=== PATIENT | male | born 1980 | race American Indian/Alaskan Native ===

== ENCOUNTER 2018-10-18 22:13 | Inpatient (IN) | payer MEDICAID ==
--- NOTE | 2018-10-18 22:23 | EDM.PDOC ---
ED HPI GENERAL MEDICAL PROBLEM - General Chief Complaint: Lower Extremity Injury/Pain Stated Complaint: TOES AMPUTATED, BLEEDING Time Seen by Provider: 10/18/18 22:22 Source of Information: Reports: Patient, RN History Limitations: Reports: No Limitations - History of Present Illness INITIAL COMMENTS - FREE TEXT/NARRATIVE: Toes amputated in GF around 10/13 patient unsure date, discharged yesterday. Increased pain , has been weight bearing trying to get up the stairs to bathroom. Stated "had" one crutch at one time, doesn't have assistive device at present. Was C/O bleeding tonight in foot since walking on it. has not gotten antibiotic since discharge. Discharged with plan for [place]. Noted they called today but phone and when could get back to them office was closed. Only taking ibuprofen for pain and not helping. Right Foot Pain Score (Numeric/FACES): 10 - Related Data Allergies Allergy/AdvReac Type Severity Reaction Status Date / Time No Known Allergies Allergy Verified 10/19/18 00:24 Home Meds: Home Meds levETIRAcetam [Keppra] 500 mg PO BID 08/22/18 [History] Aspirin [Halfprin] 81 mg PO DAILY 08/23/18 [History] Insulin Aspart [NovoLOG] 13 units SQ TIDMEALS 08/23/18 [History] Lisinopril 10 mg PO DAILY 08/23/18 [History] atorvaSTATin Calcium [Atorvastatin Calcium] 20 mg PO DAILY 08/23/18 [History] Acetaminophen 650 mg PO Q6HR PRN 10/19/18 [History] Acetaminophen with Codeine [Tylenol with Codeine #3 Tablet] 1 tab PO Q6H PRN 07/02 [History] Ertapenem [INVanz] 1 gm IV Q24H 10/19/18 [History] Gabapentin [Neurontin] 300 mg PO TID 10/19/18 [History] Ibuprofen 200 mg PO Q6HR PRN 10/19/18 [History] Insulin NPH Hum/Reg Insulin Hm [Humulin 70-30] 10 unit SQ BEDTIME 10/19/18 [ History] Past Medical History - Past Health History Medical/Surgical History: Denies Medical/Surgical History HEENT History: Reports: Impaired Vision, Other (See Below) Other HEENT History: waiting to repair retina Musculoskeletal History: Reports: Amputation Neurological History: Reports: Neuropathy, Diabetic, Seizure Endocrine/Metabolic History: Reports: Diabetes, Type I - Infectious Disease History Infectious Disease History: Reports: Chicken Pox - Past Surgical History Musculoskeletal Surgical History: Reports: Amputation Other Musculoskeletal Surgeries/Procedures:: rt great toe amputation 08-22-18 Social & Family History - Family History Family Medical History: Noncontributory - Caffeine Use Caffeine Use: Reports: Coffee Review of Systems - Review of Systems Review Of Systems: See Below Constitutional: Denies: Fever Eyes: Reports: No Symptoms Ears: Reports: No Symptoms Nose: Reports: No Symptoms Mouth/Throat: Reports: No Symptoms Respiratory: Reports: No Symptoms Cardiovascular: Reports: No Symptoms GI/Abdominal: Reports: No Symptoms. Denies: Decreased Appetite Musculoskeletal: Reports: Foot Pain (right) Skin: Reports: Wound (right foot surgical wound) Neurological: Reports: No Symptoms, Seizure (hx) Psychiatric: Reports: No Symptoms ED EXAM, GENERAL - Physical Exam Exam: See Below Exam Limited By: No Limitations General Appearance: Alert, Moderate Distress Eye Exam: Bilateral Eye: EOMI Ears: Normal External Exam, Hearing Grossly Normal Nose: Normal Inspection Throat/Mouth: Normal Inspection Head: Atraumatic, Normocephalic Neck: Normal Inspection Respiratory/Chest: No Respiratory Distress, Lungs Clear, Normal Breath Sounds Cardiovascular: Regular Rate, Rhythm, Tachycardia GI/Abdominal: Normal Bowel Sounds, Soft Back Exam: Full Range of Motion Extremities: Normal Range of Motion, Pedal Edema (right), Increased Warmth, Redness, Other (recent amputation toes right foot, seperation of wound bed around sutures, weeping, bloody yellow drainage. swelling to mid calf, redness forefoot ) Neurological: Alert, Oriented, Normal Cognition Psychiatric: Anxious Skin Exam: Warm, Erythema, Increased Warmth Course - Vital Signs Last Recorded V/S: Last Vital Signs Temp 98.4 F 10/18/18 23:48 Pulse 87 10/18/18 23:48 Resp 18 10/18/18 23:48 BP 119/72 10/18/18 23:48 Pulse Ox 99 10/18/18 23:48 - Orders/Labs/Meds Orders: Active Orders 24 hr Category Date Time Status CULTURE BLOOD [BC] Stat Lab 10/18/18 22:50 Received CULTURE BLOOD [BC] Stat Lab 10/18/18 23:45 Received Blood Culture x2 Reflex Set [OM.PC] Stat Oth 10/18/18 22:34 Ordered Medication Orders Acetaminophen (Tylenol) 650 mg PO Q4H PRN PRN Reason: Pain (Mild 1-3)/fever Hydrocodone Bitart/Acetaminophen ([place] 325-10 Mg) 1 tab PO Q4H PRN PRN Reason: Pain (moderate 4-6) Aspirin (Halfprin) 81 mg PO DAILY [facility] Atorvastatin Calcium (Lipitor) 20 mg PO DAILY [facility] Gabapentin (Neurontin) 300 mg PO TID [facility] Heparin Sodium (Porcine) (Heparin Sodium) 5,000 units SUBCUT Q8HR [facility] Ertapenem 1 gm/ Sodium (Chloride) 50 mls @ 50 mls/hr IV Q24H [facility] Last Admin: 10/19/18 01:14 Dose: 50 mls/hr Insulin Human Lispro (Humalog) 0 unit SUBCUT ACBED GENE; Protocol Insulin NPH Beef/Pork (Humulin 70-30) 10 unit SQ BEDTIME [facility] Levetiracetam (Keppra) 500 mg PO BID [facility] Lisinopril (Prinivil) 10 mg PO DAILY [facility] Morphine Sulfate (Morphine) 1 mg IVPUSH Q2H PRN PRN Reason: Pain (severe 7-10) Last Admin: 10/19/18 00:49 Dose: 1 mg Ondansetron HCl (Zofran Odt) 4 mg PO Q6H PRN PRN Reason: nausea, able to take PO Sodium Chloride (Saline Flush) 10 ml FLUSH ASDIRECTED [facility] Zolpidem Tartrate (Ambien) 5 mg PO BEDTIME PRN PRN Reason: Sleep Last Admin: 10/19/18 00:51 Dose: 5 mg Labs: Laboratory Tests 10/18/18 10/18/18 10/18/18 Range/Units 22:50 22:50 22:50 WBC Cancelled RBC Cancelled Hgb Cancelled Hct Cancelled MCV Cancelled MCH Cancelled MCHC Cancelled Plt Count Cancelled Neut % (Auto) (42.2-75.2) % Lymph % (Auto) (20.5-50.1) % [place] % (Auto) (2-8) % Eos % (Auto) (1.0-3.0) % Baso % (Auto) (0.0-1.0) % Sodium 137 (135-145) mmol/L Potassium 3.9 (3.6-5.0) mmol/L Chloride 101 (101-111) mmol/L Carbon Dioxide 24.0 (21.0-31.0) mmol/L Anion Gap 15.9 BUN 28 H (7-18) mg/dL Creatinine 0.8 (0.6-1.3) mg/dL Est Cr Clr Drug Dosing 136.07 mL/min Estimated GFR (MDRD) > 60 BUN/Creatinine Ratio 35.00 Glucose 222 H (74-105) mg/dL Lactic Acid 2.4 H (0.5-2.2) mmol/L Calcium 8.9 (8.4-10.2) mg/dl Total Bilirubin 0.5 (0.2-1.0) mg/dL AST 64 H (10-42) IU/L ALT 103 H (10-60) IU/L Alkaline Phosphatase 119 (42-121) IU/L Total Protein 8.2 (6.7-8.2) g/dl Albumin 3.8 (3.2-5.5) g/dl Globulin 4.4 Albumin/Globulin Ratio 0.86 10/18/18 Range/Units 22:50 WBC 12.1 H RBC 4.96 Hgb 13.4 L Hct 40.8 MCV 82.3 MCH 27.0 MCHC 32.8 L Plt Count 276 Neut % (Auto) 61.4 (42.2-75.2) % Lymph % (Auto) 24.0 (20.5-50.1) % [place] % (Auto) 12.1 H (2-8) % Eos % (Auto) 2.3 (1.0-3.0) % Baso % (Auto) 0.2 (0.0-1.0) % Sodium (135-145) mmol/L Potassium (3.6-5.0) mmol/L Chloride (101-111) mmol/L Carbon Dioxide (21.0-31.0) mmol/L Anion Gap BUN (7-18) mg/dL Creatinine (0.6-1.3) mg/dL Est Cr Clr Drug Dosing mL/min Estimated GFR (MDRD) BUN/Creatinine Ratio Glucose (74-105) mg/dL Lactic Acid (0.5-2.2) mmol/L Calcium (8.4-10.2) mg/dl Total Bilirubin (0.2-1.0) mg/dL AST (10-42) IU/L ALT (10-60) IU/L Alkaline Phosphatase (42-121) IU/L Total Protein (6.7-8.2) g/dl Albumin (3.2-5.5) g/dl Globulin Albumin/Globulin Ratio Meds: Medications Generic Name Dose Route Start Last Admin Trade Name Freq PRN Reason Stop Dose Admin Acetaminophen 650 mg 10/19/18 00:22 Tylenol PO Q4H PRN Pain (Mild 1-3)/fever Hydrocodone Bitart/Acetaminophen 1 tab 10/19/18 00:22 [place] 325-10 Mg PO Q4H PRN Pain (moderate 4-6) Aspirin 81 mg 10/19/18 09:00 Halfprin PO DAILY [facility] Atorvastatin Calcium 20 mg 10/19/18 09:00 Lipitor PO DAILY [facility] Gabapentin 300 mg 10/19/18 09:00 Neurontin PO TID [facility] Heparin Sodium (Porcine) 5,000 units 10/19/18 06:00 Heparin Sodium SUBCUT Q8HR [facility] Ertapenem 1 gm/ Sodium 50 mls @ 50 mls/hr 10/19/18 01:00 10/19/18 01:14 Chloride IV 50 mls/hr Q24H [facility] Administration Insulin Human Lispro 0 unit 10/19/18 07:00 Humalog SUBCUT ACBED [facility] Protocol Insulin NPH Beef/Pork 10 unit 10/19/18 21:00 Humulin 70-30 SQ BEDTIME [facility] Levetiracetam 500 mg 10/19/18 09:00 Keppra PO BID [facility] Lisinopril 10 mg 10/19/18 09:00 Prinivil PO DAILY [facility] Morphine Sulfate 1 mg 10/19/18 00:22 10/19/18 00:49 Morphine IVPUSH 1 mg Q2H PRN Administration Pain (severe 7-10) Ondansetron HCl 4 mg 10/19/18 00:22 Zofran Odt PO Q6H PRN nausea, able to take PO Sodium Chloride 10 ml 10/19/18 00:45 Saline Flush FLUSH ASDIRECTED [facility] Zolpidem Tartrate 5 mg 10/19/18 00:22 10/19/18 00:51 Ambien PO 5 mg BEDTIME PRN Administration Sleep Discontinued Medications Generic Name Dose Route Start Last Admin Trade Name Freq PRN Reason Stop Dose Admin Ketorolac Tromethamine 30 mg 10/18/18 22:33 10/18/18 22:48 Toradol IM 10/18/18 22:34 30 mg ONETIME ONE Administration Non-Formulary Medication 1 gm 10/19/18 00:30 10/19/18 01:03 Ertapenem [Invanz] IV Not Given Q24H [facility] Oxycodone/Acetaminophen 1 tab 10/18/18 22:44 10/18/18 22:48 Percocet 325-5 Mg PO 10/18/18 22:45 1 tab ONETIME ONE Administration - Re-Assessments/Exams Free Text/Narrative Re-Assessment/Exam: 10/18/18 23:40 Patient states no plan to go to [facility] , car broke down and no way to get there. Did not pick any medications up at [facility]. Notes told in GF that he did not need to take long acting insulin anymore. Did not pick any medications up on discharge. Stated he tried [facility] today. States unaware that any Rx at [facility]. 10/18/18 23:43 Dr. Pierce accepting patient for admission. Departure - Departure Time of Disposition: 22:55 Disposition: Admitted As Inpatient 65 Condition: Fair Clinical Impression: Hyperglycemia Osteomyelitis Qualifiers: Osteomyelitis type: subacute Osteomyelitis location: foot Laterality: right Qualified Code(s): M86.271 - Subacute osteomyelitis, right ankle and foot - Discharge Information *PRESCRIPTION DRUG MONITORING PROGRAM REVIEWED*: No *COPY OF PRESCRIPTION DRUG MONITORING REPORT IN PATIENT LAURENCE: No - My Orders Last 24 Hours: My Active Orders 10/18/18 22:34 Blood Culture x2 Reflex Set [OM.PC] Stat 10/18/18 22:50 CULTURE BLOOD [BC] Stat 10/18/18 23:45 CULTURE BLOOD [BC] Stat - Assessment/Plan Last 24 Hours: My Active Orders 10/18/18 22:34 Blood Culture x2 Reflex Set [OM.PC] Stat 10/18/18 22:50 CULTURE BLOOD [BC] Stat 10/18/18 23:45 CULTURE BLOOD [BC] Stat
[2018-10-18] MEDS ORDERED: Ketorolac 30 MG/ML SDV IM ONE (22:33)
[2018-10-18] MEDS ORDERED: Acetaminophen/oxyCODONE 325-5 MG Tab PO ONE (22:44)
[2018-10-18 23:17] LABS: ANION GAP 15.9; CHLORIDE,CL 101 mmol/L (101-111); SODIUM,NA 137 mmol/L (135-145)
[2018-10-19] MEDS ORDERED: Morphine 2 MG/ML Syringe IVPUSH PRN (00:22)
[2018-10-19] MEDS ORDERED: Acetaminophen 325 MG Tab PO PRN (00:22)
[2018-10-19] MEDS ORDERED: Ondansetron 4 MG Tab.DIS PO PRN (00:22)
[2018-10-19] MEDS ORDERED: Non-Formulary Medication 1 Each (Ertapenem [Invanz] 1 GM) IV SCH (00:30)
--- NOTE | 2018-10-19 00:32 | PCM.HP ---
H&P History of Present Illness - General Date of Service: 10/19/18 Admit Problem/Dx: Admission Diagnosis/Problem Admission Diagnosis/Problem Osteomyelitis of foot Source of Information: Patient - History of Present Illness Initial Comments - Free Text/Narative: The patient is a 38-year-old gentleman with a history of diabetes. He had right foot osteomyelitis requiring surgery. Subsequently was on IV antibiotic with Zosyn. The patient was readmitted to acute care with cellulitis, osteomyelitis. Underwent amputation by podiatry Was followed by infectious disease specialist and that treatment with IV ertapenem was suggested. This was set up as an outpatient therapy. The patient never got to forego where he was supposed to get the IV therapies He came to the emergency room with complaints of bleeding from the amputation site. He continues to have moderate to severe pain in the area. Worse with walking on it. No fever. Associated mild bleeding from the surgical wound. Right Foot Pain Score (Numeric/FACES): 10 - Related Data Allergies/Adverse Reactions: Allergies Allergy/AdvReac Type Severity Reaction Status Date / Time No Known Allergies Allergy Verified 10/19/18 00:24 Home Medications: Home Meds levETIRAcetam [Keppra] 500 mg PO BID 08/22/18 [History] Aspirin [Halfprin] 81 mg PO DAILY 08/23/18 [History] Insulin Aspart [NovoLOG] 13 units SQ TIDMEALS 08/23/18 [History] Lisinopril 10 mg PO DAILY 08/23/18 [History] atorvaSTATin Calcium [Atorvastatin Calcium] 20 mg PO DAILY 08/23/18 [History] Acetaminophen 650 mg PO Q6HR PRN 10/19/18 [History] Acetaminophen with Codeine [Tylenol with Codeine #3 Tablet] 1 tab PO Q6H PRN 07/02 [History] Ertapenem [INVanz] 1 gm IV Q24H 10/19/18 [History] Gabapentin [Neurontin] 300 mg PO TID 10/19/18 [History] Ibuprofen 200 mg PO Q6HR PRN 10/19/18 [History] Insulin NPH Hum/Reg Insulin Hm [Humulin 70-30] 10 unit SQ BEDTIME 10/19/18 [ History] Past Medical History - Past Health History Medical/Surgical History: Denies Medical/Surgical History HEENT History: Reports: Impaired Vision, Other (See Below) Other HEENT History: waiting to repair retina Musculoskeletal History: Reports: Amputation Neurological History: Reports: Neuropathy, Diabetic, Seizure Endocrine/Metabolic History: Reports: Diabetes, Type I - Infectious Disease History Infectious Disease History: Reports: Chicken Pox - Past Surgical History Musculoskeletal Surgical History: Reports: Amputation Other Musculoskeletal Surgeries/Procedures:: rt great toe amputation 08-22-18 Social & Family History - Family History Family Medical History: Noncontributory - Tobacco Use Smoking Status *Q: Current Some Day Smoker Years of Tobacco use: 10 Packs/Tins Daily: 0.1 Used Tobacco, but Quit: No Second Hand Smoke Exposure: Yes - Caffeine Use Caffeine Use: Reports: Coffee - Recreational Drug Use Recreational Drug Use: No H&P Review of Systems - Review of Systems: Review Of Systems: See Below General: Denies: Fever, Chills Pulmonary: Denies: Shortness of Breath Cardiovascular: Reports: Edema (Mild in the right foot). Denies: Chest Pain Gastrointestinal: Denies: Abdominal Pain Genitourinary: Denies: Dysuria Psychiatric: Denies: Confusion Exam - Exam Exam: See Below - Vital Signs Vital Signs: Last Vital Signs Temp 36.9 C 10/18/18 23:48 Pulse 87 10/18/18 23:48 Resp 18 10/18/18 23:48 BP 119/72 10/18/18 23:48 Pulse Ox 99 10/18/18 23:48 Weight: 88.632 kg - Exam General: Alert, Oriented Neck: Supple Lungs: Clear to Auscultation, Normal Respiratory Effort Cardiovascular: Regular Rate, Regular Rhythm GI/Abdominal Exam: Normal Bowel Sounds, Soft, Non-Tender Extremities: Pedal Edema (Anna right foot edema) Skin: Warm, Other (Right foot with surgical site with small area of wound dehiscence. Small amount of bleeding. There is no significant redness around the wound.) - Patient Data Lab Results Last 24 hrs: Laboratory Results - last 24 hr 10/18/18 10/18/18 10/18/18 Range/Units 22:50 22:50 22:50 WBC Cancelled RBC Cancelled Hgb Cancelled Hct Cancelled MCV Cancelled MCH Cancelled MCHC Cancelled Plt Count Cancelled Neut % (Auto) (42.2-75.2) % Lymph % (Auto) (20.5-50.1) % [place] % (Auto) (2-8) % Eos % (Auto) (1.0-3.0) % Baso % (Auto) (0.0-1.0) % Sodium 137 (135-145) mmol/L Potassium 3.9 (3.6-5.0) mmol/L Chloride 101 (101-111) mmol/L Carbon Dioxide 24.0 (21.0-31.0) mmol/L Anion Gap 15.9 BUN 28 H (7-18) mg/dL Creatinine 0.8 (0.6-1.3) mg/dL Est Cr Clr Drug Dosing 136.07 mL/min Estimated GFR (MDRD) > 60 BUN/Creatinine Ratio 35.00 Glucose 222 H (74-105) mg/dL Lactic Acid 2.4 H (0.5-2.2) mmol/L Calcium 8.9 (8.4-10.2) mg/dl Total Bilirubin 0.5 (0.2-1.0) mg/dL AST 64 H (10-42) IU/L ALT 103 H (10-60) IU/L Alkaline Phosphatase 119 (42-121) IU/L Total Protein 8.2 (6.7-8.2) g/dl Albumin 3.8 (3.2-5.5) g/dl Globulin 4.4 Albumin/Globulin Ratio 0.86 10/18/18 Range/Units 22:50 WBC 12.1 H RBC 4.96 Hgb 13.4 L Hct 40.8 MCV 82.3 MCH 27.0 MCHC 32.8 L Plt Count 276 Neut % (Auto) 61.4 (42.2-75.2) % Lymph % (Auto) 24.0 (20.5-50.1) % [place] % (Auto) 12.1 H (2-8) % Eos % (Auto) 2.3 (1.0-3.0) % Baso % (Auto) 0.2 (0.0-1.0) % Sodium (135-145) mmol/L Potassium (3.6-5.0) mmol/L Chloride (101-111) mmol/L Carbon Dioxide (21.0-31.0) mmol/L Anion Gap BUN (7-18) mg/dL Creatinine (0.6-1.3) mg/dL Est Cr Clr Drug Dosing mL/min Estimated GFR (MDRD) BUN/Creatinine Ratio Glucose (74-105) mg/dL Lactic Acid (0.5-2.2) mmol/L Calcium (8.4-10.2) mg/dl Total Bilirubin (0.2-1.0) mg/dL AST (10-42) IU/L ALT (10-60) IU/L Alkaline Phosphatase (42-121) IU/L Total Protein (6.7-8.2) g/dl Albumin (3.2-5.5) g/dl Globulin Albumin/Globulin Ratio Result Diagrams: 10/18/18 22:50 10/18/18 22:50 - Problem List (1) Osteomyelitis of great toe of right foot SNOMED Code(s): 838510105, 152476270, [id number] ICD Code: M86.9 - OSTEOMYELITIS, UNSPECIFIED Status: Acute Current Visit : No (2) Seizure SNOMED Code(s): 64408430 ICD Code: R56.9 - UNSPECIFIED CONVULSIONS Status: Acute Current Visit: No (3) Uncontrolled type 2 diabetes mellitus SNOMED Code(s): 613982540, 496716653 ICD Code: E11.65 - TYPE 2 DIABETES MELLITUS WITH HYPERGLYCEMIA Status: Acute Current Visit: No Qualifiers: Glycemic state: with hyperglycemia Qualified Code(s): E11.65 - Type 2 diabetes mellitus with hyperglycemia Problem List Initiated/Reviewed/Updated: Yes Orders Last 24hrs: Active Orders 24 hr Category Date Time Status Admission Status [Patient Status] [ADT] Routine ADT 10/18/18 23:42 Active Blood Glucose Check, Bedside [RC] QIDACANDBED Care 10/19/18 00:22 Ordered Glucose [Blood Glucose Check, Bedside] [RC] ONETIME Care 10/18/18 22:59 Active Oxygen Therapy [RC] PRN Care 10/19/18 00:22 Ordered Up With Assistance [RC] ASDIRECTED Care 10/19/18 00:22 Ordered VTE/DVT Education [RC] PER UNIT ROUTINE Care 10/19/18 00:22 Ordered Vital Signs [RC] Q4H Care 10/19/18 00:22 Ordered Consistent Carbohydrate Diet [DIET] Diet 10/19/18 Breakfast Ordered BASIC METABOLIC PANEL,BMP [CHEM] AM Lab 10/19/18 05:11 Ordered CBC W/O DIFF,HEMOGRAM [HEME] AM Lab 10/19/18 05:11 Ordered CULTURE BLOOD [BC] Stat Lab 10/18/18 22:50 Received CULTURE BLOOD [BC] Stat Lab 10/18/18 23:45 Received Acetaminophen [Tylenol] Med 10/19/18 00:22 Ordered 650 mg PO Q4H PRN Acetaminophen/HYDROcodone [[place] 325-10 MG] Med 10/19/18 00:22 Ordered 1 tab PO Q4H PRN Aspirin [Halfprin] Med 10/19/18 09:00 Ordered 81 mg PO DAILY Ertapenem [INVanz] Med 10/19/18 00:30 Ordered 1 gm IV Q24H Gabapentin [Neurontin] Med 10/19/18 09:00 Ordered 300 mg PO TID Heparin Sodium Med 10/19/18 06:00 Ordered 5,000 units SUBCUT Q8HR Insulin Lispro [HumaLOG] Med 10/19/18 07:00 Ordered See Protocol SUBCUT ACBED Insulin NPH Hum/Reg Insulin Hm [Humulin 70-30] Med 10/19/18 21:00 Ordered 10 unit SQ BEDTIME Lisinopril [Prinivil] Med 10/19/18 09:00 Ordered 10 mg PO DAILY Morphine Med 10/19/18 00:22 Ordered 1 mg IVPUSH Q2H PRN Ondansetron [Zofran ODT] Med 10/19/18 00:22 Ordered 4 mg PO Q6H PRN Zolpidem [Ambien] Med 10/19/18 00:22 Ordered 5 mg PO BEDTIME PRN atorvaSTATin [Lipitor] Med 10/19/18 09:00 Ordered 20 mg PO DAILY levETIRAcetam [Keppra] Med 10/19/18 09:00 Ordered 500 mg PO BID Blood Culture x2 Reflex Set [OM.PC] Stat Oth 10/18/18 22:34 Ordered Resuscitation Status Routine Resus Stat 10/19/18 00:22 Ordered Medication Orders Acetaminophen (Tylenol) 650 mg PO Q4H PRN PRN Reason: Pain (Mild 1-3)/fever Hydrocodone Bitart/Acetaminophen ([place] 325-10 Mg) 1 tab PO Q4H PRN PRN Reason: Pain (moderate 4-6) Aspirin (Halfprin) 81 mg PO DAILY [facility] Atorvastatin Calcium (Lipitor) 20 mg PO DAILY [facility] Gabapentin (Neurontin) 300 mg PO TID [facility] Heparin Sodium (Porcine) (Heparin Sodium) 5,000 units SUBCUT Q8HR [facility] Insulin Human Lispro (Humalog) 0 unit SUBCUT ACBED GENE; Protocol Insulin NPH Beef/Pork (Humulin 70-30) 10 unit SQ BEDTIME [facility] Levetiracetam (Keppra) 500 mg PO BID [facility] Lisinopril (Prinivil) 10 mg PO DAILY [facility] Morphine Sulfate (Morphine) 1 mg IVPUSH Q2H PRN PRN Reason: Pain (severe 7-10) Non-Formulary Medication (Ertapenem [Invanz]) 1 gm IV Q24H [facility] Ondansetron HCl (Zofran Odt) 4 mg PO Q6H PRN PRN Reason: nausea, able to take PO Zolpidem Tartrate (Ambien) 5 mg PO BEDTIME PRN PRN Reason: Sleep Assessment/Plan Comment:: Patient presented to the emergency room with complaints of sudden onset of blood and pus draining from the surgical wound. He has been using Zosyn at home for IV antibiotic for the osteomyelitis treatment. Right foot cellulitis, osteomyelitis there was abscess, septic joint based on MRI Blood culture neg Wound culture: multidrug resistant enterococcus Treat with ertapenem F/up with dr Kc Consulted podiatry for an evaluation for surgical intervention. On 10/11 underwent 1. Right foot transmetatarsal amputation 2. Right foot tendoachilles lengthening treat with tylenol, hydrocodone, morphine IV Cont neurontin Plan for f/up with podiatry Diabetes Treat with NPH insulin follow BS Htn Treat with lisinopril History of seizure disorder Continue Keppra
[2018-10-19] MEDS ORDERED: Sodium Chloride 0.9% 10 ML Syringe FLUSH SCH (00:45)
[2018-10-19] MEDS: Zolpidem 5 MG Tab PO PRN ×2 (00:51→21:51)
[2018-10-19] MEDS ORDERED: Ertapenem 1 GM in Sodium Chloride 0.9% 50 ML IV SCH (01:00)
[2018-10-19] MEDS: Heparin Sodium 5,000 Units/ML Vial SUBCUT SCH ×3 (05:30→21:36)
[2018-10-19 07:06] LABS: ANION GAP 11.6; CHLORIDE,CL 104 mmol/L (101-111); SODIUM,NA 138 mmol/L (135-145)
[2018-10-19] MEDS: Aspirin 81 MG Tab.EC PO SCH (08:44)
[2018-10-19] MEDS: levETIRAcetam 500 MG Tab PO SCH ×2 (08:45→21:35)
[2018-10-19] MEDS: atorvaSTATin 20 MG Tab PO SCH (08:45)
[2018-10-19] MEDS: Lisinopril 10 MG Tab PO SCH (08:46)
[2018-10-19] MEDS: Acetaminophen/HYDROcodone 325-10 MG Tab PO PRN ×3 (08:46→21:35)
[2018-10-19] MEDS: Gabapentin 300 MG Cap PO SCH ×3 (08:46→21:35)
[2018-10-19] MEDS: Insulin Lispro 100 Units/ML 3 ML Vial SUBCUT SCH ×5 (09:57→21:32)
--- NOTE | 2018-10-19 11:24 | PCM.PN ---
- General Info Date of Service: 10/19/18 Admission Dx/Problem (Free Text): Admission Diagnosis/Problem Admission Diagnosis/Problem Osteomyelitis of foot Subjective Update: Pain in the amputated right foot area is better. No associated fever. No further bleeding. Has no shortness of breath, no chest pain. Functional Status: Reports: Pain Controlled - Review of Systems General: Denies: Fever Pulmonary: Denies: Shortness of Breath Cardiovascular: Denies: Chest Pain, Edema Genitourinary: Denies: Dysuria - Patient Data Vitals - Most Recent: Last Vital Signs Temp 36.9 C 10/19/18 07:19 Pulse 76 10/19/18 07:19 Resp 18 10/19/18 07:19 BP 99/59 L 10/19/18 08:46 Pulse Ox 94 L 10/19/18 07:19 Weight - Most Recent: 88.632 kg I&O - Last 24 Hours: Intake & Output 10/18/18 10/19/18 10/19/18 22:59 06:59 14:59 Intake Total 53 720 Balance 53 720 Lab Results Last 24 Hours: Laboratory Results - last 24 hr 10/18/18 10/18/18 10/18/18 Range/Units 22:50 22:50 22:50 WBC Cancelled RBC Cancelled Hgb Cancelled Hct Cancelled MCV Cancelled MCH Cancelled MCHC Cancelled Plt Count Cancelled Neut % (Auto) (42.2-75.2) % Lymph % (Auto) (20.5-50.1) % [place] % (Auto) (2-8) % Eos % (Auto) (1.0-3.0) % Baso % (Auto) (0.0-1.0) % Sodium 137 (135-145) mmol/L Potassium 3.9 (3.6-5.0) mmol/L Chloride 101 (101-111) mmol/L Carbon Dioxide 24.0 (21.0-31.0) mmol/L Anion Gap 15.9 BUN 28 H (7-18) mg/dL Creatinine 0.8 (0.6-1.3) mg/dL Est Cr Clr Drug Dosing 136.07 mL/min Estimated GFR (MDRD) > 60 BUN/Creatinine Ratio 35.00 Glucose 222 H (74-105) mg/dL POC Glucose (70-105) mg/dl Lactic Acid 2.4 H (0.5-2.2) mmol/L Calcium 8.9 (8.4-10.2) mg/dl Total Bilirubin 0.5 (0.2-1.0) mg/dL AST 64 H (10-42) IU/L ALT 103 H (10-60) IU/L Alkaline Phosphatase 119 (42-121) IU/L Total Protein 8.2 (6.7-8.2) g/dl Albumin 3.8 (3.2-5.5) g/dl Globulin 4.4 Albumin/Globulin Ratio 0.86 10/18/18 10/18/18 10/19/18 Range/Units 22:50 23:00 06:30 WBC 12.1 H 7.7 RBC 4.96 4.15 L Hgb 13.4 L 11.1 L D Hct 40.8 34.6 L MCV 82.3 83.4 MCH 27.0 26.7 L MCHC 32.8 L 32.1 L Plt Count 276 202 Neut % (Auto) 61.4 (42.2-75.2) % Lymph % (Auto) 24.0 (20.5-50.1) % [place] % (Auto) 12.1 H (2-8) % Eos % (Auto) 2.3 (1.0-3.0) % Baso % (Auto) 0.2 (0.0-1.0) % Sodium (135-145) mmol/L Potassium (3.6-5.0) mmol/L Chloride (101-111) mmol/L Carbon Dioxide (21.0-31.0) mmol/L Anion Gap BUN (7-18) mg/dL Creatinine (0.6-1.3) mg/dL Est Cr Clr Drug Dosing mL/min Estimated GFR (MDRD) BUN/Creatinine Ratio Glucose (74-105) mg/dL POC Glucose 215 H (70-105) mg/dl Lactic Acid (0.5-2.2) mmol/L Calcium (8.4-10.2) mg/dl Total Bilirubin (0.2-1.0) mg/dL AST (10-42) IU/L ALT (10-60) IU/L Alkaline Phosphatase (42-121) IU/L Total Protein (6.7-8.2) g/dl Albumin (3.2-5.5) g/dl Globulin Albumin/Globulin Ratio 10/19/18 10/19/18 Range/Units 06:30 08:08 WBC RBC Hgb Hct MCV MCH MCHC Plt Count Neut % (Auto) (42.2-75.2) % Lymph % (Auto) (20.5-50.1) % [place] % (Auto) (2-8) % Eos % (Auto) (1.0-3.0) % Baso % (Auto) (0.0-1.0) % Sodium 138 (135-145) mmol/L Potassium 3.6 (3.6-5.0) mmol/L Chloride 104 (101-111) mmol/L Carbon Dioxide 26.0 (21.0-31.0) mmol/L Anion Gap 11.6 BUN 29 H (7-18) mg/dL Creatinine 0.7 (0.6-1.3) mg/dL Est Cr Clr Drug Dosing 155.51 mL/min Estimated GFR (MDRD) > 60 BUN/Creatinine Ratio Glucose 144 H (74-105) mg/dL POC Glucose 154 H (70-105) mg/dl Lactic Acid (0.5-2.2) mmol/L Calcium 8.4 (8.4-10.2) mg/dl Total Bilirubin (0.2-1.0) mg/dL AST (10-42) IU/L ALT (10-60) IU/L Alkaline Phosphatase (42-121) IU/L Total Protein (6.7-8.2) g/dl Albumin (3.2-5.5) g/dl Globulin Albumin/Globulin Ratio Med Orders - Current: Current Medications Acetaminophen (Tylenol) 650 mg PO Q4H PRN PRN Reason: Pain (Mild 1-3)/fever Hydrocodone Bitart/Acetaminophen ([place] 325-10 Mg) 1 tab PO Q4H PRN PRN Reason: Pain (moderate 4-6) Last Admin: 10/19/18 08:46 Dose: 1 tab Aspirin (Halfprin) 81 mg PO DAILY [facility] Last Admin: 10/19/18 08:44 Dose: 81 mg Atorvastatin Calcium (Lipitor) 20 mg PO DAILY [facility] Last Admin: 10/19/18 08:45 Dose: 20 mg Gabapentin (Neurontin) 300 mg PO TID [facility] Last Admin: 10/19/18 08:46 Dose: 300 mg Heparin Sodium (Porcine) (Heparin Sodium) 5,000 units SUBCUT Q8HR [facility] Last Admin: 10/19/18 05:30 Dose: Not Given Ertapenem 1 gm/ Sodium (Chloride) 50 mls @ 50 mls/hr IV Q24H [facility] Insulin Human Lispro (Humalog) 0 unit SUBCUT ACBED [facility]; Protocol Last Admin: 10/19/18 09:57 Dose: 1 unit Insulin NPH Beef/Pork (Humulin 70-30) 10 unit SQ BEDTIME [facility] Levetiracetam (Keppra) 500 mg PO BID [facility] Last Admin: 10/19/18 08:45 Dose: 500 mg Lisinopril (Prinivil) 10 mg PO DAILY [facility] Last Admin: 10/19/18 08:46 Dose: Not Given Morphine Sulfate (Morphine) 1 mg IVPUSH Q2H PRN PRN Reason: Pain (severe 7-10) Last Admin: 10/19/18 00:49 Dose: 1 mg Ondansetron HCl (Zofran Odt) 4 mg PO Q6H PRN PRN Reason: nausea, able to take PO Sodium Chloride (Saline Flush) 10 ml FLUSH ASDIRECTED [facility] Zolpidem Tartrate (Ambien) 5 mg PO BEDTIME PRN PRN Reason: Sleep Last Admin: 10/19/18 00:51 Dose: 5 mg Discontinued Medications Ertapenem 1 gm/ Sodium (Chloride) 50 mls @ 50 mls/hr IV Q24H [facility] Last Admin: 10/19/18 01:14 Dose: 50 mls/hr Ketorolac Tromethamine (Toradol) 30 mg IM ONETIME ONE Stop: 10/18/18 22:34 Last Admin: 10/18/18 22:48 Dose: 30 mg Non-Formulary Medication (Ertapenem [Invanz]) 1 gm IV Q24H [facility] Last Admin: 10/19/18 01:03 Dose: Not Given Oxycodone/Acetaminophen (Percocet 325-5 Mg) 1 tab PO ONETIME ONE Stop: 10/18/18 22:45 Last Admin: 10/18/18 22:48 Dose: 1 tab - Exam General: Alert, Oriented Neck: Supple Lungs: Clear to Auscultation, Normal Respiratory Effort Cardiovascular: Regular Rate, Regular Rhythm GI/Abdominal Exam: Normal Bowel Sounds, Soft, Non-Tender Extremities: No Pedal Edema, Other (wound dressing with kasey wrap) - Problem List & Annotations (1) Osteomyelitis of great toe of right foot SNOMED Code(s): 953569324, 386855041, 5002120009989587 Code(s): M86.9 - OSTEOMYELITIS, UNSPECIFIED Status: Acute Current Visit: No (2) Seizure SNOMED Code(s): 07943321 Code(s): R56.9 - UNSPECIFIED CONVULSIONS Status: Acute Current Visit: No (3) Uncontrolled type 2 diabetes mellitus SNOMED Code(s): 395023766, 211261962 Code(s): E11.65 - TYPE 2 DIABETES MELLITUS WITH HYPERGLYCEMIA Status: Acute Current Visit: No Qualifiers: Glycemic state: with hyperglycemia Qualified Code(s): E11.65 - Type 2 diabetes mellitus with hyperglycemia - Problem List Review Problem List Initiated/Reviewed/Updated: Yes - My Orders Last 24 Hours: My Active Orders 10/19/18 00:22 Blood Glucose Check, Bedside [RC] QIDACANDBED Oxygen Therapy [RC] PRN Up With Assistance [RC] ASDIRECTED VTE/DVT Education [RC] PER UNIT ROUTINE Vital Signs [RC] 00,04,08,12,16,20 Acetaminophen [Tylenol] 650 mg PO Q4H PRN Acetaminophen/HYDROcodone [[place] 325-10 MG] 1 tab PO Q4H PRN Morphine 1 mg IVPUSH Q2H PRN Ondansetron [Zofran ODT] 4 mg PO Q6H PRN Zolpidem [Ambien] 5 mg PO BEDTIME PRN Resuscitation Status Routine 10/19/18 00:33 Communication Order [RC] DAILY 10/19/18 00:45 Sodium Chloride 0.9% [Saline Flush] 10 ml FLUSH ASDIRECTED 10/19/18 06:00 Heparin Sodium 5,000 units SUBCUT Q8HR 10/19/18 07:00 Insulin Lispro [HumaLOG] See Protocol SUBCUT ACBED 10/19/18 09:00 Aspirin [Halfprin] 81 mg PO DAILY Gabapentin [Neurontin] 300 mg PO TID Lisinopril [Prinivil] 10 mg PO DAILY atorvaSTATin [Lipitor] 20 mg PO DAILY levETIRAcetam [Keppra] 500 mg PO BID 10/19/18 21:00 Insulin NPH Hum/Reg Insulin Hm [Humulin 70-30] 10 unit SQ BEDTIME 10/19/18 Breakfast Consistent Carbohydrate Diet [DIET] 10/20/18 05:15 BASIC METABOLIC PANEL,BMP [CHEM] AM CBC WITH AUTO DIFF [HEME] AM 10/20/18 06:00 Ertapenem [INVanz] 1 gm Sodium Chloride 0.9% [Normal Saline] 50 ml IV Q24H - Plan Plan:: Patient presented to the emergency room with complaints of sudden onset of blood and pus draining from the surgical wound. He has been using Zosyn at home for IV antibiotic for the osteomyelitis treatment. Right foot cellulitis, osteomyelitis there was abscess, septic joint based on MRI Blood culture neg Wound culture: multidrug resistant enterococcus Treat with ertapenem plan for 4 weeks IV Abx F/up with dr Kc weekly Consulted podiatry for an evaluation for surgical intervention. On 10/11 underwent 1. Right foot transmetatarsal amputation 2. Right foot tendoachilles lengthening treat with tylenol, hydrocodone, morphine IV Cont neurontin Plan for f/up with podiatry will need daily wound dressing use xeroform, kerlix, kasey wrap Diabetes Treat with NPH insulin follow BS Htn Treat with lisinopril History of seizure disorder Continue Kera d/w discharge plans The patient previously has been on outpatient IV antibiotic. He was using Zosyn with home infusion. There was significant problems with adherence to treatment plan. Recently discharged from acute care with plans on outpatient home administered daily antibiotic. The patient was unable to even start that plan. Discussed with social work, he would benefit from swing bed treatment with controlled environment, reliable IV antibiotic and daily dressing changes.
[2018-10-19] MEDS ORDERED: Insulin NPH HUM/REG Insulin HM 100 UNIT/ML 3 ML Vial SQ SCH (21:00)
[2018-10-20] MEDS: Heparin Sodium 5,000 Units/ML Vial SUBCUT SCH (05:54)
[2018-10-20] MEDS ORDERED: Ertapenem 1 GM in Sodium Chloride 0.9% 50 ML IV SCH (06:00)
[2018-10-20 06:55] LABS: ANION GAP 11.9; CHLORIDE,CL 105 mmol/L (101-111); SODIUM,NA 139 mmol/L (135-145)
[2018-10-20] MEDS: Insulin Lispro 100 Units/ML 3 ML Vial SUBCUT SCH ×2 (08:07→12:17)
[2018-10-20] MEDS: Lisinopril 10 MG Tab PO SCH (09:10)
[2018-10-20] MEDS: Gabapentin 300 MG Cap PO SCH (09:11)
[2018-10-20] MEDS: Aspirin 81 MG Tab.EC PO SCH (09:11)
[2018-10-20] MEDS: atorvaSTATin 20 MG Tab PO SCH (09:11)
[2018-10-20] MEDS: levETIRAcetam 500 MG Tab PO SCH (09:11)
[2018-10-20] MEDS: Acetaminophen/HYDROcodone 325-10 MG Tab PO PRN (09:12)
--- NOTE | 2018-10-20 11:11 | PCM.DCSUM1 ---
Discharge Summary - Hospital Course Free Text/Narrative:: Patient presented to the emergency room with complaints of sudden onset of blood and pus draining from the surgical wound. He has been using Zosyn at home for IV antibiotic for the osteomyelitis treatment. Right foot cellulitis, osteomyelitis there was abscess, septic joint based on MRI Blood culture neg Wound culture: multidrug resistant enterococcus Treat with ertapenem plan for 4 weeks IV Abx F/up with dr Kc weekly transfer to [facility] Consulted podiatry for an evaluation for surgical intervention. On 10/11 underwent 1. Right foot transmetatarsal amputation 2. Right foot tendoachilles lengthening treat with tylenol, hydrocodone, morphine IV Cont neurontin Plan for f/up with podiatry on Tuesday will need daily wound dressing use xeroform, kerlix, aksey wrap Diabetes Treat with NPH insulin follow BS Htn Treat with lisinopril History of seizure disorder Continue Keppra Diagnosis: Stroke: No - Discharge Data Discharge Date: 10/20/18 Discharge Disposition: Home, Self-Care 01 Condition: Good - Discharge Diagnosis/Problem(s) (1) Osteomyelitis of great toe of right foot SNOMED Code(s): 205318164, 824239234, [id number] ICD Code: M86.9 - OSTEOMYELITIS, UNSPECIFIED Status: Acute Current Visit : No (2) Seizure SNOMED Code(s): 97179935 ICD Code: R56.9 - UNSPECIFIED CONVULSIONS Status: Acute Current Visit: No (3) Uncontrolled type 2 diabetes mellitus SNOMED Code(s): 277710009, 503599047 ICD Code: E11.65 - TYPE 2 DIABETES MELLITUS WITH HYPERGLYCEMIA Status: Acute Current Visit: No Qualifiers: Glycemic state: with hyperglycemia Qualified Code(s): E11.65 - Type 2 diabetes mellitus with hyperglycemia - Patient Instructions Diet: Diabetic Diet Activity: As Tolerated - Discharge Plan *PRESCRIPTION DRUG MONITORING PROGRAM REVIEWED*: No *COPY OF PRESCRIPTION DRUG MONITORING REPORT IN PATIENT LAURENCE: No Home Medications: Home Meds levETIRAcetam [Keppra] 500 mg PO BID 08/22/18 [History] Aspirin [Halfprin] 81 mg PO DAILY 08/23/18 [History] Insulin Aspart [NovoLOG] 13 units SQ TIDMEALS 08/23/18 [History] Lisinopril 10 mg PO DAILY 08/23/18 [History] atorvaSTATin Calcium [Atorvastatin Calcium] 20 mg PO DAILY 08/23/18 [History] Acetaminophen 650 mg PO Q6HR PRN 10/19/18 [History] Acetaminophen with Codeine [Tylenol with Codeine #3 Tablet] 1 tab PO Q6H PRN 07/02 [History] Ertapenem [INVanz] 1 gm IV Q24H 10/19/18 [History] Gabapentin [Neurontin] 300 mg PO TID 10/19/18 [History] Ibuprofen 200 mg PO Q6HR PRN 10/19/18 [History] Insulin NPH Hum/Reg Insulin Hm [Humulin 70-30] 10 unit SQ BEDTIME 10/19/18 [ History] Oxygen Therapy Mode: Room Air Forms: ED Department Discharge Referrals: PCP,Unobtain [Primary Care Provider] - - Discharge Summary/Plan Comment DC Time >30 min.: No - General Info Date of Service: 10/20/18 - Review of Systems General: Denies: Fever, Weakness Pulmonary: Denies: Shortness of Breath Cardiovascular: Denies: Chest Pain Gastrointestinal: Denies: Abdominal Pain Musculoskeletal: Reports: Leg Pain - Patient Data Vitals - Most Recent: Last Vital Signs Temp 36.7 C 10/20/18 08:00 Pulse 70 10/20/18 08:00 Resp 18 10/20/18 08:00 BP 115/67 10/20/18 09:10 Pulse Ox 97 10/20/18 08:00 Weight - Most Recent: 88.632 kg I&O - Last 24 hours: Intake & Output 10/19/18 10/20/18 10/20/18 22:59 06:59 14:59 Intake Total 125 284 Balance 125 284 Lab Results - Last 24 hrs: Laboratory Results - last 24 hr 10/19/18 10/19/18 10/19/18 Range/Units 11:29 16:41 21:09 WBC (5.0-10.0) 10^3/uL RBC (4.6-6.2) 10^6/uL Hgb (14.0-18.0) g/dL Hct (40.0-54.0) % MCV (80-100) fL MCH (27.0-34.0) pg MCHC (33.0-35.0) g/dL Plt Count (150-450) 10^3/uL Neut % (Auto) (42.2-75.2) % Lymph % (Auto) (20.5-50.1) % [place] % (Auto) (2-8) % Eos % (Auto) (1.0-3.0) % Baso % (Auto) (0.0-1.0) % Sodium (135-145) mmol/L Potassium (3.6-5.0) mmol/L Chloride (101-111) mmol/L Carbon Dioxide (21.0-31.0) mmol/L Anion Gap BUN (7-18) mg/dL Creatinine (0.6-1.3) mg/dL Est Cr Clr Drug Dosing mL/min Estimated GFR (MDRD) Glucose (74-105) mg/dL POC Glucose 197 H 206 H 184 H (70-105) mg/dl Calcium (8.4-10.2) mg/dl 10/20/18 10/20/18 10/20/18 Range/Units 06:20 06:20 07:52 WBC 6.8 (5.0-10.0) 10^3/uL RBC 4.26 L (4.6-6.2) 10^6/uL Hgb 11.5 L (14.0-18.0) g/dL Hct 35.5 L (40.0-54.0) % MCV 83.3 (80-100) fL MCH 27.0 (27.0-34.0) pg MCHC 32.4 L (33.0-35.0) g/dL Plt Count 232 (150-450) 10^3/uL Neut % (Auto) 43.1 (42.2-75.2) % Lymph % (Auto) 39.0 (20.5-50.1) % [place] % (Auto) 10.6 H (2-8) % Eos % (Auto) 6.9 H (1.0-3.0) % Baso % (Auto) 0.4 (0.0-1.0) % Sodium 139 (135-145) mmol/L Potassium 3.9 (3.6-5.0) mmol/L Chloride 105 (101-111) mmol/L Carbon Dioxide 26.0 (21.0-31.0) mmol/L Anion Gap 11.9 BUN 22 H (7-18) mg/dL Creatinine 0.7 (0.6-1.3) mg/dL Est Cr Clr Drug Dosing 155.51 mL/min Estimated GFR (MDRD) > 60 Glucose 117 H (74-105) mg/dL POC Glucose 109 H (70-105) mg/dl Calcium 8.7 (8.4-10.2) mg/dl HERMILO Results - Last 24 hrs: Microbiology 10/18/18 23:45 Aerobic Blood Culture - Preliminary Blood - Venous - Lab Draw NO GROWTH AFTER 1 DAY Anaerobic Blood Culture - Preliminary NO GROWTH AFTER 1 DAY 10/18/18 22:50 Aerobic Blood Culture - Preliminary Blood - Venous NO GROWTH AFTER 1 DAY Anaerobic Blood Culture - Preliminary NO GROWTH AFTER 1 DAY Med Orders - Current: Current Medications Acetaminophen (Tylenol) 650 mg PO Q4H PRN PRN Reason: Pain (Mild 1-3)/fever Hydrocodone Bitart/Acetaminophen ([place] 325-10 Mg) 1 tab PO Q4H PRN PRN Reason: Pain (moderate 4-6) Last Admin: 10/20/18 09:12 Dose: 1 tab Aspirin (Halfprin) 81 mg PO DAILY [facility] Last Admin: 10/20/18 09:11 Dose: 81 mg Atorvastatin Calcium (Lipitor) 20 mg PO DAILY [facility] Last Admin: 10/20/18 09:11 Dose: 20 mg Gabapentin (Neurontin) 300 mg PO TID [facility] Last Admin: 10/20/18 09:11 Dose: 300 mg Heparin Sodium (Porcine) (Heparin Sodium) 5,000 units SUBCUT Q8HR [facility] Last Admin: 10/20/18 05:54 Dose: 5,000 units Ertapenem 1 gm/ Sodium (Chloride) 50 mls @ 50 mls/hr IV Q24H [facility] Last Admin: 10/20/18 05:53 Dose: 50 mls/hr Insulin Human Lispro (Humalog) 0 unit SUBCUT QIDACANDBED [facility]; Protocol Last Admin: 10/20/18 08:07 Dose: Not Given Insulin NPH Beef/Pork (Humulin 70-30) 10 unit SQ BEDTIME [facility] Last Admin: 10/19/18 21:33 Dose: 10 unit Levetiracetam (Keppra) 500 mg PO BID [facility] Last Admin: 10/20/18 09:11 Dose: 500 mg Lisinopril (Prinivil) 10 mg PO DAILY [facility] Last Admin: 10/20/18 09:10 Dose: 10 mg Morphine Sulfate (Morphine) 1 mg IVPUSH Q2H PRN PRN Reason: Pain (severe 7-10) Last Admin: 10/19/18 00:49 Dose: 1 mg Ondansetron HCl (Zofran Odt) 4 mg PO Q6H PRN PRN Reason: nausea, able to take PO Sodium Chloride (Saline Flush) 10 ml FLUSH ASDIRECTED [facility] Zolpidem Tartrate (Ambien) 5 mg PO BEDTIME PRN PRN Reason: Sleep Last Admin: 10/19/18 21:51 Dose: 5 mg Discontinued Medications Ertapenem 1 gm/ Sodium (Chloride) 50 mls @ 50 mls/hr IV Q24H [facility] Last Admin: 10/19/18 01:14 Dose: 50 mls/hr Insulin Human Lispro (Humalog) 0 unit SUBCUT ACBED [facility]; Protocol Last Admin: 10/19/18 16:25 Dose: Not Given Ketorolac Tromethamine (Toradol) 30 mg IM ONETIME ONE Stop: 10/18/18 22:34 Last Admin: 10/18/18 22:48 Dose: 30 mg Non-Formulary Medication (Ertapenem [Invanz]) 1 gm IV Q24H [facility] Last Admin: 10/19/18 01:03 Dose: Not Given Oxycodone/Acetaminophen (Percocet 325-5 Mg) 1 tab PO ONETIME ONE Stop: 10/18/18 22:45 Last Admin: 10/18/18 22:48 Dose: 1 tab - Exam General: Reports: Alert, Oriented Neck: Reports: Supple Lungs: Reports: Clear to Auscultation, Normal Respiratory Effort Cardiovascular: Reports: Regular Rate, Regular Rhythm GI/Abdominal Exam: Normal Bowel Sounds, Soft, Non-Tender Extremities: No Pedal Edema, Other (r. foot bandaged)
== END 2018-10-20 12:19 | disposition home or self-care (01) | DRG 638 ==
LOC: DL.ED 22:13 → DL.MS 23:42
PROVIDERS: ADMIT Internal Medicine; ATTEND Internal Medicine
DX: E10.69 Type 1 diabetes mellitus with other specified complication (principal); M86.271 Subacute osteomyelitis, right ankle and foot; L03.115 Cellulitis of right lower limb; L02.611 Cutaneous abscess of right foot; H54.7 Unspecified visual loss; E10.40 Type 1 diabetes mellitus with diabetic neuropathy, unspecified; E10.65 Type 1 diabetes mellitus with hyperglycemia; F17.210 Nicotine dependence, cigarettes, uncomplicated; G40.909 Epilepsy, unspecified, not intractable, without status epilepticus; I10 Essential (primary) hypertension; Z79.4 Long term (current) use of insulin; Z79.82 Long term (current) use of aspirin; Z79.899 Other long term (current) drug therapy
CPT/HCPCS: 36415; 80048; 80053; 82962; 83605; 85025; 85027; 87040; 96374; 99284-25; A9270-GY; J1335; J1644; J1815; J1815-GY; J1885; J2270; J7050

== ENCOUNTER 2018-10-20 10:53 | Inpatient (IN) | payer MEDICAID ==
[2018-10-20] MEDS ORDERED: Zolpidem 5 MG Tab PO PRN (14:30)
--- NOTE | 2018-10-20 14:35 | PCM.HP ---
H&P History of Present Illness - General Date of Service: 10/20/18 Admit Problem/Dx: Admission Diagnosis/Problem Admission Diagnosis/Problem Osteomyelitis of toe of right foot Source of Information: Patient - History of Present Illness Initial Comments - Free Text/Narative: transfered form Acute care to Swing bed for continued IV abx for Osteo Right Foot Pain Score (Numeric/FACES): 4 - Related Data Allergies/Adverse Reactions: Allergies Allergy/AdvReac Type Severity Reaction Status Date / Time No Known Allergies Allergy Verified 10/19/18 00:24 Home Medications: Home Meds levETIRAcetam [Keppra] 500 mg PO BID 08/22/18 [History] Aspirin [Halfprin] 81 mg PO DAILY 08/23/18 [History] Insulin Aspart [NovoLOG] 13 units SQ TIDMEALS 08/23/18 [History] Lisinopril 10 mg PO DAILY 08/23/18 [History] atorvaSTATin Calcium [Atorvastatin Calcium] 20 mg PO DAILY 08/23/18 [History] Acetaminophen 650 mg PO Q6HR PRN 10/19/18 [History] Acetaminophen with Codeine [Tylenol with Codeine #3 Tablet] 1 tab PO Q6H PRN 07/02 [History] Ertapenem [INVanz] 1 gm IV Q24H 10/19/18 [History] Gabapentin [Neurontin] 300 mg PO TID 10/19/18 [History] Ibuprofen 200 mg PO Q6HR PRN 10/19/18 [History] Insulin NPH Hum/Reg Insulin Hm [Humulin 70-30] 10 unit SQ BEDTIME 10/19/18 [ History] Past Medical History - Past Health History Medical/Surgical History: Denies Medical/Surgical History HEENT History: Reports: Impaired Vision, Other (See Below) Other HEENT History: waiting to repair retina Musculoskeletal History: Reports: Amputation Neurological History: Reports: Neuropathy, Diabetic, Seizure Endocrine/Metabolic History: Reports: Diabetes, Type I - Infectious Disease History Infectious Disease History: Reports: Chicken Pox - Past Surgical History Musculoskeletal Surgical History: Reports: Amputation Other Musculoskeletal Surgeries/Procedures:: rt great toe amputation 08-22-18 Social & Family History - Family History Family Medical History: Noncontributory - Tobacco Use Smoking Status *Q: Current Some Day Smoker Years of Tobacco use: 10 Packs/Tins Daily: 0.1 Second Hand Smoke Exposure: Yes - Caffeine Use Caffeine Use: Reports: Coffee - Recreational Drug Use Recreational Drug Use: No H&P Review of Systems - Review of Systems: Review Of Systems: See Below General: Denies: Fever, Chills Pulmonary: Denies: Shortness of Breath Cardiovascular: Denies: Chest Pain Genitourinary: Denies: Dysuria Neurological: Denies: Confusion Exam - Exam Exam: See Below - Vital Signs Vital Signs: Last Vital Signs Temp 36.4 C 10/20/18 14:30 Pulse 74 10/20/18 14:30 Resp 18 10/20/18 14:30 BP 100/74 10/20/18 14:30 Pulse Ox 92 L 10/20/18 14:30 Weight: 89.086 kg - Exam General: Alert, Oriented Neck: Supple Lungs: Clear to Auscultation, Normal Respiratory Effort Cardiovascular: Regular Rate, Regular Rhythm GI/Abdominal Exam: Normal Bowel Sounds, Soft, Non-Tender Extremities: Other (r. foot partially dehisced wound) - Problem List (1) Diabetic ulcer of right great toe SNOMED Code(s): 66611507, 290029967 ICD Code: E11.621 - TYPE 2 DIABETES MELLITUS WITH FOOT ULCER; L97.519 - NON- PRS CHRONIC ULCER OTH PRT RIGHT FOOT W UNSP SEVERITY Status: Acute Current Visit: No (2) Osteomyelitis of great toe of right foot SNOMED Code(s): 083455913, 671058016, 1723570989507859 ICD Code: M86.9 - OSTEOMYELITIS, UNSPECIFIED Status: Acute Current Visit : No (3) Seizure SNOMED Code(s): 52362526 ICD Code: R56.9 - UNSPECIFIED CONVULSIONS Status: Acute Current Visit: No (4) Uncontrolled type 2 diabetes mellitus SNOMED Code(s): 918569313, 459196528 ICD Code: E11.65 - TYPE 2 DIABETES MELLITUS WITH HYPERGLYCEMIA Status: Acute Current Visit: No Qualifiers: Glycemic state: with hyperglycemia Qualified Code(s): E11.65 - Type 2 diabetes mellitus with hyperglycemia Problem List Initiated/Reviewed/Updated: Yes Orders Last 24hrs: Active Orders 24 hr Category Date Time Status Admission Diagnosis [ADT] Routine ADT 10/20/18 14:23 Ordered Admission Status [Patient Status] [ADT] Routine ADT 10/20/18 14:24 Active Glucose [Blood Glucose Check, Bedside] [RC] QIDACANDBED Care 10/20/18 14:33 Ordered Oxygen Therapy [RC] PRN Care 10/20/18 14:30 Ordered Peripheral IV Care [RC] . DIRECTED Care 10/20/18 14:31 Ordered Up With Assistance [RC] ASDIRECTED Care 10/20/18 14:30 Ordered VTE/DVT Education [RC] PER UNIT ROUTINE Care 10/20/18 14:30 Ordered Vital Signs [RC] Q4H Care 10/20/18 14:30 Ordered Consistent Carbohydrate Diet [DIET] Diet 10/20/18 Dinner Ordered Acetaminophen [Tylenol] Med 10/20/18 14:30 Ordered 650 mg PO Q4H PRN Acetaminophen/HYDROcodone [[place] 325-10 MG] Med 10/20/18 14:30 Ordered 1 tab PO Q4H PRN Aspirin [Halfprin] Med 10/21/18 09:00 Ordered 81 mg PO DAILY Docusate Sodium [Colace] Med 10/20/18 14:30 Ordered 100 mg PO BID PRN Ertapenem [INVanz] Med 10/20/18 14:45 Ordered 1 gm IV Q24H Gabapentin [Neurontin] Med 10/20/18 21:00 Ordered 300 mg PO TID Heparin Sodium Med 10/20/18 22:00 Ordered 5,000 units SUBCUT Q8HR Insulin Lispro [HumaLOG] Med 10/20/18 16:00 Ordered See Protocol SUBCUT ACBED Insulin NPH Hum/Reg Insulin Hm [Humulin 70-30] Med 10/20/18 21:00 Ordered 10 unit SQ BEDTIME Lisinopril [Prinivil] Med 10/21/18 09:00 Ordered 10 mg PO DAILY Morphine Med 10/20/18 14:30 Ordered 2 mg IVPUSH Q2H PRN Ondansetron [Zofran ODT] Med 10/20/18 14:30 Ordered 4 mg PO Q6H PRN Sodium Chloride 0.9% [Saline Flush] Med 10/20/18 14:30 Ordered 10 ml FLUSH ASDIRECTED PRN Zolpidem [Ambien] Med 10/20/18 14:30 Ordered 5 mg PO BEDTIME PRN atorvaSTATin [Lipitor] Med 10/21/18 09:00 Ordered 20 mg PO DAILY levETIRAcetam [Keppra] Med 10/20/18 21:00 Ordered 500 mg PO BID Peripheral IV Insertion Adult [OM.PC] Routine Oth 10/20/18 14:30 Ordered Saline Lock Insert [OM.PC] Routine Oth 10/20/18 14:30 Ordered Resuscitation Status Routine Resus Stat 10/20/18 14:30 Ordered Medication Orders Acetaminophen (Tylenol) 650 mg PO Q4H PRN PRN Reason: Pain (Mild 1-3)/fever Hydrocodone Bitart/Acetaminophen ([place] 325-10 Mg) 1 tab PO Q4H PRN PRN Reason: Pain (moderate 4-6) Aspirin (Halfprin) 81 mg PO DAILY GENE Atorvastatin Calcium (Lipitor) 20 mg PO DAILY GENE Docusate Sodium (Colace) 100 mg PO BID PRN PRN Reason: Constipation Gabapentin (Neurontin) 300 mg PO TID GENE Heparin Sodium (Porcine) (Heparin Sodium) 5,000 units SUBCUT Q8HR GENE Insulin Human Lispro (Humalog) 0 unit SUBCUT ACBED GENE; Protocol Insulin NPH Beef/Pork (Humulin 70-30) 10 unit SQ BEDTIME GENE Levetiracetam (Keppra) 500 mg PO BID GENE Lisinopril (Prinivil) 10 mg PO DAILY GENE Morphine Sulfate (Morphine) 2 mg IVPUSH Q2H PRN PRN Reason: Pain (severe 7-10) Non-Formulary Medication (Ertapenem [Invanz]) 1 gm IV Q24H GENE Ondansetron HCl (Zofran Odt) 4 mg PO Q6H PRN PRN Reason: nausea, able to take PO Sodium Chloride (Saline Flush) 10 ml FLUSH ASDIRECTED PRN PRN Reason: Keep Vein Open Zolpidem Tartrate (Ambien) 5 mg PO BEDTIME PRN PRN Reason: Sleep Assessment/Plan Comment:: Patient presented to the emergency room with complaints of sudden onset of blood and pus draining from the surgical wound. He has been using Zosyn at home for IV antibiotic for the osteomyelitis treatment. Right foot cellulitis, osteomyelitis there was abscess, septic joint based on MRI Blood culture neg Wound culture: multidrug resistant enterococcus Treat with ertapenem plan for 4 weeks IV Abx F/up with dr Kc weekly admit to [facility] Consulted podiatry for an evaluation for surgical intervention. On 10/11 underwent 1. Right foot transmetatarsal amputation 2. Right foot tendoachilles lengthening treat with tylenol, hydrocodone, morphine IV Cont neurontin Plan for f/up with podiatry on Tuesday will need daily wound dressing use xeroform, kerlix, kasey wrap Diabetes Treat with NPH insulin follow BS Htn Treat with lisinopril History of seizure disorder Continue Neeta
[2018-10-20] MEDS ORDERED: Non-Formulary Medication 1 Each (Ertapenem [Invanz] 1 GM) IV SCH (14:45)
[2018-10-20] MEDS: Gabapentin 300 MG Cap PO SCH ×2 (15:01→21:45)
[2018-10-20] MEDS: Acetaminophen/HYDROcodone 325-10 MG Tab PO PRN ×2 (15:02→21:48)
[2018-10-20] MEDS: Ondansetron 4 MG Tab.DIS PO PRN (15:06)
[2018-10-20] MEDS: Morphine 2 MG/ML Syringe IVPUSH PRN ×2 (15:51→19:33)
[2018-10-20] MEDS: Insulin Lispro 100 Units/ML 3 ML Vial SUBCUT SCH ×3 (17:01→20:48)
[2018-10-20] MEDS: Sodium Chloride 0.9% 10 ML Syringe FLUSH PRN (19:33)
[2018-10-20] MEDS: levETIRAcetam 500 MG Tab PO SCH (21:45)
[2018-10-20] MEDS: Insulin NPH HUM/REG Insulin HM 100 UNIT/ML 3 ML Vial SQ SCH (21:46)
[2018-10-20] MEDS: Heparin Sodium 5,000 Units/ML Vial SUBCUT SCH (21:53)
[2018-10-21] MEDS: Sodium Chloride 0.9% 10 ML Syringe FLUSH PRN ×2 (05:59→10:39)
[2018-10-21] MEDS: Heparin Sodium 5,000 Units/ML Vial SUBCUT SCH ×3 (05:59→21:18)
[2018-10-21] MEDS: Ertapenem 1 GM in Sodium Chloride 0.9% 50 ML IV SCH (05:59)
[2018-10-21] MEDS: Acetaminophen/HYDROcodone 325-10 MG Tab PO PRN ×4 (06:05→20:03)
[2018-10-21] MEDS: Insulin Lispro 100 Units/ML 3 ML Vial SUBCUT SCH ×4 (07:56→21:17)
[2018-10-21] MEDS: Lisinopril 10 MG Tab PO SCH (09:01)
[2018-10-21] MEDS: atorvaSTATin 20 MG Tab PO SCH (09:01)
[2018-10-21] MEDS: Aspirin 81 MG Tab.EC PO SCH (09:02)
[2018-10-21] MEDS: Gabapentin 300 MG Cap PO SCH ×3 (09:02→21:18)
[2018-10-21] MEDS: levETIRAcetam 500 MG Tab PO SCH ×2 (09:02→21:18)
[2018-10-21] MEDS: Morphine 2 MG/ML Syringe IVPUSH PRN (10:38)
[2018-10-21] MEDS: Insulin NPH HUM/REG Insulin HM 100 UNIT/ML 3 ML Vial SQ SCH (21:17)
[2018-10-22] MEDS: Morphine 2 MG/ML Syringe IVPUSH PRN ×2 (05:12→14:05)
[2018-10-22] MEDS: Ertapenem 1 GM in Sodium Chloride 0.9% 50 ML IV SCH (06:05)
[2018-10-22] MEDS: Heparin Sodium 5,000 Units/ML Vial SUBCUT SCH ×3 (06:06→22:50)
[2018-10-22] MEDS: Sodium Chloride 0.9% 10 ML Syringe FLUSH PRN ×2 (06:07→14:04)
[2018-10-22 07:03] LABS: ANION GAP 12.5; CHLORIDE,CL 101 mmol/L (101-111); SODIUM,NA 138 mmol/L (135-145)
[2018-10-22] MEDS: Acetaminophen/HYDROcodone 325-10 MG Tab PO PRN ×4 (08:42→22:52)
[2018-10-22] MEDS: Aspirin 81 MG Tab.EC PO SCH (08:43)
[2018-10-22] MEDS: atorvaSTATin 20 MG Tab PO SCH (08:43)
[2018-10-22] MEDS: Lisinopril 10 MG Tab PO SCH (08:43)
[2018-10-22] MEDS: Gabapentin 300 MG Cap PO SCH ×3 (08:44→22:52)
[2018-10-22] MEDS: levETIRAcetam 500 MG Tab PO SCH ×2 (08:44→22:51)
[2018-10-22] MEDS: Insulin Lispro 100 Units/ML 3 ML Vial SUBCUT SCH ×4 (08:44→22:49)
[2018-10-22] MEDS: Docusate Sodium 100 MG Cap PO PRN (08:46)
[2018-10-22] MEDS: Insulin NPH HUM/REG Insulin HM 100 UNIT/ML 3 ML Vial SQ SCH (22:50)
[2018-10-23] MEDS: Heparin Sodium 5,000 Units/ML Vial SUBCUT SCH ×4 (06:06→21:25)
[2018-10-23] MEDS: Ertapenem 1 GM in Sodium Chloride 0.9% 50 ML IV SCH (06:07)
[2018-10-23] MEDS: Acetaminophen/HYDROcodone 325-10 MG Tab PO PRN ×2 (06:52→17:15)
[2018-10-23] MEDS: Insulin Lispro 100 Units/ML 3 ML Vial SUBCUT SCH ×4 (07:10→20:43)
[2018-10-23] MEDS: levETIRAcetam 500 MG Tab PO SCH ×2 (07:10→20:46)
[2018-10-23] MEDS: atorvaSTATin 20 MG Tab PO SCH ×2 (07:11→09:14)
[2018-10-23] MEDS: Gabapentin 300 MG Cap PO SCH ×4 (07:11→20:46)
[2018-10-23] MEDS: Lisinopril 10 MG Tab PO SCH ×2 (07:12→09:14)
[2018-10-23] MEDS: Aspirin 81 MG Tab.EC PO SCH ×2 (07:12→09:14)
[2018-10-23] MEDS: Acetaminophen 325 MG Tab PO SCH (20:45)
[2018-10-24] MEDS: Acetaminophen/HYDROcodone 325-10 MG Tab PO PRN ×5 (03:36→20:53)
[2018-10-24] MEDS: Ertapenem 1 GM in Sodium Chloride 0.9% 50 ML IV SCH (05:35)
[2018-10-24] MEDS: Heparin Sodium 5,000 Units/ML Vial SUBCUT SCH ×3 (05:38→21:59)
[2018-10-24] MEDS: Insulin Lispro 100 Units/ML 3 ML Vial SUBCUT SCH ×4 (07:56→20:51)
[2018-10-24] MEDS: Gabapentin 300 MG Cap PO SCH ×3 (08:33→20:47)
[2018-10-24] MEDS: levETIRAcetam 500 MG Tab PO SCH ×2 (08:33→20:47)
[2018-10-24] MEDS: Aspirin 81 MG Tab.EC PO SCH (08:33)
[2018-10-24] MEDS: atorvaSTATin 20 MG Tab PO SCH (08:33)
[2018-10-24] MEDS: Acetaminophen 325 MG Tab PO SCH ×2 (08:34→20:47)
[2018-10-24] MEDS: Lisinopril 10 MG Tab PO SCH (08:37)
[2018-10-24] MEDS: Insulin Isophane NPH, Human 100 Units/ML 3 ML Vial SQ SCH (09:37)
[2018-10-24] MEDS: Morphine 2 MG/ML Syringe IVPUSH PRN ×2 (09:38→11:34)
--- NOTE | 2018-10-24 11:18 | PCM.PN ---
- General Info Date of Service: 10/24/18 Admission Dx/Problem (Free Text): Admission Diagnosis/Problem Admission Diagnosis/Problem Osteomyelitis of toe of right foot Subjective Update: Feeling okay but still has a moderate pain in the right foot. Worse with dressing changes. Pain is since surgery. Yesterday had appointment with ID, clinical staff educator, podiatry. Functional Status: Reports: Pain Controlled (Except with dressing changes), Tolerating Diet - Review of Systems General: Denies: Fever Pulmonary: Denies: Shortness of Breath Cardiovascular: Denies: Chest Pain Gastrointestinal: Denies: Abdominal Pain - Patient Data Vitals - Most Recent: Last Vital Signs Temp 36.6 C 10/24/18 07:55 Pulse 91 10/24/18 07:55 Resp 20 10/24/18 07:55 BP 109/78 10/24/18 08:37 Pulse Ox 100 10/24/18 07:55 Weight - Most Recent: 89.086 kg I&O - Last 24 Hours: Intake & Output 10/23/18 10/24/18 10/24/18 22:59 06:59 14:59 Intake Total 720 50 Balance 720 50 Lab Results Last 24 Hours: Laboratory Results - last 24 hr 10/23/18 10/23/18 10/24/18 Range/Units 16:53 20:42 07:39 POC Glucose 114 H 175 H 127 H (70-105) mg/dl Med Orders - Current: Current Medications Acetaminophen (Tylenol) 650 mg PO Q4H PRN PRN Reason: Pain (Mild 1-3)/fever Acetaminophen (Tylenol) 650 mg PO BID [facility] Last Admin: 10/24/18 08:34 Dose: 650 mg Hydrocodone Bitart/Acetaminophen ([place] 325-10 Mg) 1 tab PO Q4H PRN PRN Reason: Pain (moderate 4-6) Last Admin: 10/24/18 08:33 Dose: 1 tab Aspirin (Halfprin) 81 mg PO DAILY [facility] Last Admin: 10/24/18 08:33 Dose: 81 mg Atorvastatin Calcium (Lipitor) 20 mg PO DAILY [facility] Last Admin: 10/24/18 08:33 Dose: 20 mg Docusate Sodium (Colace) 100 mg PO BID PRN PRN Reason: Constipation Last Admin: 10/22/18 08:46 Dose: 100 mg Gabapentin (Neurontin) 300 mg PO TID [facility] Last Admin: 10/24/18 08:33 Dose: 300 mg Heparin Sodium (Porcine) (Heparin Sodium) 5,000 units SUBCUT Q8HR [facility] Last Admin: 10/24/18 05:38 Dose: 5,000 units Ertapenem 1 gm/ Sodium (Chloride) 50 mls @ 50 mls/hr IV DAILY@0600 [facility] Last Admin: 10/24/18 05:35 Dose: 50 mls/hr Insulin Human Lispro (Humalog) 0 unit SUBCUT QIDACANDBED [facility]; Protocol Last Admin: 10/24/18 07:56 Dose: Not Given Insulin Human NPH (Humulin N) 10 unit SQ DAILY [facility] Last Admin: 10/24/18 09:37 Dose: 10 unit Levetiracetam (Keppra) 500 mg PO BID [facility] Last Admin: 10/24/18 08:33 Dose: 500 mg Lisinopril (Prinivil) 10 mg PO DAILY [facility] Last Admin: 10/24/18 08:37 Dose: 10 mg Morphine Sulfate (Morphine) 1 mg IVPUSH Q2H PRN PRN Reason: Pain (severe 7-10) Last Admin: 10/24/18 09:38 Dose: 1 mg Ondansetron HCl (Zofran Odt) 4 mg PO Q6H PRN PRN Reason: nausea, able to take PO Last Admin: 10/20/18 15:06 Dose: 4 mg Sodium Chloride (Saline Flush) 10 ml FLUSH ASDIRECTED PRN PRN Reason: Keep Vein Open Last Admin: 10/22/18 14:04 Dose: 10 ml Zolpidem Tartrate (Ambien) 5 mg PO BEDTIME PRN PRN Reason: Sleep Discontinued Medications Insulin NPH Beef/Pork (Humulin 70-30) 10 unit SQ BEDTIME [facility] Last Admin: 10/22/18 22:50 Dose: 10 unit Morphine Sulfate (Morphine) 2 mg IVPUSH Q2H PRN PRN Reason: Pain (severe 7-10) Last Admin: 10/20/18 19:33 Dose: 2 mg - Exam General: Alert, Oriented Neck: Supple Lungs: Clear to Auscultation, Normal Respiratory Effort GI/Abdominal Exam: Normal Bowel Sounds, Soft, Non-Tender Extremities: No Pedal Edema, Other (Right foot with dressing) - Problem List & Annotations (1) Diabetic ulcer of right great toe SNOMED Code(s): 45894327, 753003117 Code(s): E11.621 - TYPE 2 DIABETES MELLITUS WITH FOOT ULCER; L97.519 - NON- PRS CHRONIC ULCER OTH PRT RIGHT FOOT W UNSP SEVERITY Status: Acute Current Visit: No (2) Osteomyelitis of great toe of right foot SNOMED Code(s): 735952736, 699334023, [id number] Code(s): M86.9 - OSTEOMYELITIS, UNSPECIFIED Status: Acute Current Visit: No (3) Seizure SNOMED Code(s): 66722773 Code(s): R56.9 - UNSPECIFIED CONVULSIONS Status: Acute Current Visit: No (4) Uncontrolled type 2 diabetes mellitus SNOMED Code(s): 162654696, 957706355 Code(s): E11.65 - TYPE 2 DIABETES MELLITUS WITH HYPERGLYCEMIA Status: Acute Current Visit: No Qualifiers: Glycemic state: with hyperglycemia Qualified Code(s): E11.65 - Type 2 diabetes mellitus with hyperglycemia - Problem List Review Problem List Initiated/Reviewed/Updated: Yes - My Orders Last 24 Hours: My Active Orders 10/23/18 21:00 Acetaminophen [Tylenol] 650 mg PO BID 10/24/18 09:00 Insulin NPH Human Isophane [HumuLIN N] 10 unit SQ DAILY 10/29/18 05:11 ASPARTATE AMNIOTRANSFERASE,AST [CHEM] AM CRP [C-REACTIVE PROTEIN] [CHEM] AM SEDIMENTATION RATE MANUAL [HEME] AM 10/29/18 05:15 BASIC METABOLIC PANEL,BMP [CHEM] AM CBC WITH AUTO DIFF [HEME] AM - Plan Plan:: Patient presented to the emergency room with complaints of sudden onset of blood and pus draining from the surgical wound. He has been using Zosyn at home for IV antibiotic for the osteomyelitis treatment. Right foot cellulitis, osteomyelitis there was abscess, septic joint based on MRI Blood culture neg Wound culture: multidrug resistant enterococcus Treat with ertapenem plan for 4 weeks IV Abx F/up with dr Kc weekly, next appointment 30 of October Right lower extremity osteomyelitis status post amputation On 10/11 underwent 1. Right foot transmetatarsal amputation 2. Right foot tendoachilles lengthening treat with tylenol, hydrocodone, morphine IV Will add extra morphine dose for dressing changes Cont neurontin Plan for f/up with podiatry on Monday 10/30 Diabetes Treat with NPH insulin follow BS Htn Treat with lisinopril History of seizure disorder Continue Neeta
[2018-10-25] MEDS: Acetaminophen/HYDROcodone 325-10 MG Tab PO PRN ×5 (03:50→20:58)
[2018-10-25] MEDS: Heparin Sodium 5,000 Units/ML Vial SUBCUT SCH ×3 (05:43→21:06)
[2018-10-25] MEDS: Ertapenem 1 GM in Sodium Chloride 0.9% 50 ML IV SCH (05:43)
[2018-10-25] MEDS: Aspirin 81 MG Tab.EC PO SCH ×2 (07:51→09:03)
[2018-10-25] MEDS: Insulin Lispro 100 Units/ML 3 ML Vial SUBCUT SCH ×4 (08:00→21:13)
[2018-10-25] MEDS: Gabapentin 300 MG Cap PO SCH ×3 (08:58→21:00)
[2018-10-25] MEDS: atorvaSTATin 20 MG Tab PO SCH (08:59)
[2018-10-25] MEDS: Lisinopril 10 MG Tab PO SCH (08:59)
[2018-10-25] MEDS: levETIRAcetam 500 MG Tab PO SCH ×2 (08:59→21:00)
[2018-10-25] MEDS: Acetaminophen 325 MG Tab PO SCH ×2 (09:03→21:00)
[2018-10-25] MEDS: Insulin Isophane NPH, Human 100 Units/ML 3 ML Vial SQ SCH (09:04)
[2018-10-25] MEDS ORDERED: diphenhydrAMINE 25 MG Tab PO PRN (11:29)
[2018-10-25] MEDS: Morphine 2 MG/ML Syringe IVPUSH PRN (12:29)
[2018-10-25] MEDS ORDERED: Morphine 2 MG/ML Syringe IVPUSH ONE ×2 (12:51→14:28)
[2018-10-25] MEDS: Sodium Chloride 0.9% 10 ML Syringe FLUSH PRN (20:57)
[2018-10-26] MEDS: Acetaminophen/HYDROcodone 325-10 MG Tab PO PRN ×5 (01:51→21:29)
[2018-10-26] MEDS: Sodium Chloride 0.9% 10 ML Syringe FLUSH PRN ×3 (05:39→21:22)
[2018-10-26] MEDS: Ertapenem 1 GM in Sodium Chloride 0.9% 50 ML IV SCH (05:40)
[2018-10-26] MEDS: Heparin Sodium 5,000 Units/ML Vial SUBCUT SCH ×3 (05:46→21:25)
[2018-10-26] MEDS: Insulin Lispro 100 Units/ML 3 ML Vial SUBCUT SCH ×4 (08:13→21:21)
[2018-10-26] MEDS: levETIRAcetam 500 MG Tab PO SCH ×2 (09:06→20:39)
[2018-10-26] MEDS: Gabapentin 300 MG Cap PO SCH ×3 (09:06→20:39)
[2018-10-26] MEDS: Aspirin 81 MG Tab.EC PO SCH (09:06)
[2018-10-26] MEDS: atorvaSTATin 20 MG Tab PO SCH (09:06)
[2018-10-26] MEDS: Lisinopril 10 MG Tab PO SCH (09:06)
[2018-10-26] MEDS: Acetaminophen 325 MG Tab PO SCH ×2 (09:07→20:39)
[2018-10-26] MEDS: Insulin Isophane NPH, Human 100 Units/ML 3 ML Vial SQ SCH (09:12)
[2018-10-26] MEDS: Morphine 2 MG/ML Syringe IVPUSH PRN ×2 (13:07→15:02)
[2018-10-26] MEDS: Acetaminophen 325 MG Tab PO PRN (15:03)
[2018-10-27] MEDS: Acetaminophen/HYDROcodone 325-10 MG Tab PO PRN ×5 (01:32→23:07)
[2018-10-27] MEDS: Sodium Chloride 0.9% 10 ML Syringe FLUSH PRN ×2 (05:20→06:27)
[2018-10-27] MEDS: Ertapenem 1 GM in Sodium Chloride 0.9% 50 ML IV SCH (05:23)
[2018-10-27] MEDS: Heparin Sodium 5,000 Units/ML Vial SUBCUT SCH ×3 (05:26→23:05)
[2018-10-27] MEDS: Docusate Sodium 100 MG Cap PO PRN ×2 (07:31→23:02)
[2018-10-27] MEDS: Insulin Lispro 100 Units/ML 3 ML Vial SUBCUT SCH ×4 (08:04→23:05)
[2018-10-27] MEDS: Insulin Isophane NPH, Human 100 Units/ML 3 ML Vial SQ SCH (09:40)
[2018-10-27] MEDS: Acetaminophen 325 MG Tab PO SCH ×2 (09:41→23:02)
[2018-10-27] MEDS: Lisinopril 10 MG Tab PO SCH (09:41)
[2018-10-27] MEDS: Gabapentin 300 MG Cap PO SCH ×3 (09:41→23:02)
[2018-10-27] MEDS: levETIRAcetam 500 MG Tab PO SCH ×2 (09:41→23:02)
[2018-10-27] MEDS: atorvaSTATin 20 MG Tab PO SCH (09:41)
[2018-10-27] MEDS: Aspirin 81 MG Tab.EC PO SCH (09:41)
[2018-10-27] MEDS: Morphine 2 MG/ML Syringe IVPUSH PRN (14:39)
[2018-10-28] MEDS: Heparin Sodium 5,000 Units/ML Vial SUBCUT SCH ×3 (06:11→21:37)
[2018-10-28] MEDS: Ertapenem 1 GM in Sodium Chloride 0.9% 50 ML IV SCH (06:11)
[2018-10-28] MEDS: Acetaminophen/HYDROcodone 325-10 MG Tab PO PRN ×4 (07:57→21:55)
[2018-10-28] MEDS: Insulin Lispro 100 Units/ML 3 ML Vial SUBCUT SCH ×4 (08:19→21:36)
[2018-10-28] MEDS: Gabapentin 300 MG Cap PO SCH ×3 (08:40→21:38)
[2018-10-28] MEDS: levETIRAcetam 500 MG Tab PO SCH ×2 (08:40→21:38)
[2018-10-28] MEDS: Acetaminophen 325 MG Tab PO SCH ×2 (08:41→21:38)
[2018-10-28] MEDS: Aspirin 81 MG Tab.EC PO SCH (08:41)
[2018-10-28] MEDS: Lisinopril 10 MG Tab PO SCH (08:42)
[2018-10-28] MEDS: atorvaSTATin 20 MG Tab PO SCH (08:42)
[2018-10-28] MEDS: Insulin Isophane NPH, Human 100 Units/ML 3 ML Vial SQ SCH (09:05)
[2018-10-28] MEDS: Morphine 2 MG/ML Syringe IVPUSH PRN (13:53)
[2018-10-28] MEDS: Docusate Sodium 100 MG Cap PO PRN (21:56)
[2018-10-29] MEDS: Acetaminophen/HYDROcodone 325-10 MG Tab PO PRN ×5 (01:57→23:45)
[2018-10-29] MEDS: Heparin Sodium 5,000 Units/ML Vial SUBCUT SCH ×3 (07:01→21:06)
[2018-10-29] MEDS: Ertapenem 1 GM in Sodium Chloride 0.9% 50 ML IV SCH (07:01)
[2018-10-29 07:13] LABS: ANION GAP 13.3; CHLORIDE,CL 103 mmol/L (101-111); SODIUM,NA 138 mmol/L (135-145)
[2018-10-29] MEDS: Insulin Lispro 100 Units/ML 3 ML Vial SUBCUT SCH ×4 (07:56→21:05)
[2018-10-29] MEDS: Insulin Isophane NPH, Human 100 Units/ML 3 ML Vial SQ SCH (08:42)
[2018-10-29] MEDS: atorvaSTATin 20 MG Tab PO SCH (08:44)
[2018-10-29] MEDS: levETIRAcetam 500 MG Tab PO SCH ×2 (08:44→21:04)
[2018-10-29] MEDS: Docusate Sodium 100 MG Cap PO PRN ×2 (08:44→20:11)
[2018-10-29] MEDS: Acetaminophen 325 MG Tab PO SCH ×2 (08:45→20:11)
[2018-10-29] MEDS: Gabapentin 300 MG Cap PO SCH ×3 (08:45→21:04)
[2018-10-29] MEDS: Lisinopril 10 MG Tab PO SCH (08:45)
[2018-10-29] MEDS: Aspirin 81 MG Tab.EC PO SCH (08:45)
[2018-10-29] MEDS: Sodium Chloride 0.9% 10 ML Syringe FLUSH PRN (15:18)
[2018-10-29] MEDS: Morphine 2 MG/ML Syringe IVPUSH PRN (15:19)
[2018-10-30] MEDS: Acetaminophen/HYDROcodone 325-10 MG Tab PO PRN ×4 (04:06→20:50)
[2018-10-30] MEDS: Ertapenem 1 GM in Sodium Chloride 0.9% 50 ML IV SCH (05:26)
[2018-10-30] MEDS: Heparin Sodium 5,000 Units/ML Vial SUBCUT SCH ×4 (05:27→22:22)
[2018-10-30] MEDS: Insulin Lispro 100 Units/ML 3 ML Vial SUBCUT SCH ×4 (08:32→20:48)
[2018-10-30] MEDS: Lisinopril 10 MG Tab PO SCH (09:04)
[2018-10-30] MEDS: Aspirin 81 MG Tab.EC PO SCH (09:05)
[2018-10-30] MEDS: levETIRAcetam 500 MG Tab PO SCH ×2 (09:05→20:50)
[2018-10-30] MEDS: atorvaSTATin 20 MG Tab PO SCH (09:05)
[2018-10-30] MEDS: Gabapentin 300 MG Cap PO SCH ×3 (09:05→20:50)
[2018-10-30] MEDS: Acetaminophen 325 MG Tab PO SCH ×2 (09:05→20:49)
[2018-10-30] MEDS: Insulin Isophane NPH, Human 100 Units/ML 3 ML Vial SQ SCH (09:06)
[2018-10-30] MEDS ORDERED: Calcium Carbonate 500 MG Tab.Chew PO PRN (10:23)
[2018-10-30] MEDS ORDERED: Simethicone 80 MG Tab.Chew PO PRN (10:24)
[2018-10-30] MEDS ORDERED: oxyCODONE 5 MG Tab PO PRN (10:25)
--- NOTE | 2018-10-30 11:15 | PCM.PN ---
- General Info Date of Service: 10/30/18 Admission Dx/Problem (Free Text): Admission Diagnosis/Problem Admission Diagnosis/Problem Osteomyelitis of toe of right foot Subjective Update: Feeling okay but still has a moderate pain in the right foot. Worse with dressing changes. Appointment with ID today, podiatry on Tuesday. Complains of intermittent heartburn - Review of Systems General: Denies: Fever HEENT: Reports: No Symptoms Pulmonary: Reports: No Symptoms Cardiovascular: Reports: No Symptoms Gastrointestinal: Reports: Other (heartburn) Genitourinary: Reports: No Symptoms Musculoskeletal: Reports: Foot Pain Skin: Reports: No Symptoms Neurological: Reports: No Symptoms - Patient Data Vitals - Most Recent: Last Vital Signs Temp 36.1 C 10/30/18 08:00 Pulse 96 10/30/18 08:00 Resp 20 10/30/18 08:00 BP 100/55 L 10/30/18 09:04 Pulse Ox 99 10/30/18 08:00 Weight - Most Recent: 89.086 kg I&O - Last 24 Hours: Intake & Output 10/29/18 10/30/18 10/30/18 22:59 06:59 14:59 Intake Total 400 550 120 Output Total 8 Balance 400 542 120 Lab Results Last 24 Hours: Laboratory Results - last 24 hr 10/29/18 10/29/18 10/29/18 Range/Units 11:37 16:43 20:54 POC Glucose 120 H 75 100 (70-105) mg/dl 10/30/18 Range/Units 07:55 POC Glucose 88 (70-105) mg/dl Med Orders - Current: Current Medications Acetaminophen (Tylenol) 650 mg PO Q4H PRN PRN Reason: Pain (Mild 1-3)/fever Last Admin: 10/26/18 15:03 Dose: 650 mg Acetaminophen (Tylenol) 650 mg PO BID [facility] Last Admin: 10/30/18 09:05 Dose: 650 mg Hydrocodone Bitart/Acetaminophen ([place] 325-10 Mg) 1 tab PO Q4H PRN PRN Reason: Pain (moderate 4-6) Last Admin: 10/30/18 09:29 Dose: 1 tab Aspirin (Halfprin) 81 mg PO DAILY [facility] Last Admin: 10/30/18 09:05 Dose: 81 mg Atorvastatin Calcium (Lipitor) 20 mg PO DAILY [facility] Last Admin: 10/30/18 09:05 Dose: 20 mg Calcium Carbonate/Glycine (Tums) 500 mg PO Q2H PRN PRN Reason: Heartburn Diphenhydramine HCl (Benadryl) 25 mg PO QID PRN PRN Reason: Other Docusate Sodium (Colace) 100 mg PO BID PRN PRN Reason: Constipation Last Admin: 10/29/18 20:11 Dose: 100 mg Gabapentin (Neurontin) 300 mg PO TID [facility] Last Admin: 10/30/18 09:05 Dose: 300 mg Heparin Sodium (Porcine) (Heparin Sodium) 5,000 units SUBCUT Q8HR [facility] Last Admin: 10/30/18 05:27 Dose: 5,000 units Ertapenem 1 gm/ Sodium (Chloride) 50 mls @ 50 mls/hr IV DAILY@0600 [facility] Last Admin: 10/30/18 05:26 Dose: 50 mls/hr Insulin Human Lispro (Humalog) 0 unit SUBCUT QIDACANDBED [facility]; Protocol Last Admin: 10/30/18 08:32 Dose: Not Given Insulin Human NPH (Humulin N) 10 unit SQ DAILY [facility] Last Admin: 10/30/18 09:06 Dose: 10 unit Levetiracetam (Keppra) 500 mg PO BID [facility] Last Admin: 10/30/18 09:05 Dose: 500 mg Lisinopril (Prinivil) 10 mg PO DAILY [facility] Last Admin: 10/30/18 09:04 Dose: 10 mg Morphine Sulfate (Morphine) 1 mg IVPUSH Q2H PRN PRN Reason: Pain (severe 7-10) Last Admin: 10/28/18 13:53 Dose: 1 mg Morphine Sulfate (Morphine) 2 mg IVPUSH DAILY PRN PRN Reason: wound dressing change Last Admin: 10/29/18 15:19 Dose: 2 mg Ondansetron HCl (Zofran Odt) 4 mg PO Q6H PRN PRN Reason: nausea, able to take PO Last Admin: 10/20/18 15:06 Dose: 4 mg Oxycodone HCl (Oxycodone) 5 mg PO Q4H PRN PRN Reason: Pain (moderate 4-6) Simethicone (Simethicone) 80 mg PO Q4H PRN PRN Reason: Dyspepsia Sodium Chloride (Saline Flush) 10 ml FLUSH ASDIRECTED PRN PRN Reason: Keep Vein Open Last Admin: 10/29/18 15:18 Dose: 10 ml Zolpidem Tartrate (Ambien) 5 mg PO BEDTIME PRN PRN Reason: Sleep Discontinued Medications Insulin NPH Beef/Pork (Humulin 70-30) 10 unit SQ BEDTIME [facility]ENE Last Admin: 10/22/18 22:50 Dose: 10 unit Morphine Sulfate (Morphine) 2 mg IVPUSH Q2H PRN PRN Reason: Pain (severe 7-10) Last Admin: 10/20/18 19:33 Dose: 2 mg Morphine Sulfate (Morphine) 2 mg IVPUSH ONETIME ONE Stop: 10/25/18 12:52 Last Admin: 10/25/18 12:54 Dose: 2 mg Morphine Sulfate (Morphine) 2 mg IVPUSH ONETIME ONE Stop: 10/25/18 14:29 Last Admin: 10/25/18 14:34 Dose: 2 mg - Exam General: Alert, Oriented HEENT: Pupils Equal, Pupils Reactive Neck: Supple Lungs: Clear to Auscultation, Normal Respiratory Effort Cardiovascular: Regular Rate, Regular Rhythm GI/Abdominal Exam: Normal Bowel Sounds, Soft, Non-Tender, No Organomegaly Extremities: Other (dressing c/d/i) - Problem List Review Problem List Initiated/Reviewed/Updated: Yes - My Orders Last 24 Hours: My Active Orders 10/30/18 10:23 Calcium Carbonate [Tums] 500 mg PO Q2H PRN 10/30/18 10:24 Simethicone 80 mg PO Q4H PRN 10/30/18 10:25 oxyCODONE 5 mg PO Q4H PRN - Plan Plan:: Right foot cellulitis, osteomyelitis there was abscess, septic joint based on MRI Blood culture neg Wound culture: multidrug resistant enterococcus Continue ertapenem plan for 4 weeks IV Abx Pain mgt continue gabapentin F/up with dr Kc weekly, next appointment today f/u with podiatry, next appointment Dyspepsia PRN maalox Diabetes continue home insulin regimen Htn continue lisinopril History of seizure disorder Continue Neeta
[2018-10-30] MEDS ORDERED: Polyethylene Glycol 3350 Powder 17 GM Packet PO ONE (12:00)
[2018-10-30] MEDS: Morphine 2 MG/ML Syringe IVPUSH PRN (17:06)
[2018-10-30] MEDS: Sodium Chloride 0.9% 10 ML Syringe FLUSH PRN (17:07)
[2018-10-31] MEDS: Docusate Sodium 100 MG Cap PO PRN (01:03)
[2018-10-31] MEDS: Acetaminophen/HYDROcodone 325-10 MG Tab PO PRN ×4 (01:03→21:34)
[2018-10-31] MEDS: Ertapenem 1 GM in Sodium Chloride 0.9% 50 ML IV SCH (06:06)
[2018-10-31] MEDS: Heparin Sodium 5,000 Units/ML Vial SUBCUT SCH ×3 (06:06→21:28)
[2018-10-31] MEDS: Insulin Lispro 100 Units/ML 3 ML Vial SUBCUT SCH ×4 (08:34→21:23)
[2018-10-31] MEDS: Acetaminophen 325 MG Tab PO SCH ×2 (09:29→21:24)
[2018-10-31] MEDS: atorvaSTATin 20 MG Tab PO SCH (09:29)
[2018-10-31] MEDS: Aspirin 81 MG Tab.EC PO SCH (09:30)
[2018-10-31] MEDS: levETIRAcetam 500 MG Tab PO SCH ×2 (09:30→21:25)
[2018-10-31] MEDS: Gabapentin 300 MG Cap PO SCH ×3 (09:30→21:25)
[2018-10-31] MEDS: Insulin Isophane NPH, Human 100 Units/ML 3 ML Vial SQ SCH (09:47)
[2018-10-31] MEDS: Lisinopril 10 MG Tab PO SCH (09:47)
[2018-10-31] MEDS: Polyethylene Glycol 3350 Powder 17 GM Packet PO SCH (11:37)
[2018-10-31] MEDS: Morphine 2 MG/ML Syringe IVPUSH PRN ×2 (14:28→23:05)
[2018-10-31] MEDS: Sodium Chloride 0.9% 10 ML Syringe FLUSH PRN ×2 (21:26→23:05)
[2018-11-01] MEDS: Acetaminophen/HYDROcodone 325-10 MG Tab PO PRN ×5 (02:11→22:16)
[2018-11-01] MEDS: Heparin Sodium 5,000 Units/ML Vial SUBCUT SCH ×3 (05:06→22:02)
[2018-11-01] MEDS: Insulin Lispro 100 Units/ML 3 ML Vial SUBCUT SCH ×4 (08:29→22:13)
[2018-11-01] MEDS: Acetaminophen 325 MG Tab PO SCH ×2 (08:36→21:59)
[2018-11-01] MEDS: Insulin Isophane NPH, Human 100 Units/ML 3 ML Vial SQ SCH (08:36)
[2018-11-01] MEDS: Aspirin 81 MG Tab.EC PO SCH (08:36)
[2018-11-01] MEDS: Polyethylene Glycol 3350 Powder 17 GM Packet PO SCH (08:36)
[2018-11-01] MEDS: atorvaSTATin 20 MG Tab PO SCH (08:38)
[2018-11-01] MEDS: levETIRAcetam 500 MG Tab PO SCH ×2 (08:38→21:59)
[2018-11-01] MEDS: Gabapentin 300 MG Cap PO SCH ×3 (08:38→21:59)
[2018-11-01] MEDS: Lisinopril 10 MG Tab PO SCH (08:39)
[2018-11-01] MEDS: IN SODIUM CHLORIDE 0.9% SCH ×2 (16:20→22:04)
[2018-11-01] MEDS: Sodium Chloride 0.9% 10 ML Syringe FLUSH PRN (22:04)
[2018-11-02] MEDS: Sodium Chloride 0.9% 10 ML Syringe FLUSH PRN ×4 (05:24→21:36)
[2018-11-02] MEDS: IN SODIUM CHLORIDE 0.9% SCH (05:26)
[2018-11-02] MEDS: Heparin Sodium 5,000 Units/ML Vial SUBCUT SCH ×3 (05:30→21:35)
[2018-11-02] MEDS: Acetaminophen/HYDROcodone 325-10 MG Tab PO PRN ×4 (05:43→20:24)
[2018-11-02] MEDS: Insulin Lispro 100 Units/ML 3 ML Vial SUBCUT SCH ×4 (07:44→21:41)
[2018-11-02] MEDS: Polyethylene Glycol 3350 Powder 17 GM Packet PO SCH (09:13)
[2018-11-02] MEDS: Gabapentin 300 MG Cap PO SCH ×3 (09:13→20:25)
[2018-11-02] MEDS: Aspirin 81 MG Tab.EC PO SCH (09:13)
[2018-11-02] MEDS: levETIRAcetam 500 MG Tab PO SCH ×2 (09:13→20:25)
[2018-11-02] MEDS: atorvaSTATin 20 MG Tab PO SCH (09:13)
[2018-11-02] MEDS: Lisinopril 10 MG Tab PO SCH (09:14)
[2018-11-02] MEDS: Acetaminophen 325 MG Tab PO SCH ×2 (09:15→20:25)
[2018-11-02] MEDS: Insulin Isophane NPH, Human 100 Units/ML 3 ML Vial SQ SCH (09:17)
[2018-11-02] MEDS: Morphine 2 MG/ML Syringe IVPUSH PRN (10:12)
[2018-11-03] MEDS: Sodium Chloride 0.9% 10 ML Syringe FLUSH PRN ×5 (05:39→22:09)
[2018-11-03] MEDS: Heparin Sodium 5,000 Units/ML Vial SUBCUT SCH ×3 (05:44→22:09)
[2018-11-03] MEDS: Acetaminophen/HYDROcodone 325-10 MG Tab PO PRN ×4 (05:45→19:03)
[2018-11-03] MEDS: Insulin Lispro 100 Units/ML 3 ML Vial SUBCUT SCH ×4 (07:58→17:23)
[2018-11-03] MEDS: Polyethylene Glycol 3350 Powder 17 GM Packet PO SCH (09:01)
[2018-11-03] MEDS: Insulin Isophane NPH, Human 100 Units/ML 3 ML Vial SQ SCH (09:02)
[2018-11-03] MEDS: levETIRAcetam 500 MG Tab PO SCH ×2 (09:03→22:09)
[2018-11-03] MEDS: Gabapentin 300 MG Cap PO SCH ×3 (09:03→22:09)
[2018-11-03] MEDS: atorvaSTATin 20 MG Tab PO SCH (09:03)
[2018-11-03] MEDS: Aspirin 81 MG Tab.EC PO SCH (09:03)
[2018-11-03] MEDS: Lisinopril 10 MG Tab PO SCH (09:04)
[2018-11-03] MEDS: Acetaminophen 325 MG Tab PO SCH ×2 (09:04→22:09)
[2018-11-03] MEDS: Morphine 2 MG/ML Syringe IVPUSH PRN (15:08)
[2018-11-04] MEDS: Acetaminophen/HYDROcodone 325-10 MG Tab PO PRN ×5 (00:04→21:46)
[2018-11-04] MEDS: Docusate Sodium 100 MG Cap PO PRN ×2 (05:36→21:46)
[2018-11-04] MEDS: Heparin Sodium 5,000 Units/ML Vial SUBCUT SCH ×3 (05:36→21:46)
[2018-11-04] MEDS: Sodium Chloride 0.9% 10 ML Syringe FLUSH PRN ×4 (05:37→21:45)
[2018-11-04] MEDS: Insulin Lispro 100 Units/ML 3 ML Vial SUBCUT SCH ×2 (08:11→17:02)
[2018-11-04] MEDS: atorvaSTATin 20 MG Tab PO SCH (09:39)
[2018-11-04] MEDS: Lisinopril 10 MG Tab PO SCH (09:39)
[2018-11-04] MEDS: Aspirin 81 MG Tab.EC PO SCH (09:40)
[2018-11-04] MEDS: Acetaminophen 325 MG Tab PO SCH ×2 (09:40→21:46)
[2018-11-04] MEDS: Gabapentin 300 MG Cap PO SCH ×3 (09:40→21:46)
[2018-11-04] MEDS: levETIRAcetam 500 MG Tab PO SCH ×2 (09:40→21:46)
[2018-11-04] MEDS: Polyethylene Glycol 3350 Powder 17 GM Packet PO SCH (09:40)
[2018-11-04] MEDS: Insulin Isophane NPH, Human 100 Units/ML 3 ML Vial SQ SCH (09:42)
[2018-11-04] MEDS: Morphine 2 MG/ML Syringe IVPUSH PRN (12:27)
[2018-11-05] MEDS: Acetaminophen/HYDROcodone 325-10 MG Tab PO PRN ×4 (04:43→18:34)
[2018-11-05] MEDS: Heparin Sodium 5,000 Units/ML Vial SUBCUT SCH ×3 (06:10→21:41)
[2018-11-05] MEDS: Sodium Chloride 0.9% 10 ML Syringe FLUSH PRN (06:11)
[2018-11-05] MEDS: Insulin Lispro 100 Units/ML 3 ML Vial SUBCUT SCH ×2 (08:42→18:21)
[2018-11-05] MEDS: Acetaminophen 325 MG Tab PO SCH ×2 (08:58→21:42)
[2018-11-05] MEDS: Aspirin 81 MG Tab.EC PO SCH (08:59)
[2018-11-05] MEDS: atorvaSTATin 20 MG Tab PO SCH (08:59)
[2018-11-05] MEDS: levETIRAcetam 500 MG Tab PO SCH ×2 (08:59→21:41)
[2018-11-05] MEDS: Gabapentin 300 MG Cap PO SCH ×3 (08:59→21:43)
[2018-11-05] MEDS: Polyethylene Glycol 3350 Powder 17 GM Packet PO SCH (08:59)
[2018-11-05] MEDS: Docusate Sodium 100 MG Cap PO PRN (08:59)
[2018-11-05] MEDS: Insulin Isophane NPH, Human 100 Units/ML 3 ML Vial SQ SCH (09:05)
[2018-11-05] MEDS: Lisinopril 10 MG Tab PO SCH (09:43)
[2018-11-05] MEDS: Morphine 2 MG/ML Syringe IVPUSH PRN (16:08)
[2018-11-06] MEDS: Acetaminophen/HYDROcodone 325-10 MG Tab PO PRN ×3 (03:36→19:42)
[2018-11-06] MEDS: Heparin Sodium 5,000 Units/ML Vial SUBCUT SCH ×3 (05:39→21:11)
[2018-11-06] MEDS: Insulin Lispro 100 Units/ML 3 ML Vial SUBCUT SCH ×2 (08:02→17:19)
[2018-11-06] MEDS: Polyethylene Glycol 3350 Powder 17 GM Packet PO SCH (08:59)
[2018-11-06] MEDS: Aspirin 81 MG Tab.EC PO SCH (08:59)
[2018-11-06] MEDS: Gabapentin 300 MG Cap PO SCH ×3 (08:59→21:03)
[2018-11-06] MEDS: levETIRAcetam 500 MG Tab PO SCH ×2 (09:00→21:03)
[2018-11-06] MEDS: atorvaSTATin 20 MG Tab PO SCH (09:00)
[2018-11-06] MEDS: Acetaminophen 325 MG Tab PO SCH ×2 (09:00→21:02)
[2018-11-06] MEDS: Lisinopril 10 MG Tab PO SCH (09:01)
[2018-11-06] MEDS: Insulin Isophane NPH, Human 100 Units/ML 3 ML Vial SQ SCH (09:03)
[2018-11-06] MEDS: Morphine 2 MG/ML Syringe IVPUSH PRN (11:37)
[2018-11-06] MEDS: Sodium Chloride 0.9% 10 ML Syringe FLUSH PRN ×2 (21:15→23:23)
[2018-11-07] MEDS: Sodium Chloride 0.9% 10 ML Syringe FLUSH PRN ×4 (05:25→22:23)
[2018-11-07] MEDS: Heparin Sodium 5,000 Units/ML Vial SUBCUT SCH ×3 (05:28→21:29)
[2018-11-07] MEDS: Polyethylene Glycol 3350 Powder 17 GM Packet PO SCH (07:59)
[2018-11-07] MEDS: Acetaminophen/HYDROcodone 325-10 MG Tab PO PRN ×3 (07:59→20:43)
[2018-11-07] MEDS: Acetaminophen 325 MG Tab PO SCH ×2 (08:00→20:41)
[2018-11-07] MEDS: levETIRAcetam 500 MG Tab PO SCH ×2 (08:01→20:41)
[2018-11-07] MEDS: atorvaSTATin 20 MG Tab PO SCH (08:01)
[2018-11-07] MEDS: Aspirin 81 MG Tab.EC PO SCH (08:01)
[2018-11-07] MEDS: Gabapentin 300 MG Cap PO SCH ×3 (08:02→20:41)
[2018-11-07] MEDS: Insulin Isophane NPH, Human 100 Units/ML 3 ML Vial SQ SCH (09:05)
[2018-11-07] MEDS: Lisinopril 10 MG Tab PO SCH (09:09)
[2018-11-07] MEDS: Insulin Lispro 100 Units/ML 3 ML Vial SUBCUT SCH ×2 (09:10→17:16)
[2018-11-07] MEDS ORDERED: oxyCODONE 5 MG Tab PO ONE (10:30)
--- NOTE | 2018-11-07 13:13 | PN ---
DATE: 11/07/2018 SUBJECTIVE: The patient is seen today because the patient is complaining of some tingling on the right hand and the patient was noted that the right hand is a little bit cooler as compared to the left hand and pulse is slightly diminished. The patient denies though any pain on the right hand. The right hand, this is where his PICC line is located on his right upper arm. Otherwise no other complaints. No chest pain, shortness of breath, nor any other complaints. OBJECTIVE: Vital Signs: Blood pressure is 97/39, pulse of 57, respirations 20, and temperature of 97.8. Heart: Regular rate and rhythm. Normal S1 and S2. No gallops. No rubs. Lungs: Equal bilaterally. No crackles no wheezing. Extremities: Examination of the right arm is remarkable for the PICC line. Radial pulse is faint and hand is slightly cooler to the left hand and range of motion of the fingers is good. IMPRESSION: (?) Vascular insufficiency. I am going to get a Doppler ultrasound of the right arm to rule out any signs of ischemia. [facility] /[id number] MTDD
[2018-11-07] MEDS: Morphine 2 MG/ML Syringe IVPUSH PRN (16:18)
[2018-11-08] MEDS: Sodium Chloride 0.9% 10 ML Syringe FLUSH PRN ×4 (00:29→09:21)
[2018-11-08] MEDS: Heparin Sodium 5,000 Units/ML Vial SUBCUT SCH ×3 (05:36→22:06)
[2018-11-08] MEDS: Acetaminophen/HYDROcodone 325-10 MG Tab PO PRN ×3 (07:29→18:45)
[2018-11-08] MEDS: Acetaminophen 325 MG Tab PO SCH ×2 (09:15→22:07)
[2018-11-08] MEDS: Lisinopril 10 MG Tab PO SCH (09:15)
[2018-11-08] MEDS: atorvaSTATin 20 MG Tab PO SCH (09:16)
[2018-11-08] MEDS: Gabapentin 300 MG Cap PO SCH ×3 (09:16→22:06)
[2018-11-08] MEDS: Aspirin 81 MG Tab.EC PO SCH (09:16)
[2018-11-08] MEDS: levETIRAcetam 500 MG Tab PO SCH ×2 (09:16→22:06)
[2018-11-08] MEDS: Insulin Isophane NPH, Human 100 Units/ML 3 ML Vial SQ SCH (09:17)
[2018-11-08] MEDS: Morphine 2 MG/ML Syringe IVPUSH PRN ×2 (09:18)
[2018-11-08] MEDS: Insulin Lispro 100 Units/ML 3 ML Vial SUBCUT SCH ×2 (09:18→17:08)
[2018-11-08] MEDS: Polyethylene Glycol 3350 Powder 17 GM Packet PO SCH (09:29)
[2018-11-09] MEDS: Acetaminophen/HYDROcodone 325-10 MG Tab PO PRN ×4 (01:59→21:32)
[2018-11-09] MEDS: Heparin Sodium 5,000 Units/ML Vial SUBCUT SCH ×3 (05:50→21:33)
[2018-11-09] MEDS: Sodium Chloride 0.9% 10 ML Syringe FLUSH PRN ×4 (08:01→21:32)
[2018-11-09] MEDS: Polyethylene Glycol 3350 Powder 17 GM Packet PO SCH (08:17)
[2018-11-09] MEDS: Acetaminophen 325 MG Tab PO SCH (08:18)
[2018-11-09] MEDS: atorvaSTATin 20 MG Tab PO SCH (08:19)
[2018-11-09] MEDS: Gabapentin 300 MG Cap PO SCH ×3 (08:19→21:31)
[2018-11-09] MEDS: levETIRAcetam 500 MG Tab PO SCH ×2 (08:19→21:31)
[2018-11-09] MEDS: Aspirin 81 MG Tab.EC PO SCH (08:20)
[2018-11-09] MEDS: Lisinopril 10 MG Tab PO SCH (08:20)
[2018-11-09] MEDS: Insulin Lispro 100 Units/ML 3 ML Vial SUBCUT SCH ×2 (08:23→17:19)
[2018-11-09] MEDS: Insulin Isophane NPH, Human 100 Units/ML 3 ML Vial SQ SCH (08:24)
[2018-11-09] MEDS: oxyCODONE ER 20 MG TAB.ER PO SCH ×2 (13:50→21:31)
[2018-11-09] MEDS: Docusate Sodium 100 MG Cap PO PRN (21:32)
[2018-11-10] MEDS: Heparin Sodium 5,000 Units/ML Vial SUBCUT SCH ×3 (05:43→21:43)
[2018-11-10] MEDS: Sodium Chloride 0.9% 10 ML Syringe FLUSH PRN ×4 (05:43→21:44)
[2018-11-10] MEDS: Acetaminophen/HYDROcodone 325-10 MG Tab PO PRN ×2 (05:44→18:22)
[2018-11-10] MEDS: Polyethylene Glycol 3350 Powder 17 GM Packet PO SCH (08:13)
[2018-11-10] MEDS: Lisinopril 10 MG Tab PO SCH (08:14)
[2018-11-10] MEDS: atorvaSTATin 20 MG Tab PO SCH (08:14)
[2018-11-10] MEDS: levETIRAcetam 500 MG Tab PO SCH ×2 (08:14→20:43)
[2018-11-10] MEDS: Aspirin 81 MG Tab.EC PO SCH (08:14)
[2018-11-10] MEDS: Gabapentin 300 MG Cap PO SCH ×3 (08:14→20:43)
[2018-11-10] MEDS: oxyCODONE ER 20 MG TAB.ER PO SCH ×2 (08:15→20:43)
[2018-11-10] MEDS: Insulin Isophane NPH, Human 100 Units/ML 3 ML Vial SQ SCH (08:16)
[2018-11-10] MEDS: Insulin Lispro 100 Units/ML 3 ML Vial SUBCUT SCH ×2 (08:17→17:14)
[2018-11-11] MEDS: Acetaminophen/HYDROcodone 325-10 MG Tab PO PRN ×4 (00:53→21:04)
[2018-11-11] MEDS: Heparin Sodium 5,000 Units/ML Vial SUBCUT SCH (05:12)
[2018-11-11] MEDS: Sodium Chloride 0.9% 10 ML Syringe FLUSH PRN ×2 (05:25→21:48)
[2018-11-11] MEDS: Aspirin 81 MG Tab.EC PO SCH (08:26)
[2018-11-11] MEDS: levETIRAcetam 500 MG Tab PO SCH ×2 (08:26→20:53)
[2018-11-11] MEDS: Polyethylene Glycol 3350 Powder 17 GM Packet PO SCH (08:26)
[2018-11-11] MEDS: atorvaSTATin 20 MG Tab PO SCH (08:26)
[2018-11-11] MEDS: oxyCODONE ER 20 MG TAB.ER PO SCH ×2 (08:26→20:53)
[2018-11-11] MEDS: Gabapentin 300 MG Cap PO SCH ×3 (08:26→20:53)
[2018-11-11] MEDS: Lisinopril 10 MG Tab PO SCH (08:27)
[2018-11-11] MEDS: Insulin Lispro 100 Units/ML 3 ML Vial SUBCUT SCH ×2 (08:30→18:43)
[2018-11-11] MEDS: Insulin Isophane NPH, Human 100 Units/ML 3 ML Vial SQ SCH (11:29)
[2018-11-12] MEDS: Acetaminophen/HYDROcodone 325-10 MG Tab PO PRN ×3 (03:01→19:58)
[2018-11-12] MEDS: Sodium Chloride 0.9% 10 ML Syringe FLUSH PRN (05:43)
[2018-11-12] MEDS: Gabapentin 300 MG Cap PO SCH ×3 (08:13→21:39)
[2018-11-12] MEDS: Enoxaparin 40 MG/0.4 ML Syringe SUBCUT SCH (08:13)
[2018-11-12] MEDS: oxyCODONE ER 20 MG TAB.ER PO SCH ×2 (08:13→21:39)
[2018-11-12] MEDS: levETIRAcetam 500 MG Tab PO SCH ×2 (08:13→21:39)
[2018-11-12] MEDS: atorvaSTATin 20 MG Tab PO SCH (08:13)
[2018-11-12] MEDS: Polyethylene Glycol 3350 Powder 17 GM Packet PO SCH (08:14)
[2018-11-12] MEDS: Lisinopril 10 MG Tab PO SCH (08:14)
[2018-11-12] MEDS: Aspirin 81 MG Tab.EC PO SCH (08:14)
[2018-11-12] MEDS: Insulin Lispro 100 Units/ML 3 ML Vial SUBCUT SCH ×2 (08:24→18:48)
[2018-11-12] MEDS ORDERED: Insulin Isophane NPH, Human 100 Units/ML 3 ML Vial SQ SCH (09:00)
[2018-11-13] MEDS: Enoxaparin 40 MG/0.4 ML Syringe SUBCUT SCH (08:07)
[2018-11-13] MEDS: Polyethylene Glycol 3350 Powder 17 GM Packet PO SCH (08:07)
[2018-11-13] MEDS: Gabapentin 300 MG Cap PO SCH ×3 (08:07→22:04)
[2018-11-13] MEDS: oxyCODONE ER 20 MG TAB.ER PO SCH ×2 (08:08→22:05)
[2018-11-13] MEDS: levETIRAcetam 500 MG Tab PO SCH ×2 (08:08→22:04)
[2018-11-13] MEDS: Lisinopril 10 MG Tab PO SCH (08:09)
[2018-11-13] MEDS: Aspirin 81 MG Tab.EC PO SCH (08:09)
[2018-11-13] MEDS: atorvaSTATin 20 MG Tab PO SCH (08:09)
[2018-11-13] MEDS: Insulin Lispro 100 Units/ML 3 ML Vial SUBCUT SCH ×2 (08:10→17:18)
[2018-11-13] MEDS: Sodium Chloride 0.9% 10 ML Syringe FLUSH PRN ×2 (14:10→16:11)
[2018-11-13] MEDS: Acetaminophen 325 MG Tab PO PRN (16:43)
[2018-11-14] MEDS: Polyethylene Glycol 3350 Powder 17 GM Packet PO SCH (08:36)
[2018-11-14] MEDS: Sodium Chloride 0.9% 10 ML Syringe FLUSH PRN ×3 (08:37→17:46)
[2018-11-14] MEDS: Lisinopril 10 MG Tab PO SCH (08:41)
[2018-11-14] MEDS: Aspirin 81 MG Tab.EC PO SCH (08:41)
[2018-11-14] MEDS: levETIRAcetam 500 MG Tab PO SCH ×2 (08:41→22:26)
[2018-11-14] MEDS: Gabapentin 300 MG Cap PO SCH ×3 (08:41→22:26)
[2018-11-14] MEDS: oxyCODONE ER 20 MG TAB.ER PO SCH ×2 (08:41→22:26)
[2018-11-14] MEDS: atorvaSTATin 20 MG Tab PO SCH (08:42)
[2018-11-14] MEDS: Enoxaparin 40 MG/0.4 ML Syringe SUBCUT SCH (08:43)
[2018-11-14] MEDS: Insulin Lispro 100 Units/ML 3 ML Vial SUBCUT SCH ×2 (08:45→17:15)
[2018-11-14] MEDS: Acetaminophen 325 MG Tab PO PRN ×2 (16:18→22:28)
[2018-11-15] MEDS: Sodium Chloride 0.9% 10 ML Syringe FLUSH PRN ×2 (07:40→14:13)
[2018-11-15] MEDS: Insulin Lispro 100 Units/ML 3 ML Vial SUBCUT SCH ×2 (09:01→17:32)
[2018-11-15] MEDS: Enoxaparin 40 MG/0.4 ML Syringe SUBCUT SCH (09:07)
[2018-11-15] MEDS: Lisinopril 5 MG Tab PO SCH (09:08)
[2018-11-15] MEDS: atorvaSTATin 20 MG Tab PO SCH (09:08)
[2018-11-15] MEDS: Gabapentin 300 MG Cap PO SCH ×3 (09:08→21:36)
[2018-11-15] MEDS: levETIRAcetam 500 MG Tab PO SCH ×2 (09:09→21:36)
[2018-11-15] MEDS: oxyCODONE ER 20 MG TAB.ER PO SCH ×2 (09:09→21:36)
[2018-11-15] MEDS: Aspirin 81 MG Tab.EC PO SCH (09:09)
[2018-11-15] MEDS: Polyethylene Glycol 3350 Powder 17 GM Packet PO SCH (09:10)
[2018-11-15] MEDS: Acetaminophen 325 MG Tab PO PRN (14:13)
[2018-11-16] MEDS: Insulin Lispro 100 Units/ML 3 ML Vial SUBCUT SCH ×2 (08:12→17:33)
[2018-11-16] MEDS: Gabapentin 300 MG Cap PO SCH ×3 (08:55→20:41)
[2018-11-16] MEDS: Lisinopril 5 MG Tab PO SCH (08:55)
[2018-11-16] MEDS: levETIRAcetam 500 MG Tab PO SCH ×2 (08:55→20:41)
[2018-11-16] MEDS: Docusate Sodium 100 MG Cap PO PRN (08:55)
[2018-11-16] MEDS: oxyCODONE ER 20 MG TAB.ER PO SCH ×2 (08:56→20:41)
[2018-11-16] MEDS: atorvaSTATin 20 MG Tab PO SCH (08:56)
[2018-11-16] MEDS: Aspirin 81 MG Tab.EC PO SCH (08:56)
[2018-11-16] MEDS: Polyethylene Glycol 3350 Powder 17 GM Packet PO SCH (08:57)
[2018-11-16] MEDS: Enoxaparin 40 MG/0.4 ML Syringe SUBCUT SCH (08:57)
[2018-11-16] MEDS: Ondansetron 4 MG Tab.DIS PO PRN (12:56)
[2018-11-16] MEDS: Sodium Chloride 0.9% 10 ML Syringe FLUSH PRN (14:15)
[2018-11-16] MEDS: Acetaminophen 325 MG Tab PO PRN (19:03)
[2018-11-17] MEDS: Insulin Lispro 100 Units/ML 3 ML Vial SUBCUT SCH ×2 (07:51→18:04)
[2018-11-17] MEDS: oxyCODONE ER 20 MG TAB.ER PO SCH ×2 (07:59→20:54)
[2018-11-17] MEDS: Enoxaparin 40 MG/0.4 ML Syringe SUBCUT SCH (08:00)
[2018-11-17] MEDS: atorvaSTATin 20 MG Tab PO SCH (08:00)
[2018-11-17] MEDS: levETIRAcetam 500 MG Tab PO SCH ×2 (08:00→20:53)
[2018-11-17] MEDS: Lisinopril 5 MG Tab PO SCH (08:00)
[2018-11-17] MEDS: Aspirin 81 MG Tab.EC PO SCH (08:00)
[2018-11-17] MEDS: Gabapentin 300 MG Cap PO SCH ×3 (08:00→20:54)
[2018-11-17] MEDS: Polyethylene Glycol 3350 Powder 17 GM Packet PO SCH (08:01)
--- NOTE | 2018-11-17 13:24 | PN ---
DATE: 11/17/2018 SUBJECTIVE: The patient has been doing fairly well, stable. He denies any ongoing complaints. There are no concerns noted from the nursing staff. OBJECTIVE: Vital Signs: Blood pressure is 113/63, pulse of 80, respiration of 16, temperature of 97.2. Heart: Regular rate and rhythm. No gallops. No rubs. Lungs: Equal bilaterally. No crackles. No wheezing. Abdomen: Soft and nontender. Bowel sounds positive. Extremities: Remarkable for the dressing on the right foot. MEDICATIONS: Reviewed. We will continue with his present management and IV antibiotics. [facility] /[id number]
[2018-11-17] MEDS: Sodium Chloride 0.9% 10 ML Syringe FLUSH PRN (21:30)
[2018-11-18] MEDS: Sodium Chloride 0.9% 10 ML Syringe FLUSH PRN ×3 (05:45→21:54)
[2018-11-18] MEDS: Insulin Lispro 100 Units/ML 3 ML Vial SUBCUT SCH ×2 (08:17→16:59)
[2018-11-18] MEDS: Gabapentin 300 MG Cap PO SCH ×3 (10:08→20:37)
[2018-11-18] MEDS: levETIRAcetam 500 MG Tab PO SCH ×2 (10:08→20:37)
[2018-11-18] MEDS: Aspirin 81 MG Tab.EC PO SCH (10:08)
[2018-11-18] MEDS: Polyethylene Glycol 3350 Powder 17 GM Packet PO SCH (10:08)
[2018-11-18] MEDS: Enoxaparin 40 MG/0.4 ML Syringe SUBCUT SCH (10:09)
[2018-11-18] MEDS: atorvaSTATin 20 MG Tab PO SCH (10:09)
[2018-11-18] MEDS: oxyCODONE ER 20 MG TAB.ER PO SCH ×2 (10:09→20:37)
[2018-11-18] MEDS: Lisinopril 5 MG Tab PO SCH (10:12)
[2018-11-18] MEDS: Ondansetron 4 MG Tab.DIS PO PRN (20:48)
[2018-11-19] MEDS: Sodium Chloride 0.9% 10 ML Syringe FLUSH PRN ×3 (05:38→21:55)
[2018-11-19] MEDS: Insulin Lispro 100 Units/ML 3 ML Vial SUBCUT SCH ×2 (08:36→17:02)
[2018-11-19] MEDS: levETIRAcetam 500 MG Tab PO SCH ×2 (09:13→21:03)
[2018-11-19] MEDS: Polyethylene Glycol 3350 Powder 17 GM Packet PO SCH (09:13)
[2018-11-19] MEDS: Gabapentin 300 MG Cap PO SCH ×3 (09:14→21:03)
[2018-11-19] MEDS: oxyCODONE ER 20 MG TAB.ER PO SCH ×2 (09:14→21:03)
[2018-11-19] MEDS: Aspirin 81 MG Tab.EC PO SCH (09:14)
[2018-11-19] MEDS: Lisinopril 5 MG Tab PO SCH (09:15)
[2018-11-19] MEDS: Enoxaparin 40 MG/0.4 ML Syringe SUBCUT SCH (09:15)
[2018-11-19] MEDS: atorvaSTATin 20 MG Tab PO SCH (09:15)
[2018-11-20] MEDS: Sodium Chloride 0.9% 10 ML Syringe FLUSH PRN ×3 (05:38→22:02)
[2018-11-20] MEDS: Insulin Lispro 100 Units/ML 3 ML Vial SUBCUT SCH ×2 (08:06→17:02)
[2018-11-20] MEDS: Polyethylene Glycol 3350 Powder 17 GM Packet PO SCH (08:07)
[2018-11-20] MEDS: atorvaSTATin 20 MG Tab PO SCH (08:08)
[2018-11-20] MEDS: levETIRAcetam 500 MG Tab PO SCH ×2 (08:08→22:00)
[2018-11-20] MEDS: Aspirin 81 MG Tab.EC PO SCH (08:08)
[2018-11-20] MEDS: Lisinopril 5 MG Tab PO SCH (08:08)
[2018-11-20] MEDS: oxyCODONE ER 20 MG TAB.ER PO SCH ×2 (08:09→22:00)
[2018-11-20] MEDS: Gabapentin 300 MG Cap PO SCH ×3 (08:09→22:00)
[2018-11-20] MEDS: Enoxaparin 40 MG/0.4 ML Syringe SUBCUT SCH (08:10)
[2018-11-21] MEDS: Sodium Chloride 0.9% 10 ML Syringe FLUSH PRN ×3 (05:52→15:42)
[2018-11-21] MEDS: Insulin Lispro 100 Units/ML 3 ML Vial SUBCUT SCH ×2 (08:01→16:59)
[2018-11-21] MEDS: Polyethylene Glycol 3350 Powder 17 GM Packet PO SCH (08:55)
[2018-11-21] MEDS: Aspirin 81 MG Tab.EC PO SCH (08:56)
[2018-11-21] MEDS: oxyCODONE ER 20 MG TAB.ER PO SCH ×2 (08:56→20:44)
[2018-11-21] MEDS: Gabapentin 300 MG Cap PO SCH ×3 (08:56→20:43)
[2018-11-21] MEDS: atorvaSTATin 20 MG Tab PO SCH (08:57)
[2018-11-21] MEDS: levETIRAcetam 500 MG Tab PO SCH ×2 (08:57→20:43)
[2018-11-21] MEDS: Enoxaparin 40 MG/0.4 ML Syringe SUBCUT SCH (08:58)
[2018-11-21] MEDS: Lisinopril 5 MG Tab PO SCH (08:58)
[2018-11-22] MEDS: Polyethylene Glycol 3350 Powder 17 GM Packet PO SCH (08:53)
[2018-11-22] MEDS: Gabapentin 300 MG Cap PO SCH ×3 (08:55→20:40)
[2018-11-22] MEDS: Aspirin 81 MG Tab.EC PO SCH (08:55)
[2018-11-22] MEDS: oxyCODONE ER 20 MG TAB.ER PO SCH ×2 (08:56→20:40)
[2018-11-22] MEDS: levETIRAcetam 500 MG Tab PO SCH ×2 (08:56→20:40)
[2018-11-22] MEDS: atorvaSTATin 20 MG Tab PO SCH (08:56)
[2018-11-22] MEDS: Insulin Lispro 100 Units/ML 3 ML Vial SUBCUT SCH ×2 (08:57→17:21)
[2018-11-22] MEDS: Enoxaparin 40 MG/0.4 ML Syringe SUBCUT SCH (08:57)
[2018-11-22] MEDS: Lisinopril 5 MG Tab PO SCH (08:58)
[2018-11-22] MEDS: Morphine 2 MG/ML Syringe IVPUSH PRN (09:12)
[2018-11-22] MEDS: Sodium Chloride 0.9% 10 ML Syringe FLUSH PRN ×5 (09:14→23:41)
--- NOTE | 2018-11-22 11:15 | PCM.PN ---
- General Info Date of Service: 11/22/18 Admission Dx/Problem (Free Text): Admission Diagnosis/Problem Admission Diagnosis/Problem Osteomyelitis of toe of right foot Subjective Update: Patient doing fairly well. No event overnight. Has podiatry appointment today. Functional Status: Reports: Pain Controlled - Review of Systems General: Reports: No Symptoms HEENT: Reports: No Symptoms Pulmonary: Reports: No Symptoms Cardiovascular: Reports: No Symptoms Gastrointestinal: Reports: No Symptoms Genitourinary: Reports: No Symptoms Musculoskeletal: Reports: No Symptoms Skin: Reports: No Symptoms Neurological: Reports: No Symptoms Psychiatric: Reports: No Symptoms - Patient Data Vitals - Most Recent: Last Vital Signs Temp 97.1 F 11/22/18 07:47 Pulse 87 11/22/18 07:47 Resp 20 11/22/18 07:47 BP 100/61 11/22/18 08:58 Pulse Ox 100 11/22/18 07:47 Weight - Most Recent: 187 lb 4 oz I&O - Last 24 Hours: Intake & Output 11/21/18 11/22/18 11/22/18 22:59 06:59 14:59 Intake Total 92 105 440 Balance 92 105 440 Lab Results Last 24 Hours: Laboratory Results - last 24 hr 11/21/18 11/22/18 Range/Units 16:52 07:47 POC Glucose 121 H 85 (70-105) mg/dl Med Orders - Current: Current Medications Acetaminophen (Tylenol) 650 mg PO Q4H PRN PRN Reason: Pain (Mild 1-3)/fever Last Admin: 11/16/18 19:03 Dose: 650 mg Aspirin (Halfprin) 81 mg PO DAILY [facility] Last Admin: 11/22/18 08:55 Dose: 81 mg Atorvastatin Calcium (Lipitor) 20 mg PO DAILY [facility] Last Admin: 11/22/18 08:56 Dose: 20 mg Calcium Carbonate/Glycine (Tums) 500 mg PO Q2H PRN PRN Reason: Heartburn Diphenhydramine HCl (Benadryl) 25 mg PO QID PRN PRN Reason: Other Docusate Sodium (Colace) 100 mg PO BID PRN PRN Reason: Constipation Last Admin: 11/16/18 08:55 Dose: 100 mg Enoxaparin Sodium (Lovenox) 40 mg SUBCUT DAILY [facility] Last Admin: 11/22/18 08:57 Dose: 40 mg Gabapentin (Neurontin) 600 mg PO TID [facility] Last Admin: 11/22/18 08:55 Dose: 600 mg Ceftazidime/Avibactam 2.5 gm/ (Sodium Chloride) 100 mls @ 50 mls/hr IV Q8HR [facility] Stop: 11/27/18 22:01 Last Infusion: 11/22/18 07:59 Dose: Infused Insulin Human Lispro (Humalog) 0 unit SUBCUT BIDMEALS [facility]; Protocol Last Admin: 11/22/18 08:57 Dose: Not Given Levetiracetam (Keppra) 500 mg PO BID [facility] Last Admin: 11/22/18 08:56 Dose: 500 mg Lisinopril (Prinivil) 5 mg PO DAILY [facility] Last Admin: 11/22/18 08:58 Dose: Not Given Morphine Sulfate (Morphine) 2 mg IVPUSH DAILY PRN PRN Reason: wound dressing change Last Admin: 11/22/18 09:12 Dose: 2 mg Ondansetron HCl (Zofran Odt) 4 mg PO Q6H PRN PRN Reason: nausea, able to take PO Last Admin: 11/18/18 20:48 Dose: 4 mg Oxycodone HCl (Oxycontin) 20 mg PO Q12HR [facility] Last Admin: 11/22/18 08:56 Dose: 20 mg Polyethylene Glycol (Miralax) 17 gm PO DAILY [facility] Last Admin: 11/22/18 08:53 Dose: 17 gm Simethicone (Simethicone) 80 mg PO Q4H PRN PRN Reason: Dyspepsia Sodium Chloride (Saline Flush) 10 ml FLUSH ASDIRECTED PRN PRN Reason: Keep Vein Open Last Admin: 11/22/18 09:14 Dose: 10 ml Zolpidem Tartrate (Ambien) 5 mg PO BEDTIME PRN PRN Reason: Sleep Discontinued Medications Acetaminophen (Tylenol) 650 mg PO BID [facility] Last Admin: 11/09/18 08:18 Dose: 650 mg Hydrocodone Bitart/Acetaminophen ([place] 325-10 Mg) 1 tab PO Q4H PRN PRN Reason: Pain (severe 7-10) Last Admin: 11/12/18 19:58 Dose: 1 tab Gabapentin (Neurontin) 300 mg PO TID [facility] Last Admin: 11/09/18 08:19 Dose: 300 mg Heparin Sodium (Porcine) (Heparin Sodium) 5,000 units SUBCUT Q8HR [facility] Last Admin: 11/11/18 05:12 Dose: 5,000 units Ertapenem 1 gm/ Sodium (Chloride) 50 mls @ 50 mls/hr IV DAILY@0600 [facility] Last Admin: 10/31/18 06:06 Dose: 50 mls/hr Non-Formulary Medication 1 (each/ Sodium Chloride) 100 mls @ 50 mls/hr .XX Q8HR [facility] Last Infusion: 11/02/18 07:30 Dose: Infused Insulin Human Lispro (Humalog) 0 unit SUBCUT QIDACANDBED [facility]; Protocol Last Admin: 11/03/18 12:26 Dose: Not Given Insulin Human NPH (Humulin N) 10 unit SQ DAILY [facility] Last Admin: 11/11/18 11:29 Dose: Not Given Insulin Human NPH (Humulin N) 7 unit SQ DAILY [facility] Last Admin: 11/12/18 08:24 Dose: 7 unit Insulin NPH Beef/Pork (Humulin 70-30) 10 unit SQ BEDTIME [facility] Last Admin: 10/22/18 22:50 Dose: 10 unit Lisinopril (Prinivil) 10 mg PO DAILY [facility] Last Admin: 11/14/18 08:41 Dose: 10 mg Morphine Sulfate (Morphine) 2 mg IVPUSH Q2H PRN PRN Reason: Pain (severe 7-10) Last Admin: 10/20/18 19:33 Dose: 2 mg Morphine Sulfate (Morphine) 1 mg IVPUSH Q2H PRN PRN Reason: Pain (severe 7-10) Last Admin: 11/07/18 16:18 Dose: 1 mg Morphine Sulfate (Morphine) 2 mg IVPUSH ONETIME ONE Stop: 10/25/18 12:52 Last Admin: 10/25/18 12:54 Dose: 2 mg Morphine Sulfate (Morphine) 2 mg IVPUSH ONETIME ONE Stop: 10/25/18 14:29 Last Admin: 10/25/18 14:34 Dose: 2 mg Oxycodone HCl (Oxycodone) 5 mg PO ONETIME ONE Stop: 11/07/18 10:31 Last Admin: 11/07/18 10:41 Dose: 5 mg Polyethylene Glycol (Miralax) 17 gm PO ONETIME ONE Stop: 10/30/18 12:01 Last Admin: 10/30/18 11:54 Dose: 17 gm - Exam Quality Assessment: Supplemental Oxygen General: Alert, Oriented HEENT: Pupils Equal, Pupils Reactive, EOMI, Mucous Membr. Moist/[place] Neck: Supple Lungs: Clear to Auscultation, Normal Respiratory Effort Cardiovascular: Regular Rate, Regular Rhythm GI/Abdominal Exam: Normal Bowel Sounds, Soft, Non-Tender, No Organomegaly, No Distention, No Abnormal Bruit, No Mass, Pelvis Stable (Male) Exam: No Hernia, Normal Inspection, Normal Prostate, Circumcised Back Exam: Normal Inspection, Full Range of Motion Extremities: Normal Inspection, Normal Range of Motion, Non-Tender, No Pedal Edema, Normal Capillary Refill Skin: Warm, Dry, Intact Wound/Incisions: Healing Well Neurological: No New Focal Deficit Psy/Mental Status: Alert, Normal Affect, Normal Mood - Problem List Review Problem List Initiated/Reviewed/Updated: Yes - Plan Plan:: Right foot cellulitis, osteomyelitis there was abscess, septic joint based on MRI Blood culture neg Wound culture: multidrug resistant enterococcus Continue ertapenem plan for 4 weeks IV Abx Pain mgt continue gabapentin F/up with dr Kc weekly, next appointment today f/u with podiatry Dyspepsia PRN maalox Diabetes continue home insulin regimen Htn continue lisinopril History of seizure disorder Continue Neeta
[2018-11-23] MEDS: Sodium Chloride 0.9% 10 ML Syringe FLUSH PRN ×4 (05:32→23:30)
[2018-11-23] MEDS: Insulin Lispro 100 Units/ML 3 ML Vial SUBCUT SCH ×2 (07:59→17:02)
[2018-11-23] MEDS: Polyethylene Glycol 3350 Powder 17 GM Packet PO SCH (08:41)
[2018-11-23] MEDS: Aspirin 81 MG Tab.EC PO SCH (08:41)
[2018-11-23] MEDS: Gabapentin 300 MG Cap PO SCH ×3 (08:41→20:21)
[2018-11-23] MEDS: Lisinopril 5 MG Tab PO SCH (08:42)
[2018-11-23] MEDS: oxyCODONE ER 20 MG TAB.ER PO SCH ×2 (08:43→20:22)
[2018-11-23] MEDS: levETIRAcetam 500 MG Tab PO SCH ×2 (08:43→20:21)
[2018-11-23] MEDS: atorvaSTATin 20 MG Tab PO SCH (08:43)
[2018-11-23] MEDS: Enoxaparin 40 MG/0.4 ML Syringe SUBCUT SCH (08:44)
[2018-11-24] MEDS: Sodium Chloride 0.9% 10 ML Syringe FLUSH PRN ×4 (05:23→21:47)
[2018-11-24] MEDS: Insulin Lispro 100 Units/ML 3 ML Vial SUBCUT SCH ×2 (07:56→17:33)
[2018-11-24] MEDS: Aspirin 81 MG Tab.EC PO SCH (09:07)
[2018-11-24] MEDS: atorvaSTATin 20 MG Tab PO SCH (09:07)
[2018-11-24] MEDS: Lisinopril 5 MG Tab PO SCH (09:07)
[2018-11-24] MEDS: oxyCODONE ER 20 MG TAB.ER PO SCH ×2 (09:08→21:47)
[2018-11-24] MEDS: levETIRAcetam 500 MG Tab PO SCH ×2 (09:08→21:47)
[2018-11-24] MEDS: Gabapentin 300 MG Cap PO SCH ×3 (09:08→21:47)
[2018-11-24] MEDS: Polyethylene Glycol 3350 Powder 17 GM Packet PO SCH (09:08)
[2018-11-24] MEDS: Enoxaparin 40 MG/0.4 ML Syringe SUBCUT SCH (09:09)
[2018-11-25] MEDS: Sodium Chloride 0.9% 10 ML Syringe FLUSH PRN ×4 (06:25→21:52)
[2018-11-25] MEDS: Insulin Lispro 100 Units/ML 3 ML Vial SUBCUT SCH ×2 (08:17→17:24)
[2018-11-25] MEDS: Polyethylene Glycol 3350 Powder 17 GM Packet PO SCH (09:17)
[2018-11-25] MEDS: Gabapentin 300 MG Cap PO SCH ×3 (09:18→21:52)
[2018-11-25] MEDS: Aspirin 81 MG Tab.EC PO SCH (09:18)
[2018-11-25] MEDS: oxyCODONE ER 20 MG TAB.ER PO SCH ×2 (09:18→21:52)
[2018-11-25] MEDS: levETIRAcetam 500 MG Tab PO SCH ×2 (09:19→21:52)
[2018-11-25] MEDS: Lisinopril 5 MG Tab PO SCH (09:19)
[2018-11-25] MEDS: atorvaSTATin 20 MG Tab PO SCH (09:19)
[2018-11-25] MEDS: Enoxaparin 40 MG/0.4 ML Syringe SUBCUT SCH (09:20)
[2018-11-26] MEDS: Sodium Chloride 0.9% 10 ML Syringe FLUSH PRN (06:10)
[2018-11-26] MEDS: oxyCODONE ER 20 MG TAB.ER PO SCH ×2 (09:19→20:44)
[2018-11-26] MEDS: Gabapentin 300 MG Cap PO SCH ×3 (09:20→20:44)
[2018-11-26] MEDS: Lisinopril 5 MG Tab PO SCH (09:21)
[2018-11-26] MEDS: levETIRAcetam 500 MG Tab PO SCH ×2 (09:21→20:44)
[2018-11-26] MEDS: Aspirin 81 MG Tab.EC PO SCH (09:21)
[2018-11-26] MEDS: Polyethylene Glycol 3350 Powder 17 GM Packet PO SCH (09:21)
[2018-11-26] MEDS: atorvaSTATin 20 MG Tab PO SCH (09:21)
[2018-11-26] MEDS: Enoxaparin 40 MG/0.4 ML Syringe SUBCUT SCH (09:23)
[2018-11-26] MEDS: Insulin Lispro 100 Units/ML 3 ML Vial SUBCUT SCH ×2 (09:43→17:20)
--- NOTE | 2018-11-26 12:29 | PCM.PN ---
- General Info Date of Service: 11/26/18 Admission Dx/Problem (Free Text): Admission Diagnosis/Problem Admission Diagnosis/Problem Osteomyelitis of toe of right foot Subjective Update: Patient doing fairly well. No event overnight. No compliant today. No fever or chills. Functional Status: Reports: Pain Controlled - Review of Systems General: Reports: No Symptoms HEENT: Reports: No Symptoms Pulmonary: Reports: No Symptoms Cardiovascular: Reports: No Symptoms Gastrointestinal: Reports: No Symptoms Genitourinary: Reports: No Symptoms Musculoskeletal: Reports: No Symptoms Skin: Reports: No Symptoms Neurological: Reports: No Symptoms Psychiatric: Reports: No Symptoms - Patient Data Vitals - Most Recent: Last Vital Signs Temp 97.8 F 11/26/18 07:52 Pulse 91 11/26/18 07:52 Resp 20 11/26/18 07:52 BP 101/62 11/26/18 09:21 Pulse Ox 96 11/26/18 07:52 Weight - Most Recent: 187 lb 4 oz I&O - Last 24 Hours: Intake & Output 11/25/18 11/26/18 11/26/18 22:59 06:59 14:59 Intake Total 100 Balance 100 Lab Results Last 24 Hours: Laboratory Results - last 24 hr 11/25/18 11/26/18 11/26/18 Range/Units 16:48 06:10 06:10 WBC 5.7 (5.0-10.0) 10^3/uL RBC 4.65 (4.6-6.2) 10^6/uL Hgb 12.5 L (14.0-18.0) g/dL Hct 37.9 L (40.0-54.0) % MCV 81.5 (80-100) fL MCH 26.9 L (27.0-34.0) pg MCHC 33.0 (33.0-35.0) g/dL Plt Count 149 L (150-450) 10^3/uL Neut % (Auto) 49.1 (42.2-75.2) % Lymph % (Auto) 38.0 (20.5-50.1) % [place] % (Auto) 7.9 (2-8) % Eos % (Auto) 4.7 H (1.0-3.0) % Baso % (Auto) 0.3 (0.0-1.0) % ESR 20 H (0-15) mm/hr Creatinine 0.8 (0.6-1.3) mg/dL Est Cr Clr Drug Dosing 136.07 mL/min Estimated GFR (MDRD) > 60 POC Glucose 89 (70-105) mg/dl ALT 60 (10-60) IU/L C-Reactive Protein (0.0-1.3) mg/dL 11/26/18 11/26/18 Range/Units 06:10 07:42 WBC (5.0-10.0) 10^3/uL RBC (4.6-6.2) 10^6/uL Hgb (14.0-18.0) g/dL Hct (40.0-54.0) % MCV (80-100) fL MCH (27.0-34.0) pg MCHC (33.0-35.0) g/dL Plt Count (150-450) 10^3/uL Neut % (Auto) (42.2-75.2) % Lymph % (Auto) (20.5-50.1) % [place] % (Auto) (2-8) % Eos % (Auto) (1.0-3.0) % Baso % (Auto) (0.0-1.0) % ESR (0-15) mm/hr Creatinine (0.6-1.3) mg/dL Est Cr Clr Drug Dosing mL/min Estimated GFR (MDRD) POC Glucose 93 (70-105) mg/dl ALT (10-60) IU/L C-Reactive Protein 0.6 (0.0-1.3) mg/dL Med Orders - Current: Current Medications Acetaminophen (Tylenol) 650 mg PO Q4H PRN PRN Reason: Pain (Mild 1-3)/fever Last Admin: 11/16/18 19:03 Dose: 650 mg Aspirin (Halfprin) 81 mg PO DAILY [facility] Last Admin: 11/26/18 09:21 Dose: 81 mg Atorvastatin Calcium (Lipitor) 20 mg PO DAILY [facility] Last Admin: 11/26/18 09:21 Dose: 20 mg Calcium Carbonate/Glycine (Tums) 500 mg PO Q2H PRN PRN Reason: Heartburn Diphenhydramine HCl (Benadryl) 25 mg PO QID PRN PRN Reason: Other Docusate Sodium (Colace) 100 mg PO BID PRN PRN Reason: Constipation Last Admin: 11/16/18 08:55 Dose: 100 mg Enoxaparin Sodium (Lovenox) 40 mg SUBCUT DAILY [facility] Last Admin: 11/26/18 09:23 Dose: 40 mg Gabapentin (Neurontin) 600 mg PO TID [facility] Last Admin: 11/26/18 09:20 Dose: 600 mg Ceftazidime/Avibactam 2.5 gm/ (Sodium Chloride) 100 mls @ 50 mls/hr IV Q8HR [facility] Stop: 11/27/18 22:01 Last Infusion: 11/26/18 09:44 Dose: Infused Insulin Human Lispro (Humalog) 0 unit SUBCUT BIDMEALS [facility]; Protocol Last Admin: 11/26/18 09:43 Dose: Not Given Levetiracetam (Keppra) 500 mg PO BID [facility] Last Admin: 11/26/18 09:21 Dose: 500 mg Lisinopril (Prinivil) 5 mg PO DAILY [facility] Last Admin: 11/26/18 09:21 Dose: 5 mg Morphine Sulfate (Morphine) 2 mg IVPUSH DAILY PRN PRN Reason: wound dressing change Last Admin: 11/22/18 09:12 Dose: 2 mg Ondansetron HCl (Zofran Odt) 4 mg PO Q6H PRN PRN Reason: nausea, able to take PO Last Admin: 11/18/18 20:48 Dose: 4 mg Oxycodone HCl (Oxycontin) 20 mg PO Q12HR [facility] Last Admin: 11/26/18 09:19 Dose: 20 mg Polyethylene Glycol (Miralax) 17 gm PO DAILY [facility] Last Admin: 11/26/18 09:21 Dose: 17 gm Simethicone (Simethicone) 80 mg PO Q4H PRN PRN Reason: Dyspepsia Sodium Chloride (Saline Flush) 10 ml FLUSH ASDIRECTED PRN PRN Reason: Keep Vein Open Last Admin: 11/26/18 06:10 Dose: 10 ml Zolpidem Tartrate (Ambien) 5 mg PO BEDTIME PRN PRN Reason: Sleep Discontinued Medications Acetaminophen (Tylenol) 650 mg PO BID [facility] Last Admin: 11/09/18 08:18 Dose: 650 mg Hydrocodone Bitart/Acetaminophen ([place] 325-10 Mg) 1 tab PO Q4H PRN PRN Reason: Pain (severe 7-10) Last Admin: 11/12/18 19:58 Dose: 1 tab Gabapentin (Neurontin) 300 mg PO TID [facility] Last Admin: 11/09/18 08:19 Dose: 300 mg Heparin Sodium (Porcine) (Heparin Sodium) 5,000 units SUBCUT Q8HR [facility] Last Admin: 11/11/18 05:12 Dose: 5,000 units Ertapenem 1 gm/ Sodium (Chloride) 50 mls @ 50 mls/hr IV DAILY@0600 [facility] Last Admin: 10/31/18 06:06 Dose: 50 mls/hr Non-Formulary Medication 1 (each/ Sodium Chloride) 100 mls @ 50 mls/hr .XX Q8HR [facility] Last Infusion: 11/02/18 07:30 Dose: Infused Insulin Human Lispro (Humalog) 0 unit SUBCUT QIDACANDBED [facility]; Protocol Last Admin: 11/03/18 12:26 Dose: Not Given Insulin Human NPH (Humulin N) 10 unit SQ DAILY [facility] Last Admin: 11/11/18 11:29 Dose: Not Given Insulin Human NPH (Humulin N) 7 unit SQ DAILY [facility] Last Admin: 11/12/18 08:24 Dose: 7 unit Insulin NPH Beef/Pork (Humulin 70-30) 10 unit SQ BEDTIME [facility] Last Admin: 10/22/18 22:50 Dose: 10 unit Lisinopril (Prinivil) 10 mg PO DAILY [facility] Last Admin: 11/14/18 08:41 Dose: 10 mg Morphine Sulfate (Morphine) 2 mg IVPUSH Q2H PRN PRN Reason: Pain (severe 7-10) Last Admin: 10/20/18 19:33 Dose: 2 mg Morphine Sulfate (Morphine) 1 mg IVPUSH Q2H PRN PRN Reason: Pain (severe 7-10) Last Admin: 11/07/18 16:18 Dose: 1 mg Morphine Sulfate (Morphine) 2 mg IVPUSH ONETIME ONE Stop: 10/25/18 12:52 Last Admin: 10/25/18 12:54 Dose: 2 mg Morphine Sulfate (Morphine) 2 mg IVPUSH ONETIME ONE Stop: 10/25/18 14:29 Last Admin: 10/25/18 14:34 Dose: 2 mg Oxycodone HCl (Oxycodone) 5 mg PO ONETIME ONE Stop: 11/07/18 10:31 Last Admin: 11/07/18 10:41 Dose: 5 mg Polyethylene Glycol (Miralax) 17 gm PO ONETIME ONE Stop: 10/30/18 12:01 Last Admin: 10/30/18 11:54 Dose: 17 gm - Exam Quality Assessment: DVT Prophylaxis General: Alert, Oriented HEENT: Pupils Equal, Pupils Reactive, EOMI, Mucous Membr. Moist/[place] Neck: Supple Lungs: Clear to Auscultation, Normal Respiratory Effort Cardiovascular: Regular Rate, Regular Rhythm GI/Abdominal Exam: Normal Bowel Sounds, Soft, Non-Tender, No Organomegaly, No Distention, No Abnormal Bruit, No Mass, Pelvis Stable (Male) Exam: No Hernia, Normal Inspection, Normal Prostate, Circumcised Back Exam: Normal Inspection, Full Range of Motion Extremities: Normal Inspection, Normal Range of Motion, Non-Tender, No Pedal Edema, Normal Capillary Refill Skin: Warm, Dry, Intact Wound/Incisions: Healing Well Neurological: No New Focal Deficit Psy/Mental Status: Alert, Normal Affect, Normal Mood - Problem List Review Problem List Initiated/Reviewed/Updated: Yes - Plan Plan:: Right foot cellulitis, osteomyelitis there was abscess, septic joint based on MRI Blood culture neg Wound culture: multidrug resistant enterococcus Continue ertapenem plan for 4 weeks IV Abx Pain mgt continue gabapentin F/up with dr Kc weekly f/u with podiatry Dyspepsia PRN maalox Diabetes continue home insulin regimen Htn continue lisinopril History of seizure disorder Continue Neeta
[2018-11-27] MEDS: Insulin Lispro 100 Units/ML 3 ML Vial SUBCUT SCH (07:39)
[2018-11-27] MEDS: Polyethylene Glycol 3350 Powder 17 GM Packet PO SCH (08:44)
[2018-11-27] MEDS: Enoxaparin 40 MG/0.4 ML Syringe SUBCUT SCH (08:45)
[2018-11-27] MEDS: levETIRAcetam 500 MG Tab PO SCH (08:45)
[2018-11-27] MEDS: Aspirin 81 MG Tab.EC PO SCH (08:46)
[2018-11-27] MEDS: atorvaSTATin 20 MG Tab PO SCH (08:46)
[2018-11-27] MEDS: Gabapentin 300 MG Cap PO SCH (08:47)
[2018-11-27] MEDS: Lisinopril 5 MG Tab PO SCH (08:47)
[2018-11-27] MEDS: oxyCODONE ER 20 MG TAB.ER PO SCH (08:48)
--- NOTE | 2018-11-27 12:45 | PCM.DCSUM1 ---
Discharge Summary - Hospital Course Free Text/Narrative:: Patient admitted to swing bed to complete IV abx for Osteomyelitis of toe of right foot. His hospital course was uncomplicated. He saw ID on review today and abx was d/c. patient is being discharged home. He will follow up with ID on 12/18. Diagnosis: Stroke: No - Discharge Data Discharge Date: 11/27/18 Discharge Disposition: Home, Self-Care 01 Condition: Good - Referral to Home Health Primary Care Physician: PCP None - Patient Summary/Data Consults: Consultations 11/07/18 16:32 OT Evaluation and Treatment [CONS] Routine PT Evaluation and Treatment [CONS] Routine 11/14/18 15:40 PT Evaluation and Treatment [CONS] Routine - Patient Instructions Diet: Diabetic Diet Activity: As Tolerated Driving: May Drive Today Showering/Bathing: May Shower Notify Provider of: Fever, Increased Pain, Swelling and Redness, Drainage, Nausea and/or Vomiting - Discharge Plan *PRESCRIPTION DRUG MONITORING PROGRAM REVIEWED*: No *COPY OF PRESCRIPTION DRUG MONITORING REPORT IN PATIENT LAURENCE: No Home Medications: Home Meds levETIRAcetam [Keppra] 500 mg PO BID 08/22/18 [History] Aspirin [Halfprin] 81 mg PO DAILY 08/23/18 [History] Insulin Aspart [NovoLOG] 13 units SQ TIDMEALS 08/23/18 [History] Lisinopril 10 mg PO DAILY 08/23/18 [History] atorvaSTATin Calcium [Atorvastatin Calcium] 20 mg PO DAILY 08/23/18 [History] Acetaminophen 650 mg PO Q6HR PRN 10/19/18 [History] Acetaminophen with Codeine [Tylenol with Codeine #3 Tablet] 1 tab PO Q6H PRN 07/02 [History] Ertapenem [INVanz] 1 gm IV Q24H 10/19/18 [History] Gabapentin [Neurontin] 300 mg PO TID 10/19/18 [History] Ibuprofen 200 mg PO Q6HR PRN 10/19/18 [History] Insulin NPH Hum/Reg Insulin Hm [Humulin 70-30] 10 unit SQ BEDTIME 10/19/18 [ History] Oxygen Therapy Mode: Room Air - Discharge Summary/Plan Comment DC Time >30 min.: Yes - General Info Date of Service: 11/27/18 Subjective Update: Patient doing fairly well. No event overnight. No compliant today. No fever or chills. Functional Status: Reports: Pain Controlled - Review of Systems General: Reports: No Symptoms HEENT: Reports: No Symptoms Pulmonary: Reports: No Symptoms Cardiovascular: Reports: No Symptoms Gastrointestinal: Reports: No Symptoms Genitourinary: Reports: No Symptoms Musculoskeletal: Reports: No Symptoms Skin: Reports: No Symptoms Neurological: Reports: No Symptoms Psychiatric: Reports: No Symptoms - Patient Data Vitals - Most Recent: Last Vital Signs Temp 98.9 F 11/27/18 07:39 Pulse 70 11/27/18 07:39 Resp 18 11/27/18 07:39 BP 122/72 11/27/18 08:47 Pulse Ox 98 11/27/18 07:39 Weight - Most Recent: 187 lb 4 oz I&O - Last 24 hours: Intake & Output 11/26/18 11/27/18 11/27/18 22:59 06:59 14:59 Intake Total 510 310 105 Balance 510 310 105 Lab Results - Last 24 hrs: Laboratory Results - last 24 hr 11/26/18 11/27/18 Range/Units 16:28 07:35 POC Glucose 103 89 (70-105) mg/dl Med Orders - Current: Current Medications Acetaminophen (Tylenol) 650 mg PO Q4H PRN PRN Reason: Pain (Mild 1-3)/fever Last Admin: 11/16/18 19:03 Dose: 650 mg Aspirin (Halfprin) 81 mg PO DAILY [facility] Last Admin: 11/27/18 08:46 Dose: 81 mg Atorvastatin Calcium (Lipitor) 20 mg PO DAILY [facility] Last Admin: 11/27/18 08:46 Dose: 20 mg Calcium Carbonate/Glycine (Tums) 500 mg PO Q2H PRN PRN Reason: Heartburn Diphenhydramine HCl (Benadryl) 25 mg PO QID PRN PRN Reason: Other Docusate Sodium (Colace) 100 mg PO BID PRN PRN Reason: Constipation Last Admin: 11/16/18 08:55 Dose: 100 mg Enoxaparin Sodium (Lovenox) 40 mg SUBCUT DAILY [facility] Last Admin: 11/27/18 08:45 Dose: 40 mg Gabapentin (Neurontin) 600 mg PO TID [facility] Last Admin: 11/27/18 08:47 Dose: 600 mg Ceftazidime/Avibactam 2.5 gm/ (Sodium Chloride) 100 mls @ 50 mls/hr IV Q8HR [facility] Stop: 11/27/18 22:01 Last Infusion: 11/27/18 08:44 Dose: Infused Insulin Human Lispro (Humalog) 0 unit SUBCUT BIDMEALS [facility]; Protocol Last Admin: 11/27/18 07:39 Dose: Not Given Levetiracetam (Keppra) 500 mg PO BID [facility] Last Admin: 11/27/18 08:45 Dose: 500 mg Lisinopril (Prinivil) 5 mg PO DAILY [facility] Last Admin: 11/27/18 08:47 Dose: 5 mg Morphine Sulfate (Morphine) 2 mg IVPUSH DAILY PRN PRN Reason: wound dressing change Last Admin: 11/22/18 09:12 Dose: 2 mg Ondansetron HCl (Zofran Odt) 4 mg PO Q6H PRN PRN Reason: nausea, able to take PO Last Admin: 11/18/18 20:48 Dose: 4 mg Oxycodone HCl (Oxycontin) 20 mg PO Q12HR [facility] Last Admin: 11/27/18 08:48 Dose: 20 mg Polyethylene Glycol (Miralax) 17 gm PO DAILY [facility] Last Admin: 11/27/18 08:44 Dose: 17 gm Simethicone (Simethicone) 80 mg PO Q4H PRN PRN Reason: Dyspepsia Sodium Chloride (Saline Flush) 10 ml FLUSH ASDIRECTED PRN PRN Reason: Keep Vein Open Last Admin: 11/26/18 06:10 Dose: 10 ml Zolpidem Tartrate (Ambien) 5 mg PO BEDTIME PRN PRN Reason: Sleep Discontinued Medications Acetaminophen (Tylenol) 650 mg PO BID [facility] Last Admin: 11/09/18 08:18 Dose: 650 mg Hydrocodone Bitart/Acetaminophen ([place] 325-10 Mg) 1 tab PO Q4H PRN PRN Reason: Pain (severe 7-10) Last Admin: 11/12/18 19:58 Dose: 1 tab Gabapentin (Neurontin) 300 mg PO TID [facility] Last Admin: 11/09/18 08:19 Dose: 300 mg Heparin Sodium (Porcine) (Heparin Sodium) 5,000 units SUBCUT Q8HR [facility] Last Admin: 11/11/18 05:12 Dose: 5,000 units Ertapenem 1 gm/ Sodium (Chloride) 50 mls @ 50 mls/hr IV DAILY@0600 [facility] Last Admin: 10/31/18 06:06 Dose: 50 mls/hr Non-Formulary Medication 1 (each/ Sodium Chloride) 100 mls @ 50 mls/hr .XX Q8HR [facility] Last Infusion: 11/02/18 07:30 Dose: Infused Insulin Human Lispro (Humalog) 0 unit SUBCUT QIDACANDBED [facility]; Protocol Last Admin: 11/03/18 12:26 Dose: Not Given Insulin Human NPH (Humulin N) 10 unit SQ DAILY [facility] Last Admin: 11/11/18 11:29 Dose: Not Given Insulin Human NPH (Humulin N) 7 unit SQ DAILY [facility] Last Admin: 11/12/18 08:24 Dose: 7 unit Insulin NPH Beef/Pork (Humulin 70-30) 10 unit SQ BEDTIME [facility] Last Admin: 10/22/18 22:50 Dose: 10 unit Lisinopril (Prinivil) 10 mg PO DAILY [facility] Last Admin: 11/14/18 08:41 Dose: 10 mg Morphine Sulfate (Morphine) 2 mg IVPUSH Q2H PRN PRN Reason: Pain (severe 7-10) Last Admin: 10/20/18 19:33 Dose: 2 mg Morphine Sulfate (Morphine) 1 mg IVPUSH Q2H PRN PRN Reason: Pain (severe 7-10) Last Admin: 11/07/18 16:18 Dose: 1 mg Morphine Sulfate (Morphine) 2 mg IVPUSH ONETIME ONE Stop: 10/25/18 12:52 Last Admin: 10/25/18 12:54 Dose: 2 mg Morphine Sulfate (Morphine) 2 mg IVPUSH ONETIME ONE Stop: 10/25/18 14:29 Last Admin: 10/25/18 14:34 Dose: 2 mg Oxycodone HCl (Oxycodone) 5 mg PO ONETIME ONE Stop: 11/07/18 10:31 Last Admin: 11/07/18 10:41 Dose: 5 mg Polyethylene Glycol (Miralax) 17 gm PO ONETIME ONE Stop: 10/30/18 12:01 Last Admin: 10/30/18 11:54 Dose: 17 gm - Exam General: Reports: Alert, Oriented HEENT: Reports: Pupils Equal, Pupils Reactive, EOMI, Mucous Membr. Moist/[place] Neck: Reports: Supple Lungs: Reports: Clear to Auscultation, Normal Respiratory Effort Cardiovascular: Reports: Regular Rate, Regular Rhythm GI/Abdominal Exam: Normal Bowel Sounds, Soft, Non-Tender, No Organomegaly, No Distention, No Abnormal Bruit, No Mass, Pelvis Stable (Male) Exam: No Hernia, Normal Inspection, Normal Prostate, Circumcised Rectal (Males) Exam: Normal Exam, Normal Rectal Tone, Prostate Normal Back Exam: Reports: Normal Inspection, Full Range of Motion Extremities: Normal Inspection, Normal Range of Motion, Non-Tender, No Pedal Edema, Normal Capillary Refill Skin: Reports: Warm, Dry, Intact Wound/Incisions: Reports: Healing Well Neurological: Reports: No New Focal Deficit Psy/Mental Status: Reports: Alert, Normal Affect, Normal Mood
== END 2018-11-27 13:36 | disposition home or self-care (01) | DRG 638 ==
LOC: DL.MS 14:24 → UNDOADMIN 14:24
PROVIDERS: ADMIT Internal Medicine; ATTEND Student in an Organized Health Care Education/Training Program
DX: E11.69 Type 2 diabetes mellitus with other specified complication (principal); M86.8X7 Other osteomyelitis, ankle and foot; E11.621 Type 2 diabetes mellitus with foot ulcer; E11.40 Type 2 diabetes mellitus with diabetic neuropathy, unspecified; L97.519 Non-pressure chronic ulcer of other part of right foot with unspecified severity; G40.909 Epilepsy, unspecified, not intractable, without status epilepticus; R10.13 Epigastric pain; Z79.82 Long term (current) use of aspirin; Z79.4 Long term (current) use of insulin; Z79.01 Long term (current) use of anticoagulants; Z79.899 Other long term (current) drug therapy; Z89.421 Acquired absence of other right toe(s)
CPT/HCPCS: 36415; 80048; 82565; 82962; 84450; 84460; 85025; 85651; 86140; 93931; A9270-GY; J0714; J1335; J1644; J1650; J1815; J1815-GY; J2270; J7050

== ENCOUNTER 2019-04-30 14:45 | Emergency (ER) | payer MEDICAID ==
--- NOTE | 2019-04-30 15:55 | EDM.PDOC ---
<Nadia Mcdonough - Last Filed: 04/30/19 17:24> ED HPI GENERAL MEDICAL PROBLEM - General Chief Complaint: Skin Complaint Stated Complaint: SORE ON BIG TOE Time Seen by Provider: 04/30/19 15:49 Source of Information: Reports: Patient History Limitations: Reports: No Limitations - History of Present Illness INITIAL COMMENTS - FREE TEXT/NARRATIVE: Patient presents to the ED by private vehicle with concerns of a wound to his left great toe. The patient states that this wound has been present for the past 1 month. He reports receiving oral antibiotics from [facility] on , 04/26/19 for this issue but he cannot recall the name of the antibiotic. He also reports a fever of 102 occurring last night. 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 The patient currently has no toes to his right foot. He does have all digits to his left foot currently in tact. He admits baseline peripheral neuropathy. The patient reports that his last visit to a scale balancer was over 1 year ago. Onset: Gradual Duration: Getting Worse Location: Reports: Lower Extremity, Left (left medial great toe) Quality: Reports: Sharp Improves with: Reports: None Worsens with: Reports: None Context: Reports: Other (diabetic) Treatments PARTS CATALOGER: Reports: Other (see below) (antibiotic unknown) Left Toe-Hailux Pain Score (Numeric/FACES): 0 - Related Data Allergies Allergy/AdvReac Type Severity Reaction Status Date / Time acetaminophen [From [place]] Allergy Anxiety Verified 05/07/19 11:47 hydrocodone [From [place]] Allergy Anxiety Verified 05/07/19 11:47 Home Meds: Home Meds levETIRAcetam [Keppra] 500 mg PO BID 08/22/18 [History] Aspirin [Halfprin] 81 mg PO DAILY 08/23/18 [History] Insulin Aspart [NovoLOG] 13 units SQ TIDMEALS 08/23/18 [History] atorvaSTATin Calcium [Atorvastatin Calcium] 20 mg PO DAILY 08/23/18 [History] Acetaminophen 650 mg PO Q6HR PRN 10/19/18 [History] Gabapentin [Neurontin] 300 mg PO TID 05/07/19 [History] Insulin Isophane NPH, Human [NovoLIN N] 10 units SUBCUT BEDTIME 05/07/19 [ History] Zolpidem Tartrate [Ambien] 5 mg PO BEDTIME PRN 05/07/19 [History] diphenhydrAMINE [Benadryl] 25 mg PO QID PRN 05/07/19 [History] Past Medical History - Past Health History Medical/Surgical History: Denies Medical/Surgical History HEENT History: Reports: Impaired Vision, Other (See Below) Other HEENT History: waiting to repair retina Cardiovascular History: Reports: None Respiratory History: Reports: None Gastrointestinal History: Reports: None Genitourinary History: Reports: None Musculoskeletal History: Reports: Amputation Neurological History: Reports: Neuropathy, Diabetic, Seizure Psychiatric History: Reports: None Endocrine/Metabolic History: Reports: Diabetes, Type I Hematologic History: Reports: None Immunologic History: Reports: None Oncologic (Cancer) History: Reports: None Dermatologic History: Reports: None - Infectious Disease History Infectious Disease History: Reports: Chicken Pox - Past Surgical History Head Surgeries/Procedures: Reports: None Musculoskeletal Surgical History: Reports: Amputation Other Musculoskeletal Surgeries/Procedures:: rt great toe amputation 08-22-18 Social & Family History - Family History Family Medical History: Noncontributory - Tobacco Use Smoking Status *Q: Current Every Day Smoker Years of Tobacco use: 19 Packs/Tins Daily: 0.5 Second Hand Smoke Exposure: No - Caffeine Use Caffeine Use: Reports: Coffee - Recreational Drug Use Recreational Drug Use: No ED ROS GENERAL - Review of Systems Review Of Systems: See Below (reported 102) Constitutional: Reports: Fever, Chills Respiratory: Denies: Shortness of Breath, Wheezing, Cough Cardiovascular: Denies: Chest Pain GI/Abdominal: Denies: Abdominal Pain, Constipation, Diarrhea, Nausea, Vomiting Musculoskeletal: Reports: Foot Pain (left foot, great toe, base of 1st MTP) Skin: Reports: Erythema (base of left 1st MTP, dorsal surface of base of MTPs across left foot), Lesions (medial surface 1st MTP) Neurological: Reports: Numbness (peripheral neuropathy) ED EXAM, SKIN/RASH Exam: See Below Exam Limited By: No Limitations General Appearance: Alert, No Apparent Distress Head: Atraumatic, Normocephalic Respiratory/Chest: No Respiratory Distress, Lungs Clear, Normal Breath Sounds Cardiovascular: Regular Rate, Rhythm, No Edema, No Murmur Neurological: Alert, Oriented, Sensory/Motor Deficit (sensory deficit to left great toe) Psychiatric: Normal Affect, Normal Mood Skin: Warm, Dry, Erythema Location, Skin: Lower Extremity, Left (ulcerative lesion to medial phalanx of great toe, [id number]) Characteristics: Erythematous (left base of 1st metatarsal, across dorsal surface of metatarsal heads), Necrotic (left medial great toe) Associated features: Tenderness Course - Vital Signs Last Recorded V/S: Last Vital Signs Temp 97.1 F 04/30/19 14:53 Pulse 105 H 04/30/19 14:53 Resp 16 04/30/19 14:53 BP 137/91 H 04/30/19 14:53 Pulse Ox 100 04/30/19 14:53 - Orders/Labs/Meds Labs: Laboratory Tests 04/30/19 04/30/19 04/30/19 Range/Units 16:04 16:04 16:04 WBC 17.5 H (5.0-10.0) 10^3/uL RBC 5.59 (4.6-6.2) 10^6/uL Hgb 14.8 D (14.0-18.0) g/dL Hct 44.0 (40.0-54.0) % MCV 78.7 L (80-100) fL MCH 26.5 L (27.0-34.0) pg MCHC 33.6 (33.0-35.0) g/dL Plt Count 170 (150-450) 10^3/uL Neut % (Auto) 80.7 H (42.2-75.2) % Lymph % (Auto) 11.3 L (20.5-50.1) % [place] % (Auto) 5.9 (2-8) % Eos % (Auto) 1.9 (1.0-3.0) % Baso % (Auto) 0.2 (0.0-1.0) % ESR 17 H (0-15) mm/hr Sodium 136 (136-145) mmol/L Potassium 4.3 (3.5-5.1) mmol/L Chloride 99 (98-107) mmol/L Carbon Dioxide 28 (21-32) mmol/L Anion Gap 13.3 H (7-13) mEq/L BUN 22 H (7-18) mg/dL Creatinine 0.92 (0.70-1.30) mg/dL Est Cr Clr Drug Dosing 118.32 mL/min Estimated GFR (MDRD) > 60 BUN/Creatinine Ratio 23.9 (No establ ref range) Glucose 197 H (74-99) mg/dL Lactic Acid (0.4-2.0) mmol/L Calcium 8.4 L (8.5-10.1) mg/dL Total Bilirubin 2.1 H (0.2-1.0) mg/dL AST 17 (15-37) U/L ALT 29 (16-63) U/L Alkaline Phosphatase 90 (46-116) U/L Total Protein 7.8 (6.4-8.2) g/dL Albumin 3.5 (3.4-5.0) g/dL Globulin 4.3 Albumin/Globulin Ratio 0.8 03/16/20 Range/Units 16:04 WBC (5.0-10.0) 10^3/uL RBC (4.6-6.2) 10^6/uL Hgb (14.0-18.0) g/dL Hct (40.0-54.0) % MCV (80-100) fL MCH (27.0-34.0) pg MCHC (33.0-35.0) g/dL Plt Count (150-450) 10^3/uL Neut % (Auto) (42.2-75.2) % Lymph % (Auto) (20.5-50.1) % [place] % (Auto) (2-8) % Eos % (Auto) (1.0-3.0) % Baso % (Auto) (0.0-1.0) % ESR (0-15) mm/hr Sodium (136-145) mmol/L Potassium (3.5-5.1) mmol/L Chloride (98-107) mmol/L Carbon Dioxide (21-32) mmol/L Anion Gap (7-13) mEq/L BUN (7-18) mg/dL Creatinine (0.70-1.30) mg/dL Est Cr Clr Drug Dosing mL/min Estimated GFR (MDRD) BUN/Creatinine Ratio (No establ ref range) Glucose (74-99) mg/dL Lactic Acid 1.2 (0.4-2.0) mmol/L Calcium (8.5-10.1) mg/dL Total Bilirubin (0.2-1.0) mg/dL AST (15-37) U/L ALT (16-63) U/L Alkaline Phosphatase (46-116) U/L Total Protein (6.4-8.2) g/dL Albumin (3.4-5.0) g/dL Globulin Albumin/Globulin Ratio Meds: Medications Discontinued Medications Generic Name Dose Route Start Last Admin Trade Name Freq PRN Reason Stop Dose Admin Piperacillin Sod/Tazobactam 100 mls @ 200 mls/hr 04/30/19 17:25 04/30/19 17: 45 Sod 3.375 gm/ Sodium Chloride IV 04/30/19 17:54 200 mls/hr ONETIME ONE Administration Departure - Departure Disposition: DC/Tfer to Located Within [facility] 02 Clinical Impression: Uncontrolled type 2 diabetes mellitus, Wound infection, Diabetic ulcer of left great toe - Discharge Information Referrals: PCP,Unknown [Primary Care Provider] - Forms: ED Department Discharge, Interfacility Transfer EMTALA Sepsis Event Note - Evaluation Sepsis Screening Result: Possible Sepsis Risk - Focused Exam Date Exam was Performed: 04/30/19 Time Exam was Performed: 17:24 <Tess Lora - Last Filed: 05/10/19 08:21> Course - Orders/Labs/Meds Meds: Medications Discontinued Medications Generic Name Dose Route Start Last Admin Trade Name Freq PRN Reason Stop Dose Admin Piperacillin Sod/Tazobactam 100 mls @ 200 mls/hr 04/30/19 17:25 04/30/19 17: 45 Sod 3.375 gm/ Sodium Chloride IV 04/30/19 17:54 200 mls/hr ONETIME ONE Administration - Re-Assessments/Exams Free Text/Narrative Re-Assessment/Exam: 04/30/19 16:33 I personally performed or re-performed the physical examination and medical decision making. I have verified all student documentation or findings, including history, physical exam and/or medical decision making. Departure - Departure Time of Disposition: 17:52 Condition: Fair - Discharge Information *PRESCRIPTION DRUG MONITORING PROGRAM REVIEWED*: No *COPY OF PRESCRIPTION DRUG MONITORING REPORT IN PATIENT LAURENCE: No Sepsis Event Note - Focused Exam Date Exam was Performed: 05/10/19 Time Exam was Performed: 08:21
[2019-04-30 16:37] LABS: ANION GAP 13.3 mEq/L (7-13); CHLORIDE,CL 99 mmol/L (98-107); SODIUM,NA 136 mmol/L (136-145)
[2019-04-30] MEDS ORDERED: Piperacillin/Tazobactam 3.375 GM in Sodium Chloride 0.9% 100 ML IV ONE (17:25)
== END 2019-04-30 18:59 ==
LOC: DL.ED 14:45
DX: E10.621 Type 1 diabetes mellitus with foot ulcer (principal); L97.529 Non-pressure chronic ulcer of other part of left foot with unspecified severity; E10.40 Type 1 diabetes mellitus with diabetic neuropathy, unspecified; Z79.899 Other long term (current) drug therapy; Z88.6 Allergy status to analgesic agent
CPT/HCPCS: 36415; 80053; 83605; 85025; 85651; 87040; 96365; 99284; J2543; J7050

== ENCOUNTER 2019-05-07 09:57 | Inpatient (IN) | payer MEDICAID ==
[2019-05-07] MEDS ORDERED: diphenhydrAMINE 25 MG Tab PO PRN (12:38)
[2019-05-07] MEDS ORDERED: Zolpidem 5 MG Tab PO PRN (12:38)
--- NOTE | 2019-05-07 12:46 | PCM.HP ---
H&P History of Present Illness - General Date of Service: 05/07/19 Admit Problem/Dx: left foot great toe osteomyelitis Source of Information: Patient - History of Present Illness Initial Comments - Free Text/Narative: Hubert Del Real38 y.o.malewith a past medical history of diabetes mellitus on insulin, hypertension, diabetic foot ulcer, seizure disorder on antiepileptic, hyperlipidemia who presented with an ulcer on his left great toe. He was managed for diabetic foot ulcer with osteomyelitis. Podiatry was consulted and he had a partial removal of the Left 1st Proximal and Distal phalanges for biopsy.He was started on IV abx. ID consult recommended 4 weeks of Zosyn. transfered to swing bed for IV ABx tx. Left Foot Pain Score (Numeric/FACES): 3 - Related Data Allergies/Adverse Reactions: Allergies Allergy/AdvReac Type Severity Reaction Status Date / Time acetaminophen [From [place]] Allergy Anxiety Verified 05/07/19 11:47 hydrocodone [From [facility]] Allergy Anxiety Verified 05/07/19 11:47 Home Medications: Home Meds levETIRAcetam [Keppra] 500 mg PO BID 08/22/18 [History] Aspirin [Halfprin] 81 mg PO DAILY 08/23/18 [History] Insulin Aspart [NovoLOG] 13 units SQ TIDMEALS 08/23/18 [History] atorvaSTATin Calcium [Atorvastatin Calcium] 20 mg PO DAILY 08/23/18 [History] Acetaminophen 650 mg PO Q6HR PRN 10/19/18 [History] Insulin NPH Hum/Reg Insulin Hm [Humulin 70-30] 10 unit SQ BEDTIME 10/19/18 [ History] Gabapentin [Neurontin] 300 mg PO TID 05/07/19 [History] Zolpidem Tartrate [Ambien] 5 mg PO BEDTIME PRN 05/07/19 [History] diphenhydrAMINE [Benadryl] 25 mg PO QID PRN 05/07/19 [History] Past Medical History - Past Health History Medical/Surgical History: Denies Medical/Surgical History HEENT History: Reports: Impaired Vision, Other (See Below) Other HEENT History: waiting to repair retina Cardiovascular History: Reports: None Respiratory History: Reports: None Gastrointestinal History: Reports: None Genitourinary History: Reports: Acute Renal Failure, Other (See Below) Other Genitourinary History: Watching kidney labs at this time Musculoskeletal History: Reports: Amputation Neurological History: Reports: Neuropathy, Diabetic, Seizure Psychiatric History: Reports: None Endocrine/Metabolic History: Reports: Diabetes, Type I, Other (See Below) Other Endocrine/Metabolic History: Osteomyelitis Hematologic History: Reports: None Immunologic History: Reports: None Oncologic (Cancer) History: Reports: None Dermatologic History: Reports: None - Infectious Disease History Infectious Disease History: Reports: MRSA - Past Surgical History Head Surgeries/Procedures: Reports: None GI Surgical History: Reports: None Musculoskeletal Surgical History: Reports: Amputation Other Musculoskeletal Surgeries/Procedures:: rt great toe amputation 08-22-18 Social & Family History - Family History Family Medical History: Noncontributory - Tobacco Use Smoking Status *Q: Current Some Day Smoker Years of Tobacco use: 10 Packs/Tins Daily: 0.2 - Caffeine Use Caffeine Use: Reports: Coffee - Recreational Drug Use Recreational Drug Use: No H&P Review of Systems - Review of Systems: Review Of Systems: See Below General: Reports: Chills Pulmonary: Denies: Shortness of Breath Cardiovascular: Denies: Chest Pain, Edema Genitourinary: Denies: Dysuria Exam - Exam Exam: See Below - Vital Signs Weight: 218 lb 3.2 oz - Exam General: Alert, Oriented Neck: Supple Lungs: Clear to Auscultation, Normal Respiratory Effort Cardiovascular: Regular Rate, Regular Rhythm GI/Abdominal Exam: Normal Bowel Sounds, Soft, Non-Tender, No Distention Extremities: No Pedal Edema, Other (left 1st toe with bandage, no redness) - Problem List (1) Diabetic ulcer of left great toe SNOMED Code(s): 56091696, 494886285 ICD Code: E11.621 - TYPE 2 DIABETES MELLITUS WITH FOOT ULCER; L97.529 - NON- PRESSURE CHRONIC ULCER OTH PRT LEFT FOOT W UNSP SEVERITY Status: Acute Current Visit: No (2) Seizure SNOMED Code(s): 62866198 ICD Code: R56.9 - UNSPECIFIED CONVULSIONS Status: Acute Current Visit: No (3) Uncontrolled type 2 diabetes mellitus SNOMED Code(s): 328588206, 629548283 ICD Code: E11.65 - TYPE 2 DIABETES MELLITUS WITH HYPERGLYCEMIA Status: Acute Current Visit: No Problem List Initiated/Reviewed/Updated: Yes Orders Last 24hrs: Active Orders 24 hr Category Date Time Status Glucose [Blood Glucose Check, Bedside] [] QIDACANDBED Care 05/07/19 12:38 Ordered Influenza Vaccine Charge [] .DISCHARGE Care 05/07/19 12:09 Active Acetaminophen [Tylenol] Med 05/07/19 12:38 Ordered 650 mg PO Q6HR PRN Aspirin [Halfprin] Med 05/08/19 09:00 Ordered 81 mg PO DAILY Gabapentin [Neurontin] Med 05/07/19 14:00 Ordered 300 mg PO TID Insulin Lispro [HumaLOG] Med 05/07/19 16:00 Ordered See Protocol SUBCUT ACBED Insulin NPH Hum/Reg Insulin Hm [Humulin 70-30] Med 05/07/19 21:00 Ordered 10 unit SQ BEDTIME Pharmacy to Dose - InFluenza V [Pharmacy to Dose - Med 05/07/19 12:09 Pending InFluenza Vaccine] 1 each IM ONETIME ONE Piperacillin/Tazobactam [Zosyn] 3.375 gm Med 05/07/19 12:45 Ordered Sodium Chloride 0.9% [Normal Saline] 100 ml IV Q6H Zolpidem [Ambien] Med 05/07/19 12:38 Ordered 5 mg PO BEDTIME PRN atorvaSTATin [Lipitor] Med 05/08/19 09:00 Ordered 20 mg PO DAILY diphenhydrAMINE [Benadryl] Med 05/07/19 12:38 Ordered 25 mg PO QID PRN levETIRAcetam [Keppra] Med 05/07/19 21:00 Ordered 500 mg PO BID Medication Orders Acetaminophen (Tylenol) 650 mg PO Q6HR PRN PRN Reason: Pain/Fever Aspirin (Halfprin) 81 mg PO DAILY [facility] Atorvastatin Calcium (Lipitor) 20 mg PO DAILY [facility] Piperacillin Sod/Tazobactam (Sod 3.375 gm/ Sodium Chloride) 100 mls @ 200 mls/ hr IV Q6H [facility] Influenza Virus Vaccine (Pharmacy To Dose - Influenza Vaccine) 1 each IM ONETIME ONE Stop: 05/07/19 12:10 Insulin Human Lispro (Humalog) 0 unit SUBCUT ACBED [facility]; Protocol Assessment/Plan Comment:: Hubert Holcomb Gt38 y.o.malewith a past medical history of diabetes mellitus on insulin, hypertension, diabetic foot ulcer, seizure disorder on antiepileptic, hyperlipidemia who presented with an ulcer on his left great toe. 1. diabetic foot ulcer with osteomyelitis due to MSSA Podiatry was consulted and he had a partial removal of the Left 1st Proximal and Distal phalanges for biopsy.He was started on IV abx. ID consult recommended 4 weeks of Zosyn IV ABx tx. 2. Wound care gauze and Mariah bandage plan for podiatry f/up on 05/16/19 3. KANDACE while in acute care due to Acute interstitial nephritis improved GFR on swing bed admission is 30, cr 2.4 follow periodically 4. DM treat with NPH give supplemental insulin as needed 5. dvt prophylaxis with activity, sq lovenox
[2019-05-07] MEDS ORDERED: Ondansetron 4 MG Tab.DIS PO PRN (12:52)
[2019-05-07] MEDS ORDERED: Piperacillin/Tazobactam 3.375 GM in Sodium Chloride 0.9% 100 ML IV SCH (14:00)
[2019-05-07] MEDS: Piperacillin/Tazobactam 4.5 GM in Sodium Chloride 0.9% 100 ML IV SCH ×2 (15:21→22:43)
[2019-05-07] MEDS: Sodium Chloride 0.9% 10 ML Syringe FLUSH PRN (15:21)
[2019-05-07] MEDS: Gabapentin 300 MG Cap PO SCH ×2 (15:29→22:42)
[2019-05-07] MEDS: Insulin Lispro 100 Units/ML 3 ML Vial SUBCUT SCH ×2 (17:47→23:04)
[2019-05-07] MEDS: levETIRAcetam 500 MG Tab PO SCH (22:42)
[2019-05-07] MEDS: Insulin Isophane NPH, Human 100 Units/ML 3 ML Vial SQ SCH (23:04)
[2019-05-08] MEDS: Piperacillin/Tazobactam 4.5 GM in Sodium Chloride 0.9% 100 ML IV SCH ×3 (06:27→22:44)
[2019-05-08] MEDS: Insulin Lispro 100 Units/ML 3 ML Vial SUBCUT SCH ×4 (08:03→22:37)
[2019-05-08] MEDS: Aspirin 81 MG Tab.EC PO SCH (09:05)
[2019-05-08] MEDS: levETIRAcetam 500 MG Tab PO SCH ×2 (09:05→22:36)
[2019-05-08] MEDS: Gabapentin 300 MG Cap PO SCH ×3 (09:05→22:36)
[2019-05-08] MEDS: Enoxaparin 30 MG/0.3 ML Syringe SUBCUT SCH (09:05)
[2019-05-08] MEDS: Acetaminophen 325 MG Tab PO PRN (09:12)
[2019-05-08] MEDS: oxyCODONE 5 MG Tab PO PRN (10:29)
[2019-05-08] MEDS: Insulin Isophane NPH, Human 100 Units/ML 3 ML Vial SQ SCH (22:36)
[2019-05-08] MEDS: atorvaSTATin 20 MG Tab PO SCH (22:36)
[2019-05-09] MEDS: Piperacillin/Tazobactam 4.5 GM in Sodium Chloride 0.9% 100 ML IV SCH ×3 (06:13→22:32)
[2019-05-09] MEDS: Gabapentin 300 MG Cap PO SCH ×3 (08:43→22:19)
[2019-05-09] MEDS: levETIRAcetam 500 MG Tab PO SCH ×2 (08:43→22:19)
[2019-05-09] MEDS: Enoxaparin 30 MG/0.3 ML Syringe SUBCUT SCH (08:43)
[2019-05-09] MEDS: Aspirin 81 MG Tab.EC PO SCH (08:43)
[2019-05-09] MEDS: Insulin Lispro 100 Units/ML 3 ML Vial SUBCUT SCH ×4 (09:08→22:20)
[2019-05-09] MEDS: atorvaSTATin 20 MG Tab PO SCH (22:19)
[2019-05-09] MEDS: Insulin Isophane NPH, Human 100 Units/ML 3 ML Vial SQ SCH (22:19)
[2019-05-09] MEDS: oxyCODONE 5 MG Tab PO PRN (22:29)
[2019-05-10] MEDS: Piperacillin/Tazobactam 4.5 GM in Sodium Chloride 0.9% 100 ML IV SCH ×3 (06:59→22:09)
[2019-05-10] MEDS: Aspirin 81 MG Tab.EC PO SCH (08:38)
[2019-05-10] MEDS: Gabapentin 300 MG Cap PO SCH ×3 (08:38→20:28)
[2019-05-10] MEDS: Insulin Lispro 100 Units/ML 3 ML Vial SUBCUT SCH ×4 (08:38→21:19)
[2019-05-10] MEDS: levETIRAcetam 500 MG Tab PO SCH ×2 (08:38→20:28)
[2019-05-10] MEDS: oxyCODONE 5 MG Tab PO PRN ×3 (08:38→22:17)
[2019-05-10] MEDS: Enoxaparin 30 MG/0.3 ML Syringe SUBCUT SCH (08:38)
[2019-05-10] MEDS: Sodium Chloride 0.9% 10 ML Syringe FLUSH PRN (13:37)
[2019-05-10] MEDS: atorvaSTATin 20 MG Tab PO SCH (20:28)
[2019-05-10] MEDS: Insulin Isophane NPH, Human 100 Units/ML 3 ML Vial SQ SCH (21:19)
[2019-05-11] MEDS: Piperacillin/Tazobactam 4.5 GM in Sodium Chloride 0.9% 100 ML IV SCH ×3 (05:37→22:22)
[2019-05-11] MEDS: Sodium Chloride 0.9% 10 ML Syringe FLUSH PRN ×4 (09:17→23:00)
[2019-05-11] MEDS: Aspirin 81 MG Tab.EC PO SCH (09:18)
[2019-05-11] MEDS: oxyCODONE 5 MG Tab PO PRN ×4 (09:19→23:42)
[2019-05-11] MEDS: levETIRAcetam 500 MG Tab PO SCH ×2 (09:19→20:41)
[2019-05-11] MEDS: Gabapentin 300 MG Cap PO SCH ×3 (09:19→20:42)
[2019-05-11] MEDS: Enoxaparin 30 MG/0.3 ML Syringe SUBCUT SCH (09:20)
[2019-05-11] MEDS ORDERED: Sodium Chloride 0.9% 1,000 ML IV SCH (09:45)
[2019-05-11] MEDS: Insulin Lispro 100 Units/ML 3 ML Vial SUBCUT SCH ×4 (10:04→22:19)
[2019-05-11] MEDS: Midodrine 2.5 MG Tab PO SCH ×2 (14:59→20:43)
[2019-05-11] MEDS: atorvaSTATin 20 MG Tab PO SCH (20:42)
[2019-05-11] MEDS: Insulin Isophane NPH, Human 100 Units/ML 3 ML Vial SQ SCH (22:20)
[2019-05-12] MEDS: Piperacillin/Tazobactam 4.5 GM in Sodium Chloride 0.9% 100 ML IV SCH ×3 (05:51→23:10)
[2019-05-12] MEDS: Sodium Chloride 0.9% 10 ML Syringe FLUSH PRN ×5 (05:51→23:44)
[2019-05-12] MEDS: oxyCODONE 5 MG Tab PO PRN ×4 (06:33→19:40)
[2019-05-12] MEDS: Insulin Lispro 100 Units/ML 3 ML Vial SUBCUT SCH ×4 (08:23→22:47)
[2019-05-12] MEDS: Midodrine 2.5 MG Tab PO SCH ×2 (08:34→17:20)
[2019-05-12] MEDS: levETIRAcetam 500 MG Tab PO SCH ×2 (09:17→22:54)
[2019-05-12] MEDS: Gabapentin 300 MG Cap PO SCH ×3 (09:17→22:54)
[2019-05-12] MEDS: Aspirin 81 MG Tab.EC PO SCH (09:17)
[2019-05-12] MEDS: Enoxaparin 30 MG/0.3 ML Syringe SUBCUT SCH (09:17)
[2019-05-12] MEDS: Insulin Isophane NPH, Human 100 Units/ML 3 ML Vial SQ SCH (22:46)
[2019-05-12] MEDS: atorvaSTATin 20 MG Tab PO SCH (22:54)
[2019-05-13] MEDS: Sodium Chloride 0.9% 10 ML Syringe FLUSH PRN ×5 (05:55→22:32)
[2019-05-13] MEDS: Piperacillin/Tazobactam 4.5 GM in Sodium Chloride 0.9% 100 ML IV SCH ×3 (05:56→21:52)
[2019-05-13] MEDS: oxyCODONE 5 MG Tab PO PRN ×4 (07:44→22:03)
[2019-05-13] MEDS: Midodrine 2.5 MG Tab PO SCH ×2 (07:47→17:15)
[2019-05-13] MEDS: Insulin Lispro 100 Units/ML 3 ML Vial SUBCUT SCH ×4 (08:15→21:11)
[2019-05-13] MEDS: levETIRAcetam 500 MG Tab PO SCH ×2 (08:43→20:53)
[2019-05-13] MEDS: Gabapentin 300 MG Cap PO SCH ×3 (08:43→20:53)
[2019-05-13] MEDS: Aspirin 81 MG Tab.EC PO SCH (08:43)
[2019-05-13] MEDS: Enoxaparin 30 MG/0.3 ML Syringe SUBCUT SCH (08:43)
[2019-05-13] MEDS: atorvaSTATin 20 MG Tab PO SCH (20:53)
[2019-05-13] MEDS: Insulin Isophane NPH, Human 100 Units/ML 3 ML Vial SQ SCH (21:13)
[2019-05-14] MEDS: Sodium Chloride 0.9% 10 ML Syringe FLUSH PRN ×5 (06:03→22:12)
[2019-05-14] MEDS: Piperacillin/Tazobactam 4.5 GM in Sodium Chloride 0.9% 100 ML IV SCH ×3 (06:04→21:38)
[2019-05-14] MEDS: Insulin Lispro 100 Units/ML 3 ML Vial SUBCUT SCH ×4 (08:18→21:32)
[2019-05-14] MEDS: Aspirin 81 MG Tab.EC PO SCH (08:52)
[2019-05-14] MEDS: levETIRAcetam 500 MG Tab PO SCH ×2 (08:52→21:30)
[2019-05-14] MEDS: oxyCODONE 5 MG Tab PO PRN ×4 (08:53→22:19)
[2019-05-14] MEDS: Enoxaparin 30 MG/0.3 ML Syringe SUBCUT SCH (08:53)
[2019-05-14] MEDS: Gabapentin 300 MG Cap PO SCH ×3 (08:53→21:30)
[2019-05-14] MEDS: Midodrine 2.5 MG Tab PO SCH ×2 (08:54→18:04)
[2019-05-14] MEDS: Docusate Sodium 100 MG Cap PO PRN (08:54)
--- NOTE | 2019-05-14 11:56 | PCM.PN ---
- General Info Date of Service: 05/14/19 Admission Dx/Problem (Free Text): left foot great toe osteomyelitis Subjective Update: Hubert Del Real38 y.o.malewith a past medical history of diabetes mellitus on insulin, hypertension, diabetic foot ulcer, seizure disorder on antiepileptic, hyperlipidemia who presented with an ulcer on his left great toe. He was found to have diabetic foot ulcer with osteomyelitis. He is s/p Left 1st Proximal and Distal phalange. He was admitted to our swing bed to complete IV antibiotics. ID recommended 4 weeks of Zosyn IV. Patient was sent today. He is doing okay. He has no new complaints. He has no fever or chills. He is due for follow-up with ID tomorrow 05/15/19. Functional Status: Reports: Pain Controlled - Review of Systems General: Reports: No Symptoms HEENT: Reports: No Symptoms Pulmonary: Reports: No Symptoms Cardiovascular: Reports: No Symptoms Gastrointestinal: Reports: No Symptoms Genitourinary: Reports: No Symptoms Musculoskeletal: Reports: No Symptoms Skin: Reports: No Symptoms Neurological: Reports: No Symptoms Psychiatric: Reports: No Symptoms - Patient Data Vitals - Most Recent: Last Vital Signs Temp 97.3 F 05/14/19 08:17 Pulse 84 05/14/19 08:17 Resp 16 05/14/19 08:17 BP 122/74 05/14/19 08:17 Pulse Ox 97 05/14/19 08:17 Weight - Most Recent: 218 lb 3.2 oz I&O - Last 24 Hours: Intake & Output 05/13/19 05/14/19 05/14/19 22:59 06:59 14:59 Intake Total 1068 1460 Balance 1068 1460 Lab Results Last 24 Hours: Laboratory Results - last 24 hr 05/13/19 05/13/19 05/13/19 Range/Units 11:58 16:44 20:58 POC Glucose 201 H 148 H 163 H (70-105) mg/dl 05/14/19 Range/Units 08:08 POC Glucose 96 (70-105) mg/dl Med Orders - Current: Current Medications Acetaminophen (Tylenol) 650 mg PO Q6HR PRN PRN Reason: Pain/Fever Last Admin: 05/08/19 09:12 Dose: 650 mg Aspirin (Halfprin) 81 mg PO DAILY [facility] Last Admin: 05/14/19 08:52 Dose: 81 mg Atorvastatin Calcium (Lipitor) 20 mg PO BEDTIME [facility] Last Admin: 05/13/19 20:53 Dose: 20 mg Diphenhydramine HCl (Benadryl) 25 mg PO QID PRN PRN Reason: Itching Docusate Sodium (Colace) 100 mg PO BID PRN PRN Reason: Constipation Last Admin: 05/14/19 08:54 Dose: 100 mg Enoxaparin Sodium (Lovenox) 30 mg SUBCUT DAILY [facility] Last Admin: 05/14/19 08:53 Dose: 30 mg Gabapentin (Neurontin) 300 mg PO TID [facility] Last Admin: 05/14/19 08:53 Dose: 300 mg Piperacillin Sod/Tazobactam (Sod 4.5 gm/ Sodium Chloride) 100 mls @ 200 mls/hr IV Q8HR [facility] Last Admin: 05/14/19 06:04 Dose: 200 mls/hr Influenza Virus Vaccine (Pharmacy To Dose - Influenza Vaccine) 1 each IM ONETIME ONE Stop: 05/07/19 12:10 Insulin Human Lispro (Humalog) 0 unit SUBCUT ACBED [facility]; Protocol Last Admin: 05/14/19 08:18 Dose: Not Given Insulin Human NPH (Humulin N) 10 unit SQ BEDTIME [facility] Last Admin: 05/13/19 21:13 Dose: 10 unit Levetiracetam (Keppra) 500 mg PO BID [facility] Last Admin: 05/14/19 08:52 Dose: 500 mg Midodrine (Midodrine) 2.5 mg PO 0800,1800 [facility] Last Admin: 05/14/19 08:54 Dose: Not Given Ondansetron HCl (Zofran Odt) 4 mg PO Q6H PRN PRN Reason: nausea, able to take PO Oxycodone HCl (Oxycodone) 5 mg PO Q4H PRN PRN Reason: Pain (moderate 4-6) Last Admin: 05/14/19 08:53 Dose: 5 mg Sodium Chloride (Saline Flush) 10 ml FLUSH ASDIRECTED PRN PRN Reason: Keep Vein Open Last Admin: 05/14/19 06:40 Dose: 10 ml Zolpidem Tartrate (Ambien) 5 mg PO BEDTIME PRN PRN Reason: Sleep Discontinued Medications Piperacillin Sod/Tazobactam (Sod 3.375 gm/ Sodium Chloride) 100 mls @ 200 mls/ hr IV Q8HR [facility] Last Admin: 05/07/19 14:40 Dose: Not Given Sodium Chloride (Normal Saline) 1,000 mls @ 100 mls/hr IV ASDIRECTED [facility] Stop: 05/11/19 19:44 Last Infusion: 05/11/19 19:54 Dose: Infused Midodrine (Midodrine) 2.5 mg PO BID [facility] Last Admin: 05/11/19 20:43 Dose: Not Given - Exam Quality Assessment: DVT Prophylaxis General: Alert, Oriented HEENT: Pupils Equal, Pupils Reactive, EOMI, Mucous Membr. Moist/[place] Neck: Supple Lungs: Clear to Auscultation, Normal Respiratory Effort Cardiovascular: Regular Rate, Regular Rhythm GI/Abdominal Exam: Normal Bowel Sounds, Soft, Non-Tender, No Organomegaly, No Distention, No Abnormal Bruit, No Mass, Pelvis Stable (Male) Exam: No Hernia, Normal Inspection, Normal Prostate, Circumcised Back Exam: Normal Inspection, Full Range of Motion Extremities: Normal Inspection, Normal Range of Motion, Non-Tender, No Pedal Edema, Normal Capillary Refill Skin: Warm, Dry, Intact Wound/Incisions: Healing Well Neurological: No New Focal Deficit Psy/Mental Status: Alert, Normal Affect, Normal Mood Sepsis Event Note - Evaluation Sepsis Screening Result: No Definite Risk - Focused Exam Vital Signs: Vital Signs Temp Pulse Resp BP Pulse Ox 05/14/19 08:17 97.3 F 84 16 122/74 97 Date Exam was Performed: 05/14/19 Time Exam was Performed: 11:47 - Problem List Review Problem List Initiated/Reviewed/Updated: Yes - My Orders Last 24 Hours: My Active Orders 05/15/19 05:00 ALANINE AMINOTRANSFERASE,ALT [CHEM] Routine BASIC METABOLIC PANEL,BMP [CHEM] Routine CBC WITH AUTO DIFF [HEME] Routine CREATININE W/GFR [CHEM] Routine CRP [C-REACTIVE PROTEIN] [CHEM] Routine ESR [SEDIMENTATION RATE MANUAL] [HEME] Routine - Plan Plan:: Hubert Zhang Del Real38 y.o.malewith a past medical history of diabetes mellitus on insulin, hypertension, diabetic foot ulcer, seizure disorder on antiepileptic, hyperlipidemia who presented with an ulcer on his left great toe. He was found to have diabetic foot ulcer with osteomyelitis due to MSSA. #Diabetic foot ulcer with osteomyelitis due to MSSA -s/p Left 1st Proximal and Distal phalanges for biopsy. -ID consult recommended 4 weeks of IV Zosyn -Due for ID follow up tomorrow -Labs ordered -Continue Wound care -For podiatry f/up on 05/16/19 #KANDACE due to Acute interstitial nephritis -Improved -Continue to monitor renal function #DM -Continue NPH -Supplemental insulin as needed #Dvt prophylaxis -SQ Lovenox
[2019-05-14] MEDS: atorvaSTATin 20 MG Tab PO SCH (21:30)
[2019-05-14] MEDS: Insulin Isophane NPH, Human 100 Units/ML 3 ML Vial SQ SCH (21:31)
[2019-05-15] MEDS: Sodium Chloride 0.9% 10 ML Syringe FLUSH PRN ×3 (05:32→21:30)
[2019-05-15] MEDS: Piperacillin/Tazobactam 4.5 GM in Sodium Chloride 0.9% 100 ML IV SCH ×3 (05:33→15:48)
[2019-05-15 06:55] LABS: ANION GAP 15.3 mEq/L (7-13)
[2019-05-15] MEDS: Insulin Lispro 100 Units/ML 3 ML Vial SUBCUT SCH ×4 (08:17→21:45)
[2019-05-15] MEDS: Midodrine 2.5 MG Tab PO SCH ×2 (08:21→18:32)
[2019-05-15] MEDS: Gabapentin 300 MG Cap PO SCH ×3 (09:41→20:30)
[2019-05-15] MEDS: oxyCODONE 5 MG Tab PO PRN ×3 (09:41→20:42)
[2019-05-15] MEDS: Enoxaparin 30 MG/0.3 ML Syringe SUBCUT SCH (09:42)
[2019-05-15] MEDS: levETIRAcetam 500 MG Tab PO SCH ×2 (09:42→20:30)
[2019-05-15] MEDS: Aspirin 81 MG Tab.EC PO SCH (09:42)
[2019-05-15] MEDS: Acetaminophen 325 MG Tab PO PRN (10:45)
[2019-05-15] MEDS ORDERED: ceFAZolin 2 GM in Premix Bag 1 BAG IV SCH (18:30)
[2019-05-15] MEDS: ceFAZolin 2 GM in Premix Bag 1 BAG IV SCH (20:27)
[2019-05-15] MEDS: atorvaSTATin 20 MG Tab PO SCH (20:30)
[2019-05-15] MEDS: Insulin Isophane NPH, Human 100 Units/ML 3 ML Vial SQ SCH (21:47)
[2019-05-16] MEDS: ceFAZolin 2 GM in Premix Bag 1 BAG IV SCH ×3 (04:08→21:55)
[2019-05-16] MEDS: Sodium Chloride 0.9% 10 ML Syringe FLUSH PRN ×5 (04:08→23:08)
[2019-05-16] MEDS: oxyCODONE 5 MG Tab PO PRN ×3 (07:37→22:03)
[2019-05-16] MEDS: Insulin Lispro 100 Units/ML 3 ML Vial SUBCUT SCH ×4 (08:14→21:36)
[2019-05-16] MEDS: Midodrine 2.5 MG Tab PO SCH ×2 (08:18→17:05)
[2019-05-16] MEDS: Gabapentin 300 MG Cap PO SCH ×3 (08:38→21:52)
[2019-05-16] MEDS: levETIRAcetam 500 MG Tab PO SCH ×2 (08:38→21:52)
[2019-05-16] MEDS: Aspirin 81 MG Tab.EC PO SCH (08:38)
[2019-05-16] MEDS: Enoxaparin 30 MG/0.3 ML Syringe SUBCUT SCH (08:38)
[2019-05-16] MEDS: Insulin Isophane NPH, Human 100 Units/ML 3 ML Vial SQ SCH (21:45)
[2019-05-16] MEDS: atorvaSTATin 20 MG Tab PO SCH (21:52)
[2019-05-17] MEDS: Sodium Chloride 0.9% 10 ML Syringe FLUSH PRN ×3 (05:14→13:45)
[2019-05-17] MEDS: ceFAZolin 2 GM in Premix Bag 1 BAG IV SCH ×3 (05:17→21:30)
[2019-05-17] MEDS: Insulin Lispro 100 Units/ML 3 ML Vial SUBCUT SCH ×4 (08:12→20:59)
[2019-05-17] MEDS: oxyCODONE 5 MG Tab PO PRN ×3 (08:42→22:39)
[2019-05-17] MEDS: Gabapentin 300 MG Cap PO SCH ×3 (08:43→21:31)
[2019-05-17] MEDS: Enoxaparin 30 MG/0.3 ML Syringe SUBCUT SCH (08:44)
[2019-05-17] MEDS: Aspirin 81 MG Tab.EC PO SCH (08:44)
[2019-05-17] MEDS: levETIRAcetam 500 MG Tab PO SCH ×2 (08:44→21:31)
[2019-05-17] MEDS: Midodrine 2.5 MG Tab PO SCH (08:44)
[2019-05-17] MEDS: atorvaSTATin 20 MG Tab PO SCH (21:30)
[2019-05-17] MEDS: Insulin Isophane NPH, Human 100 Units/ML 3 ML Vial SQ SCH (21:34)
[2019-05-18] MEDS: ceFAZolin 2 GM in Premix Bag 1 BAG IV SCH ×3 (06:07→22:20)
[2019-05-18] MEDS: Insulin Lispro 100 Units/ML 3 ML Vial SUBCUT SCH ×4 (08:20→22:53)
[2019-05-18] MEDS: oxyCODONE 5 MG Tab PO PRN ×3 (09:38→22:54)
[2019-05-18] MEDS: levETIRAcetam 500 MG Tab PO SCH ×2 (09:39→22:19)
[2019-05-18] MEDS: Aspirin 81 MG Tab.EC PO SCH (09:39)
[2019-05-18] MEDS: Enoxaparin 30 MG/0.3 ML Syringe SUBCUT SCH (09:39)
[2019-05-18] MEDS: Gabapentin 300 MG Cap PO SCH ×3 (09:39→22:19)
[2019-05-18] MEDS: atorvaSTATin 20 MG Tab PO SCH (22:19)
[2019-05-18] MEDS: Insulin Isophane NPH, Human 100 Units/ML 3 ML Vial SQ SCH (22:52)
[2019-05-19] MEDS: ceFAZolin 2 GM in Premix Bag 1 BAG IV SCH ×3 (06:03→22:24)
[2019-05-19] MEDS: Insulin Lispro 100 Units/ML 3 ML Vial SUBCUT SCH ×4 (08:38→22:42)
[2019-05-19] MEDS: levETIRAcetam 500 MG Tab PO SCH ×2 (08:59→22:23)
[2019-05-19] MEDS: Aspirin 81 MG Tab.EC PO SCH (08:59)
[2019-05-19] MEDS: Gabapentin 300 MG Cap PO SCH ×3 (08:59→22:23)
[2019-05-19] MEDS: Enoxaparin 30 MG/0.3 ML Syringe SUBCUT SCH (09:00)
[2019-05-19] MEDS: oxyCODONE 5 MG Tab PO PRN ×3 (09:04→22:21)
[2019-05-19] MEDS: atorvaSTATin 20 MG Tab PO SCH (22:24)
[2019-05-19] MEDS: Insulin Isophane NPH, Human 100 Units/ML 3 ML Vial SQ SCH (22:43)
[2019-05-20] MEDS: ceFAZolin 2 GM in Premix Bag 1 BAG IV SCH ×3 (06:18→22:07)
[2019-05-20 07:01] LABS: ANION GAP 13.2 mEq/L (7-13)
[2019-05-20] MEDS: Enoxaparin 30 MG/0.3 ML Syringe SUBCUT SCH (08:45)
[2019-05-20] MEDS: levETIRAcetam 500 MG Tab PO SCH ×2 (08:46→20:46)
[2019-05-20] MEDS: Aspirin 81 MG Tab.EC PO SCH (08:46)
[2019-05-20] MEDS: oxyCODONE 5 MG Tab PO PRN ×3 (08:46→20:57)
[2019-05-20] MEDS: Gabapentin 300 MG Cap PO SCH ×3 (08:46→20:47)
[2019-05-20] MEDS: Insulin Lispro 100 Units/ML 3 ML Vial SUBCUT SCH ×4 (09:20→20:55)
--- NOTE | 2019-05-20 09:45 | PCM.PN ---
- General Info Date of Service: 05/20/19 Subjective Update: Patient does complain of pain of the left big toe. However does have some discoloration at the dorsal surface of the right big toe. No discharge noted. Suture line appears within normal limits. - Review of Systems General: Reports: Weakness, Malaise Pulmonary: Reports: No Symptoms Cardiovascular: Reports: No Symptoms Gastrointestinal: Reports: No Symptoms Skin: Reports: Bruising, Other (Discoloration, doesn't surface of left big toe) - Patient Data Vitals - Most Recent: Last Vital Signs Temp 36.9 C 05/20/19 08:00 Pulse 66 05/20/19 08:00 Resp 18 05/20/19 08:00 BP 119/66 05/20/19 08:00 Pulse Ox 98 05/20/19 08:00 Weight - Most Recent: 93.894 kg I&O - Last 24 Hours: Intake & Output 05/19/19 05/20/19 05/20/19 22:59 06:59 14:59 Intake Total 500 402 Balance 500 402 Lab Results Last 24 Hours: Laboratory Results - last 24 hr 05/19/19 05/19/19 05/19/19 Range/Units 11:52 17:00 20:42 WBC (5.0-10.0) 10^3/uL RBC (4.6-6.2) 10^6/uL Hgb (14.0-18.0) g/dL Hct (40.0-54.0) % MCV (80-100) fL MCH (27.0-34.0) pg MCHC (33.0-35.0) g/dL Plt Count (150-450) 10^3/uL Neut % (Auto) (42.2-75.2) % Lymph % (Auto) (20.5-50.1) % Whitley % (Auto) (2-8) % Eos % (Auto) (1.0-3.0) % Baso % (Auto) (0.0-1.0) % ESR (0-15) mm/hr Sodium (136-145) mmol/L Potassium (3.5-5.1) mmol/L Chloride (98-107) mmol/L Carbon Dioxide (21-32) mmol/L Anion Gap (7-13) mEq/L BUN (7-18) mg/dL Creatinine (0.70-1.30) mg/dL Est Cr Clr Drug Dosing mL/min Estimated GFR (MDRD) Glucose (74-99) mg/dL POC Glucose 147 H 147 H 233 H (70-105) mg/dl Calcium (8.5-10.1) mg/dL ALT (16-63) U/L C-Reactive Protein (0.0-0.9) mg/dL 05/20/19 05/20/19 05/20/19 Range/Units 06:25 06:25 08:04 WBC 6.9 (5.0-10.0) 10^3/uL RBC 4.96 (4.6-6.2) 10^6/uL Hgb 13.3 L (14.0-18.0) g/dL Hct 40.1 (40.0-54.0) % MCV 80.8 (80-100) fL MCH 26.8 L (27.0-34.0) pg MCHC 33.2 (33.0-35.0) g/dL Plt Count 238 (150-450) 10^3/uL Neut % (Auto) 54.7 (42.2-75.2) % Lymph % (Auto) 29.5 (20.5-50.1) % Whitley % (Auto) 10.1 H (2-8) % Eos % (Auto) 5.3 H (1.0-3.0) % Baso % (Auto) 0.4 (0.0-1.0) % ESR 30 H (0-15) mm/hr Sodium 141 (136-145) mmol/L Potassium 4.2 (3.5-5.1) mmol/L Chloride 105 (98-107) mmol/L Carbon Dioxide 27 (21-32) mmol/L Anion Gap 13.2 H (7-13) mEq/L BUN 28 H (7-18) mg/dL Creatinine 1.48 H (0.70-1.30) mg/dL Est Cr Clr Drug Dosing 73.55 mL/min Estimated GFR (MDRD) 53 Glucose 96 (74-99) mg/dL POC Glucose 72 (70-105) mg/dl Calcium 8.4 L (8.5-10.1) mg/dL ALT 25 (16-63) U/L C-Reactive Protein 0.6 (0.0-0.9) mg/dL Med Orders - Current: Current Medications Acetaminophen (Tylenol) 650 mg PO Q6HR PRN PRN Reason: Pain/Fever Last Admin: 05/15/19 10:45 Dose: 650 mg Aspirin (Halfprin) 81 mg PO DAILY [facility] Last Admin: 05/20/19 08:46 Dose: 81 mg Atorvastatin Calcium (Lipitor) 20 mg PO BEDTIME [facility] Last Admin: 05/19/19 22:24 Dose: 20 mg Diphenhydramine HCl (Benadryl) 25 mg PO QID PRN PRN Reason: Itching Docusate Sodium (Colace) 100 mg PO BID PRN PRN Reason: Constipation Last Admin: 05/14/19 08:54 Dose: 100 mg Enoxaparin Sodium (Lovenox) 30 mg SUBCUT DAILY [facility] Last Admin: 05/20/19 08:45 Dose: 30 mg Gabapentin (Neurontin) 300 mg PO TID [facility] Last Admin: 05/20/19 08:46 Dose: 300 mg Cefazolin Sodium/Dextrose 2 gm (/ Premix) 50 mls @ 50 mls/hr IV Q8HR [facility] Last Admin: 05/20/19 06:18 Dose: 50 mls/hr Insulin Human Lispro (Humalog) 0 unit SUBCUT ACBED [facility]; Protocol Last Admin: 05/20/19 09:20 Dose: Not Given Insulin Human NPH (Humulin N) 10 unit SQ BEDTIME [facility] Last Admin: 05/19/19 22:43 Dose: 10 unit Levetiracetam (Keppra) 500 mg PO BID [facility] Last Admin: 05/20/19 08:46 Dose: 500 mg Ondansetron HCl (Zofran Odt) 4 mg PO Q6H PRN PRN Reason: nausea, able to take PO Last Admin: 05/14/19 15:59 Dose: 4 mg Oxycodone HCl (Oxycodone) 5 mg PO Q4H PRN PRN Reason: Pain (moderate 4-6) Last Admin: 05/20/19 08:46 Dose: 5 mg Sodium Chloride (Saline Flush) 10 ml FLUSH ASDIRECTED PRN PRN Reason: Keep Vein Open Last Admin: 05/17/19 13:45 Dose: 10 ml Zolpidem Tartrate (Ambien) 5 mg PO BEDTIME PRN PRN Reason: Sleep Discontinued Medications Piperacillin Sod/Tazobactam (Sod 3.375 gm/ Sodium Chloride) 100 mls @ 200 mls/ hr IV Q8HR [facility] Last Admin: 05/07/19 14:40 Dose: Not Given Piperacillin Sod/Tazobactam (Sod 4.5 gm/ Sodium Chloride) 100 mls @ 200 mls/hr IV Q8HR [facility] Last Admin: 05/15/19 15:48 Dose: 200 mls/hr Sodium Chloride (Normal Saline) 1,000 mls @ 100 mls/hr IV ASDIRECTED [facility] Stop: 05/11/19 19:44 Last Infusion: 05/11/19 19:54 Dose: Infused Cefazolin Sodium/Dextrose 2 gm (/ Premix) 50 mls @ 50 mls/hr IV Q8H [facility] Stop: 06/13/19 12:59 Last Infusion: 05/16/19 13:19 Dose: Infused Influenza Virus Vaccine (Pharmacy To Dose - Influenza Vaccine) 1 each IM ONETIME ONE Stop: 05/07/19 12:10 Last Admin: 05/15/19 08:20 Dose: Not Given Influenza Virus Vaccine (Afluria Quad 2018- (3yr Up)) 60 mcg IM .ONCE ONE Stop: 05/14/19 15:16 Last Admin: 05/14/19 15:53 Dose: 60 mcg Midodrine (Midodrine) 2.5 mg PO BID [facility] Last Admin: 05/11/19 20:43 Dose: Not Given Midodrine (Midodrine) 2.5 mg PO 0800,1800 [facility] Last Admin: 05/17/19 08:44 Dose: 2.5 mg - Exam General: Alert, Oriented, Cooperative Neck: Supple Lungs: Clear to Auscultation, Normal Respiratory Effort Cardiovascular: Regular Rate, Regular Rhythm GI/Abdominal Exam: Normal Bowel Sounds, Soft, Non-Tender, No Organomegaly, No Distention, No Abnormal Bruit, No Mass, Pelvis Stable Extremities: Other (Discoloration dorsal surface of left big toe) Sepsis Event Note - Evaluation Sepsis Screening Result: No Definite Risk - Focused Exam Vital Signs: Vital Signs Temp Pulse Resp BP Pulse Ox 05/20/19 08:00 36.9 C 66 18 119/66 98 Date Exam was Performed: 05/20/19 Time Exam was Performed: 09:40 - Problem List Review Problem List Initiated/Reviewed/Updated: Yes - Plan Plan:: Hubert Del Real38 y.o.malewith a past medical history of diabetes mellitus on insulin, hypertension, diabetic foot ulcer, seizure disorder on antiepileptic, hyperlipidemia who presented with an ulcer on his left great toe. He was found to have diabetic foot ulcer with osteomyelitis due to MSSA. #Diabetic foot ulcer with osteomyelitis due to MSSA -s/p Left 1st Proximal and Distal phalanges for biopsy. -ID consult recommended 4 weeks of IV Zosyn Continue antibiotics for now Serial examination of the toe. There is some discoloration on the dorsal surface #KANDACE due to Acute interstitial nephritis -Improved -Continue to monitor renal function Avoid nephrotoxic agent #DM -Continue NPH -Supplemental insulin as needed #Dvt prophylaxis -SQ Lovenox
[2019-05-20] MEDS: atorvaSTATin 20 MG Tab PO SCH (20:46)
[2019-05-20] MEDS: Insulin Isophane NPH, Human 100 Units/ML 3 ML Vial SQ SCH (20:56)
[2019-05-21] MEDS: ceFAZolin 2 GM in Premix Bag 1 BAG IV SCH ×3 (06:02→21:57)
[2019-05-21] MEDS: oxyCODONE 5 MG Tab PO PRN ×4 (06:10→22:04)
[2019-05-21] MEDS: Insulin Lispro 100 Units/ML 3 ML Vial SUBCUT SCH ×4 (08:01→20:37)
[2019-05-21] MEDS: Aspirin 81 MG Tab.EC PO SCH (08:32)
[2019-05-21] MEDS: Gabapentin 300 MG Cap PO SCH ×3 (08:32→20:42)
[2019-05-21] MEDS: Enoxaparin 30 MG/0.3 ML Syringe SUBCUT SCH (08:32)
[2019-05-21] MEDS: levETIRAcetam 500 MG Tab PO SCH ×2 (08:32→20:42)
[2019-05-21] MEDS: Sodium Chloride 0.9% 10 ML Syringe FLUSH PRN (14:20)
[2019-05-21] MEDS: Insulin Isophane NPH, Human 100 Units/ML 3 ML Vial SQ SCH (20:40)
[2019-05-21] MEDS: atorvaSTATin 20 MG Tab PO SCH (20:41)
[2019-05-22] MEDS: ceFAZolin 2 GM in Premix Bag 1 BAG IV SCH ×3 (06:00→21:43)
[2019-05-22] MEDS: oxyCODONE 5 MG Tab PO PRN ×4 (07:05→20:51)
[2019-05-22] MEDS: Aspirin 81 MG Tab.EC PO SCH (10:40)
[2019-05-22] MEDS: levETIRAcetam 500 MG Tab PO SCH ×2 (10:40→20:51)
[2019-05-22] MEDS: Gabapentin 300 MG Cap PO SCH ×3 (10:40→20:51)
[2019-05-22] MEDS: Enoxaparin 30 MG/0.3 ML Syringe SUBCUT SCH (10:40)
[2019-05-22] MEDS: Insulin Lispro 100 Units/ML 3 ML Vial SUBCUT SCH ×4 (10:41→20:46)
[2019-05-22] MEDS: Sodium Chloride 0.9% 10 ML Syringe FLUSH PRN (14:23)
[2019-05-22] MEDS: Insulin Isophane NPH, Human 100 Units/ML 3 ML Vial SQ SCH (20:49)
[2019-05-22] MEDS: atorvaSTATin 20 MG Tab PO SCH (20:51)
[2019-05-23] MEDS: oxyCODONE 5 MG Tab PO PRN ×4 (05:39→21:20)
[2019-05-23] MEDS: ceFAZolin 2 GM in Premix Bag 1 BAG IV SCH ×3 (05:39→21:24)
[2019-05-23] MEDS: Aspirin 81 MG Tab.EC PO SCH (09:49)
[2019-05-23] MEDS: Gabapentin 300 MG Cap PO SCH ×3 (09:49→21:20)
[2019-05-23] MEDS: levETIRAcetam 500 MG Tab PO SCH ×2 (09:49→21:20)
[2019-05-23] MEDS: Enoxaparin 30 MG/0.3 ML Syringe SUBCUT SCH (09:50)
[2019-05-23] MEDS: Insulin Lispro 100 Units/ML 3 ML Vial SUBCUT SCH ×4 (09:51→22:00)
[2019-05-23] MEDS: Insulin Isophane NPH, Human 100 Units/ML 3 ML Vial SQ SCH (21:20)
[2019-05-23] MEDS: atorvaSTATin 20 MG Tab PO SCH (21:20)
[2019-05-23] MEDS: Sodium Chloride 0.9% 10 ML Syringe FLUSH PRN (21:26)
[2019-05-24] MEDS: ceFAZolin 2 GM in Premix Bag 1 BAG IV SCH ×3 (05:54→21:30)
[2019-05-24] MEDS: Sodium Chloride 0.9% 10 ML Syringe FLUSH PRN ×3 (05:54→21:29)
[2019-05-24] MEDS: oxyCODONE 5 MG Tab PO PRN ×3 (07:12→20:00)
[2019-05-24] MEDS: Insulin Lispro 100 Units/ML 3 ML Vial SUBCUT SCH ×4 (08:24→21:24)
[2019-05-24] MEDS: Gabapentin 300 MG Cap PO SCH ×3 (08:43→21:25)
[2019-05-24] MEDS: Enoxaparin 30 MG/0.3 ML Syringe SUBCUT SCH (08:43)
[2019-05-24] MEDS: Aspirin 81 MG Tab.EC PO SCH (08:43)
[2019-05-24] MEDS: levETIRAcetam 500 MG Tab PO SCH ×2 (08:43→21:28)
[2019-05-24] MEDS: Insulin Isophane NPH, Human 100 Units/ML 3 ML Vial SQ SCH (21:22)
[2019-05-24] MEDS: atorvaSTATin 20 MG Tab PO SCH (21:27)
[2019-05-25] MEDS: ceFAZolin 2 GM in Premix Bag 1 BAG IV SCH ×3 (06:02→22:42)
[2019-05-25] MEDS: Sodium Chloride 0.9% 10 ML Syringe FLUSH PRN ×3 (06:03→14:07)
[2019-05-25] MEDS: oxyCODONE 5 MG Tab PO PRN ×3 (06:34→18:42)
[2019-05-25] MEDS: Insulin Lispro 100 Units/ML 3 ML Vial SUBCUT SCH ×4 (08:09→22:53)
[2019-05-25] MEDS: Enoxaparin 30 MG/0.3 ML Syringe SUBCUT SCH (09:14)
[2019-05-25] MEDS: levETIRAcetam 500 MG Tab PO SCH ×2 (09:14→22:41)
[2019-05-25] MEDS: Gabapentin 300 MG Cap PO SCH ×3 (09:14→22:41)
[2019-05-25] MEDS: Aspirin 81 MG Tab.EC PO SCH (09:14)
[2019-05-25] MEDS: atorvaSTATin 20 MG Tab PO SCH (22:41)
[2019-05-25] MEDS: Insulin Isophane NPH, Human 100 Units/ML 3 ML Vial SQ SCH (22:52)
[2019-05-26] MEDS: oxyCODONE 5 MG Tab PO PRN ×4 (00:05→18:17)
[2019-05-26] MEDS: ceFAZolin 2 GM in Premix Bag 1 BAG IV SCH ×3 (06:17→21:26)
[2019-05-26] MEDS: Insulin Lispro 100 Units/ML 3 ML Vial SUBCUT SCH ×4 (08:27→21:03)
[2019-05-26] MEDS: Gabapentin 300 MG Cap PO SCH ×3 (09:39→21:05)
[2019-05-26] MEDS: levETIRAcetam 500 MG Tab PO SCH ×2 (09:39→21:05)
[2019-05-26] MEDS: Enoxaparin 30 MG/0.3 ML Syringe SUBCUT SCH (09:39)
[2019-05-26] MEDS: Aspirin 81 MG Tab.EC PO SCH (09:39)
[2019-05-26] MEDS: Sodium Chloride 0.9% 10 ML Syringe FLUSH PRN (14:21)
[2019-05-26] MEDS: Insulin Isophane NPH, Human 100 Units/ML 3 ML Vial SQ SCH (21:04)
[2019-05-26] MEDS: atorvaSTATin 20 MG Tab PO SCH (21:05)
[2019-05-27] MEDS: ceFAZolin 2 GM in Premix Bag 1 BAG IV SCH ×3 (05:32→21:39)
[2019-05-27] MEDS: oxyCODONE 5 MG Tab PO PRN ×4 (05:33→21:33)
[2019-05-27] MEDS: Docusate Sodium 100 MG Cap PO PRN (05:40)
[2019-05-27] MEDS: Insulin Lispro 100 Units/ML 3 ML Vial SUBCUT SCH ×4 (08:34→21:38)
[2019-05-27] MEDS: Enoxaparin 30 MG/0.3 ML Syringe SUBCUT SCH (09:36)
[2019-05-27] MEDS: Aspirin 81 MG Tab.EC PO SCH (09:36)
[2019-05-27] MEDS: Gabapentin 300 MG Cap PO SCH ×3 (09:36→21:17)
[2019-05-27] MEDS: levETIRAcetam 500 MG Tab PO SCH ×2 (09:36→21:33)
--- NOTE | 2019-05-27 09:36 | PCM.PN ---
- General Info Date of Service: 05/27/19 Admission Dx/Problem (Free Text): left foot great toe osteomyelitis Subjective Update: no complaints today. he said that foot is getting better. has appointment with ID tomorrow and he may potentially get discharged home. - Patient Data Vitals - Most Recent: Last Vital Signs Temp 36.3 C 05/27/19 08:01 Pulse 93 05/27/19 08:01 Resp 20 05/27/19 08:01 BP 134/90 05/27/19 08:01 Pulse Ox 99 05/27/19 08:01 Weight - Most Recent: 93.531 kg I&O - Last 24 Hours: Intake & Output 05/26/19 05/27/19 05/27/19 22:59 06:59 14:59 Intake Total 370 600 Balance 370 600 Lab Results Last 24 Hours: Laboratory Results - last 24 hr 05/26/19 05/26/19 05/26/19 Range/Units 11:43 16:49 20:42 POC Glucose 155 H 100 113 H (70-105) mg/dl 05/27/19 Range/Units 07:49 POC Glucose 95 (70-105) mg/dl Med Orders - Current: Current Medications Acetaminophen (Tylenol) 650 mg PO Q6HR PRN PRN Reason: Pain/Fever Last Admin: 05/15/19 10:45 Dose: 650 mg Aspirin (Halfprin) 81 mg PO DAILY [facility] Last Admin: 05/26/19 09:39 Dose: 81 mg Atorvastatin Calcium (Lipitor) 20 mg PO BEDTIME [facility] Last Admin: 05/26/19 21:05 Dose: 20 mg Diphenhydramine HCl (Benadryl) 25 mg PO QID PRN PRN Reason: Itching Docusate Sodium (Colace) 100 mg PO BID PRN PRN Reason: Constipation Last Admin: 05/27/19 05:40 Dose: 100 mg Enoxaparin Sodium (Lovenox) 30 mg SUBCUT DAILY [facility] Last Admin: 05/26/19 09:39 Dose: 30 mg Gabapentin (Neurontin) 300 mg PO TID [facility] Last Admin: 05/26/19 21:05 Dose: 300 mg Cefazolin Sodium/Dextrose 2 gm (/ Premix) 50 mls @ 50 mls/hr IV Q8HR [facility] Last Admin: 05/27/19 05:32 Dose: 50 mls/hr Insulin Human Lispro (Humalog) 0 unit SUBCUT ACBED [facility]; Protocol Last Admin: 05/27/19 08:34 Dose: Not Given Insulin Human NPH (Humulin N) 10 unit SQ BEDTIME [facility] Last Admin: 05/26/19 21:04 Dose: 10 unit Levetiracetam (Keppra) 500 mg PO BID [facility] Last Admin: 05/26/19 21:05 Dose: 500 mg Ondansetron HCl (Zofran Odt) 4 mg PO Q6H PRN PRN Reason: nausea, able to take PO Last Admin: 05/14/19 15:59 Dose: 4 mg Oxycodone HCl (Oxycodone) 5 mg PO Q4H PRN PRN Reason: Pain (moderate 4-6) Last Admin: 05/27/19 05:33 Dose: 5 mg Sodium Chloride (Saline Flush) 10 ml FLUSH ASDIRECTED PRN PRN Reason: Keep Vein Open Last Admin: 05/26/19 14:21 Dose: 10 ml Zolpidem Tartrate (Ambien) 5 mg PO BEDTIME PRN PRN Reason: Sleep Discontinued Medications Piperacillin Sod/Tazobactam (Sod 3.375 gm/ Sodium Chloride) 100 mls @ 200 mls/ hr IV Q8HR [facility] Last Admin: 05/07/19 14:40 Dose: Not Given Piperacillin Sod/Tazobactam (Sod 4.5 gm/ Sodium Chloride) 100 mls @ 200 mls/hr IV Q8HR [facility] Last Admin: 05/15/19 15:48 Dose: 200 mls/hr Sodium Chloride (Normal Saline) 1,000 mls @ 100 mls/hr IV ASDIRECTED [facility] Stop: 05/11/19 19:44 Last Infusion: 05/11/19 19:54 Dose: Infused Cefazolin Sodium/Dextrose 2 gm (/ Premix) 50 mls @ 50 mls/hr IV Q8H [facility] Stop: 06/13/19 12:59 Last Infusion: 05/16/19 13:19 Dose: Infused Influenza Virus Vaccine (Pharmacy To Dose - Influenza Vaccine) 1 each IM ONETIME ONE Stop: 05/07/19 12:10 Last Admin: 05/15/19 08:20 Dose: Not Given Influenza Virus Vaccine (Afluria Quad 2018- (3yr Up)) 60 mcg IM .ONCE ONE Stop: 05/14/19 15:16 Last Admin: 05/14/19 15:53 Dose: 60 mcg Midodrine (Midodrine) 2.5 mg PO BID [facility] Last Admin: 05/11/19 20:43 Dose: Not Given Midodrine (Midodrine) 2.5 mg PO 0800,1800 [facility] Last Admin: 05/17/19 08:44 Dose: 2.5 mg - Exam General: Alert, Oriented Lungs: Clear to Auscultation, Normal Respiratory Effort Cardiovascular: Regular Rate, Regular Rhythm GI/Abdominal Exam: Normal Bowel Sounds, Soft, Non-Tender, No Distention Extremities: Other (transmetatarsal amputation of R foot, left great toe without discharge from wound, sutures in place) Skin: Warm, Dry, Intact Neurological: No New Focal Deficit Psy/Mental Status: Alert, Normal Affect, Normal Mood Sepsis Event Note - Evaluation Sepsis Screening Result: No Definite Risk - Focused Exam Vital Signs: Vital Signs Temp Pulse Resp BP Pulse Ox 05/27/19 08:01 36.3 C 93 20 134/90 99 Date Exam was Performed: 05/27/19 Time Exam was Performed: 10:16 - Problem List Review Problem List Initiated/Reviewed/Updated: Yes - Plan Plan:: Hubert Del Real38 y.o.malewith a past medical history of diabetes mellitus on insulin, hypertension, diabetic foot ulcer, seizure disorder on antiepileptic, hyperlipidemia who presented with an ulcer on his left great toe. He was found to have diabetic foot ulcer with osteomyelitis due to MSSA. #Diabetic foot ulcer with osteomyelitis due to MSSA -s/p Left 1st Proximal and Distal phalanges for biopsy. -ID consult recommended 4 weeks of IV Zosyn Continue antibiotics for now ID appointment tomorrow #KANDACE due to Acute interstitial nephritis -monitor creatinine per ID #DM -Continue NPH -Supplemental insulin as needed #Dvt prophylaxis -SQ Lovenox
[2019-05-27] MEDS: atorvaSTATin 20 MG Tab PO SCH (21:32)
[2019-05-27] MEDS: Insulin Isophane NPH, Human 100 Units/ML 3 ML Vial SQ SCH (21:37)
[2019-05-28] MEDS: ceFAZolin 2 GM in Premix Bag 1 BAG IV SCH (06:03)
[2019-05-28] MEDS: oxyCODONE 5 MG Tab PO PRN ×2 (06:04→12:07)
[2019-05-28 06:58] LABS: ANION GAP 11.3 mEq/L (7-13)
[2019-05-28] MEDS: Insulin Lispro 100 Units/ML 3 ML Vial SUBCUT SCH ×2 (08:20→12:07)
[2019-05-28] MEDS: Enoxaparin 30 MG/0.3 ML Syringe SUBCUT SCH (08:49)
[2019-05-28] MEDS: Gabapentin 300 MG Cap PO SCH (08:49)
[2019-05-28] MEDS: levETIRAcetam 500 MG Tab PO SCH (08:50)
[2019-05-28] MEDS: Aspirin 81 MG Tab.EC PO SCH (08:50)
--- NOTE | 2019-05-28 13:03 | PCM.DCSUM1 ---
Discharge Summary - Hospital Course Free Text/Narrative:: Hubert Walls a 39 y.o.malewith a past medical history of diabetes mellitus on insulin, hypertension, diabetic foot ulcer, seizure disorder on antiepileptic, hyperlipidemia who presented with an ulcer on his left great toe. He was managed for diabetic foot ulcer with osteomyelitis. Podiatry was consulted and he had a partial removal of the Left 1st Proximal and Distal phalanges for biopsy.He was started on IV abx. ID consult recommended 4 weeks of Zosyn. transfered to swing bed for IV ABx tx. he finished course of IV antibiotics and was cleared for discharge by ID. he was discharged home in stable condition. - Discharge Data Discharge Date: 05/28/19 Discharge Disposition: Home, Self-Care 01 Condition: Good - Referral to Home Health Primary Care Physician: Kiko Mina MD - Patient Summary/Data Consults: Consultations 05/08/19 15:22 PT Evaluation and Treatment [CONS] Routine - Discharge Plan *PRESCRIPTION DRUG MONITORING PROGRAM REVIEWED*: Not Applicable *COPY OF PRESCRIPTION DRUG MONITORING REPORT IN PATIENT LAURENCE: Not Applicable Home Medications: Home Meds levETIRAcetam [Keppra] 500 mg PO BID 08/22/18 [History] Aspirin [Halfprin] 81 mg PO DAILY 08/23/18 [History] Insulin Aspart [NovoLOG] 13 units SQ TIDMEALS 08/23/18 [History] atorvaSTATin Calcium [Atorvastatin Calcium] 20 mg PO DAILY 08/23/18 [History] Acetaminophen 650 mg PO Q6HR PRN 10/19/18 [History] Gabapentin [Neurontin] 300 mg PO TID 05/07/19 [History] Insulin Isophane NPH, Human [NovoLIN N] 10 units SUBCUT BEDTIME 05/07/19 [ History] Zolpidem Tartrate [Ambien] 5 mg PO BEDTIME PRN 05/07/19 [History] diphenhydrAMINE [Benadryl] 25 mg PO QID PRN 05/07/19 [History] Referrals: Kiko Mina MD [Primary Care Provider] - - Discharge Summary/Plan Comment DC Time >30 min.: Yes - Review of Systems General: Reports: No Symptoms - Patient Data Vitals - Most Recent: Last Vital Signs Temp 36.4 C 05/28/19 08:26 Pulse 68 05/28/19 08:26 Resp 20 05/28/19 08:26 BP 124/87 05/28/19 08:26 Pulse Ox 98 05/28/19 08:26 Weight - Most Recent: 93.531 kg I&O - Last 24 hours: Intake & Output 05/27/19 05/28/19 05/28/19 22:59 06:59 14:59 Intake Total 298 600 360 Balance 298 600 360 Lab Results - Last 24 hrs: Laboratory Results - last 24 hr 05/27/19 05/27/19 05/28/19 Range/Units 16:52 21:09 06:10 WBC 6.6 (5.0-10.0) 10^3/uL RBC 5.14 (4.6-6.2) 10^6/uL Hgb 13.8 L (14.0-18.0) g/dL Hct 41.5 (40.0-54.0) % MCV 80.7 (80-100) fL MCH 26.8 L (27.0-34.0) pg MCHC 33.3 (33.0-35.0) g/dL Plt Count 148 L D (150-450) 10^3/uL Neut % (Auto) 49.2 (42.2-75.2) % Lymph % (Auto) 34.1 (20.5-50.1) % [place]urry % (Auto) 9.8 H (2-8) % Eos % (Auto) 6.6 H (1.0-3.0) % Baso % (Auto) 0.3 (0.0-1.0) % ESR 18 H (0-15) mm/hr Sodium (136-145) mmol/L Potassium (3.5-5.1) mmol/L Chloride (98-107) mmol/L Carbon Dioxide (21-32) mmol/L Anion Gap (7-13) mEq/L BUN (7-18) mg/dL Creatinine (0.70-1.30) mg/dL Est Cr Clr Drug Dosing mL/min Estimated GFR (MDRD) Glucose (74-99) mg/dL POC Glucose 97 148 H (70-105) mg/dl Calcium (8.5-10.1) mg/dL ALT (16-63) U/L C-Reactive Protein (0.0-0.9) mg/dL 05/28/19 05/28/19 05/28/19 Range/Units 06:10 07:49 12:00 WBC (5.0-10.0) 10^3/uL RBC (4.6-6.2) 10^6/uL Hgb (14.0-18.0) g/dL Hct (40.0-54.0) % MCV (80-100) fL MCH (27.0-34.0) pg MCHC (33.0-35.0) g/dL Plt Count (150-450) 10^3/uL Neut % (Auto) (42.2-75.2) % Lymph % (Auto) (20.5-50.1) % [place]urry % (Auto) (2-8) % Eos % (Auto) (1.0-3.0) % Baso % (Auto) (0.0-1.0) % ESR (0-15) mm/hr Sodium 141 (136-145) mmol/L Potassium 4.3 (3.5-5.1) mmol/L Chloride 105 (98-107) mmol/L Carbon Dioxide 29 (21-32) mmol/L Anion Gap 11.3 (7-13) mEq/L BUN 31 H (7-18) mg/dL Creatinine 1.40 H (0.70-1.30) mg/dL Est Cr Clr Drug Dosing 76.98 mL/min Estimated GFR (MDRD) 56 Glucose 109 H (74-99) mg/dL POC Glucose 104 107 H (70-105) mg/dl Calcium 9.1 (8.5-10.1) mg/dL ALT 35 (16-63) U/L C-Reactive Protein 0.3 (0.0-0.9) mg/dL Med Orders - Current: Current Medications Acetaminophen (Tylenol) 650 mg PO Q6HR PRN PRN Reason: Pain/Fever Last Admin: 05/15/19 10:45 Dose: 650 mg Aspirin (Halfprin) 81 mg PO DAILY [facility] Last Admin: 05/28/19 08:50 Dose: 81 mg Atorvastatin Calcium (Lipitor) 20 mg PO BEDTIME [facility] Last Admin: 05/27/19 21:32 Dose: 20 mg Diphenhydramine HCl (Benadryl) 25 mg PO QID PRN PRN Reason: Itching Docusate Sodium (Colace) 100 mg PO BID PRN PRN Reason: Constipation Last Admin: 05/27/19 05:40 Dose: 100 mg Enoxaparin Sodium (Lovenox) 30 mg SUBCUT DAILY [facility] Last Admin: 05/28/19 08:49 Dose: 30 mg Gabapentin (Neurontin) 300 mg PO TID [facility] Last Admin: 05/28/19 08:49 Dose: 300 mg Cefazolin Sodium/Dextrose 2 gm (/ Premix) 50 mls @ 50 mls/hr IV Q8HR [facility] Last Admin: 05/28/19 06:03 Dose: 50 mls/hr Insulin Human Lispro (Humalog) 0 unit SUBCUT ACBED [facility]; Protocol Last Admin: 05/28/19 12:07 Dose: Not Given Insulin Human NPH (Humulin N) 10 unit SQ BEDTIME [facility] Last Admin: 05/27/19 21:37 Dose: 10 unit Levetiracetam (Keppra) 500 mg PO BID [facility] Last Admin: 05/28/19 08:50 Dose: 500 mg Ondansetron HCl (Zofran Odt) 4 mg PO Q6H PRN PRN Reason: nausea, able to take PO Last Admin: 05/14/19 15:59 Dose: 4 mg Oxycodone HCl (Oxycodone) 5 mg PO Q4H PRN PRN Reason: Pain (moderate 4-6) Last Admin: 05/28/19 12:07 Dose: 5 mg Sodium Chloride (Saline Flush) 10 ml FLUSH ASDIRECTED PRN PRN Reason: Keep Vein Open Last Admin: 05/26/19 14:21 Dose: 10 ml Zolpidem Tartrate (Ambien) 5 mg PO BEDTIME PRN PRN Reason: Sleep Discontinued Medications Piperacillin Sod/Tazobactam (Sod 3.375 gm/ Sodium Chloride) 100 mls @ 200 mls/ hr IV Q8HR [facility] Last Admin: 05/07/19 14:40 Dose: Not Given Piperacillin Sod/Tazobactam (Sod 4.5 gm/ Sodium Chloride) 100 mls @ 200 mls/hr IV Q8HR [facility] Last Admin: 05/15/19 15:48 Dose: 200 mls/hr Sodium Chloride (Normal Saline) 1,000 mls @ 100 mls/hr IV ASDIRECTED [facility] Stop: 05/11/19 19:44 Last Infusion: 05/11/19 19:54 Dose: Infused Cefazolin Sodium/Dextrose 2 gm (/ Premix) 50 mls @ 50 mls/hr IV Q8H [facility] Stop: 06/13/19 12:59 Last Infusion: 05/16/19 13:19 Dose: Infused Influenza Virus Vaccine (Pharmacy To Dose - Influenza Vaccine) 1 each IM ONETIME ONE Stop: 05/07/19 12:10 Last Admin: 05/15/19 08:20 Dose: Not Given Influenza Virus Vaccine (Afluria Quad 2018- (3yr Up)) 60 mcg IM .ONCE ONE Stop: 05/14/19 15:16 Last Admin: 05/14/19 15:53 Dose: 60 mcg Midodrine (Midodrine) 2.5 mg PO BID [facility] Last Admin: 05/11/19 20:43 Dose: Not Given Midodrine (Midodrine) 2.5 mg PO 0800,1800 [facility] Last Admin: 05/17/19 08:44 Dose: 2.5 mg - Exam General: Reports: Alert, Oriented Lungs: Reports: Clear to Auscultation, Normal Respiratory Effort Cardiovascular: Reports: Regular Rate, Regular Rhythm GI/Abdominal Exam: Normal Bowel Sounds, Soft, Non-Tender, No Distention Extremities: No Pedal Edema, Other (transmetatarsal amputation of Right foot, left toe sutured) Skin: Reports: Warm, Dry, Intact Psy/Mental Status: Reports: Alert, Normal Affect, Normal Mood
== END 2019-05-28 13:35 | disposition home or self-care (01) | DRG 638 ==
LOC: DL.MS 11:57 → UNDOADMIN 11:57 → DL.MS 12:52
PROVIDERS: ADMIT Internal Medicine; ATTEND Internal Medicine
DX: E11.621 Type 2 diabetes mellitus with foot ulcer (principal); M86.9 Osteomyelitis, unspecified; E11.69 Type 2 diabetes mellitus with other specified complication; I10 Essential (primary) hypertension; G40.909 Epilepsy, unspecified, not intractable, without status epilepticus; E78.5 Hyperlipidemia, unspecified; L97.529 Non-pressure chronic ulcer of other part of left foot with unspecified severity; H54.7 Unspecified visual loss; E11.40 Type 2 diabetes mellitus with diabetic neuropathy, unspecified; F17.210 Nicotine dependence, cigarettes, uncomplicated; N17.9 Acute kidney failure, unspecified; B95.61 Methicillin susceptible Staphylococcus aureus infection as the cause of diseases classified elsewhere; Z79.82 Long term (current) use of aspirin; Z79.899 Other long term (current) drug therapy; Z88.5 Allergy status to narcotic agent
CPT/HCPCS: 36415; 80048; 82565; 82962; 84460; 85025; 85651; 86140; 90686; A9270-GY; G0008; J0690; J1650; J1815; J1815-GY; J2543; J7030; J7050

== ENCOUNTER 2019-11-16 09:08 | Emergency (ER) | payer MEDICAID, OTHER ==
--- NOTE | 2019-11-16 09:19 | EDM.PDOC ---
ED HPI GENERAL MEDICAL PROBLEM - General Chief Complaint: Lower Extremity Injury/Pain Stated Complaint: LEFT FOOT PROBLEMS?? Time Seen by Provider: 11/16/19 09:18 Source of Information: Reports: Patient, Old Records, Police, RN, RN Notes Reviewed History Limitations: Reports: No Limitations - History of Present Illness INITIAL COMMENTS - FREE TEXT/NARRATIVE: Pt brought to ER by [place] police from [facility] for evaluation left foot ulcer and for a COVID screening test. Pt states he was arrested this morning but claims he doesn't know why. He recently returned from [place] and isn't sure if he has been exposed to COVID or not, but states he did have a negative COVID test last week. 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 He states that for approx. 6 to 12 months he has had an open ulcer on the bottom of the left foot but did not seek medical attention. He states the left foot "stinks like rot" and sometimes drains pus into his sock. Denies fever. Onset: Gradual, Unknown/Unsure Duration: Constant, Getting Worse Location: Reports: Lower Extremity, Left Quality: Reports: Ache Severity: Moderate Improves with: Reports: None Worsens with: Reports: Other (Wt bearing) Associated Symptoms: Reports: No Other Symptoms - Related Data Allergies Allergy/AdvReac Type Severity Reaction Status Date / Time acetaminophen [From [place]] Allergy Anxiety Verified 05/07/19 11:47 hydrocodone [From [place]] Allergy Anxiety Verified 05/07/19 11:47 Home Meds: Home Meds levETIRAcetam [Keppra] 500 mg PO BID 08/22/18 [History] Aspirin [Halfprin] 81 mg PO DAILY 08/23/18 [History] Insulin Aspart [NovoLOG] 13 units SQ TIDMEALS 08/23/18 [History] atorvaSTATin Calcium [Atorvastatin Calcium] 20 mg PO DAILY 08/23/18 [History] Acetaminophen 650 mg PO Q6HR PRN 10/19/18 [History] Gabapentin [Neurontin] 300 mg PO TID 05/07/19 [History] Insulin Isophane NPH, Human [NovoLIN N] 10 units SUBCUT BEDTIME 05/07/19 [History] Zolpidem Tartrate [Ambien] 5 mg PO BEDTIME PRN 05/07/19 [History] diphenhydrAMINE [Benadryl] 25 mg PO QID PRN 05/07/19 [History] Past Medical History - Past Health History Medical/Surgical History: Denies Medical/Surgical History HEENT History: Reports: Impaired Vision, Other (See Below) Other HEENT History: waiting to repair retina Cardiovascular History: Reports: None Respiratory History: Reports: None Gastrointestinal History: Reports: None Genitourinary History: Reports: Acute Renal Failure, Other (See Below) Other Genitourinary History: Watching kidney labs at this time Musculoskeletal History: Reports: Amputation Neurological History: Reports: Neuropathy, Diabetic, Seizure Psychiatric History: Reports: None Endocrine/Metabolic History: Reports: Diabetes, Type I, Other (See Below) Other Endocrine/Metabolic History: Osteomyelitis Hematologic History: Reports: None Immunologic History: Reports: None Oncologic (Cancer) History: Reports: None Dermatologic History: Reports: None - Infectious Disease History Infectious Disease History: Reports: MRSA - Past Surgical History Head Surgeries/Procedures: Reports: None GI Surgical History: Reports: None Musculoskeletal Surgical History: Reports: Amputation Other Musculoskeletal Surgeries/Procedures:: rt great toe amputation 08-22-18 Social & Family History - Family History Family Medical History: Noncontributory - Caffeine Use Caffeine Use: Reports: Coffee - Living Situation & Occupation Living situation: Reports: Other (In [facility] as of 11/16/19) Review of Systems - Review of Systems Review Of Systems: Comprehensive ROS is negative, except as noted in HPI. ED EXAM, GENERAL - Physical Exam Exam: See Below Exam Limited By: No Limitations General Appearance: Alert, WD/WN, No Apparent Distress Throat/Mouth: Normal Voice, No Airway Compromise Head: Atraumatic, Normocephalic Respiratory/Chest: No Respiratory Distress, Lungs Clear, Normal Breath Sounds, No Accessory Muscle Use, Chest Non-Tender Cardiovascular: Regular Rate, Rhythm Extremities: Slow Capillary Refill (Left toes), Other (Rt forefoot s/p amputation. Left foot with mild to moderate soft tissue swelling, mild erythema, foul odor, and a 4cm diameter unstagable but deep ulcer of the plantar forefoot.) Neurological: Alert, Oriented, No Motor/Sensory Deficits Psychiatric: Normal Mood Skin Exam: Warm, Dry Course - Vital Signs Last Recorded V/S: Last Vital Signs Temp 98.1 F 11/16/19 09:15 Pulse 110 H 11/16/19 09:15 Resp 18 11/16/19 09:15 BP 120/85 11/16/19 09:15 Pulse Ox 99 11/16/19 09:15 - Orders/Labs/Meds Labs: Laboratory Tests 11/16/19 11/16/19 11/16/19 Range/Units 09:20 09:30 09:30 WBC 8.6 (5.0-10.0) 10^3/uL RBC 5.60 (4.6-6.2) 10^6/uL Hgb 15.2 (14.0-18.0) g/dL Hct 44.8 (40.0-54.0) % MCV 80.0 (80-100) fL MCH 27.1 (27.0-34.0) pg MCHC 33.9 (33.0-35.0) g/dL Plt Count 225 D (150-450) 10^3/uL Neut % (Auto) 63.1 (42.2-75.2) % Lymph % (Auto) 29.8 (20.5-50.1) % Cass % (Auto) 5.6 (2-8) % Eos % (Auto) 1.1 (1.0-3.0) % Baso % (Auto) 0.4 (0.0-1.0) % Sodium 134 L (136-145) mmol/L Potassium 4.0 (3.5-5.1) mmol/L Chloride 100 (98-107) mmol/L Carbon Dioxide 23 (21-32) mmol/L Anion Gap 15.0 H (7-13) mEq/L BUN 24 H (7-18) mg/dL Creatinine 1.41 H (0.70-1.30) mg/dL Est Cr Clr Drug Dosing 76.44 mL/min Estimated GFR (MDRD) 56 BUN/Creatinine Ratio 17.0 (No establ ref range) Glucose 511 H* (74-99) mg/dL Calcium 8.5 (8.5-10.1) mg/dL Total Bilirubin 0.5 (0.2-1.0) mg/dL AST 11 L (15-37) U/L ALT 23 (16-63) U/L Alkaline Phosphatase 223 H (46-116) U/L C-Reactive Protein 0.4 (0.0-0.9) mg/dL Total Protein 7.9 (6.4-8.2) g/dL Albumin 3.2 L (3.4-5.0) g/dL Globulin 4.7 Albumin/Globulin Ratio 0.68 Ketones SARS CoV-2 RNA Rapid EKTA Negative (NEGATIVE) 11/16/19 Range/Units 09:30 WBC (5.0-10.0) 10^3/uL RBC (4.6-6.2) 10^6/uL Hgb (14.0-18.0) g/dL Hct (40.0-54.0) % MCV (80-100) fL MCH (27.0-34.0) pg MCHC (33.0-35.0) g/dL Plt Count (150-450) 10^3/uL Neut % (Auto) (42.2-75.2) % Lymph % (Auto) (20.5-50.1) % Cass % (Auto) (2-8) % Eos % (Auto) (1.0-3.0) % Baso % (Auto) (0.0-1.0) % Sodium (136-145) mmol/L Potassium (3.5-5.1) mmol/L Chloride (98-107) mmol/L Carbon Dioxide (21-32) mmol/L Anion Gap (7-13) mEq/L BUN (7-18) mg/dL Creatinine (0.70-1.30) mg/dL Est Cr Clr Drug Dosing mL/min Estimated GFR (MDRD) BUN/Creatinine Ratio (No establ ref range) Glucose (74-99) mg/dL Calcium (8.5-10.1) mg/dL Total Bilirubin (0.2-1.0) mg/dL AST (15-37) U/L ALT (16-63) U/L Alkaline Phosphatase (46-116) U/L C-Reactive Protein (0.0-0.9) mg/dL Total Protein (6.4-8.2) g/dL Albumin (3.4-5.0) g/dL Globulin Albumin/Globulin Ratio Ketones Negative SARS CoV-2 RNA Rapid EKTA (NEGATIVE) Meds: Medications Discontinued Medications Generic Name Dose Route Start Last Admin Trade Name Freq PRN Reason Stop Dose Admin Insulin Human Regular 10 unit 11/16/19 10:24 Humulin R SUBCUT 11/16/19 10:25 ONETIME ONE - Radiology Interpretation Free Text/Narrative:: [facility] [place] [facility] Final Radiology Report Call: [phone] assistance Online chat: [email or web address] Name: ALEJANDRA CRUZ Age: 39Years M Date: 11/16/2019 SSN: -- : [id number] Study: CR FOOT COMP MIN 3V LT Requesting Physician: SHERMAN LOERA Images: 3 Addl Studies: Provided Clinical History: Deep diabetic ulcer left plantar forefoot Contrast: Contrast Medium: Contrast Amount: Contrast Method: Page 1 of 2 PROCEDURE INFORMATION: Exam: XR Left Foot Complete Exam date and time: 11/16/2019 10:00 AM Age: 39 years old Clinical indication: Other: Deep diabetic ulcer left plantar forefoot TECHNIQUE: Imaging protocol: XR Left foot. Views: 3 or more views. COMPARISON: No relevant prior studies available. FINDINGS: Bones/joints: There is a hallux valgus. There is no acute fracture or dislocation. There is no aggressive osseous process. The joint spaces are preserved. There is a small retrocalcaneal enthesophyte. Enthesopathy changes are also seen along mid calcaneal plantar surface. Small chronic ossific densities are seen at the medial malleolus. Soft tissues: Plantar small radiolucency and edema at the forefoot may be compatible with known soft tissue ulceration. IMPRESSION: 1. No acute osseous abnormality. If concern for osteomyelitis consider three- phase bone scan or MRI. 2. Hallux valgus. 3. Small retrocalcaneal and mid plantar surface enthesopathy changes. 4. Soft tissue plantar radiolucency and edema compatible with ulceration. Thank you for allowing us to participate in the care of your patient. ALEJANDRA CRUZ | Final Radiology Report CONFIDENTIALITY STATEMENT This report is intended only for use by the referring physician, and only in accordance with law. If you received this in error, call [phone]. Page 2 of 2 Dictated and Authenticated by: Elza Sanches MD 11/16/2019 10:42 AM Central Time ([place] & [place]) Departure - Departure Time of Disposition: 10:55 Disposition: DC/Tfer to Acute Hospital 02 Condition: Fair Clinical Impression: History of osteomyelitis Hyperglycemia due to type 2 diabetes mellitus Qualifiers: Diabetes mellitus skilled nursing insulin use: with skilled nursing use Qualified Code(s): E11.65 - Type 2 diabetes mellitus with hyperglycemia; Z79.4 - dedicated intermodal truck driver (current) use of insulin Diabetic ulcer of left foot Qualifiers: Diabetic foot ulcer location: midfoot Diabetes mellitus type: type 2 Non- pressure ulcer stage: with fat layer exposed Qualified Code(s): E11.621 - Type 2 diabetes mellitus with foot ulcer; L97.422 - Non-pressure chronic ulcer of left heel and midfoot with fat layer exposed Uncontrolled type 2 diabetes mellitus Qualifiers: Glycemic state: with hyperglycemia Qualified Code(s): E11.65 - Type 2 diabetes mellitus with hyperglycemia - Discharge Information *PRESCRIPTION DRUG MONITORING PROGRAM REVIEWED*: Not Applicable *COPY OF PRESCRIPTION DRUG MONITORING REPORT IN PATIENT LAURENCE: Not Applicable Forms: ED Department Discharge, Interfacility Transfer [facility] Sepsis Event Note (ED) - Focused Exam Vital Signs: Vital Signs Temp Pulse Resp BP Pulse Ox 11/16/19 09:15 98.1 F 110 H 18 120/85 99
[2019-11-16] MEDS ORDERED: Insulin Regular, Human 100 Units/ML 3 ML Vial SUBCUT ONE (10:24)
--- NOTE | 2019-11-16 10:43 | CR ---
PROCEDURE INFORMATION: Exam: XR Left Foot Complete Exam date and time: 11/16/2019 10:00 AM Age: 39 years old Clinical indication: Other: Deep diabetic ulcer left plantar forefoot TECHNIQUE: Imaging protocol: XR Left foot. Views: 3 or more views. COMPARISON: No relevant prior studies available. FINDINGS: Bones/joints: There is a hallux valgus. There is no acute fracture or dislocation. There is no aggressive osseous process. The joint spaces are preserved. There is a small retrocalcaneal enthesophyte. Enthesopathy changes are also seen along mid calcaneal plantar surface. Small chronic ossific densities are seen at the medial malleolus. Soft tissues: Plantar small radiolucency and edema at the forefoot may be compatible with known soft tissue ulceration. IMPRESSION: 1. No acute osseous abnormality. If concern for osteomyelitis consider three-phase bone scan or MRI. 2. Hallux valgus. 3. Small retrocalcaneal and mid plantar surface enthesopathy changes. 4. Soft tissue plantar radiolucency and edema compatible with ulceration.
== END 2019-11-16 11:45 ==
LOC: DL.ED 09:08
DX: E11.65 Type 2 diabetes mellitus with hyperglycemia (principal); E11.621 Type 2 diabetes mellitus with foot ulcer; L97.422 Non-pressure chronic ulcer of left heel and midfoot with fat layer exposed; E11.40 Type 2 diabetes mellitus with diabetic neuropathy, unspecified; E11.69 Type 2 diabetes mellitus with other specified complication; M86.9 Osteomyelitis, unspecified; Z88.6 Allergy status to analgesic agent; Z88.5 Allergy status to narcotic agent; Z79.4 Long term (current) use of insulin; Z79.899 Other long term (current) drug therapy; Z79.82 Long term (current) use of aspirin; Z20.828 Contact with and (suspected) exposure to other viral communicable diseases
CPT/HCPCS: 36415; 73630; 80053; 82009; 85025; 86140; 87635; 99284; J1815; U0002

== ENCOUNTER 2019-12-07 11:44 | Emergency (ER) | payer MEDICAID ==
[2019-12-07] MEDS ORDERED: HYDROmorphone 1 MG/ML Syringe IVPUSH ONE (12:52)
--- NOTE | 2019-12-07 13:01 | EDM.PDOC ---
ED HPI GENERAL MEDICAL PROBLEM - General Chief Complaint: Lower Extremity Injury/Pain Stated Complaint: AMBULANCE Time Seen by Provider: 12/07/19 12:10 Source of Information: Reports: Patient, Provider, RN History Limitations: Reports: Other - History of Present Illness INITIAL COMMENTS - FREE TEXT/NARRATIVE: 39 year old male who presents with EMS for left foot pain. Patient is referred to the ER by PCP for an evaluation for osteomyelitis. Patient had surgery on his left second toe 20 days ago and missed his post op appointment 10 days after. He reports he was walking yesterday and the stitches "came off". He is reporting pain in his left foot of a 11/23. He has a history of diabetes and seizures. He has not been taking his medications since he left the hospital stating he was still having a seizure while taking the Meds. He denies any fever/chills, SOB, CP,palpitations at this time. Denies any known Covid exposure. Left Feet Pain Score (Numeric/FACES): 8 - Related Data Allergies Allergy/AdvReac Type Severity Reaction Status Date / Time acetaminophen [From [place]] Allergy Anxiety Verified 12/07/19 12:00 hydrocodone [From [place]] Allergy Anxiety Verified 12/07/19 12:00 Home Meds: Home Meds levETIRAcetam [Keppra] 500 mg PO BID 08/22/18 [History] Aspirin [Halfprin] 81 mg PO DAILY 08/23/18 [History] Insulin Aspart [NovoLOG] 13 units SQ TIDMEALS 08/23/18 [History] atorvaSTATin Calcium [Atorvastatin Calcium] 20 mg PO DAILY 08/23/18 [History] Acetaminophen 650 mg PO Q6HR PRN 10/19/18 [History] Gabapentin [Neurontin] 300 mg PO TID 05/07/19 [History] Insulin Isophane NPH, Human [NovoLIN N] 10 units SUBCUT BEDTIME 05/07/19 [History] Zolpidem Tartrate [Ambien] 5 mg PO BEDTIME PRN 05/07/19 [History] diphenhydrAMINE [Benadryl] 25 mg PO QID PRN 05/07/19 [History] Past Medical History - Past Health History Medical/Surgical History: Denies Medical/Surgical History HEENT History: Reports: Impaired Vision, Other (See Below) Other HEENT History: waiting to repair retina Cardiovascular History: Reports: None Respiratory History: Reports: None Gastrointestinal History: Reports: None Genitourinary History: Reports: Acute Renal Failure, Other (See Below) Other Genitourinary History: Watching kidney labs at this time Musculoskeletal History: Reports: Amputation Neurological History: Reports: Neuropathy, Diabetic, Seizure Psychiatric History: Reports: None Endocrine/Metabolic History: Reports: Diabetes, Type I, Other (See Below) Other Endocrine/Metabolic History: Osteomyelitis Hematologic History: Reports: None Immunologic History: Reports: None Oncologic (Cancer) History: Reports: None Dermatologic History: Reports: None - Infectious Disease History Infectious Disease History: Reports: Chicken Pox - Past Surgical History Head Surgeries/Procedures: Reports: None GI Surgical History: Reports: None Musculoskeletal Surgical History: Reports: Amputation Other Musculoskeletal Surgeries/Procedures:: rt great toe amputation 08-22-18 Social & Family History - Family History Family Medical History: Noncontributory - Tobacco Use Tobacco Use Status *Q: Current Every Day Tobacco User Years of Tobacco use: 10 Packs/Tins Daily: 0.5 Second Hand Smoke Exposure: No - Caffeine Use Caffeine Use: Reports: Coffee, Soda - Recreational Drug Use Recreational Drug Use: No - Living Situation & Occupation Living situation: Reports: Other (In [place] [facility] as of 11/16/19) Review of Systems - Review of Systems Review Of Systems: Comprehensive ROS is negative, except as noted in HPI. ED EXAM, GENERAL - Physical Exam Exam: See Below Exam Limited By: No Limitations General Appearance: Alert, Moderate Distress Respiratory/Chest: No Respiratory Distress, Lungs Clear, Normal Breath Sounds, No Accessory Muscle Use, Chest Non-Tender Cardiovascular: Tachycardia, Other (Peripheral pulses dopplered) GI/Abdominal: Normal Bowel Sounds, Soft, Non-Tender, No Organomegaly, No Distention, No Abnormal Bruit, No Mass Extremities: Limited Range of Motion (due to pain of left foot), Increased Warmth, Redness, Other (Right toes amputated (healed). Left second toe amputated with eschar tissue noted. 2+ pitting edema noted on left foot. Wound on second toe draining and painful to touch. ) Neurological: Alert, Oriented Psychiatric: Anxious Skin Exam: Wound/Incision Course - Vital Signs Last Recorded V/S: Last Vital Signs Temp 98 F 12/07/19 11:50 Pulse 108 H 12/07/19 11:50 Resp 16 10/23/20 11:50 BP 142/91 H 12/07/19 11:50 Pulse Ox 100 12/07/19 11:50 - Orders/Labs/Meds Orders: Active Orders 24 hr Category Date Time Status CORONAVIRUS COVID-19 PCR PHL Stat Lab 12/07/19 12:51 Ordered Vancomycin 1 gm Med 12/07/19 12:50 Ordered Dextrose 5% in Water 250 ml IV ONETIME Medication Orders Vancomycin HCl 1 gm/ Dextrose/ (Water) 250 mls @ 167 mls/hr IV ONETIME ONE Stop: 12/07/19 14:19 Meds: Medications Generic Name Dose Route Start Last Admin Trade Name Freq PRN Reason Stop Dose Admin Vancomycin HCl 1 gm/ Dextrose/ 250 mls @ 167 mls/hr 12/07/19 12:50 Water IV 12/07/19 14:19 ONETIME ONE Discontinued Medications Generic Name Dose Route Start Last Admin Trade Name Freq PRN Reason Stop Dose Admin Hydromorphone HCl 1 mg 12/07/19 12:52 Dilaudid IVPUSH 12/07/19 12:53 ONETIME ONE - Re-Assessments/Exams Free Text/Narrative Re-Assessment/Exam: Reviewed notes and labs done at [facility]. COVID negative in the ER. Reviewed case with at [facility] who accepted patient for transfer. Dilaudid 1 mg and Vancomycin administered. Patient in agreement to treatment plan. 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 Qualified Code(s): E11.65 - Type 2 diabetes mellitus with hyperglycemia - Discharge Information Forms: ED Department Discharge, Interfacility Transfer [facility] Sepsis Event Note (ED) - Evaluation Sepsis Screening Result: No Definite Risk - Focused Exam Vital Signs: Vital Signs Temp Pulse Resp BP Pulse Ox 12/07/19 11:50 98 F 108 H 16 142/91 H 100 - My Orders Last 24 Hours: My Active Orders 12/07/19 12:50 Vancomycin 1 gm Dextrose 5% in Water 250 ml IV ONETIME 12/07/19 12:51 CORONAVIRUS COVID-19 PCR PHL Stat - Assessment/Plan Last 24 Hours: My Active Orders 12/07/19 12:50 Vancomycin 1 gm Dextrose 5% in Water 250 ml IV ONETIME 12/07/19 12:51 CORONAVIRUS COVID-19 PCR PHL Stat
== END 2019-12-07 15:47 ==
LOC: DL.ED 11:44
DX: T81.49XA Infection following a procedure, other surgical site, initial encounter (principal); L03.116 Cellulitis of left lower limb; M86.271 Subacute osteomyelitis, right ankle and foot; E11.65 Type 2 diabetes mellitus with hyperglycemia; F17.210 Nicotine dependence, cigarettes, uncomplicated; Z88.6 Allergy status to analgesic agent; Z88.5 Allergy status to narcotic agent; Z79.82 Long term (current) use of aspirin; Z79.899 Other long term (current) drug therapy; Z20.828 Contact with and (suspected) exposure to other viral communicable diseases
CPT/HCPCS: 87635; 96365; 96375; 99284; J1170; J3370; J7050; U0002

== ENCOUNTER 2019-12-12 09:59 | Inpatient (IN) | payer MEDICAID ==
[2019-12-12] MEDS ORDERED: Docusate Sodium 100 MG Cap PO PRN (12:52)
[2019-12-12] MEDS ORDERED: Zolpidem 5 MG Tab PO PRN (12:52)
[2019-12-12] MEDS ORDERED: Ondansetron 4 MG/2 ML SDV IVPUSH PRN (12:52)
[2019-12-12] MEDS ORDERED: 50% Dextrose in Water 50 ML Syringe IV PRN (12:56)
[2019-12-12] MEDS ORDERED: Glucagon,Human Recombinant 1 MG Vial IM PRN (12:56)
[2019-12-12 14:11] LABS: ANION GAP 9.8 mEq/L (7-13); CHLORIDE,CL 100 mmol/L (98-107); SODIUM,NA 136 mmol/L (136-145)
--- NOTE | 2019-12-12 14:26 | PCM.HP ---
H&P History of Present Illness - General Date of Service: 12/12/19 Admit Problem/Dx: Admission Diagnosis/Problem Admission Diagnosis/Problem Osteomyelitis Source of Information: Patient History Limitations: Reports: No Limitations - History of Present Illness Initial Comments - Free Text/Narative: Patient is a 39 year-old male with a medical history of type 2 diabetes, hype rtension, seizure disorder, alcohol abuse, right great toe amputation, recent left foot cellulitis with suspected osteomyelitis s/p left 2nd ray amputation who was seen for worsening pain, swelling and redness due to osteomyelitis after not following up with podiatry clinic visit post discharge. He was restarted on Zosyn IV and is here to complete 6 weeks of antibiotics. He currently complains of pain in the left foot. He denies fever. Left Foot Pain Score (Numeric/FACES): 7 - Related Data Allergies/Adverse Reactions: Allergies Allergy/AdvReac Type Severity Reaction Status Date / Time acetaminophen [From [place]] Allergy Anxiety Verified 12/12/19 11:37 hydrocodone [From [place]] Allergy Anxiety Verified 12/12/19 11:37 Home Medications: Home Meds levETIRAcetam [Keppra] 500 mg PO BID 08/22/18 [History] Aspirin [Halfprin] 81 mg PO DAILY 08/23/18 [History] Acetaminophen 650 mg PO Q4HR PRN 10/19/18 [History] Gabapentin [Neurontin] 600 mg PO BID 05/07/19 [History] Insulin Isophane NPH, Human [NovoLIN N] 10 units SUBCUT BEDTIME 05/07/19 [History] lisinopriL [Lisinopril] 5 mg PO DAILY 12/12/19 [History] oxyCODONE 5 mg PO Q8HR PRN 12/12/19 [History] Past Medical History - Past Health History Medical/Surgical History: Denies Medical/Surgical History HEENT History: Reports: Impaired Vision, Other (See Below) Other HEENT History: waiting to repair retina Cardiovascular History: Reports: None Respiratory History: Reports: None Gastrointestinal History: Reports: None Genitourinary History: Reports: Acute Renal Failure, Other (See Below) Other Genitourinary History: Watching kidney labs at this time Musculoskeletal History: Reports: Amputation Neurological History: Reports: Neuropathy, Diabetic, Seizure Psychiatric History: Reports: None Endocrine/Metabolic History: Reports: Diabetes, Type I, Other (See Below) Other Endocrine/Metabolic History: Osteomyelitis Hematologic History: Reports: None Immunologic History: Reports: None Oncologic (Cancer) History: Reports: None Dermatologic History: Reports: Cellulitis - Infectious Disease History Infectious Disease History: Reports: MRSA - Past Surgical History Head Surgeries/Procedures: Reports: None GI Surgical History: Reports: None Musculoskeletal Surgical History: Reports: Amputation Other Musculoskeletal Surgeries/Procedures:: rt great toe amputation 08-22-18, 2nd toe on left foot amputation Social & Family History - Family History Family Medical History: Noncontributory - Caffeine Use Caffeine Use: Reports: Coffee, Soda - Living Situation & Occupation Living situation: Reports: Other (In alf as of 11/16/19) H&P Review of Systems - Review of Systems: Review Of Systems: See Below HEENT: Reports: No Symptoms Pulmonary: Reports: No Symptoms Cardiovascular: Reports: Edema Gastrointestinal: Reports: No Symptoms Musculoskeletal: Reports: Foot Pain Skin: Reports: No Symptoms Psychiatric: Reports: No Symptoms Neurological: Reports: No Symptoms Hematologic/Lymphatic: Reports: No Symptoms Immunologic: Reports: No Symptoms Exam - Exam Exam: See Below - Vital Signs Vital Signs: Last Vital Signs Temp 96.6 F L 12/12/19 12:52 Pulse 94 12/12/19 12:52 Resp 18 12/12/19 12:52 BP 128/87 12/12/19 12:52 Pulse Ox 100 12/12/19 12:52 Weight: 215 lb - Exam General: Alert, Oriented, 4 HEENT: PERRLA, Hearing Intact, Mucosa Moist & [place], Nares Patent, Normal Nasal Septum, Posterior Pharynx Clear, Conjunctiva Clear, EOMI, EACs Clear, TMs Clear Neck: Supple, Trachea Midline, 2 Lungs: Clear to Auscultation, Normal Respiratory Effort Cardiovascular: Regular Rate, Regular Rhythm GI/Abdominal Exam: Normal Bowel Sounds, Soft, Non-Tender, No Organomegaly, No Distention, No Abnormal Bruit, No Mass, Pelvis Stable Extremities: Pedal Edema, Leg Pain Skin: Wound Neurological: Cranial Nerves Intact, Reflexes Equal Bilateral Neuro Extensive - Mental Status: Alert, Oriented x3, Normal Mood/Affect, Normal Cognition Neuro Extensive - Motor, Sensory, Reflexes: CN II-XII Intact, Normal Gait, Normal Reflexes Psychiatric: Alert, Normal Affect, Normal Mood - Patient Data Lab Results Last 24 hrs: Laboratory Results - last 24 hr 12/12/19 Range/Units 13:48 Sodium 136 (136-145) mmol/L Potassium 3.8 (3.5-5.1) mmol/L Chloride 100 (98-107) mmol/L Carbon Dioxide 30 (21-32) mmol/L Anion Gap 9.8 (7-13) mEq/L BUN 10 (7-18) mg/dL Creatinine 1.03 (0.70-1.30) mg/dL Est Cr Clr Drug Dosing 104.64 mL/min Estimated GFR (MDRD) > 60 BUN/Creatinine Ratio 9.7 (No establ ref range) Glucose 152 H (74-99) mg/dL Calcium 8.8 (8.5-10.1) mg/dL Total Bilirubin 0.4 (0.2-1.0) mg/dL AST 17 (15-37) U/L ALT 28 (16-63) U/L Alkaline Phosphatase 143 H (46-116) U/L Total Protein 7.3 (6.4-8.2) g/dL Albumin 2.2 L (3.4-5.0) g/dL Globulin 5.1 Albumin/Globulin Ratio 0.43 Result Diagrams: 12/12/19 13:48 Problem List Initiated/Reviewed/Updated: Yes Orders Last 24hrs: Active Orders 24 hr Category Date Time Status Patient Status [ADT] Routine ADT 12/12/19 12:52 Active Antiembolic Devices [RC] PER UNIT ROUTINE Care 12/12/19 12:55 Active Blood Glucose Check, Bedside [RC] QIDACANDBED Care 12/12/19 12:52 Active Oxygen Therapy [RC] PRN Care 12/12/19 12:52 Active Up ad [place] [RC] ASDIRECTED Care 12/12/19 12:52 Active Vital Signs [RC] PER UNIT ROUTINE Care 12/12/19 12:52 Active Consistent Carbohydrate Diet [DIET] Diet 12/12/19 Lunch Active CBC WITH AUTO DIFF [HEME] Routine Lab 12/12/19 13:48 Received Acetaminophen [TylenoL] Med 12/12/19 12:52 Active 650 mg PO Q4H PRN Aspirin [Halfprin] Med 12/13/19 09:00 Active 81 mg PO DAILY Dextrose 50% in Water Med 12/12/19 12:56 Active 50 ml IV ASDIRECTED PRN Docusate Sodium [Colace] Med 12/12/19 12:52 Active 100 mg PO BID PRN Enoxaparin [Lovenox] Med 12/12/19 21:00 Pending 40 mg SUBCUT Q12HR Gabapentin [Neurontin] Med 12/12/19 21:00 Active 600 mg PO BID Glucagon,Human Recombinant [GlucaGen] Med 12/12/19 12:56 Active 1 mg IM ASDIRECTED PRN Insulin NPH Human Isophane [HumuLIN N] Med 12/12/19 21:00 Active 10 unit SUBCUT BEDTIME Ondansetron [Zofran] Med 12/12/19 12:52 Active 4 mg IVPUSH Q4H PRN Piperacillin/Tazobactam [Zosyn] 3.375 gm Med 12/12/19 14:00 Active Sodium Chloride 0.9% [Normal Saline] 100 ml IV Q6H Zolpidem [Ambien] Med 12/12/19 12:52 Active 5 mg PO BEDTIME PRN levETIRAcetam [Keppra] Med 12/12/19 21:00 Active 500 mg PO BID lisinopriL [Prinivil] Med 12/13/19 09:00 Active 5 mg PO DAILY oxyCODONE Med 12/12/19 12:56 Active 5 mg PO Q8HR PRN Antiembolic Hose [OM.PC] Routine Oth 12/12/19 12:52 Ordered Resuscitation Status Routine Resus Stat 12/12/19 12:52 Ordered Medication Orders Acetaminophen (Tylenol) 650 mg PO Q4H PRN PRN Reason: Pain (Mild 1-3)/fever Aspirin (Halfprin) 81 mg PO DAILY [facility] Dextrose/Water (Dextrose 50% In Water) 50 ml IV ASDIRECTED PRN PRN Reason: Hypoglycemia Docusate Sodium (Colace) 100 mg PO BID PRN PRN Reason: Constipation Enoxaparin Sodium (Lovenox) 40 mg SUBCUT Q12HR [facility] Gabapentin (Neurontin) 600 mg PO BID [facility] Glucagon (Glucagen) 1 mg IM ASDIRECTED PRN PRN Reason: Hypoglycemia Piperacillin Sod/Tazobactam (Sod 3.375 gm/ Sodium Chloride) 100 mls @ 200 mls/hr IV Q6H [facility] Insulin Human NPH (Humulin N) 10 unit SUBCUT BEDTIME [facility] Levetiracetam (Keppra) 500 mg PO BID [facility] Lisinopril (Prinivil) 5 mg PO DAILY [facility] Ondansetron HCl (Zofran) 4 mg IVPUSH Q4H PRN PRN Reason: Nausea/Vomiting Oxycodone HCl (Oxycodone) 5 mg PO Q8HR PRN PRN Reason: Pain Zolpidem Tartrate (Ambien) 5 mg PO BEDTIME PRN PRN Reason: Sleep Assessment/Plan Comment:: Left foot cellulitis and osteomyelitis s/p 2nd ray amputation - Start zosyn, will need 6 weeks of antibiotics Type 2 DM - Resume home insulin regimen History of seizure disorder - Resume Keppra
[2019-12-12] MEDS: Piperacillin/Tazobactam 3.375 GM in Sodium Chloride 0.9% 100 ML IV SCH ×2 (15:42→20:27)
[2019-12-12] MEDS: oxyCODONE 5 MG Tab PO PRN ×2 (15:49→23:41)
[2019-12-12] MEDS: Enoxaparin 40 MG/0.4 ML Syringe SUBCUT SCH (20:26)
[2019-12-12] MEDS: levETIRAcetam 500 MG Tab PO SCH (20:27)
[2019-12-12] MEDS: Gabapentin 300 MG Cap PO SCH (20:27)
[2019-12-12] MEDS: Acetaminophen 325 MG Tab PO PRN (20:27)
[2019-12-12] MEDS: Insulin Isophane NPH, Human 100 Units/ML 3 ML Vial SUBCUT SCH (21:55)
[2019-12-13] MEDS: Piperacillin/Tazobactam 3.375 GM in Sodium Chloride 0.9% 100 ML IV SCH ×4 (02:03→22:04)
[2019-12-13] MEDS: oxyCODONE 5 MG Tab PO PRN ×3 (07:32→23:21)
[2019-12-13] MEDS: Aspirin 81 MG Tab.EC PO SCH (09:44)
[2019-12-13] MEDS: levETIRAcetam 500 MG Tab PO SCH ×2 (09:44→21:12)
[2019-12-13] MEDS: Gabapentin 300 MG Cap PO SCH ×2 (09:45→21:12)
[2019-12-13] MEDS: Lisinopril 5 MG Tab PO SCH (09:45)
[2019-12-13] MEDS: Enoxaparin 40 MG/0.4 ML Syringe SUBCUT SCH ×2 (09:50→21:15)
[2019-12-13] MEDS: Morphine 2 MG/ML SYRINGE IVPUSH PRN (10:46)
[2019-12-13] MEDS: Insulin Isophane NPH, Human 100 Units/ML 3 ML Vial SUBCUT SCH (21:13)
[2019-12-14] MEDS: Sodium Chloride 0.9% 10 ML Syringe FLUSH PRN ×2 (05:37→14:28)
[2019-12-14] MEDS: Piperacillin/Tazobactam 3.375 GM in Sodium Chloride 0.9% 100 ML IV SCH ×3 (05:37→22:10)
[2019-12-14] MEDS: oxyCODONE 5 MG Tab PO PRN ×4 (07:34→23:39)
[2019-12-14] MEDS: Gabapentin 300 MG Cap PO SCH ×2 (08:52→21:28)
[2019-12-14] MEDS: Lisinopril 5 MG Tab PO SCH (08:52)
[2019-12-14] MEDS: levETIRAcetam 500 MG Tab PO SCH ×2 (08:52→21:28)
[2019-12-14] MEDS: Aspirin 81 MG Tab.EC PO SCH (08:52)
[2019-12-14] MEDS: Enoxaparin 40 MG/0.4 ML Syringe SUBCUT SCH ×2 (08:53→21:29)
[2019-12-14] MEDS: Insulin Isophane NPH, Human 100 Units/ML 3 ML Vial SUBCUT SCH (21:30)
[2019-12-15] MEDS: Sodium Chloride 0.9% 10 ML Syringe FLUSH PRN ×2 (05:34→21:07)
[2019-12-15] MEDS: Piperacillin/Tazobactam 3.375 GM in Sodium Chloride 0.9% 100 ML IV SCH ×3 (05:35→21:07)
[2019-12-15] MEDS: Lisinopril 5 MG Tab PO SCH (08:28)
[2019-12-15] MEDS: Aspirin 81 MG Tab.EC PO SCH (08:28)
[2019-12-15] MEDS: levETIRAcetam 500 MG Tab PO SCH ×2 (08:29→21:05)
[2019-12-15] MEDS: Enoxaparin 40 MG/0.4 ML Syringe SUBCUT SCH ×2 (08:29→21:06)
[2019-12-15] MEDS: oxyCODONE 5 MG Tab PO PRN ×3 (08:29→19:17)
[2019-12-15] MEDS: Gabapentin 300 MG Cap PO SCH ×2 (08:29→21:05)
[2019-12-15] MEDS: Morphine 2 MG/ML SYRINGE IVPUSH PRN (18:28)
[2019-12-15] MEDS: Insulin Isophane NPH, Human 100 Units/ML 3 ML Vial SUBCUT SCH (21:06)
[2019-12-16] MEDS: oxyCODONE 5 MG Tab PO PRN ×4 (00:19→20:38)
[2019-12-16] MEDS: Sodium Chloride 0.9% 10 ML Syringe FLUSH PRN ×3 (05:53→22:37)
[2019-12-16] MEDS: Piperacillin/Tazobactam 3.375 GM in Sodium Chloride 0.9% 100 ML IV SCH ×3 (05:53→22:38)
[2019-12-16] MEDS: Gabapentin 300 MG Cap PO SCH ×2 (08:02→20:39)
[2019-12-16] MEDS: levETIRAcetam 500 MG Tab PO SCH ×2 (08:02→20:39)
[2019-12-16] MEDS: Aspirin 81 MG Tab.EC PO SCH (08:02)
[2019-12-16] MEDS: Enoxaparin 40 MG/0.4 ML Syringe SUBCUT SCH ×2 (08:02→20:42)
[2019-12-16] MEDS: Lisinopril 5 MG Tab PO SCH (08:02)
[2019-12-16] MEDS: Insulin Isophane NPH, Human 100 Units/ML 3 ML Vial SUBCUT SCH (20:54)
[2019-12-17] MEDS: oxyCODONE 5 MG Tab PO PRN ×5 (01:57→22:46)
[2019-12-17] MEDS: Sodium Chloride 0.9% 10 ML Syringe FLUSH PRN ×4 (06:04→22:42)
[2019-12-17] MEDS: Piperacillin/Tazobactam 3.375 GM in Sodium Chloride 0.9% 100 ML IV SCH ×3 (06:08→22:43)
[2019-12-17 07:04] LABS: ANION GAP 11.7 mEq/L (7-13); CHLORIDE,CL 104 mmol/L (98-107); SODIUM,NA 139 mmol/L (136-145)
[2019-12-17] MEDS: Aspirin 81 MG Tab.EC PO SCH (10:11)
[2019-12-17] MEDS: Lisinopril 5 MG Tab PO SCH (10:11)
[2019-12-17] MEDS: levETIRAcetam 500 MG Tab PO SCH ×2 (10:11→20:26)
[2019-12-17] MEDS: Gabapentin 300 MG Cap PO SCH ×2 (10:12→20:26)
[2019-12-17] MEDS: Enoxaparin 40 MG/0.4 ML Syringe SUBCUT SCH ×2 (10:12→20:27)
--- NOTE | 2019-12-17 11:15 | PCM.PN ---
- General Info Date of Service: 12/17/19 Admission Dx/Problem (Free Text): Admission Diagnosis/Problem Admission Diagnosis/Problem Osteomyelitis Subjective Update: Patient seen and examined today. He has no complains. Afebrile overnight. Functional Status: Reports: Pain Controlled - Review of Systems General: Reports: No Symptoms HEENT: Reports: No Symptoms Pulmonary: Reports: No Symptoms Cardiovascular: Reports: No Symptoms Gastrointestinal: Reports: No Symptoms Genitourinary: Reports: No Symptoms Musculoskeletal: Reports: No Symptoms Skin: Reports: No Symptoms Neurological: Reports: No Symptoms Psychiatric: Reports: No Symptoms - Patient Data Vitals - Most Recent: Last Vital Signs Temp 97.7 F 12/17/19 07:57 Pulse 83 12/17/19 07:57 Resp 18 12/17/19 07:57 BP 109/73 12/17/19 10:11 Pulse Ox 98 12/17/19 07:57 Weight - Most Recent: 215 lb I&O - Last 24 Hours: Intake & Output 12/16/19 12/17/19 12/17/19 22:59 06:59 14:59 Intake Total 590 195 Balance 590 195 Lab Results Last 24 Hours: Laboratory Results - last 24 hr 12/16/19 12/16/19 12/16/19 Range/Units 11:31 17:11 20:46 WBC (5.0-10.0) 10^3/uL RBC (4.6-6.2) 10^6/uL Hgb (14.0-18.0) g/dL Hct (40.0-54.0) % MCV (80-100) fL MCH (27.0-34.0) pg MCHC (33.0-35.0) g/dL Plt Count (150-450) 10^3/uL Sodium (136-145) mmol/L Potassium (3.5-5.1) mmol/L Chloride (98-107) mmol/L Carbon Dioxide (21-32) mmol/L Anion Gap (7-13) mEq/L BUN (7-18) mg/dL Creatinine (0.70-1.30) mg/dL Est Cr Clr Drug Dosing mL/min Estimated GFR (MDRD) Glucose (74-99) mg/dL POC Glucose 141 H 175 H 162 H (70-105) mg/dl Calcium (8.5-10.1) mg/dL 12/17/19 12/17/19 12/17/19 Range/Units 06:25 06:25 07:43 WBC 8.4 (5.0-10.0) 10^3/uL RBC 4.59 L (4.6-6.2) 10^6/uL Hgb 12.0 L (14.0-18.0) g/dL Hct 37.6 L (40.0-54.0) % MCV 81.9 (80-100) fL MCH 26.1 L (27.0-34.0) pg MCHC 31.9 L (33.0-35.0) g/dL Plt Count 312 (150-450) 10^3/uL Sodium 139 (136-145) mmol/L Potassium 3.7 (3.5-5.1) mmol/L Chloride 104 (98-107) mmol/L Carbon Dioxide 27 (21-32) mmol/L Anion Gap 11.7 (7-13) mEq/L BUN 21 H (7-18) mg/dL Creatinine 1.23 (0.70-1.30) mg/dL Est Cr Clr Drug Dosing 87.62 mL/min Estimated GFR (MDRD) > 60 Glucose 77 (74-99) mg/dL POC Glucose 83 (70-105) mg/dl Calcium 8.8 (8.5-10.1) mg/dL Med Orders - Current: Current Medications Acetaminophen (Tylenol) 650 mg PO Q4H PRN PRN Reason: Pain (Mild 1-3)/fever Last Admin: 12/12/19 20:27 Dose: 650 mg Documented by: Aspirin (Halfprin) 81 mg PO DAILY [facility] Last Admin: 12/17/19 10:11 Dose: 81 mg Documented by: Dextrose/Water (Dextrose 50% In Water) 50 ml IV ASDIRECTED PRN PRN Reason: Hypoglycemia Docusate Sodium (Colace) 100 mg PO BID PRN PRN Reason: Constipation Last Admin: 12/15/19 21:06 Dose: 100 mg Documented by: Enoxaparin Sodium (Lovenox) 40 mg SUBCUT Q12HR [facility] Last Admin: 12/17/19 10:12 Dose: 40 mg Documented by: Gabapentin (Neurontin) 600 mg PO BID [facility] Last Admin: 12/17/19 10:12 Dose: 600 mg Documented by: Glucagon (Glucagen) 1 mg IM ASDIRECTED PRN PRN Reason: Hypoglycemia Piperacillin Sod/Tazobactam (Sod 3.375 gm/ Sodium Chloride) 100 mls @ 200 mls/hr IV Q8HR [facility] Last Infusion: 12/17/19 06:50 Dose: Infused Documented by: Insulin Human NPH (Humulin N) 10 unit SUBCUT BEDTIME [facility] Last Admin: 12/16/19 20:54 Dose: 10 unit Documented by: Levetiracetam (Keppra) 500 mg PO BID [facility] Last Admin: 12/17/19 10:11 Dose: 500 mg Documented by: Lisinopril (Prinivil) 5 mg PO DAILY [facility] Last Admin: 12/17/19 10:11 Dose: 5 mg Documented by: Morphine Sulfate (Morphine) 2 mg IVPUSH ASDIRECTED PRN PRN Reason: Wound vac dressing change Last Admin: 12/15/19 18:28 Dose: 2 mg Documented by: Ondansetron HCl (Zofran) 4 mg IVPUSH Q4H PRN PRN Reason: Nausea/Vomiting Oxycodone HCl (Oxycodone) 5 mg PO Q4H PRN PRN Reason: Pain (severe 7-10) Last Admin: 12/17/19 07:57 Dose: 5 mg Documented by: Sodium Chloride (Saline Flush) 10 ml FLUSH ASDIRECTED PRN PRN Reason: IV Use Last Admin: 12/17/19 06:52 Dose: 10 ml Documented by: Zolpidem Tartrate (Ambien) 5 mg PO BEDTIME PRN PRN Reason: Sleep Discontinued Medications Piperacillin Sod/Tazobactam (Sod 3.375 gm/ Sodium Chloride) 100 mls @ 200 mls/hr IV Q6H [facility] Last Admin: 12/13/19 07:34 Dose: 200 mls/hr Documented by: Oxycodone HCl (Oxycodone) 5 mg PO Q8HR PRN PRN Reason: Pain Last Admin: 12/14/19 07:34 Dose: 5 mg Documented by: - Exam General: Alert, Oriented HEENT: Pupils Equal, Pupils Reactive, EOMI, Mucous Membr. Moist/[place] Neck: Supple Lungs: Clear to Auscultation, Normal Respiratory Effort Cardiovascular: Regular Rate, Regular Rhythm GI/Abdominal Exam: Normal Bowel Sounds, Soft, Non-Tender, No Organomegaly, No Distention, No Abnormal Bruit, No Mass, Pelvis Stable Back Exam: Normal Inspection, Full Range of Motion Extremities: Other (Left 2nd toe amputation. Wound vac in place. Dressing clean and dry.) Skin: Warm, Dry Wound/Incisions: Healing Well, Dressing Dry and Intact Neurological: No New Focal Deficit Psy/Mental Status: Alert, Normal Affect, Normal Mood Sepsis Event Note - Evaluation Sepsis Screening Result: No Definite Risk - Focused Exam Vital Signs: Vital Signs Temp Pulse Resp BP BP Pulse Ox 12/17/19 10:11 109/73 12/17/19 07:57 97.7 F 83 18 109/73 98 12/17/19 05:10 97.7 F 81 18 128/48 L 98 - Problem List Review Problem List Initiated/Reviewed/Updated: Yes - My Orders Last 24 Hours: My Active Orders 12/18/19 08:00 Communication Order [RC] - Plan Plan:: Patient is a 39 year-old male with a medical history of type 2 diabetes, hypertension, seizure disorder, alcohol abuse, right great toe amputation, recent left foot cellulitis with suspected osteomyelitis s/p left 2nd ray amputation who was seen for worsening pain, swelling and redness due to osteomyelitis after not following up with podiatry clinic visit post discharge. He was restarted on Zosyn IV and is here to complete 6 weeks of antibiotics. Left foot cellulitis and osteomyelitis s/p 2nd ray amputation - Continue zosyn, will need 6 weeks of antibiotics Type 2 DM - Resume home insulin regimen History of seizure disorder - Resume [place]
[2019-12-17] MEDS: Insulin Isophane NPH, Human 100 Units/ML 3 ML Vial SUBCUT SCH (21:45)
[2019-12-18] MEDS: Piperacillin/Tazobactam 3.375 GM in Sodium Chloride 0.9% 100 ML IV SCH ×3 (05:52→22:56)
[2019-12-18] MEDS: oxyCODONE 5 MG Tab PO PRN ×5 (06:02→23:27)
[2019-12-18 07:05] LABS: ANION GAP 9.3 mEq/L (7-13); CHLORIDE,CL 103 mmol/L (98-107); SODIUM,NA 140 mmol/L (136-145)
[2019-12-18] MEDS: Gabapentin 300 MG Cap PO SCH ×2 (09:38→23:18)
[2019-12-18] MEDS: Lisinopril 5 MG Tab PO SCH (09:38)
[2019-12-18] MEDS: Enoxaparin 40 MG/0.4 ML Syringe SUBCUT SCH ×2 (09:38→23:22)
[2019-12-18] MEDS: levETIRAcetam 500 MG Tab PO SCH ×2 (09:38→23:18)
[2019-12-18] MEDS: Aspirin 81 MG Tab.EC PO SCH (09:38)
[2019-12-18] MEDS: Sodium Chloride 0.9% 10 ML Syringe FLUSH PRN ×4 (13:40→23:26)
[2019-12-18] MEDS: Morphine 2 MG/ML SYRINGE IVPUSH PRN (17:39)
[2019-12-18] MEDS: Insulin Isophane NPH, Human 100 Units/ML 3 ML Vial SUBCUT SCH (23:21)
[2019-12-19] MEDS: oxyCODONE 5 MG Tab PO PRN ×4 (04:43→21:23)
[2019-12-19] MEDS: Sodium Chloride 0.9% 10 ML Syringe FLUSH PRN ×2 (05:53→06:49)
[2019-12-19] MEDS: Piperacillin/Tazobactam 3.375 GM in Sodium Chloride 0.9% 100 ML IV SCH ×3 (05:53→22:17)
[2019-12-19] MEDS: Enoxaparin 40 MG/0.4 ML Syringe SUBCUT SCH ×2 (08:41→21:22)
[2019-12-19] MEDS: Aspirin 81 MG Tab.EC PO SCH (08:42)
[2019-12-19] MEDS: Lisinopril 5 MG Tab PO SCH (08:42)
[2019-12-19] MEDS: Gabapentin 300 MG Cap PO SCH ×2 (08:42→21:22)
[2019-12-19] MEDS: levETIRAcetam 500 MG Tab PO SCH ×2 (08:42→21:23)
[2019-12-19] MEDS: Insulin Isophane NPH, Human 100 Units/ML 3 ML Vial SUBCUT SCH (21:25)
[2019-12-20] MEDS: oxyCODONE 5 MG Tab PO PRN ×5 (01:26→22:13)
[2019-12-20] MEDS: Piperacillin/Tazobactam 3.375 GM in Sodium Chloride 0.9% 100 ML IV SCH ×3 (05:52→22:18)
[2019-12-20] MEDS: levETIRAcetam 500 MG Tab PO SCH ×2 (09:12→22:12)
[2019-12-20] MEDS: Aspirin 81 MG Tab.EC PO SCH (09:12)
[2019-12-20] MEDS: Lisinopril 5 MG Tab PO SCH (09:12)
[2019-12-20] MEDS: Gabapentin 300 MG Cap PO SCH ×2 (09:12→22:12)
[2019-12-20] MEDS: Enoxaparin 40 MG/0.4 ML Syringe SUBCUT SCH ×2 (09:13→22:12)
[2019-12-20] MEDS: Morphine 2 MG/ML SYRINGE IVPUSH PRN (10:08)
[2019-12-20] MEDS: Sodium Chloride 0.9% 10 ML Syringe FLUSH PRN ×2 (10:08→14:02)
[2019-12-20] MEDS: Insulin Isophane NPH, Human 100 Units/ML 3 ML Vial SUBCUT SCH (22:23)
[2019-12-21] MEDS: Sodium Chloride 0.9% 10 ML Syringe FLUSH PRN ×2 (06:04→21:33)
[2019-12-21] MEDS: Piperacillin/Tazobactam 3.375 GM in Sodium Chloride 0.9% 100 ML IV SCH ×3 (06:05→21:33)
[2019-12-21] MEDS: oxyCODONE 5 MG Tab PO PRN ×5 (06:14→23:56)
[2019-12-21] MEDS: Lisinopril 5 MG Tab PO SCH (08:41)
[2019-12-21] MEDS: Gabapentin 300 MG Cap PO SCH ×2 (08:42→21:29)
[2019-12-21] MEDS: levETIRAcetam 500 MG Tab PO SCH ×2 (08:42→21:29)
[2019-12-21] MEDS: Enoxaparin 40 MG/0.4 ML Syringe SUBCUT SCH ×2 (08:42→21:30)
[2019-12-21] MEDS ORDERED: Morphine 2 MG/ML SYRINGE IVPUSH PRN (09:45)
[2019-12-21] MEDS: Aspirin 81 MG Tab.EC PO SCH (10:19)
[2019-12-21] MEDS: Insulin Isophane NPH, Human 100 Units/ML 3 ML Vial SUBCUT SCH (21:32)
[2019-12-22] MEDS ORDERED: Sodium Chloride 0.9% 300 ML ONE (04:19)
[2019-12-22] MEDS: Sodium Chloride 0.9% 10 ML Syringe FLUSH PRN ×2 (05:35→22:04)
[2019-12-22] MEDS: Piperacillin/Tazobactam 3.375 GM in Sodium Chloride 0.9% 100 ML IV SCH ×3 (05:36→22:05)
[2019-12-22] MEDS: oxyCODONE 5 MG Tab PO PRN ×5 (05:42→22:01)
[2019-12-22] MEDS: levETIRAcetam 500 MG Tab PO SCH ×2 (09:56→22:02)
[2019-12-22] MEDS: Aspirin 81 MG Tab.EC PO SCH (09:56)
[2019-12-22] MEDS: Gabapentin 300 MG Cap PO SCH ×2 (09:56→22:02)
[2019-12-22] MEDS: Morphine 2 MG/ML SYRINGE IVPUSH PRN (09:57)
[2019-12-22] MEDS: Lisinopril 5 MG Tab PO SCH (09:57)
[2019-12-22] MEDS: Enoxaparin 40 MG/0.4 ML Syringe SUBCUT SCH ×2 (09:57→22:04)
[2019-12-22] MEDS: Insulin Isophane NPH, Human 100 Units/ML 3 ML Vial SUBCUT SCH (22:00)
[2019-12-23] MEDS: oxyCODONE 5 MG Tab PO PRN ×5 (05:00→23:29)
[2019-12-23] MEDS: Piperacillin/Tazobactam 3.375 GM in Sodium Chloride 0.9% 100 ML IV SCH ×3 (05:28→23:14)
[2019-12-23] MEDS: Sodium Chloride 0.9% 10 ML Syringe FLUSH PRN ×3 (05:28→23:46)
[2019-12-23] MEDS: Gabapentin 300 MG Cap PO SCH ×2 (09:01→23:29)
[2019-12-23] MEDS: Lisinopril 5 MG Tab PO SCH (09:01)
[2019-12-23] MEDS: levETIRAcetam 500 MG Tab PO SCH ×2 (09:01→23:16)
[2019-12-23] MEDS: Enoxaparin 40 MG/0.4 ML Syringe SUBCUT SCH ×2 (09:01→23:31)
[2019-12-23] MEDS: Aspirin 81 MG Tab.EC PO SCH (09:01)
[2019-12-23] MEDS: Insulin Isophane NPH, Human 100 Units/ML 3 ML Vial SUBCUT SCH (23:43)
[2019-12-24] MEDS: oxyCODONE 5 MG Tab PO PRN ×5 (05:27→21:51)
[2019-12-24] MEDS: Sodium Chloride 0.9% 10 ML Syringe FLUSH PRN ×2 (05:36→06:15)
[2019-12-24] MEDS: Piperacillin/Tazobactam 3.375 GM in Sodium Chloride 0.9% 100 ML IV SCH ×3 (05:36→21:52)
[2019-12-24 07:24] LABS: ANION GAP 10.3 mEq/L (7-13); CHLORIDE,CL 101 mmol/L (98-107); SODIUM,NA 137 mmol/L (136-145)
[2019-12-24] MEDS: Lisinopril 5 MG Tab PO SCH (09:29)
[2019-12-24] MEDS: levETIRAcetam 500 MG Tab PO SCH ×2 (09:29→20:48)
[2019-12-24] MEDS: Aspirin 81 MG Tab.EC PO SCH (09:29)
[2019-12-24] MEDS: Gabapentin 300 MG Cap PO SCH ×2 (09:30→20:48)
[2019-12-24] MEDS: Enoxaparin 40 MG/0.4 ML Syringe SUBCUT SCH ×2 (12:46→20:47)
--- NOTE | 2019-12-24 17:41 | PCM.PN ---
- General Info Date of Service: 12/24/19 Admission Dx/Problem (Free Text): Admission Diagnosis/Problem Admission Diagnosis/Problem Osteomyelitis Subjective Update: continues to have pain with dressing changes. The pain is improved since using higher dose of pain medications. No associated fever or chills. No diarrhea Functional Status: Reports: Tolerating Diet - Review of Systems General: Denies: Fever Pulmonary: Denies: Shortness of Breath Cardiovascular: Denies: Chest Pain - Patient Data Vitals - Most Recent: Last Vital Signs Temp 96.8 F L 12/24/19 08:36 Pulse 54 L 12/24/19 08:36 Resp 20 12/24/19 08:36 BP 100/64 12/24/19 09:29 Pulse Ox 98 12/24/19 08:36 Weight - Most Recent: 208 lb 3.2 oz I&O - Last 24 Hours: Intake & Output 12/24/19 12/24/19 12/24/19 06:59 14:59 22:59 Intake Total 193 480 Balance 193 480 Lab Results Last 24 Hours: Laboratory Results - last 24 hr 12/23/19 12/24/19 12/24/19 Range/Units 21:20 06:13 06:13 WBC 6.2 (5.0-10.0) 10^3/uL RBC 4.82 (4.6-6.2) 10^6/uL Hgb 12.9 L (14.0-18.0) g/dL Hct 39.8 L (40.0-54.0) % MCV 82.6 (80-100) fL MCH 26.8 L (27.0-34.0) pg MCHC 32.4 L (33.0-35.0) g/dL Plt Count 259 (150-450) 10^3/uL Neut % (Auto) 52.2 (42.2-75.2) % Lymph % (Auto) 30.8 (20.5-50.1) % [place] % (Auto) 11.8 H (2-8) % Eos % (Auto) 5.0 H (1.0-3.0) % Baso % (Auto) 0.2 (0.0-1.0) % ESR 66 H (0-15) mm/hr Sodium 137 (136-145) mmol/L Potassium 4.3 (3.5-5.1) mmol/L Chloride 101 (98-107) mmol/L Carbon Dioxide 30 (21-32) mmol/L Anion Gap 10.3 (7-13) mEq/L BUN 23 H (7-18) mg/dL Creatinine 1.29 (0.70-1.30) mg/dL Est Cr Clr Drug Dosing 83.55 mL/min Estimated GFR (MDRD) > 60 BUN/Creatinine Ratio 17.8 (No establ ref range) Glucose 101 H (74-99) mg/dL POC Glucose 179 H (70-105) mg/dl Calcium 9.4 (8.5-10.1) mg/dL Total Bilirubin 0.5 (0.2-1.0) mg/dL AST 14 L (15-37) U/L ALT 23 (16-63) U/L Alkaline Phosphatase 79 (46-116) U/L C-Reactive Protein 2.8 H (0.0-0.9) mg/dL Total Protein 8.0 (6.4-8.2) g/dL Albumin 2.7 L (3.4-5.0) g/dL Globulin 5.3 Albumin/Globulin Ratio 0.51 12/24/19 12/24/19 12/24/19 Range/Units 08:00 11:20 17:08 WBC (5.0-10.0) 10^3/uL RBC (4.6-6.2) 10^6/uL Hgb (14.0-18.0) g/dL Hct (40.0-54.0) % MCV (80-100) fL MCH (27.0-34.0) pg MCHC (33.0-35.0) g/dL Plt Count (150-450) 10^3/uL Neut % (Auto) (42.2-75.2) % Lymph % (Auto) (20.5-50.1) % [place] % (Auto) (2-8) % Eos % (Auto) (1.0-3.0) % Baso % (Auto) (0.0-1.0) % ESR (0-15) mm/hr Sodium (136-145) mmol/L Potassium (3.5-5.1) mmol/L Chloride (98-107) mmol/L Carbon Dioxide (21-32) mmol/L Anion Gap (7-13) mEq/L BUN (7-18) mg/dL Creatinine (0.70-1.30) mg/dL Est Cr Clr Drug Dosing mL/min Estimated GFR (MDRD) BUN/Creatinine Ratio (No establ ref range) Glucose (74-99) mg/dL POC Glucose 93 150 H 206 H (70-105) mg/dl Calcium (8.5-10.1) mg/dL Total Bilirubin (0.2-1.0) mg/dL AST (15-37) U/L ALT (16-63) U/L Alkaline Phosphatase (46-116) U/L C-Reactive Protein (0.0-0.9) mg/dL Total Protein (6.4-8.2) g/dL Albumin (3.4-5.0) g/dL Globulin Albumin/Globulin Ratio Med Orders - Current: Current Medications Acetaminophen (Tylenol) 650 mg PO Q4H PRN PRN Reason: Pain (Mild 1-3)/fever Last Admin: 12/12/19 20:27 Dose: 650 mg Documented by: Aspirin (Halfprin) 81 mg PO DAILY [facility] Last Admin: 12/24/19 09:29 Dose: 81 mg Documented by: Dextrose/Water (Dextrose 50% In Water) 50 ml IV ASDIRECTED PRN PRN Reason: Hypoglycemia Docusate Sodium (Colace) 100 mg PO BID PRN PRN Reason: Constipation Last Admin: 12/15/19 21:06 Dose: 100 mg Documented by: Enoxaparin Sodium (Lovenox) 40 mg SUBCUT Q12HR [facility] Last Admin: 12/24/19 12:46 Dose: Not Given Documented by: Gabapentin (Neurontin) 600 mg PO BID [facility] Last Admin: 12/24/19 09:30 Dose: 600 mg Documented by: Glucagon (Glucagen) 1 mg IM ASDIRECTED PRN PRN Reason: Hypoglycemia Piperacillin Sod/Tazobactam (Sod 3.375 gm/ Sodium Chloride) 100 mls @ 200 mls/hr IV Q8HR [facility] Last Admin: 12/24/19 13:59 Dose: 200 mls/hr Documented by: Insulin Human NPH (Humulin N) 10 unit SUBCUT BEDTIME [facility] Last Admin: 12/23/19 23:43 Dose: 10 unit Documented by: Levetiracetam (Keppra) 500 mg PO BID [facility] Last Admin: 12/24/19 09:29 Dose: 500 mg Documented by: Lisinopril (Prinivil) 5 mg PO DAILY [facility] Last Admin: 12/24/19 09:29 Dose: 5 mg Documented by: Morphine Sulfate (Morphine) 3 mg IVPUSH ASDIRECTED PRN PRN Reason: Wound vac dressing change Last Admin: 12/22/19 09:57 Dose: 3 mg Documented by: Ondansetron HCl (Zofran) 4 mg IVPUSH Q4H PRN PRN Reason: Nausea/Vomiting Oxycodone HCl (Oxycodone) 10 mg PO Q4H PRN PRN Reason: Pain (severe 7-10) Last Admin: 12/24/19 14:07 Dose: 10 mg Documented by: Sodium Chloride (Saline Flush) 10 ml FLUSH ASDIRECTED PRN PRN Reason: IV Use Last Admin: 12/24/19 06:15 Dose: 10 ml Documented by: Zolpidem Tartrate (Ambien) 5 mg PO BEDTIME PRN PRN Reason: Sleep Discontinued Medications Piperacillin Sod/Tazobactam (Sod 3.375 gm/ Sodium Chloride) 100 mls @ 200 mls/hr IV Q6H [facility] Last Admin: 12/13/19 07:34 Dose: 200 mls/hr Documented by: Sodium Chloride (Normal Saline) Confirm Administered Dose 300 mls @ as directed .ROUTE .STK-MED ONE Stop: 12/22/19 04:20 Last Admin: 12/22/19 05:35 Dose: Not Given Documented by: Morphine Sulfate (Morphine) 2 mg IVPUSH ASDIRECTED PRN PRN Reason: Wound vac dressing change Last Admin: 12/20/19 10:08 Dose: 2 mg Documented by: Morphine Sulfate (Morphine) 4 mg IVPUSH ASDIRECTED PRN PRN Reason: Wound vac dressing change Oxycodone HCl (Oxycodone) 5 mg PO Q8HR PRN PRN Reason: Pain Last Admin: 12/14/19 07:34 Dose: 5 mg Documented by: Oxycodone HCl (Oxycodone) 5 mg PO Q4H PRN PRN Reason: Pain (severe 7-10) Last Admin: 12/19/19 08:40 Dose: 5 mg Documented by: - Exam General: Alert, Oriented Neck: Supple Lungs: Clear to Auscultation, Normal Respiratory Effort Cardiovascular: Regular Rate, Regular Rhythm GI/Abdominal Exam: Normal Bowel Sounds, Soft, Non-Tender Sepsis Event Note - Evaluation Sepsis Screening Result: No Definite Risk - Focused Exam Vital Signs: Vital Signs Temp Pulse Resp BP BP Pulse Ox 12/24/19 09:29 100/64 12/24/19 08:36 96.8 F L 54 L 20 100/64 98 - Problem List & Annotations (1) Cellulitis of left foot SNOMED Code(s): 513121769 Code(s): L03.116 - CELLULITIS OF LEFT LOWER LIMB Status: Acute Current Visit: No (2) Diabetic ulcer of left foot SNOMED Code(s): 881037594 Code(s): E11.621 - TYPE 2 DIABETES MELLITUS WITH FOOT ULCER; L97.529 - NON- PRESSURE CHRONIC ULCER OTH PRT LEFT FOOT W UNSP SEVERITY Status: Acute Current Visit: No Qualifiers: Diabetic foot ulcer location: midfoot Diabetes mellitus type: type 2 Non- pressure ulcer stage: with fat layer exposed Qualified Code(s): E11.621 - Type 2 diabetes mellitus with foot ulcer; L97.422 - Non-pressure chronic ulcer of left heel and midfoot with fat layer exposed (3) Hyperglycemia due to type 2 diabetes mellitus SNOMED Code(s): 769422008183281, 525958403520387 Code(s): E11.65 - TYPE 2 DIABETES MELLITUS WITH HYPERGLYCEMIA Status: Acute Current Visit: No Qualifiers: Diabetes mellitus fpc insulin use: with rat exterminator use Qualified Code(s): E11.65 - Type 2 diabetes mellitus with hyperglycemia; Z79.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 He was restarted on Zosyn IV and is here to complete 6 weeks of antibiotics. Left foot cellulitis and osteomyelitis s/p 2nd ray amputation - Continue zosyn, will need 6 weeks of antibiotics adjusted pain medication for dressing changes Type 2 DM - continue insulin Use supplemental insulin and hypoglycemia treatment as needed History of seizure disorder - continue Neeta
[2019-12-24] MEDS: Insulin Isophane NPH, Human 100 Units/ML 3 ML Vial SUBCUT SCH (20:47)
[2019-12-25] MEDS: Piperacillin/Tazobactam 3.375 GM in Sodium Chloride 0.9% 100 ML IV SCH ×3 (05:48→21:52)
[2019-12-25] MEDS: oxyCODONE 5 MG Tab PO PRN ×4 (05:59→21:49)
[2019-12-25] MEDS: levETIRAcetam 500 MG Tab PO SCH ×2 (08:58→21:41)
[2019-12-25] MEDS: Lisinopril 5 MG Tab PO SCH (08:59)
[2019-12-25] MEDS: Aspirin 81 MG Tab.EC PO SCH (08:59)
[2019-12-25] MEDS: Enoxaparin 40 MG/0.4 ML Syringe SUBCUT SCH ×2 (09:00→21:42)
[2019-12-25] MEDS: Gabapentin 300 MG Cap PO SCH ×2 (09:00→21:41)
[2019-12-25] MEDS: Morphine 2 MG/ML SYRINGE IVPUSH PRN (11:45)
[2019-12-25] MEDS: Insulin Isophane NPH, Human 100 Units/ML 3 ML Vial SUBCUT SCH (21:41)
[2019-12-26] MEDS: Piperacillin/Tazobactam 3.375 GM in Sodium Chloride 0.9% 100 ML IV SCH ×3 (05:54→21:16)
[2019-12-26] MEDS: oxyCODONE 5 MG Tab PO PRN ×4 (06:01→21:07)
[2019-12-26] MEDS: Aspirin 81 MG Tab.EC PO SCH (08:29)
[2019-12-26] MEDS: levETIRAcetam 500 MG Tab PO SCH ×2 (08:29→21:07)
[2019-12-26] MEDS: Enoxaparin 40 MG/0.4 ML Syringe SUBCUT SCH ×2 (08:29→21:08)
[2019-12-26] MEDS: Gabapentin 300 MG Cap PO SCH ×2 (08:30→21:07)
[2019-12-26] MEDS: Lisinopril 5 MG Tab PO SCH (08:31)
[2019-12-26] MEDS: Acetaminophen 325 MG Tab PO PRN (12:46)
[2019-12-26] MEDS: Morphine 2 MG/ML SYRINGE IVPUSH PRN (13:43)
[2019-12-26] MEDS: Sodium Chloride 0.9% 10 ML Syringe FLUSH PRN ×2 (13:48→21:17)
[2019-12-26] MEDS: Insulin Isophane NPH, Human 100 Units/ML 3 ML Vial SUBCUT SCH (21:08)
[2019-12-27] MEDS: oxyCODONE 5 MG Tab PO PRN ×4 (05:25→19:18)
[2019-12-27] MEDS: Piperacillin/Tazobactam 3.375 GM in Sodium Chloride 0.9% 100 ML IV SCH ×3 (05:26→22:52)
[2019-12-27] MEDS: Sodium Chloride 0.9% 10 ML Syringe FLUSH PRN (05:26)
[2019-12-27] MEDS: Gabapentin 300 MG Cap PO SCH ×2 (09:41→20:59)
[2019-12-27] MEDS: Lisinopril 5 MG Tab PO SCH (09:41)
[2019-12-27] MEDS: Enoxaparin 40 MG/0.4 ML Syringe SUBCUT SCH ×2 (09:41→21:00)
[2019-12-27] MEDS: Aspirin 81 MG Tab.EC PO SCH (09:41)
[2019-12-27] MEDS: levETIRAcetam 500 MG Tab PO SCH ×2 (09:42→21:00)
[2019-12-27] MEDS: Insulin Isophane NPH, Human 100 Units/ML 3 ML Vial SUBCUT SCH (21:05)
[2019-12-28] MEDS: oxyCODONE 5 MG Tab PO PRN ×5 (00:45→21:17)
[2019-12-28] MEDS: Piperacillin/Tazobactam 3.375 GM in Sodium Chloride 0.9% 100 ML IV SCH ×3 (06:29→21:17)
[2019-12-28] MEDS: Aspirin 81 MG Tab.EC PO SCH (08:48)
[2019-12-28] MEDS: levETIRAcetam 500 MG Tab PO SCH ×2 (08:48→21:17)
[2019-12-28] MEDS: Lisinopril 5 MG Tab PO SCH (08:48)
[2019-12-28] MEDS: Gabapentin 300 MG Cap PO SCH ×2 (08:48→21:17)
[2019-12-28] MEDS: Enoxaparin 40 MG/0.4 ML Syringe SUBCUT SCH ×2 (08:50→21:17)
[2019-12-28] MEDS: Acetaminophen 325 MG Tab PO PRN (17:31)
[2019-12-28] MEDS: Insulin Isophane NPH, Human 100 Units/ML 3 ML Vial SUBCUT SCH (21:17)
[2019-12-29] MEDS: oxyCODONE 5 MG Tab PO PRN ×4 (05:40→21:31)
[2019-12-29] MEDS: Piperacillin/Tazobactam 3.375 GM in Sodium Chloride 0.9% 100 ML IV SCH ×3 (05:40→21:28)
[2019-12-29] MEDS: levETIRAcetam 500 MG Tab PO SCH ×2 (09:09→21:31)
[2019-12-29] MEDS: Aspirin 81 MG Tab.EC PO SCH (09:09)
[2019-12-29] MEDS: Lisinopril 5 MG Tab PO SCH (09:09)
[2019-12-29] MEDS: Gabapentin 300 MG Cap PO SCH ×2 (09:10→21:31)
[2019-12-29] MEDS: Enoxaparin 40 MG/0.4 ML Syringe SUBCUT SCH ×2 (09:10→21:28)
[2019-12-29] MEDS: Morphine 2 MG/ML SYRINGE IVPUSH PRN (14:45)
[2019-12-29] MEDS: Sodium Chloride 0.9% 10 ML Syringe FLUSH PRN (16:02)
[2019-12-29] MEDS: Insulin Isophane NPH, Human 100 Units/ML 3 ML Vial SUBCUT SCH (21:28)
[2019-12-30] MEDS: oxyCODONE 5 MG Tab PO PRN ×4 (05:42→19:20)
[2019-12-30] MEDS: Piperacillin/Tazobactam 3.375 GM in Sodium Chloride 0.9% 100 ML IV SCH ×3 (05:42→21:15)
[2019-12-30] MEDS: Aspirin 81 MG Tab.EC PO SCH (08:51)
[2019-12-30] MEDS: Lisinopril 5 MG Tab PO SCH (08:51)
[2019-12-30] MEDS: Gabapentin 300 MG Cap PO SCH ×2 (08:52→21:14)
[2019-12-30] MEDS: levETIRAcetam 500 MG Tab PO SCH ×2 (08:52→21:14)
[2019-12-30] MEDS: Enoxaparin 40 MG/0.4 ML Syringe SUBCUT SCH ×2 (08:52→21:14)
[2019-12-30] MEDS: Insulin Isophane NPH, Human 100 Units/ML 3 ML Vial SUBCUT SCH (21:14)
[2019-12-31] MEDS: oxyCODONE 5 MG Tab PO PRN ×5 (01:12→22:10)
[2019-12-31] MEDS: Piperacillin/Tazobactam 3.375 GM in Sodium Chloride 0.9% 100 ML IV SCH ×3 (05:43→22:02)
[2019-12-31] MEDS: levETIRAcetam 500 MG Tab PO SCH ×2 (08:57→22:01)
[2019-12-31] MEDS: Lisinopril 5 MG Tab PO SCH (08:57)
[2019-12-31] MEDS: Gabapentin 300 MG Cap PO SCH ×2 (08:57→22:01)
[2019-12-31] MEDS: Enoxaparin 40 MG/0.4 ML Syringe SUBCUT SCH ×2 (08:57→22:02)
[2019-12-31] MEDS: Aspirin 81 MG Tab.EC PO SCH (08:57)
--- NOTE | 2019-12-31 10:37 | PCM.PN ---
- General Info Date of Service: 12/31/19 Admission Dx/Problem (Free Text): Admission Diagnosis/Problem Admission Diagnosis/Problem Osteomyelitis Subjective Update: Patient seen and examined today. Has no current complaints. Functional Status: Reports: Pain Controlled - Review of Systems General: Reports: No Symptoms HEENT: Reports: No Symptoms Pulmonary: Reports: No Symptoms Cardiovascular: Reports: No Symptoms Gastrointestinal: Reports: No Symptoms Genitourinary: Reports: No Symptoms Musculoskeletal: Reports: No Symptoms Skin: Reports: No Symptoms Neurological: Reports: No Symptoms Psychiatric: Reports: No Symptoms - Patient Data Vitals - Most Recent: Last Vital Signs Temp 98.1 F 12/30/19 19:38 Pulse 83 12/30/19 19:38 Resp 18 12/30/19 19:38 BP 108/72 12/31/19 08:57 Pulse Ox 98 12/30/19 19:38 Weight - Most Recent: 208 lb 3.2 oz I&O - Last 24 Hours: Intake & Output 12/30/19 12/31/19 12/31/19 22:59 06:59 14:59 Intake Total 98 Balance 98 Lab Results Last 24 Hours: Laboratory Results - last 24 hr 12/30/19 12/30/19 12/30/19 Range/Units 11:44 16:49 21:05 POC Glucose 135 H 159 H 145 H (70-105) mg/dl 12/31/19 Range/Units 07:54 POC Glucose 89 (70-105) mg/dl Med Orders - Current: Current Medications Acetaminophen (Tylenol) 650 mg PO Q4H PRN PRN Reason: Pain (Mild 1-3)/fever Last Admin: 12/28/19 17:31 Dose: 650 mg Documented by: Aspirin (Halfprin) 81 mg PO DAILY [facility] Last Admin: 12/31/19 08:57 Dose: 81 mg Documented by: Dextrose/Water (Dextrose 50% In Water) 50 ml IV ASDIRECTED PRN PRN Reason: Hypoglycemia Docusate Sodium (Colace) 100 mg PO BID PRN PRN Reason: Constipation Last Admin: 12/15/19 21:06 Dose: 100 mg Documented by: Enoxaparin Sodium (Lovenox) 40 mg SUBCUT Q12HR [facility] Last Admin: 12/31/19 08:57 Dose: 40 mg Documented by: Gabapentin (Neurontin) 600 mg PO BID [facility] Last Admin: 12/31/19 08:57 Dose: 600 mg Documented by: Glucagon (Glucagen) 1 mg IM ASDIRECTED PRN PRN Reason: Hypoglycemia Piperacillin Sod/Tazobactam (Sod 3.375 gm/ Sodium Chloride) 100 mls @ 200 mls/hr IV Q8HR [facility] Last Admin: 12/31/19 05:43 Dose: 200 mls/hr Documented by: Insulin Human NPH (Humulin N) 10 unit SUBCUT BEDTIME [facility] Last Admin: 12/30/19 21:14 Dose: 10 unit Documented by: Levetiracetam (Keppra) 500 mg PO BID [facility] Last Admin: 12/31/19 08:57 Dose: 500 mg Documented by: Lisinopril (Prinivil) 5 mg PO DAILY [facility] Last Admin: 12/31/19 08:57 Dose: 5 mg Documented by: Morphine Sulfate (Morphine) 3 mg IVPUSH ASDIRECTED PRN PRN Reason: Wound vac dressing change Last Admin: 12/29/19 14:45 Dose: 3 mg Documented by: Ondansetron HCl (Zofran) 4 mg IVPUSH Q4H PRN PRN Reason: Nausea/Vomiting Oxycodone HCl (Oxycodone) 10 mg PO Q4H PRN PRN Reason: Pain (severe 7-10) Last Admin: 12/31/19 05:44 Dose: 10 mg Documented by: Sodium Chloride (Saline Flush) 10 ml FLUSH ASDIRECTED PRN PRN Reason: IV Use Last Admin: 12/29/19 16:02 Dose: 10 ml Documented by: Zolpidem Tartrate (Ambien) 5 mg PO BEDTIME PRN PRN Reason: Sleep Discontinued Medications Piperacillin Sod/Tazobactam (Sod 3.375 gm/ Sodium Chloride) 100 mls @ 200 mls/hr IV Q6H [facility] Last Admin: 12/13/19 07:34 Dose: 200 mls/hr Documented by: Sodium Chloride (Normal Saline) Confirm Administered Dose 300 mls @ as directed .ROUTE .STK-MED ONE Stop: 12/22/19 04:20 Last Admin: 12/22/19 05:35 Dose: Not Given Documented by: Morphine Sulfate (Morphine) 2 mg IVPUSH ASDIRECTED PRN PRN Reason: Wound vac dressing change Last Admin: 12/20/19 10:08 Dose: 2 mg Documented by: Morphine Sulfate (Morphine) 4 mg IVPUSH ASDIRECTED PRN PRN Reason: Wound vac dressing change Oxycodone HCl (Oxycodone) 5 mg PO Q8HR PRN PRN Reason: Pain Last Admin: 12/14/19 07:34 Dose: 5 mg Documented by: Oxycodone HCl (Oxycodone) 5 mg PO Q4H PRN PRN Reason: Pain (severe 7-10) Last Admin: 12/19/19 08:40 Dose: 5 mg Documented by: - Exam General: Alert, Oriented HEENT: Pupils Equal, Pupils Reactive, EOMI, Mucous Membr. Moist/[place] Neck: Supple Lungs: Clear to Auscultation, Normal Respiratory Effort Cardiovascular: Regular Rate, Regular Rhythm GI/Abdominal Exam: Normal Bowel Sounds, Soft, Non-Tender, No Organomegaly, No Distention, No Abnormal Bruit, No Mass, Pelvis Stable Back Exam: Normal Inspection, Full Range of Motion Extremities: Other (Left foot with wound drain) Skin: Warm, Dry, Intact Neurological: No New Focal Deficit Psy/Mental Status: Alert, Normal Affect, Normal Mood Sepsis Event Note - Evaluation Sepsis Screening Result: No Definite Risk - Focused Exam Vital Signs: Vital Signs BP 12/31/19 08:57 108/72 - Problem List Review Problem List Initiated/Reviewed/Updated: Yes - Plan Plan:: Patient is a 39 year-old male with a medical history of type 2 diabetes, hypertension, seizure disorder, alcohol abuse, right great toe amputation, recent left foot cellulitis with suspected osteomyelitis s/p left 2nd ray amputation who was seen for worsening pain, swelling and redness due to osteomyelitis after not following up with podiatry clinic visit post discharge. He was restarted on Zosyn IV and is here to complete 6 weeks of antibiotics. Left foot cellulitis and osteomyelitis s/p 2nd ray amputation - Continue zosyn for total of 6 weeks of antibiotics -Continue pain medication as needed for dressing changes Type 2 DM - continue insulin Use supplemental insulin and hypoglycemia treatment as needed History of seizure disorder - continue Keppra
[2019-12-31] MEDS: Acetaminophen 325 MG Tab PO PRN (14:29)
[2019-12-31] MEDS: Insulin Isophane NPH, Human 100 Units/ML 3 ML Vial SUBCUT SCH (22:02)
[2020-01-01] MEDS: Sodium Chloride 0.9% 10 ML Syringe FLUSH PRN ×2 (05:56→21:49)
[2020-01-01] MEDS: Piperacillin/Tazobactam 3.375 GM in Sodium Chloride 0.9% 100 ML IV SCH ×3 (05:56→21:49)
[2020-01-01] MEDS: oxyCODONE 5 MG Tab PO PRN ×4 (06:02→21:45)
[2020-01-01 07:07] LABS: ANION GAP 12.2 mEq/L (7-13); CHLORIDE,CL 105 mmol/L (98-107); SODIUM,NA 141 mmol/L (136-145)
[2020-01-01] MEDS: Lisinopril 5 MG Tab PO SCH (09:02)
[2020-01-01] MEDS: levETIRAcetam 500 MG Tab PO SCH ×2 (09:02→21:44)
[2020-01-01] MEDS: Aspirin 81 MG Tab.EC PO SCH (09:02)
[2020-01-01] MEDS: Enoxaparin 40 MG/0.4 ML Syringe SUBCUT SCH ×2 (09:03→21:46)
[2020-01-01] MEDS: Gabapentin 300 MG Cap PO SCH ×2 (09:03→21:44)
[2020-01-01] MEDS: Morphine 2 MG/ML SYRINGE IVPUSH PRN (12:15)
[2020-01-01] MEDS: Acetaminophen 325 MG Tab PO PRN ×2 (15:50→21:45)
[2020-01-01] MEDS: Insulin Isophane NPH, Human 100 Units/ML 3 ML Vial SUBCUT SCH (21:57)
[2020-01-02] MEDS: oxyCODONE 5 MG Tab PO PRN ×5 (04:29→21:50)
[2020-01-02] MEDS: Acetaminophen 325 MG Tab PO PRN (04:29)
[2020-01-02] MEDS: Sodium Chloride 0.9% 10 ML Syringe FLUSH PRN (06:05)
[2020-01-02] MEDS: Piperacillin/Tazobactam 3.375 GM in Sodium Chloride 0.9% 100 ML IV SCH ×3 (06:08→21:46)
[2020-01-02] MEDS: Gabapentin 300 MG Cap PO SCH ×2 (08:58→20:27)
[2020-01-02] MEDS: Enoxaparin 40 MG/0.4 ML Syringe SUBCUT SCH ×2 (08:58→20:28)
[2020-01-02] MEDS: levETIRAcetam 500 MG Tab PO SCH ×2 (08:59→20:27)
[2020-01-02] MEDS: Aspirin 81 MG Tab.EC PO SCH (08:59)
[2020-01-02] MEDS: Lisinopril 5 MG Tab PO SCH (08:59)
[2020-01-02] MEDS: Insulin Isophane NPH, Human 100 Units/ML 3 ML Vial SUBCUT SCH (20:29)
[2020-01-03] MEDS: oxyCODONE 5 MG Tab PO PRN ×5 (03:13→19:30)
[2020-01-03] MEDS: Piperacillin/Tazobactam 3.375 GM in Sodium Chloride 0.9% 100 ML IV SCH ×3 (05:05→21:34)
[2020-01-03] MEDS: Lisinopril 5 MG Tab PO SCH (09:15)
[2020-01-03] MEDS: Aspirin 81 MG Tab.EC PO SCH (09:15)
[2020-01-03] MEDS: Gabapentin 300 MG Cap PO SCH ×2 (09:15→21:35)
[2020-01-03] MEDS: levETIRAcetam 500 MG Tab PO SCH ×2 (09:15→21:35)
[2020-01-03] MEDS: Enoxaparin 40 MG/0.4 ML Syringe SUBCUT SCH ×2 (09:16→21:35)
[2020-01-03] MEDS: Bacitracin/Neomycin/Polymyxin B Oint 28.4 GM Tube TOP SCH (16:03)
[2020-01-03] MEDS: Morphine 2 MG/ML SYRINGE IVPUSH PRN (16:15)
[2020-01-03] MEDS: Insulin Isophane NPH, Human 100 Units/ML 3 ML Vial SUBCUT SCH (21:34)
[2020-01-04] MEDS: oxyCODONE 5 MG Tab PO PRN ×4 (01:48→20:33)
[2020-01-04] MEDS: Piperacillin/Tazobactam 3.375 GM in Sodium Chloride 0.9% 100 ML IV SCH ×3 (06:11→21:59)
[2020-01-04] MEDS: Lisinopril 5 MG Tab PO SCH (08:03)
[2020-01-04] MEDS: Aspirin 81 MG Tab.EC PO SCH (08:03)
[2020-01-04] MEDS: Gabapentin 300 MG Cap PO SCH ×2 (08:04→20:33)
[2020-01-04] MEDS: levETIRAcetam 500 MG Tab PO SCH ×2 (08:04→20:33)
[2020-01-04] MEDS: Enoxaparin 40 MG/0.4 ML Syringe SUBCUT SCH ×2 (08:06→20:34)
[2020-01-04] MEDS: Bacitracin/Neomycin/Polymyxin B Oint 28.4 GM Tube TOP SCH (08:11)
[2020-01-04] MEDS: Insulin Isophane NPH, Human 100 Units/ML 3 ML Vial SUBCUT SCH (20:38)
[2020-01-05] MEDS: Piperacillin/Tazobactam 3.375 GM in Sodium Chloride 0.9% 100 ML IV SCH ×3 (06:01→21:23)
[2020-01-05] MEDS: oxyCODONE 5 MG Tab PO PRN ×4 (06:03→19:22)
[2020-01-05] MEDS: Aspirin 81 MG Tab.EC PO SCH (08:11)
[2020-01-05] MEDS: Gabapentin 300 MG Cap PO SCH ×2 (08:12→21:18)
[2020-01-05] MEDS: levETIRAcetam 500 MG Tab PO SCH ×2 (08:12→21:18)
[2020-01-05] MEDS: Enoxaparin 40 MG/0.4 ML Syringe SUBCUT SCH ×2 (08:12→21:18)
[2020-01-05] MEDS: Bacitracin/Neomycin/Polymyxin B Oint 28.4 GM Tube TOP SCH (08:15)
[2020-01-05] MEDS: Lisinopril 5 MG Tab PO SCH (08:15)
[2020-01-05] MEDS: Insulin Isophane NPH, Human 100 Units/ML 3 ML Vial SUBCUT SCH (21:18)
[2020-01-06] MEDS: oxyCODONE 5 MG Tab PO PRN ×5 (05:17→22:08)
[2020-01-06] MEDS: Piperacillin/Tazobactam 3.375 GM in Sodium Chloride 0.9% 100 ML IV SCH ×3 (05:17→22:09)
[2020-01-06] MEDS: Aspirin 81 MG Tab.EC PO SCH (08:27)
[2020-01-06] MEDS: levETIRAcetam 500 MG Tab PO SCH ×2 (08:28→21:32)
[2020-01-06] MEDS: Bacitracin/Neomycin/Polymyxin B Oint 28.4 GM Tube TOP SCH (08:28)
[2020-01-06] MEDS: Enoxaparin 40 MG/0.4 ML Syringe SUBCUT SCH ×2 (08:28→21:32)
[2020-01-06] MEDS: Lisinopril 5 MG Tab PO SCH (08:28)
[2020-01-06] MEDS: Gabapentin 300 MG Cap PO SCH ×2 (08:28→21:32)
[2020-01-06] MEDS: Acetaminophen 325 MG Tab PO PRN (13:39)
[2020-01-06] MEDS: Sodium Chloride 0.9% 10 ML Syringe FLUSH PRN (13:40)
[2020-01-06] MEDS: Insulin Isophane NPH, Human 100 Units/ML 3 ML Vial SUBCUT SCH (21:31)
[2020-01-07] MEDS: oxyCODONE 5 MG Tab PO PRN ×5 (02:25→23:50)
[2020-01-07] MEDS: Piperacillin/Tazobactam 3.375 GM in Sodium Chloride 0.9% 100 ML IV SCH ×3 (06:08→22:20)
[2020-01-07] MEDS: Gabapentin 300 MG Cap PO SCH ×2 (10:02→22:15)
[2020-01-07] MEDS: Lisinopril 5 MG Tab PO SCH (10:02)
[2020-01-07] MEDS: Aspirin 81 MG Tab.EC PO SCH (10:03)
[2020-01-07] MEDS: levETIRAcetam 500 MG Tab PO SCH ×2 (10:04→22:16)
[2020-01-07] MEDS: Enoxaparin 40 MG/0.4 ML Syringe SUBCUT SCH ×2 (10:04→22:16)
--- NOTE | 2020-01-07 11:13 | PCM.PN ---
- General Info Date of Service: 01/07/20 Admission Dx/Problem (Free Text): Admission Diagnosis/Problem Admission Diagnosis/Problem Osteomyelitis Subjective Update: Patient seen and examined today. Has no current complaints. He is doing okay. Functional Status: Reports: Pain Controlled - Review of Systems General: Reports: No Symptoms HEENT: Reports: No Symptoms Pulmonary: Reports: No Symptoms Cardiovascular: Reports: No Symptoms Gastrointestinal: Reports: No Symptoms Genitourinary: Reports: No Symptoms Musculoskeletal: Reports: No Symptoms Skin: Reports: No Symptoms Neurological: Reports: No Symptoms Psychiatric: Reports: No Symptoms - Patient Data Vitals - Most Recent: Last Vital Signs Temp 96.3 F L 01/07/20 08:00 Pulse 81 01/07/20 08:00 Resp 18 01/07/20 08:00 BP 118/73 01/07/20 10:02 Pulse Ox 100 01/07/20 08:00 Weight - Most Recent: 208 lb 3.2 oz I&O - Last 24 Hours: Intake & Output 01/06/20 01/07/20 01/07/20 22:59 06:59 14:59 Intake Total 190 360 Balance 190 360 Lab Results Last 24 Hours: Laboratory Results - last 24 hr 01/05/20 01/06/20 01/06/20 Range/Units 20:31 07:53 21:17 POC Glucose 127 H 87 100 (70-105) mg/dl 01/07/20 Range/Units 08:02 POC Glucose 92 (70-105) mg/dl Med Orders - Current: Current Medications Acetaminophen (Tylenol) 650 mg PO Q4H PRN PRN Reason: Pain (Mild 1-3)/fever Last Admin: 01/06/20 13:39 Dose: 650 mg Documented by: Aspirin (Halfprin) 81 mg PO DAILY [facility] Last Admin: 01/07/20 10:03 Dose: 81 mg Documented by: Dextrose/Water (Dextrose 50% In Water) 50 ml IV ASDIRECTED PRN PRN Reason: Hypoglycemia Docusate Sodium (Colace) 100 mg PO BID PRN PRN Reason: Constipation Last Admin: 12/15/19 21:06 Dose: 100 mg Documented by: Enoxaparin Sodium (Lovenox) 40 mg SUBCUT Q12HR [facility] Last Admin: 01/07/20 10:04 Dose: 40 mg Documented by: Gabapentin (Neurontin) 600 mg PO BID [facility] Last Admin: 01/07/20 10:02 Dose: 600 mg Documented by: Glucagon (Glucagen) 1 mg IM ASDIRECTED PRN PRN Reason: Hypoglycemia Piperacillin Sod/Tazobactam (Sod 3.375 gm/ Sodium Chloride) 100 mls @ 200 mls/hr IV Q8HR [facility] Last Admin: 01/07/20 06:08 Dose: 200 mls/hr Documented by: Insulin Human NPH (Humulin N) 10 unit SUBCUT BEDTIME [facility] Last Admin: 01/06/20 21:31 Dose: 10 unit Documented by: Levetiracetam (Keppra) 500 mg PO BID [facility] Last Admin: 01/07/20 10:04 Dose: 500 mg Documented by: Lisinopril (Prinivil) 5 mg PO DAILY [facility] Last Admin: 01/07/20 10:02 Dose: 5 mg Documented by: Morphine Sulfate (Morphine) 3 mg IVPUSH ASDIRECTED PRN PRN Reason: Wound vac dressing change Last Admin: 01/03/20 16:15 Dose: 3 mg Documented by: Neomycin/Polymyxin/Bacitracin (Triple Antibiotic Oint) 0 gm TOP DAILY [facility] Last Admin: 01/06/20 08:28 Dose: 1 applic Documented by: Ondansetron HCl (Zofran) 4 mg IVPUSH Q4H PRN PRN Reason: Nausea/Vomiting Oxycodone HCl (Oxycodone) 10 mg PO Q4H PRN PRN Reason: Pain (severe 7-10) Last Admin: 01/07/20 06:42 Dose: 10 mg Documented by: Sodium Chloride (Saline Flush) 10 ml FLUSH ASDIRECTED PRN PRN Reason: IV Use Last Admin: 01/06/20 13:40 Dose: 10 ml Documented by: Zolpidem Tartrate (Ambien) 5 mg PO BEDTIME PRN PRN Reason: Sleep Discontinued Medications Piperacillin Sod/Tazobactam (Sod 3.375 gm/ Sodium Chloride) 100 mls @ 200 mls/hr IV Q6H [facility] Last Admin: 12/13/19 07:34 Dose: 200 mls/hr Documented by: Sodium Chloride (Normal Saline) Confirm Administered Dose 300 mls @ as directed .ROUTE .STK-MED ONE Stop: 12/22/19 04:20 Last Admin: 12/22/19 05:35 Dose: Not Given Documented by: Morphine Sulfate (Morphine) 2 mg IVPUSH ASDIRECTED PRN PRN Reason: Wound vac dressing change Last Admin: 12/20/19 10:08 Dose: 2 mg Documented by: Morphine Sulfate (Morphine) 4 mg IVPUSH ASDIRECTED PRN PRN Reason: Wound vac dressing change Oxycodone HCl (Oxycodone) 5 mg PO Q8HR PRN PRN Reason: Pain Last Admin: 12/14/19 07:34 Dose: 5 mg Documented by: Oxycodone HCl (Oxycodone) 5 mg PO Q4H PRN PRN Reason: Pain (severe 7-10) Last Admin: 12/19/19 08:40 Dose: 5 mg Documented by: - Exam Quality Assessment: DVT Prophylaxis General: Alert, Oriented HEENT: Pupils Equal, Pupils Reactive, EOMI, Mucous Membr. Moist/[place] Neck: Supple Lungs: Clear to Auscultation, Normal Respiratory Effort Cardiovascular: Regular Rate, Regular Rhythm GI/Abdominal Exam: Normal Bowel Sounds, Soft, Non-Tender, No Organomegaly, No Distention, No Abnormal Bruit, No Mass, Pelvis Stable (Male) Exam: No Hernia, Normal Inspection, Normal Prostate, Circumcised Back Exam: Normal Inspection, Full Range of Motion Extremities: Normal Inspection, Normal Range of Motion, Non-Tender, No Pedal Edema, Normal Capillary Refill Skin: Warm, Dry, Intact Wound/Incisions: Healing Well Neurological: No New Focal Deficit Psy/Mental Status: Alert, Normal Affect, Normal Mood Sepsis Event Note - Evaluation Sepsis Screening Result: No Definite Risk - Focused Exam Vital Signs: Vital Signs Temp Pulse Resp BP BP Pulse Ox 01/07/20 10:02 118/73 01/07/20 08:00 96.3 F L 81 18 118/73 100 - Problem List Review Problem List Initiated/Reviewed/Updated: Yes - Plan Plan:: Patient is a 39 year-old male with a medical history of type 2 diabetes, hypertension, seizure disorder, alcohol abuse, right great toe amputation, recent left foot cellulitis with suspected osteomyelitis s/p left 2nd ray amputation who was seen for worsening pain, swelling and redness due to osteom yelitis after not following up with podiatry clinic visit post discharge. He was restarted on Zosyn IV and is here to complete 6 weeks of antibiotics. Left foot cellulitis and osteomyelitis s/p 2nd ray amputation - Continue zosyn for total of 6 weeks of antibiotics -Continue pain medication as needed for dressing changes Type 2 DM - continue insulin Use supplemental insulin and hypoglycemia treatment as needed History of seizure disorder - continue [place]eta
[2020-01-07] MEDS: Bacitracin/Neomycin/Polymyxin B Oint 28.4 GM Tube TOP SCH (15:44)
[2020-01-07] MEDS: Insulin Isophane NPH, Human 100 Units/ML 3 ML Vial SUBCUT SCH (22:17)
[2020-01-08] MEDS: oxyCODONE 5 MG Tab PO PRN ×4 (04:14→20:53)
[2020-01-08] MEDS: Piperacillin/Tazobactam 3.375 GM in Sodium Chloride 0.9% 100 ML IV SCH ×3 (06:28→22:18)
[2020-01-08 06:58] LABS: ANION GAP 12.4 mEq/L (7-13); CHLORIDE,CL 103 mmol/L (98-107); SODIUM,NA 139 mmol/L (136-145)
[2020-01-08] MEDS: Lisinopril 5 MG Tab PO SCH (08:31)
[2020-01-08] MEDS: Aspirin 81 MG Tab.EC PO SCH (08:44)
[2020-01-08] MEDS: levETIRAcetam 500 MG Tab PO SCH ×2 (08:44→20:52)
[2020-01-08] MEDS: Gabapentin 300 MG Cap PO SCH ×2 (08:44→20:52)
[2020-01-08] MEDS: Enoxaparin 40 MG/0.4 ML Syringe SUBCUT SCH ×2 (08:44→20:52)
[2020-01-08] MEDS: Sodium Chloride 0.9% 10 ML Syringe FLUSH PRN ×2 (08:45→14:40)
[2020-01-08] MEDS: Bacitracin/Neomycin/Polymyxin B Oint 28.4 GM Tube TOP SCH (08:45)
[2020-01-08] MEDS: Insulin Isophane NPH, Human 100 Units/ML 3 ML Vial SUBCUT SCH (20:49)
[2020-01-09] MEDS: oxyCODONE 5 MG Tab PO PRN ×4 (03:45→19:26)
[2020-01-09] MEDS: Piperacillin/Tazobactam 3.375 GM in Sodium Chloride 0.9% 100 ML IV SCH ×3 (06:06→21:00)
[2020-01-09] MEDS: Sodium Chloride 0.9% 10 ML Syringe FLUSH PRN (06:06)
[2020-01-09] MEDS: Lisinopril 5 MG Tab PO SCH (09:19)
[2020-01-09] MEDS: Aspirin 81 MG Tab.EC PO SCH (09:20)
[2020-01-09] MEDS: levETIRAcetam 500 MG Tab PO SCH ×2 (09:20→20:57)
[2020-01-09] MEDS: Gabapentin 300 MG Cap PO SCH ×2 (09:21→20:57)
[2020-01-09] MEDS: Enoxaparin 40 MG/0.4 ML Syringe SUBCUT SCH ×2 (09:24→20:58)
[2020-01-09] MEDS: Bacitracin/Neomycin/Polymyxin B Oint 28.4 GM Tube TOP SCH (19:36)
[2020-01-09] MEDS: Insulin Isophane NPH, Human 100 Units/ML 3 ML Vial SUBCUT SCH (20:58)
[2020-01-10] MEDS: Piperacillin/Tazobactam 3.375 GM in Sodium Chloride 0.9% 100 ML IV SCH ×3 (05:14→21:02)
[2020-01-10] MEDS: oxyCODONE 5 MG Tab PO PRN ×4 (05:18→21:07)
[2020-01-10] MEDS: Gabapentin 300 MG Cap PO SCH ×2 (09:14→21:07)
[2020-01-10] MEDS: Lisinopril 5 MG Tab PO SCH (09:14)
[2020-01-10] MEDS: levETIRAcetam 500 MG Tab PO SCH ×2 (09:15→21:07)
[2020-01-10] MEDS: Aspirin 81 MG Tab.EC PO SCH (09:15)
[2020-01-10] MEDS: Enoxaparin 40 MG/0.4 ML Syringe SUBCUT SCH ×2 (09:15→21:06)
[2020-01-10] MEDS: Acetaminophen 325 MG Tab PO PRN (09:19)
[2020-01-10] MEDS: Bacitracin/Neomycin/Polymyxin B Oint 28.4 GM Tube TOP SCH (09:21)
[2020-01-10] MEDS: Sodium Chloride 0.9% 10 ML Syringe FLUSH PRN (13:59)
[2020-01-10] MEDS: Insulin Isophane NPH, Human 100 Units/ML 3 ML Vial SUBCUT SCH (21:10)
[2020-01-11] MEDS: oxyCODONE 5 MG Tab PO PRN ×5 (02:36→22:31)
[2020-01-11] MEDS: Piperacillin/Tazobactam 3.375 GM in Sodium Chloride 0.9% 100 ML IV SCH ×3 (06:47→22:19)
[2020-01-11] MEDS: Gabapentin 300 MG Cap PO SCH ×2 (08:28→20:40)
[2020-01-11] MEDS: Lisinopril 5 MG Tab PO SCH (08:29)
[2020-01-11] MEDS: levETIRAcetam 500 MG Tab PO SCH ×2 (08:29→20:40)
[2020-01-11] MEDS: Aspirin 81 MG Tab.EC PO SCH (08:29)
[2020-01-11] MEDS: Enoxaparin 40 MG/0.4 ML Syringe SUBCUT SCH ×2 (08:30→20:41)
[2020-01-11] MEDS: Bacitracin/Neomycin/Polymyxin B Oint 28.4 GM Tube TOP SCH (08:32)
[2020-01-11] MEDS: Sodium Chloride 0.9% 10 ML Syringe FLUSH PRN ×2 (22:16→23:02)
[2020-01-11] MEDS: Insulin Isophane NPH, Human 100 Units/ML 3 ML Vial SUBCUT SCH (22:26)
[2020-01-12] MEDS: oxyCODONE 5 MG Tab PO PRN ×5 (04:15→22:21)
[2020-01-12] MEDS: Sodium Chloride 0.9% 10 ML Syringe FLUSH PRN ×3 (05:31→21:56)
[2020-01-12] MEDS: Piperacillin/Tazobactam 3.375 GM in Sodium Chloride 0.9% 100 ML IV SCH ×3 (05:33→21:59)
[2020-01-12] MEDS: levETIRAcetam 500 MG Tab PO SCH ×2 (09:08→22:01)
[2020-01-12] MEDS: Aspirin 81 MG Tab.EC PO SCH (09:08)
[2020-01-12] MEDS: Lisinopril 5 MG Tab PO SCH (09:08)
[2020-01-12] MEDS: Gabapentin 300 MG Cap PO SCH ×2 (09:08→22:01)
[2020-01-12] MEDS: Enoxaparin 40 MG/0.4 ML Syringe SUBCUT SCH ×2 (09:09→22:01)
[2020-01-12] MEDS: Bacitracin/Neomycin/Polymyxin B Oint 28.4 GM Tube TOP SCH (09:10)
[2020-01-12] MEDS: Insulin Isophane NPH, Human 100 Units/ML 3 ML Vial SUBCUT SCH (22:10)
[2020-01-13] MEDS: Sodium Chloride 0.9% 10 ML Syringe FLUSH PRN (05:10)
[2020-01-13] MEDS: Piperacillin/Tazobactam 3.375 GM in Sodium Chloride 0.9% 100 ML IV SCH ×3 (05:11→22:21)
[2020-01-13] MEDS: oxyCODONE 5 MG Tab PO PRN ×3 (05:56→20:02)
[2020-01-13] MEDS: Gabapentin 300 MG Cap PO SCH ×2 (09:23→20:03)
[2020-01-13] MEDS: Aspirin 81 MG Tab.EC PO SCH (09:23)
[2020-01-13] MEDS: levETIRAcetam 500 MG Tab PO SCH ×2 (09:23→20:03)
[2020-01-13] MEDS: Lisinopril 5 MG Tab PO SCH (09:24)
[2020-01-13] MEDS: Bacitracin/Neomycin/Polymyxin B Oint 28.4 GM Tube TOP SCH (09:24)
[2020-01-13] MEDS: Enoxaparin 40 MG/0.4 ML Syringe SUBCUT SCH ×2 (09:24→20:05)
[2020-01-13] MEDS: Insulin Isophane NPH, Human 100 Units/ML 3 ML Vial SUBCUT SCH (22:14)
[2020-01-14] MEDS: oxyCODONE 5 MG Tab PO PRN ×4 (04:38→21:04)
[2020-01-14] MEDS: Sodium Chloride 0.9% 10 ML Syringe FLUSH PRN ×3 (05:26→23:16)
[2020-01-14] MEDS: Piperacillin/Tazobactam 3.375 GM in Sodium Chloride 0.9% 100 ML IV SCH ×3 (05:28→22:22)
[2020-01-14] MEDS: levETIRAcetam 500 MG Tab PO SCH ×2 (08:57→21:03)
[2020-01-14] MEDS: Aspirin 81 MG Tab.EC PO SCH (08:57)
[2020-01-14] MEDS: Enoxaparin 40 MG/0.4 ML Syringe SUBCUT SCH ×2 (08:58→21:08)
[2020-01-14] MEDS: Lisinopril 5 MG Tab PO SCH (08:58)
[2020-01-14] MEDS: Gabapentin 300 MG Cap PO SCH ×2 (08:58→21:03)
[2020-01-14] MEDS: Bacitracin/Neomycin/Polymyxin B Oint 28.4 GM Tube TOP SCH (08:59)
[2020-01-14 10:34] LABS: CHLORIDE,CL 104 mmol/L (98-107); SODIUM,NA 138 mmol/L (136-145)
--- NOTE | 2020-01-14 10:41 | PN ---
DATE: 01/14/2020 The patient is a 39-year-old male with past medical history of type 2 diabetes mellitus, hypertension, seizure disorder, alcohol abuse, who was admitted to swing bed for continued IV antibiotics because of the cellulitis with osteomyelitis of the left foot. SUBJECTIVE: The patient is doing fairly well. He still complains of some pain on the left foot, but he denies any chest pain, shortness of breath, abdominal pain, or any other complaints. OBJECTIVE: Vital Signs: Blood pressure is 110/74, pulse of 62, respirations 16, temperature of 97.8, and saturation is 99% on room air. Heart: Regular rate and rhythm. Normal S1 and S2. No gallops. No rubs. Lungs: Equal bilaterally. No crackles. No wheezing. Abdomen: Soft, nontender. Bowel sounds positive. Extremities: Remarkable for the amputated second toe on the left foot. There is no significant erythema noted. MEDICATIONS: Reviewed. PLAN: We will continue with his present management and continue with his insulin and continue with IV Zosyn. He is also being followed by Infectious Disease. [facility] /[id number]
[2020-01-14] MEDS: Insulin Isophane NPH, Human 100 Units/ML 3 ML Vial SUBCUT SCH (21:06)
[2020-01-15] MEDS: oxyCODONE 5 MG Tab PO PRN ×4 (04:15→23:05)
[2020-01-15] MEDS: Sodium Chloride 0.9% 10 ML Syringe FLUSH PRN ×2 (05:58→21:21)
[2020-01-15] MEDS: Piperacillin/Tazobactam 3.375 GM in Sodium Chloride 0.9% 100 ML IV SCH ×3 (05:59→21:22)
[2020-01-15 06:38] LABS: ANION GAP 13.1 mEq/L (7-13); CHLORIDE,CL 103 mmol/L (98-107); SODIUM,NA 139 mmol/L (136-145)
[2020-01-15] MEDS: Aspirin 81 MG Tab.EC PO SCH (09:18)
[2020-01-15] MEDS: Lisinopril 5 MG Tab PO SCH (09:18)
[2020-01-15] MEDS: Gabapentin 300 MG Cap PO SCH ×2 (09:18→21:14)
[2020-01-15] MEDS: levETIRAcetam 500 MG Tab PO SCH ×2 (09:18→21:14)
[2020-01-15] MEDS: Enoxaparin 40 MG/0.4 ML Syringe SUBCUT SCH ×2 (09:20→21:14)
[2020-01-15] MEDS: Acetaminophen 325 MG Tab PO PRN (13:50)
[2020-01-15] MEDS: Insulin Isophane NPH, Human 100 Units/ML 3 ML Vial SUBCUT SCH (21:16)
[2020-01-16] MEDS: oxyCODONE 5 MG Tab PO PRN ×2 (05:34→13:18)
[2020-01-16] MEDS: Sodium Chloride 0.9% 10 ML Syringe FLUSH PRN (05:36)
[2020-01-16] MEDS: Piperacillin/Tazobactam 3.375 GM in Sodium Chloride 0.9% 100 ML IV SCH ×2 (05:37→13:20)
[2020-01-16] MEDS: Lisinopril 5 MG Tab PO SCH (09:48)
[2020-01-16] MEDS: Aspirin 81 MG Tab.EC PO SCH (09:48)
[2020-01-16] MEDS: levETIRAcetam 500 MG Tab PO SCH (09:48)
[2020-01-16] MEDS: Gabapentin 300 MG Cap PO SCH (09:48)
[2020-01-16] MEDS: Enoxaparin 40 MG/0.4 ML Syringe SUBCUT SCH (09:49)
--- NOTE | 2020-01-16 13:59 | PCM.DCSUM1 ---
Discharge Summary - Hospital Course Free Text/Narrative:: Patient is a 39 year-old male with a medical history of type 2 diabetes, hypertension, seizure disorder, alcohol abuse, right great toe amputation, recent left foot cellulitis with suspected osteomyelitis s/p left 2nd ray amputation who was seen for worsening pain, swelling and redness due to osteomyelitis after not following up with podiatry clinic visit post discharge. He was restarted on Zosyn IV and was admitted to swing bed to complete 6 weeks of antibiotics. Patient had a telemed appointment with ID today and they recommended that patient can be discharged home today. He is being discharged to follow up with PCP and ID. HPI Initial Comments: Patient is a 39 year-old male with a medical history of type 2 diabetes, hypertension, seizure disorder, alcohol abuse, right great toe amputation, recent left foot cellulitis with suspected osteomyelitis s/p left 2nd ray amputation who was seen for worsening pain, swelling and redness due to osteomyelitis after not following up with podiatry clinic visit post discharge. He was restarted on Zosyn IV and is here to complete 6 weeks of antibiotics. He currently complains of pain in the left foot. He denies fever. Diagnosis: Stroke: No - Discharge Data Discharge Date: 01/16/20 Discharge Disposition: Home, Self-Care 01 Condition: Good - Referral to Home Health Primary Care Physician: PCP None - Discharge Plan *PRESCRIPTION DRUG MONITORING PROGRAM REVIEWED*: No *COPY OF PRESCRIPTION DRUG MONITORING REPORT IN PATIENT LAURENCE: No Prescriptions/Med Rec: Acetaminophen 650 mg PO Q4HR PRN #60 PRN Reason: Pain/Fever Gabapentin [Neurontin] 600 mg PO BID #20 cap oxyCODONE 5 mg PO Q8HR PRN #10 PRN Reason: Pain Home Medications: Home Meds levETIRAcetam [Keppra] 500 mg PO BID 08/22/18 [History] Aspirin [Halfprin] 81 mg PO DAILY 08/23/18 [History] Insulin Isophane NPH, Human [NovoLIN N] 10 units SUBCUT BEDTIME 05/07/19 [History] lisinopriL [Lisinopril] 5 mg PO DAILY 12/12/19 [History] Acetaminophen 650 mg PO Q4HR PRN #60 01/16/20 [Rx] Gabapentin [Neurontin] 600 mg PO BID #20 cap 01/16/20 [Rx] oxyCODONE 5 mg PO Q8HR PRN #10 01/16/20 [Rx] Patient Handouts: Diabetes Mellitus and Foot Care, Osteomyelitis, Adult Referrals: Antonieta Carlton, [employer] [Ordering Only Provider] - - Discharge Summary/Plan Comment DC Time >30 min.: Yes - General Info Date of Service: 01/16/20 Admission Dx/Problem (Free Text: Admission Diagnosis/Problem Admission Diagnosis/Problem Osteomyelitis Subjective Update: No acute events overnight. Reports he is doing okay. Denies f/c, chest pain, shortness of breath, n/v/d/c, or any new symptoms. Continues to have pain in his foot. - Patient Data Vitals - Most Recent: Last Vital Signs Temp 98.0 F 01/16/20 08:00 Pulse 78 01/16/20 08:00 Resp 18 01/16/20 08:00 BP 119/80 01/16/20 09:48 Pulse Ox 99 01/16/20 08:00 Weight - Most Recent: 208 lb 9.6 oz I&O - Last 24 hours: Intake & Output 01/15/20 01/16/20 01/16/20 22:59 06:59 14:59 Intake Total 320 900 Balance 320 900 Lab Results - Last 24 hrs: Laboratory Results - last 24 hr 01/15/20 01/16/20 Range/Units 20:48 07:55 POC Glucose 134 H 79 (70-105) mg/dl Med Orders - Current: Current Medications Acetaminophen (Tylenol) 650 mg PO Q4H PRN PRN Reason: Pain (Mild 1-3)/fever Last Admin: 01/15/20 13:50 Dose: 650 mg Documented by: Aspirin (Halfprin) 81 mg PO DAILY [facility] Last Admin: 01/16/20 09:48 Dose: 81 mg Documented by: Dextrose/Water (Dextrose 50% In Water) 50 ml IV ASDIRECTED PRN PRN Reason: Hypoglycemia Docusate Sodium (Colace) 100 mg PO BID PRN PRN Reason: Constipation Last Admin: 12/15/19 21:06 Dose: 100 mg Documented by: Enoxaparin Sodium (Lovenox) 40 mg SUBCUT Q12HR [facility] Last Admin: 01/16/20 09:49 Dose: 40 mg Documented by: Gabapentin (Neurontin) 600 mg PO BID [facility] Last Admin: 01/16/20 09:48 Dose: 600 mg Documented by: Glucagon (Glucagen) 1 mg IM ASDIRECTED PRN PRN Reason: Hypoglycemia Insulin Human NPH (Humulin N) 10 unit SUBCUT BEDTIME [facility] Last Admin: 01/15/20 21:16 Dose: 10 unit Documented by: Levetiracetam (Keppra) 500 mg PO BID [facility] Last Admin: 01/16/20 09:48 Dose: 500 mg Documented by: Lisinopril (Prinivil) 5 mg PO DAILY [facility] Last Admin: 01/16/20 09:48 Dose: 5 mg Documented by: Morphine Sulfate (Morphine) 3 mg IVPUSH ASDIRECTED PRN PRN Reason: Wound vac dressing change Last Admin: 01/03/20 16:15 Dose: 3 mg Documented by: Ondansetron HCl (Zofran) 4 mg IVPUSH Q4H PRN PRN Reason: Nausea/Vomiting Oxycodone HCl (Oxycodone) 10 mg PO Q6H PRN PRN Reason: Pain Last Admin: 01/16/20 13:18 Dose: 10 mg Documented by: Zolpidem Tartrate (Ambien) 5 mg PO BEDTIME PRN PRN Reason: Sleep Discontinued Medications Piperacillin Sod/Tazobactam (Sod 3.375 gm/ Sodium Chloride) 100 mls @ 200 mls/hr IV Q6H [facility] Last Admin: 12/13/19 07:34 Dose: 200 mls/hr Documented by: Piperacillin Sod/Tazobactam (Sod 3.375 gm/ Sodium Chloride) 100 mls @ 200 mls/hr IV Q8HR [facility] Last Admin: 01/16/20 13:20 Dose: 200 mls/hr Documented by: Sodium Chloride (Normal Saline) Confirm Administered Dose 300 mls @ as directed .ROUTE .STK-MED ONE Stop: 12/22/19 04:20 Last Admin: 12/22/19 05:35 Dose: Not Given Documented by: Morphine Sulfate (Morphine) 2 mg IVPUSH ASDIRECTED PRN PRN Reason: Wound vac dressing change Last Admin: 12/20/19 10:08 Dose: 2 mg Documented by: Morphine Sulfate (Morphine) 4 mg IVPUSH ASDIRECTED PRN PRN Reason: Wound vac dressing change Neomycin/Polymyxin/Bacitracin (Triple Antibiotic Oint) 0 gm TOP DAILY [facility] Last Admin: 01/14/20 08:59 Dose: Not Given Documented by: Oxycodone HCl (Oxycodone) 5 mg PO Q8HR PRN PRN Reason: Pain Last Admin: 12/14/19 07:34 Dose: 5 mg Documented by: Oxycodone HCl (Oxycodone) 5 mg PO Q4H PRN PRN Reason: Pain (severe 7-10) Last Admin: 12/19/19 08:40 Dose: 5 mg Documented by: Oxycodone HCl (Oxycodone) 10 mg PO Q4H PRN PRN Reason: Pain (severe 7-10) Last Admin: 01/14/20 14:27 Dose: 10 mg Documented by: Sodium Chloride (Saline Flush) 10 ml FLUSH ASDIRECTED PRN PRN Reason: IV Use Last Admin: 01/16/20 05:36 Dose: 10 ml Documented by: - Exam General: Reports: Alert, Oriented, Cooperative, No Acute Distress HEENT: Reports: Mucous Membr. Moist/[place] Neck: Reports: Supple Lungs: Reports: Clear to Auscultation, Normal Respiratory Effort Cardiovascular: Reports: Regular Rate, Regular Rhythm GI/Abdominal Exam: Normal Bowel Sounds, Soft, No Distention Extremities: Other (Left 2 ray amputation, healing well. ) Skin: Reports: Warm, Dry, Intact Wound/Incisions: Reports: Healing Well
== END 2020-01-16 16:22 | disposition home or self-care (01) | DRG 638 ==
LOC: DL.MS 12:22 → UNDOADMIN 12:22 → DL.MS 12:52
PROVIDERS: ADMIT Internal Medicine; ATTEND Internal Medicine
DX: E11.69 Type 2 diabetes mellitus with other specified complication (principal); M86.9 Osteomyelitis, unspecified; L03.116 Cellulitis of left lower limb; L97.422 Non-pressure chronic ulcer of left heel and midfoot with fat layer exposed; G40.909 Epilepsy, unspecified, not intractable, without status epilepticus; E11.65 Type 2 diabetes mellitus with hyperglycemia; E11.621 Type 2 diabetes mellitus with foot ulcer; I10 Essential (primary) hypertension; H54.7 Unspecified visual loss; E11.42 Type 2 diabetes mellitus with diabetic polyneuropathy; Z79.4 Long term (current) use of insulin; Z28.82 Immunization not carried out because of caregiver refusal; Z88.5 Allergy status to narcotic agent; Z79.82 Long term (current) use of aspirin; Z79.899 Other long term (current) drug therapy; Z89.432 Acquired absence of left foot; Z89.422 Acquired absence of other left toe(s)
CPT/HCPCS: 36415; 80048; 80053; 82962; 85025; 85027; 85651; 86140; A9270-GY; J1650; J1815; J2270; J2543; J7050

== ENCOUNTER 2020-04-05 20:44 | Emergency (ER) | payer MEDICAID ==
[2020-04-05] MEDS ORDERED: oxyCODONE 5 MG Tab PO ONE (21:12)
[2020-04-05 21:42] LABS: ANION GAP 16.1 mEq/L (7-13); CHLORIDE,CL 101 mmol/L (98-107); SODIUM,NA 137 mmol/L (136-145)
--- NOTE | 2020-04-05 21:44 | EDM.PDOC ---
ED HPI GENERAL MEDICAL PROBLEM - General Chief Complaint: Back Pain or Injury Stated Complaint: PT FELL AND HURT RIBS Time Seen by Provider: 04/05/20 21:00 Source of Information: Reports: Patient, Family, RN, RN Notes Reviewed History Limitations: Reports: No Limitations - History of Present Illness INITIAL COMMENTS - FREE TEXT/NARRATIVE: Patient is a 39-year-old male who presents to ER with complaint of left arm, left shoulder, left rib, left scapular pain after a fall last evening. Patient states he had a seizure last evening and fell and injured himself. He states he has not had a seizure in approximately 1 year, states he does currently take his Keppra. Patient also complains of left great toe pain. Second toe has been amputated and he states he has been to the clinic about the left great toe which has a severe lateral angulation to it, obviously dislocated. Patient states the toe has been dislocated for 4 to 6 weeks, and he states he was not called back by the clinic for a referral to Ortho. All 5 toes on the right foot have been amputated. Patient denies fever or chills, nausea, vomiting, diarrhea, chest pains, shortness of breath. Onset: Sudden Left Pain Score (Numeric/FACES): 8 - Related Data Allergies Allergy/AdvReac Type Severity Reaction Status Date / Time acetaminophen [From [place]] Allergy Anxiety Verified 04/05/20 20:52 hydrocodone [From [place]] Allergy Anxiety Verified 04/05/20 20:52 Home Meds: Home Meds levETIRAcetam [Keppra] 500 mg PO BID 08/22/18 [History] Aspirin [Halfprin] 81 mg PO DAILY 08/23/18 [History] Insulin Isophane NPH, Human [NovoLIN N] 10 units SUBCUT BEDTIME 05/07/19 [History] lisinopriL [Lisinopril] 5 mg PO DAILY 12/12/19 [History] Acetaminophen 650 mg PO Q4HR PRN #60 01/16/20 [Rx] Gabapentin [Neurontin] 600 mg PO BID #20 cap 01/16/20 [Rx] oxyCODONE 5 mg PO Q8HR PRN #10 01/16/20 [Rx] Past Medical History - Past Health History Medical/Surgical History: Denies Medical/Surgical History HEENT History: Reports: Impaired Vision, Other (See Below) Other HEENT History: waiting to repair retina Cardiovascular History: Reports: None Respiratory History: Reports: None Gastrointestinal History: Reports: None Genitourinary History: Reports: Acute Renal Failure, Other (See Below) Other Genitourinary History: Watching kidney labs at this time Musculoskeletal History: Reports: Amputation Neurological History: Reports: Neuropathy, Diabetic, Seizure Psychiatric History: Reports: None Endocrine/Metabolic History: Reports: Diabetes, Type I, Other (See Below) Other Endocrine/Metabolic History: Osteomyelitis Hematologic History: Reports: None Immunologic History: Reports: None Oncologic (Cancer) History: Reports: None Dermatologic History: Reports: Cellulitis - Infectious Disease History Infectious Disease History: Reports: MRSA - Past Surgical History Head Surgeries/Procedures: Reports: None GI Surgical History: Reports: None Musculoskeletal Surgical History: Reports: Amputation Other Musculoskeletal Surgeries/Procedures:: rt great toe amputation 08-22-18, 2nd toe on left foot amputation Social & Family History - Family History Family Medical History: No Pertinent Family History - Tobacco Use Tobacco Use Status *Q: Current Every Day Tobacco User Years of Tobacco use: 20 Packs/Tins Daily: 0.2 - Caffeine Use Caffeine Use: Reports: None - Recreational Drug Use Recreational Drug Use: No - Living Situation & Occupation Living situation: Reports: Other (In custodial as of 11/16/19) ED ROS GENERAL - Review of Systems Review Of Systems: Comprehensive ROS is negative, except as noted in HPI. ED EXAM, GENERAL - Physical Exam Exam: See Below Exam Limited By: No Limitations General Appearance: Alert, WD/WN, Moderate Distress Eye Exam: Bilateral Eye: EOMI, Normal Inspection Ears: Normal External Exam, Hearing Grossly Normal Nose: Normal Inspection Throat/Mouth: Normal Inspection, Normal Voice, No Airway Compromise Head: Atraumatic, Normocephalic Neck: Normal Inspection, Supple, Non-Tender, Full Range of Motion Respiratory/Chest: No Respiratory Distress, Lungs Clear, Normal Breath Sounds, No Accessory Muscle Use, Splinting, Other (pain to left ribs, ) Cardiovascular: Normal Peripheral Pulses, Regular Rate, Rhythm, No Edema, No Gallop, No JVD, No Murmur, No Rub Peripheral Pulses: 2+: Radial (L), Radial (R), Dorsalis Pedis (L), Dorsalis Pedis (R) GI/Abdominal: Normal Bowel Sounds, Soft, Non-Tender (Male) Exam: Deferred Rectal (Males) Exam: Deferred Back Exam: Normal Inspection, CVA Tenderness (L), Decreased Range of Motion, Other (left scapular pain) Extremities: No Pedal Edema, Normal Capillary Refill, Arm Pain (left arm), Limited Range of Motion (left arm), Other (Left great toe has severe lateral angulation, second toe amputation. Right foot all toes amputated.) Neurological: Alert Psychiatric: Normal Affect, Normal Mood Skin Exam: Warm, Dry, Intact, Normal Color, No Rash Lymphatic: No Adenopathy Course - Vital Signs Last Recorded V/S: Last Vital Signs Temp 98.5 F 04/05/20 20:48 Pulse 106 H 04/05/20 20:48 Resp BP 150/108 H 04/05/20 20:48 Pulse Ox 98 04/05/20 20:48 - Orders/Labs/Meds Orders: Active Orders 24 hr Category Date Time Status CORONAVIRUS COVID-19 EKTA [MOLEC] Stat Lab 04/05/20 22:52 Ordered CULTURE BLOOD [BC] Stat Lab 04/05/20 22:40 Ordered CULTURE BLOOD [BC] Stat Lab 04/05/20 22:40 Ordered LACTIC ACID [CHEM] Stat Lab 04/05/20 22:40 Ordered Blood Culture x2 Reflex Set [OM.PC] Stat Oth 04/05/20 22:40 Ordered Labs: Laboratory Tests 04/05/20 04/05/20 Range/Units 21:15 21:15 WBC 12.0 H (5.0-10.0) 10^3/uL RBC 5.20 (4.6-6.2) 10^6/uL Hgb 13.9 L (14.0-18.0) g/dL Hct 41.6 (40.0-54.0) % MCV 80.0 (80-100) fL MCH 26.7 L (27.0-34.0) pg MCHC 33.4 (33.0-35.0) g/dL Plt Count 239 (150-450) 10^3/uL Neut % (Auto) 74.5 (42.2-75.2) % Lymph % (Auto) 16.5 L (20.5-50.1) % [place] % (Auto) 7.4 (2-8) % Eos % (Auto) 1.3 (1.0-3.0) % Baso % (Auto) 0.3 (0.0-1.0) % Sodium 137 (136-145) mmol/L Potassium 4.1 (3.5-5.1) mmol/L Chloride 101 (98-107) mmol/L Carbon Dioxide 24 (21-32) mmol/L Anion Gap 16.1 H (7-13) mEq/L BUN 22 H (7-18) mg/dL Creatinine 1.13 (0.70-1.30) mg/dL Est Cr Clr Drug Dosing 95.38 mL/min Estimated GFR (MDRD) > 60 BUN/Creatinine Ratio 19.5 (No establ ref range) Glucose 218 H (74-99) mg/dL Calcium 8.5 (8.5-10.1) mg/dL Total Bilirubin 0.5 (0.2-1.0) mg/dL AST 17 (15-37) U/L ALT 30 (16-63) U/L Alkaline Phosphatase 142 H (46-116) U/L Total Protein 7.7 (6.4-8.2) g/dL Albumin 3.4 (3.4-5.0) g/dL Globulin 4.3 Albumin/Globulin Ratio 0.8 Meds: Medications Discontinued Medications Generic Name Dose Route Start Last Admin Trade Name Freq PRN Reason Stop Dose Admin Oxycodone HCl 10 mg 04/05/20 21:12 04/05/20 21:54 Oxycodone PO 04/05/20 21:13 10 mg ONETIME ONE Administration - Radiology Interpretation Free Text/Narrative:: Xray left foot: PROCEDURE INFORMATION: Exam: XR Left Foot Exam date and time: 04/05/2020 9:25 PM Age: 39 years old Clinical indication: Other: Big toe; Additional info: Fall with seizure TECHNIQUE: Imaging protocol: XR Left foot. Views: 1 or 2 views. COMPARISON: CR Foot Comp Min 3V Lt 11/16/2019 10:00 AM FINDINGS: Bones/joints: There is amputation of the left 2nd toe across the distal metatarsal. There is varus angulation of the distal phalanx of the great toe. There is fairly extensive erosion/resorption of the bones at the 3rd metatarsophalangeal joint with bony bridging between the metatarsal and proximal phalanx. This is new since the prior study. There appears to be a callus surrounds the distal end of the 4th metatarsal suggesting an old healed fracture. Soft tissues: There is moderate soft tissue swelling. IMPRESSION: 1. Marked lateral angulation of the distal phalanx on the proximal phalanx of the great toe. This may represent an acute dislocation. 2. Erosion and bridging of the 3rd metatarsophalangeal joint the appearance suggests osteomyelitis. Thank you for allowing us to participate in the care of your patient. Dictated and Authenticated by: Eusebio Martinez MD 04/05/2020 10:08 PM Central Time ([place] & [place]) xray left shoulder: PROCEDURE INFORMATION: Exam: XR Left Shoulder Exam date and time: 04/05/2020 9:30 PM Age: 39 years old Clinical indication: Other: Fall/pain; Additional info: Fall with seizure TECHNIQUE: Imaging protocol: XR Left shoulder. Views: 2 or more views. COMPARISON: No relevant prior studies available. FINDINGS: Bones/joints: There is mild downward displacement of the acromion with respect to the distal clavicle. The glenohumeral joint is normal. There is no evidence of acute fracture. Soft tissues: Normal. IMPRESSION: Mild acromioclavicular strain. Thank you for allowing us to participate in the care of your patient. Dictated and Authenticated by: Eusebio Martinez MD 04/05/2020 10:04 PM Central Time ([place] & [place]) Xray Ribs left with chest: PROCEDURE INFORMATION: Exam: XR Left Ribs with PA Chest, 3 Views Exam date and time: 04/05/2020 9:36 PM Age: 39 years old Clinical indication: Other: Fall/pain; Additional info: Fall with seizure TECHNIQUE: Imaging protocol: XR Left ribs 3 views with PA chest. COMPARISON: No relevant prior studies available. FINDINGS: Lungs: Unremarkable. No consolidation. Pleural spaces: Unremarkable. No pleural effusion. No pneumothorax. Heart/Mediastinum: Unremarkable. No cardiomegaly. Bones/joints: The ribs are normal. IMPRESSION: No acute findings. Thank you for allowing us to participate in the care of your patient. Dictated and Authenticated by: Eusebio Martinez MD 04/05/2020 10:05 PM Central Time ([place] & [place]) Left scapula xray: PROCEDURE INFORMATION: Exam: XR Left Scapula Exam date and time: 04/05/2020 9:39 PM Age: 39 years old Clinical indication: Other: Fall/pain; Additional info: Fall with seizure TECHNIQUE: Imaging protocol: XR Left scapula, complete. COMPARISON: CR Ribs 2V w Chest Lt 04/05/2020 9:36 PM FINDINGS: Bones/joints: There is moderate downward displacement of the acromion and the coracoid with respect to the clavicle. This is a grade 3 acromioclavicular injury. The glenohumeral joint is normal. There is no evidence of acute fracture. Soft tissues: Normal. IMPRESSION: Grade 3 acromioclavicular injury. Thank you for allowing us to participate in the care of your patient. Dictated and Authenticated by: Eusebio Martinez MD 04/05/2020 10:06 PM Central Time ([place] & [place]) See rad report Departure - Departure Time of Disposition: 23:04 Disposition: Home, Self-Care 01 Condition: Fair Clinical Impression: Left shoulder strain Qualifiers: Encounter type: initial encounter Qualified Code(s): S46.912A - Strain of unspecified muscle, fascia and tendon at shoulder and upper arm level, left arm, initial encounter Acromioclavicular joint injury Qualifiers: Encounter type: initial encounter Laterality: left Qualified Code(s): S49.92XA - Unspecified injury of left shoulder and upper arm, initial encounter Osteomyelitis Qualifiers: Osteomyelitis type: subacute Osteomyelitis location: foot Laterality: right Qualified Code(s): M86.271 - Subacute osteomyelitis, right ankle and foot Traumatic dislocation of left great toe Qualifiers: Encounter type: initial encounter Qualified Code(s): S93.105A - Unspecified dislocation of left toe(s), initial encounter - Discharge Information *PRESCRIPTION DRUG MONITORING PROGRAM REVIEWED*: No *COPY OF PRESCRIPTION DRUG MONITORING REPORT IN PATIENT LAURENCE: No Forms: ED Department Discharge, Interfacility Transfer EMTALA Sepsis Event Note (ED) - Evaluation Sepsis Screening Result: No Definite Risk - Focused Exam Vital Signs: Vital Signs Temp Pulse BP Pulse Ox 04/05/20 20:48 98.5 F 106 H 150/108 H 98 - My Orders Last 24 Hours: My Active Orders 04/05/20 22:40 CULTURE BLOOD [BC] Stat CULTURE BLOOD [BC] Stat LACTIC ACID [CHEM] Stat Blood Culture x2 Reflex Set [OM.PC] Stat 04/05/20 22:52 CORONAVIRUS COVID-19 EKTA [MOLEC] Stat - Assessment/Plan Last 24 Hours: My Active Orders 04/05/20 22:40 CULTURE BLOOD [BC] Stat CULTURE BLOOD [BC] Stat LACTIC ACID [CHEM] Stat Blood Culture x2 Reflex Set [OM.PC] Stat 04/05/20 22:52 CORONAVIRUS COVID-19 EKTA [MOLEC] Stat
--- NOTE | 2020-04-05 22:04 | CR ---
PROCEDURE INFORMATION: Exam: XR Left Shoulder Exam date and time: 04/05/2020 9:30 PM Age: 39 years old Clinical indication: Other: Fall/pain; Additional info: Fall with seizure TECHNIQUE: Imaging protocol: XR Left shoulder. Views: 2 or more views. COMPARISON: No relevant prior studies available. FINDINGS: Bones/joints: There is mild downward displacement of the acromion with respect to the distal clavicle. The glenohumeral joint is normal. There is no evidence of acute fracture. Soft tissues: Normal. IMPRESSION: Mild acromioclavicular strain.
--- NOTE | 2020-04-05 22:05 | CR ---
PROCEDURE INFORMATION: Exam: XR Left Ribs with PA Chest, 3 Views Exam date and time: 04/05/2020 9:36 PM Age: 39 years old Clinical indication: Other: Fall/pain; Additional info: Fall with seizure TECHNIQUE: Imaging protocol: XR Left ribs 3 views with PA chest. COMPARISON: No relevant prior studies available. FINDINGS: Lungs: Unremarkable. No consolidation. Pleural spaces: Unremarkable. No pleural effusion. No pneumothorax. Heart/Mediastinum: Unremarkable. No cardiomegaly. Bones/joints: The ribs are normal. IMPRESSION: No acute findings.
--- NOTE | 2020-04-05 22:06 | CR ---
PROCEDURE INFORMATION: Exam: XR Left Scapula Exam date and time: 04/05/2020 9:39 PM Age: 39 years old Clinical indication: Other: Fall/pain; Additional info: Fall with seizure TECHNIQUE: Imaging protocol: XR Left scapula, complete. COMPARISON: CR Ribs 2V w Chest Lt 04/05/2020 9:36 PM FINDINGS: Bones/joints: There is moderate downward displacement of the acromion and the coracoid with respect to the clavicle. This is a grade 3 acromioclavicular injury. The glenohumeral joint is normal. There is no evidence of acute fracture. Soft tissues: Normal. IMPRESSION: Grade 3 acromioclavicular injury.
--- NOTE | 2020-04-05 22:08 | CR ---
PROCEDURE INFORMATION: Exam: XR Left Foot Exam date and time: 04/05/2020 9:25 PM Age: 39 years old Clinical indication: Other: Big toe; Additional info: Fall with seizure TECHNIQUE: Imaging protocol: XR Left foot. Views: 1 or 2 views. COMPARISON: CR Foot Comp Min 3V Lt 11/16/2019 10:00 AM FINDINGS: Bones/joints: There is amputation of the left 2nd toe across the distal metatarsal. There is varus angulation of the distal phalanx of the great toe. There is fairly extensive erosion/resorption of the bones at the 3rd metatarsophalangeal joint with bony bridging between the metatarsal and proximal phalanx. This is new since the prior study. There appears to be a callus surrounds the distal end of the 4th metatarsal suggesting an old healed fracture. Soft tissues: There is moderate soft tissue swelling. IMPRESSION: 1. Marked lateral angulation of the distal phalanx on the proximal phalanx of the great toe. This may represent an acute dislocation. 2. Erosion and bridging of the 3rd metatarsophalangeal joint the appearance suggests osteomyelitis.
== END 2020-04-05 23:45 ==
LOC: DL.ED 20:44
DX: S93.105A Unspecified dislocation of left toe(s), initial encounter (principal); S46.912A Strain of unspecified muscle, fascia and tendon at shoulder and upper arm level, left arm, initial encounter; M86.271 Subacute osteomyelitis, right ankle and foot; R07.81 Pleurodynia; E10.40 Type 1 diabetes mellitus with diabetic neuropathy, unspecified; Z72.0 Tobacco use; Z88.6 Allergy status to analgesic agent; Z88.5 Allergy status to narcotic agent; Z79.82 Long term (current) use of aspirin; Z79.899 Other long term (current) drug therapy; Z20.822 Contact with and (suspected) exposure to COVID-19; W00.0XXA Fall on same level due to ice and snow, initial encounter
CPT/HCPCS: 36415; 71101; 73010; 73030; 73620; 80053; 83605; 85025; 87040; 87635; 99284; A9270; 99283; U0002

== ENCOUNTER 2020-04-28 21:16 | Emergency (ER) | payer MEDICAID ==
[2020-04-28] MEDS ORDERED: levETIRAcetam 500 MG Tab PO ONE (21:17)
[2020-04-28] MEDS ORDERED: LORazepam 2 MG/ML SDV IVPUSH PRN (21:24)
[2020-04-28] MEDS ORDERED: levETIRAcetam in NaCl (iso-os) 1,000 MG in Premix Bag 1 BAG IV ONE ×2 (21:28)
--- NOTE | 2020-04-28 21:45 | EDM.PDOC ---
ED HPI GENERAL MEDICAL PROBLEM - General Chief Complaint: Neuro Symptoms/Deficits Time Seen by Provider: 04/28/20 22:05 Source of Information: Reports: Patient, Family History Limitations: Reports: Altered Mental Status - History of Present Illness INITIAL COMMENTS - FREE TEXT/NARRATIVE: ED per w/c reports feeling shaky. Admissions desk report patient walked in from parking lot. Patient appears confused, able to answer only simple questions. Dad reports patient did not come home last night. Unsure if been taking medications, Notes he was supposed to get something this weekend but clinc closed so couldn't get his medications but couldn't say what they were. Patient hx seizure disorder, unable to relay if on meds - Related Data Allergies Allergy/AdvReac Type Severity Reaction Status Date / Time acetaminophen [From [place]] Allergy Anxiety Verified 04/05/20 20:52 hydrocodone [From [place]] Allergy Anxiety Verified 04/05/20 20:52 Home Meds: Home Meds levETIRAcetam [Keppra] 500 mg PO BID 08/22/18 [History] Aspirin [Halfprin] 81 mg PO DAILY 08/23/18 [History] Insulin Isophane NPH, Human [NovoLIN N] 10 units SUBCUT BEDTIME 05/07/19 [History] lisinopriL [Lisinopril] 5 mg PO DAILY 12/12/19 [History] Acetaminophen 650 mg PO Q4HR PRN #60 01/16/20 [Rx] Gabapentin [Neurontin] 600 mg PO BID #20 cap 01/16/20 [Rx] oxyCODONE 5 mg PO Q8HR PRN #10 01/16/20 [Rx] Past Medical History - Past Health History Medical/Surgical History: Denies Medical/Surgical History HEENT History: Reports: Impaired Vision, Other (See Below) Other HEENT History: waiting to repair retina Cardiovascular History: Reports: None Respiratory History: Reports: None Gastrointestinal History: Reports: None Genitourinary History: Reports: Acute Renal Failure, Other (See Below) Other Genitourinary History: Watching kidney labs at this time Musculoskeletal History: Reports: Amputation Neurological History: Reports: Neuropathy, Diabetic, Seizure Psychiatric History: Reports: None Endocrine/Metabolic History: Reports: Diabetes, Type I, Other (See Below) Other Endocrine/Metabolic History: Osteomyelitis Hematologic History: Reports: None Immunologic History: Reports: None Oncologic (Cancer) History: Reports: None Dermatologic History: Reports: Cellulitis - Infectious Disease History Infectious Disease History: Reports: MRSA - Past Surgical History Head Surgeries/Procedures: Reports: None GI Surgical History: Reports: None Musculoskeletal Surgical History: Reports: Amputation Other Musculoskeletal Surgeries/Procedures:: rt great toe amputation 08-22-18, 2nd toe on left foot amputation Social & Family History - Family History Family Medical History: No Pertinent Family History - Caffeine Use Caffeine Use: Reports: None - Living Situation & Occupation Living situation: Reports: Other (In correction as of 11/16/19) ED ROS GENERAL - Review of Systems Review Of Systems: See Below Constitutional: Reports: Chills HEENT: Reports: No Symptoms Respiratory: Reports: No Symptoms Cardiovascular: Reports: No Symptoms Endocrine: Reports: No Symptoms Musculoskeletal: Reports: Shoulder Pain (left), Muscle Pain (general) Neurological: Reports: Confusion, Headache ED EXAM, NEURO - Physical Exam Exam: See Below Exam Limited By: No Limitations General Appearance: Alert, Mild Distress Eye Exam: Bilateral Eye: EOMI Ears: Normal External Exam Nose: Normal Inspection Throat/Mouth: Normal Inspection Head Exam: Atraumatic, Normocephalic Neck: Normal Inspection, Full Range of Motion Respiratory/Chest: No Respiratory Distress, Lungs Clear, Normal Breath Sounds Cardiovascular: Regular Rate, Rhythm Neurological: Alert, Other (unsteady gait with transfer, no weakness. responses slow initially improving during encounter, states unsure how he got here, states with family yesterday and last night.). No: Normal Gait Back Exam: Normal Inspection Extremities: Limited Range of Motion (left shoulder, increased pain with movment) Skin Exam: Warm, Dry, Intact #1 Interpretation EKG Date: 04/28/20 Time: 21:57 Rhythm: Other (Sinus tach) Rate (Beats/Min): 106 [place]: RAD-Right [place] Deviation P-Wave: Present QRS: Normal ST-T: Normal QT: Normal Comparison: NA - No Prior EKG Course - Vital Signs Last Recorded V/S: Last Vital Signs Temp 98.5 F 04/28/20 22:04 Pulse 110 H 04/28/20 22:04 Resp 16 04/28/20 22:04 BP 155/112 H 04/28/20 22:04 Pulse Ox 99 04/28/20 22:04 - Orders/Labs/Meds Orders: Active Orders 24 hr Category Date Time Status EKG 12 Lead [EKG Documentation Completion] [RC] URGENT Care 04/28/20 21:21 Active LORazepam [Ativan] Med 04/28/20 21:24 Active 2 mg IVPUSH ONETIME PRN Medication Orders Lorazepam (Lorazepam 2 Mg/Ml Sdv) 2 mg IVPUSH ONETIME PRN PRN Reason: Seizures Labs: Laboratory Tests 04/28/20 04/28/20 04/28/20 Range/Units 21:25 21:25 21:25 WBC 11.5 H (5.0-10.0) 10^3/uL RBC 5.35 (4.6-6.2) 10^6/uL Hgb 14.3 (14.0-18.0) g/dL Hct 42.4 (40.0-54.0) % MCV 79.3 L (80-100) fL MCH 26.7 L (27.0-34.0) pg MCHC 33.7 (33.0-35.0) g/dL Plt Count 208 (150-450) 10^3/uL Neut % (Auto) 68.9 (42.2-75.2) % Lymph % (Auto) 20.4 L (20.5-50.1) % [place] % (Auto) 8.7 H (2-8) % Eos % (Auto) 1.3 (1.0-3.0) % Baso % (Auto) 0.7 (0.0-1.0) % Sodium 138 (136-145) mmol/L Potassium 4.0 (3.5-5.1) mmol/L Chloride 102 (98-107) mmol/L Carbon Dioxide 25 (21-32) mmol/L Anion Gap 15.0 H (7-13) mEq/L BUN 24 H (7-18) mg/dL Creatinine 1.23 (0.70-1.30) mg/dL Est Cr Clr Drug Dosing TNP Estimated GFR (MDRD) > 60 BUN/Creatinine Ratio 19.5 (No establ ref range) Glucose 221 H (74-99) mg/dL Lactic Acid (0.4-2.0) mmol/L Calcium 8.7 (8.5-10.1) mg/dL Total Bilirubin 0.6 (0.2-1.0) mg/dL AST 14 L (15-37) U/L ALT 29 (16-63) U/L Alkaline Phosphatase 182 H (46-116) U/L Ammonia < 10 L (11-32) umol/L Total Protein 7.8 (6.4-8.2) g/dL Albumin 3.4 (3.4-5.0) g/dL Globulin 4.4 Albumin/Globulin Ratio 0.8 Urine Color (YELLOW) Urine Appearance (CLEAR) Urine pH (5.0-9.0) Ur Specific [place] (1.005-1.030) Urine Protein (NEGATIVE) Urine Glucose (UA) (NEGATIVE) Urine Ketones (NEGATIVE) Urine Occult Blood (NEGATIVE) Urine Nitrite (NEGATIVE) Urine Bilirubin (NEGATIVE) Urine Urobilinogen (0.2-1.0) mg/dL Ur Leukocyte Esterase (NEGATIVE) Urine RBC /HPF Urine WBC (0-5/HPF) /HPF Ur Epithelial Cells (NOT SEEN) /HPF Amorphous Sediment (NOT SEEN) /HPF Urine Bacteria (0-FEW/HPF) /HPF Granular Casts (Auto) Fine Granular Casts (NOT SEEN) /LPF Urine Mucus (NOT SEEN) /LPF Urine Opiates Screen (NEGATIVE) Ur Oxycodone Screen (NEGATIVE) Urine Methadone Screen (NEGATIVE) Ur Barbiturates Screen (NEGATIVE) U Tricyclic Antidepress (NEGATIVE) Ur Phencyclidine Scrn (NEGATIVE) Ur Amphetamine Screen (NEGATIVE) U Methamphetamines Scrn (NEGATIVE) Urine MDMA Screen (NEGATIVE) U Benzodiazepines Scrn (NEGATIVE) Urine Cocaine Screen (NEGATIVE) U Marijuana (THC) Screen (NEGATIVE) Ethyl Alcohol < 3 (0) mg/dL Ketones 04/28/20 04/28/20 04/28/20 Range/Units 21:25 21:25 22:07 WBC (5.0-10.0) 10^3/uL RBC (4.6-6.2) 10^6/uL Hgb (14.0-18.0) g/dL Hct (40.0-54.0) % MCV (80-100) fL MCH (27.0-34.0) pg MCHC (33.0-35.0) g/dL Plt Count (150-450) 10^3/uL Neut % (Auto) (42.2-75.2) % Lymph % (Auto) (20.5-50.1) % [place] % (Auto) (2-8) % Eos % (Auto) (1.0-3.0) % Baso % (Auto) (0.0-1.0) % Sodium (136-145) mmol/L Potassium (3.5-5.1) mmol/L Chloride (98-107) mmol/L Carbon Dioxide (21-32) mmol/L Anion Gap (7-13) mEq/L BUN (7-18) mg/dL Creatinine (0.70-1.30) mg/dL Est Cr Clr Drug Dosing Estimated GFR (MDRD) BUN/Creatinine Ratio (No establ ref range) Glucose (74-99) mg/dL Lactic Acid 1.4 (0.4-2.0) mmol/L Calcium (8.5-10.1) mg/dL Total Bilirubin (0.2-1.0) mg/dL AST (15-37) U/L ALT (16-63) U/L Alkaline Phosphatase (46-116) U/L Ammonia (11-32) umol/L Total Protein (6.4-8.2) g/dL Albumin (3.4-5.0) g/dL Globulin Albumin/Globulin Ratio Urine Color Yellow (YELLOW) Urine Appearance Clear (CLEAR) Urine pH 5.5 (5.0-9.0) Ur Specific [place] >= 1.030 (1.005-1.030) Urine Protein >=300 H (NEGATIVE) Urine Glucose (UA) 250 H (NEGATIVE) Urine Ketones Negative (NEGATIVE) Urine Occult Blood Small H (NEGATIVE) Urine Nitrite Negative (NEGATIVE) Urine Bilirubin Negative (NEGATIVE) Urine Urobilinogen 0.2 (0.2-1.0) mg/dL Ur Leukocyte Esterase Negative (NEGATIVE) Urine RBC 5-10 H /HPF Urine WBC 0-5 (0-5/HPF) /HPF Ur Epithelial Cells Few (NOT SEEN) /HPF Amorphous Sediment Few (NOT SEEN) /HPF Urine Bacteria Rare (0-FEW/HPF) /HPF Granular Casts (Auto) Rare Fine Granular Casts Occasional H (NOT SEEN) /LPF Urine Mucus Rare (NOT SEEN) /LPF Urine Opiates Screen (NEGATIVE) Ur Oxycodone Screen (NEGATIVE) Urine Methadone Screen (NEGATIVE) Ur Barbiturates Screen (NEGATIVE) U Tricyclic Antidepress (NEGATIVE) Ur Phencyclidine Scrn (NEGATIVE) Ur Amphetamine Screen (NEGATIVE) U Methamphetamines Scrn (NEGATIVE) Urine MDMA Screen (NEGATIVE) U Benzodiazepines Scrn (NEGATIVE) Urine Cocaine Screen (NEGATIVE) U Marijuana (THC) Screen (NEGATIVE) Ethyl Alcohol (0) mg/dL Ketones Negative 04/28/20 Range/Units 22:07 WBC (5.0-10.0) 10^3/uL RBC (4.6-6.2) 10^6/uL Hgb (14.0-18.0) g/dL Hct (40.0-54.0) % MCV (80-100) fL MCH (27.0-34.0) pg MCHC (33.0-35.0) g/dL Plt Count (150-450) 10^3/uL Neut % (Auto) (42.2-75.2) % Lymph % (Auto) (20.5-50.1) % [place] % (Auto) (2-8) % Eos % (Auto) (1.0-3.0) % Baso % (Auto) (0.0-1.0) % Sodium (136-145) mmol/L Potassium (3.5-5.1) mmol/L Chloride (98-107) mmol/L Carbon Dioxide (21-32) mmol/L Anion Gap (7-13) mEq/L BUN (7-18) mg/dL Creatinine (0.70-1.30) mg/dL Est Cr Clr Drug Dosing Estimated GFR (MDRD) BUN/Creatinine Ratio (No establ ref range) Glucose (74-99) mg/dL Lactic Acid (0.4-2.0) mmol/L Calcium (8.5-10.1) mg/dL Total Bilirubin (0.2-1.0) mg/dL AST (15-37) U/L ALT (16-63) U/L Alkaline Phosphatase (46-116) U/L Ammonia (11-32) umol/L Total Protein (6.4-8.2) g/dL Albumin (3.4-5.0) g/dL Globulin Albumin/Globulin Ratio Urine Color (YELLOW) Urine Appearance (CLEAR) Urine pH (5.0-9.0) Ur Specific [place] (1.005-1.030) Urine Protein (NEGATIVE) Urine Glucose (UA) (NEGATIVE) Urine Ketones (NEGATIVE) Urine Occult Blood (NEGATIVE) Urine Nitrite (NEGATIVE) Urine Bilirubin (NEGATIVE) Urine Urobilinogen (0.2-1.0) mg/dL Ur Leukocyte Esterase (NEGATIVE) Urine RBC /HPF Urine WBC (0-5/HPF) /HPF Ur Epithelial Cells (NOT SEEN) /HPF Amorphous Sediment (NOT SEEN) /HPF Urine Bacteria (0-FEW/HPF) /HPF Granular Casts (Auto) Fine Granular Casts (NOT SEEN) /LPF Urine Mucus (NOT SEEN) /LPF Urine Opiates Screen Negative (NEGATIVE) Ur Oxycodone Screen Negative (NEGATIVE) Urine Methadone Screen Negative (NEGATIVE) Ur Barbiturates Screen Negative (NEGATIVE) U Tricyclic Antidepress Negative (NEGATIVE) Ur Phencyclidine Scrn Negative (NEGATIVE) Ur Amphetamine Screen Negative (NEGATIVE) U Methamphetamines Scrn Negative (NEGATIVE) Urine MDMA Screen Negative (NEGATIVE) U Benzodiazepines Scrn Negative (NEGATIVE) Urine Cocaine Screen Negative (NEGATIVE) U Marijuana (THC) Screen Negative (NEGATIVE) Ethyl Alcohol (0) mg/dL Ketones Meds: Medications Generic Name Dose Route Start Last Admin Trade Name Freq PRN Reason Stop Dose Admin Lorazepam 2 mg 04/28/20 21:24 Lorazepam 2 Mg/Ml Sdv IVPUSH ONETIME PRN Seizures Discontinued Medications Generic Name Dose Route Start Last Admin Trade Name Freq PRN Reason Stop Dose Admin Levetiracetam 1,000 mg/ Premix 200 mls @ 800 mls/hr 04/28/20 21:28 04/28/20 21:33 IV 04/28/20 21:29 800 mls/hr ONETIME ONE Administration Ibuprofen 400 mg 04/28/20 22:55 04/28/20 23:03 Ibuprofen 400 Mg Tab PO 04/28/20 22:56 400 mg ONETIME ONE Administration Levetiracetam Confirm 04/28/20 22:59 Levetiracetam 500 Mg Tab Administered 04/28/20 23:00 Dose 500 mg .ROUTE .STK-MED ONE - Re-Assessments/Exams Free Text/Narrative Re-Assessment/Exam: 04/28/20 23:51 Mentation improved, mild frontal headache usual with seizure. Patient reports no medication for past 4 days. [facility] told him to stop keppra and that he should go smoke pot instead. Departure - Departure Time of Disposition: 23:13 Disposition: Home, Self-Care 01 Condition: Good Clinical Impression: Seizure disorder, Hyperglycemia - Discharge Information *PRESCRIPTION DRUG MONITORING PROGRAM REVIEWED*: No *COPY OF PRESCRIPTION DRUG MONITORING REPORT IN PATIENT LAURENCE: No Instructions: Seizure, Adult, [id number] Forms: ED Department Discharge Additional Instructions: Clinic follow up this week, and resume keppra take medication as prescribed keppra 500mg twice daily res t24 hours, light activity- no driving until follow up with neurologist Sepsis Event Note (ED) - Focused Exam Vital Signs: Vital Signs Temp Pulse Resp BP Pulse Ox 04/28/20 22:04 98.5 F 110 H 16 155/112 H 99 - My Orders Last 24 Hours: My Active Orders 04/28/20 21:21 EKG 12 Lead [EKG Documentation Completion] [RC] URGENT 04/28/20 21:24 LORazepam [Ativan] 2 mg IVPUSH ONETIME PRN - Assessment/Plan Last 24 Hours: My Active Orders 04/28/20 21:21 EKG 12 Lead [EKG Documentation Completion] [RC] URGENT 04/28/20 21:24 LORazepam [Ativan] 2 mg IVPUSH ONETIME PRN
[2020-04-28 21:51] LABS: CHLORIDE,CL 102 mmol/L (98-107); SODIUM,NA 138 mmol/L (136-145)
--- NOTE | 2020-04-28 22:00 | CR ---
PROCEDURE INFORMATION: Exam: XR Left Shoulder Exam date and time: 04/28/2020 9:49 PM Age: 39 years old Clinical indication: Pain TECHNIQUE: Imaging protocol: XR Left shoulder. Views: 2 or more views. COMPARISON: CR Shoulder Comp Lt 04/05/2020 9:30 PM FINDINGS: Bones/joints: Normal. Soft tissues: Normal. IMPRESSION: No acute findings.
--- NOTE | 2020-04-28 22:02 | CT ---
PROCEDURE INFORMATION: Exam: CT Head Without Contrast Exam date and time: 04/28/2020 9:42 PM Age: 39 years old Clinical indication: Altered mental status/memory loss; Additional info: Altered mentation TECHNIQUE: Imaging protocol: Computed tomography of the head without contrast. Radiation optimization: All CT scans at this facility use at least one of these dose optimization techniques: automated exposure control; mA and/or kV adjustment per patient size (includes targeted exams where dose is matched to clinical indication); or iterative reconstruction. COMPARISON: No relevant prior studies available. FINDINGS: Brain: No evidence for acute transcortical infarct. No mass effect or midline shift. No extra-axial collection. No acute intracranial hemorrhage. Basal cisterns are patent. Cerebral ventricles: No ventriculomegaly. Bones/joints: Unremarkable. No acute fracture. Paranasal sinuses: Visualized sinuses are unremarkable. No fluid levels. Mastoid air cells: Visualized mastoid air cells are well aerated. Soft tissues: Unremarkable. IMPRESSION: No evidence for acute transcortical infarct, acute intracranial hemorrhage, or mass effect.
[2020-04-28] MEDS ORDERED: Ibuprofen 400 MG Tab PO ONE (22:55)
[2020-04-28] MEDS ORDERED: levETIRAcetam 500 MG Tab ONE (22:59)
== END 2020-04-28 23:57 | disposition home or self-care (01) ==
LOC: DL.ED 21:16
DX: G40.909 Epilepsy, unspecified, not intractable, without status epilepticus (principal); E10.65 Type 1 diabetes mellitus with hyperglycemia; E10.40 Type 1 diabetes mellitus with diabetic neuropathy, unspecified; R00.0 Tachycardia, unspecified; Z88.6 Allergy status to analgesic agent; Z88.5 Allergy status to narcotic agent; Z79.82 Long term (current) use of aspirin; Z79.899 Other long term (current) drug therapy
CPT/HCPCS: 36415; 70450; 73030; 80053; 80305; 80307; 81001; 82009; 82140; 82962; 83605; 85025; 93005; 93010; 96365; 99284; 99285; A9270; J1953

== ENCOUNTER 2020-07-16 02:06 | Inpatient (IN) | payer MEDICAID ==
[2020-07-16] MEDS ORDERED: LORazepam 2 MG/ML SDV IVPUSH PRN ×2 (02:17→02:34)
[2020-07-16] MEDS ORDERED: levETIRAcetam in NaCl (iso-os) 500 MG in Premix Bag 1 BAG IV ONE ×2 (02:18)
--- NOTE | 2020-07-16 02:34 | EDM.PDOC ---
ED HPI GENERAL MEDICAL PROBLEM - General Stated Complaint: SEIZURES Time Seen by Provider: 07/16/20 02:10 Source of Information: Reports: Family, RN History Limitations: Reports: Altered Mental Status - History of Present Illness INITIAL COMMENTS - FREE TEXT/NARRATIVE: ED via POV. Dad reporting 2 seizures , first around 10pm and 2nd prior to arrival. Dad lowered to ground with initial seizure, did not hit head. On keppra but doubts he has taken his medication recently, thinks he is out of medications. Dad states has seizure one time per month at least and usually from not getting medications filled in timely manner. - Related Data Allergies Allergy/AdvReac Type Severity Reaction Status Date / Time acetaminophen [From [place]] Allergy Anxiety Verified 07/16/20 02:42 hydrocodone [From [place]] Allergy Anxiety Verified 07/16/20 02:42 Home Meds: Home Meds levETIRAcetam [Keppra] 500 mg PO BID 08/22/18 [History] Acetaminophen [Tylenol] 650 mg PO Q6H PRN 07/16/20 [History] Insulin Aspart [Insulin Aspart Flexpen] 10 units SUBCUT TIDMEALS 07/16/20 [History] Insulin Detemir [Levemir Flextouch] 40 units SUBCUT BEDTIME 07/16/20 [History] atorvaSTATin Calcium [Atorvastatin Calcium] 20 mg PO BEDTIME 07/16/20 [History] lisinopriL [Lisinopril] 20 mg PO DAILY 07/16/20 [History] Past Medical History - Past Health History Medical/Surgical History: Denies Medical/Surgical History HEENT History: Reports: Impaired Vision, Other (See Below) Other HEENT History: waiting to repair retina Cardiovascular History: Reports: None Respiratory History: Reports: None Gastrointestinal History: Reports: None Genitourinary History: Reports: Acute Renal Failure, Other (See Below) Other Genitourinary History: Watching kidney labs at this time Musculoskeletal History: Reports: Amputation Neurological History: Reports: Neuropathy, Diabetic, Seizure Psychiatric History: Reports: None Endocrine/Metabolic History: Reports: Diabetes, Type I, Other (See Below) Other Endocrine/Metabolic History: Osteomyelitis Hematologic History: Reports: None Immunologic History: Reports: None Oncologic (Cancer) History: Reports: None Dermatologic History: Reports: Cellulitis - Infectious Disease History Infectious Disease History: Reports: MRSA - Past Surgical History Head Surgeries/Procedures: Reports: None GI Surgical History: Reports: None Musculoskeletal Surgical History: Reports: Amputation Other Musculoskeletal Surgeries/Procedures:: rt great toe amputation 08-22-18, 2nd toe on left foot amputation Social & Family History - Family History Family Medical History: No Pertinent Family History - Caffeine Use Caffeine Use: Reports: Coffee - Living Situation & Occupation Living situation: Reports: Other (In fdc as of 11/16/19) ED ROS GENERAL - Review of Systems Review Of Systems: Comprehensive ROS is negative, except as noted in HPI. - Physical Exam Exam: See Below Exam Limited By: No Limitations General Appearance: Lethargic Eye Exam: Bilateral Eye: EOMI Ears: Normal External Exam, Hearing Grossly Normal Nose: Normal Inspection Throat/Mouth: Evidence of Tongue Biting Head Exam: Atraumatic, Normocephalic Respiratory/Chest: No Respiratory Distress, Lungs Clear, Normal Breath Sounds Cardiovascular: Normal Peripheral Pulses, Regular Rate, Rhythm, Tachycardia GI/Abdominal: Normal Bowel Sounds, Soft Neuro Exam (Abbreviated): Slow to Respond Extremities: Normal Inspection Skin Exam: Warm, Dry, Intact, Normal Color #1 Interpretation EKG Date: 07/16/20 Time: 05:31 Rhythm: Other (sinus tach) Rate (Beats/Min): 104 [place]: Normal Comparison: NA - No Prior EKG Course - Vital Signs Last Recorded V/S: Last Vital Signs Temp 97.8 F 07/16/20 23:38 Pulse 85 07/16/20 23:38 Resp 20 07/16/20 23:38 BP 116/66 07/16/20 23:38 Pulse Ox 97 07/16/20 23:38 - Orders/Labs/Meds Orders: Active Orders 24 hr Category Date Time Status LEVETIRACETAM, S [REF] Stat Lab 07/16/20 02:20 Received Medication Orders Acetaminophen (Acetaminophen 325 Mg Tab) 650 mg PO Q6H PRN PRN Reason: Pain (moderate 4-6) Last Admin: 07/17/20 00:11 Dose: 650 mg Documented by: ANNIE Albuterol (Albuterol 6.7 Gm Inhaler) 0 gm INH Q4HWA GENE Last Admin: 07/16/20 18:26 Dose: Not Given Documented by: Admin: 07/16/20 17:28 Dose: 2 puff Documented by: Admin: 07/16/20 14:54 Dose: Not Given Documented by: Admin: 07/16/20 10:41 Dose: 2 puff Documented by: JESSE Ascorbic Acid (Ascorbic Acid 500 Mg Tab) 500 mg PO DAILY [facility] Dexamethasone (Dexamethasone 6 Mg Tablet) 6 mg PO DAILY@0800 [facility] Dextrose/Water (50% Dextrose In Water 50 Ml Syringe) 50 ml IV Q15M PRN PRN Reason: Hypoglycemia Ferrous Sulfate (Ferrous Sulfate 325 Mg Tab) 325 mg PO BIDMEALS [facility] Last Admin: 07/16/20 17:35 Dose: 325 mg Documented by: JESSE Gabapentin (Gabapentin 300 Mg Cap) 600 mg PO BID [facility] Last Admin: 07/16/20 22:20 Dose: 600 mg Documented by: ANNIE Glucagon (Glucagon,Human Recombinant 1 Mg Vial) 1 mg IM Q15M PRN PRN Reason: Hypoglycemia Heparin Sodium (Porcine) (Heparin Sodium 5,000 Units/Ml Vial) 5,000 units SUBCUT Q12HR [facility] Last Admin: 07/16/20 22:22 Dose: 5,000 units Documented by: Admin: 07/16/20 10:46 Dose: 5,000 units Documented by: JESSE Sodium Chloride (Normal Saline) 1,000 mls @ 75 mls/hr IV ASDIRECTED [facility] Last Admin: 07/16/20 23:45 Dose: 75 mls/hr Documented by: Infusion: 07/16/20 23:45 Dose: 75 mls/hr Documented by: Admin: 07/16/20 12:14 Dose: 75 mls/hr Documented by: JESSE Remdesivir 100 mg/ Sodium (Chloride) 100 mls @ 100 mls/hr IV Q24H [facility] Stop: 07/20/20 11:59 Insulin Human Lispro (Insulin Lispro 100 Units/Ml 3 Ml Vial) 0 unit SUBCUT WITHMEALSANDBED [facility]; Protocol Last Admin: 07/16/20 22:37 Dose: 2 units Documented by: Admin: 07/16/20 17:25 Dose: 2 units Documented by: Admin: 07/16/20 12:11 Dose: 2 units Documented by: JESSE Insulin Human NPH (Insulin Isophane Nph, Human 100 Units/Ml 3 Ml Vial) 10 unit SUBCUT BEDTIME [facility] Levetiracetam (Levetiracetam 500 Mg Tab) 500 mg PO BID [facility] Last Admin: 07/16/20 22:20 Dose: 500 mg Documented by: Admin: 07/16/20 12:09 Dose: 500 mg Documented by: JESSE Ondansetron HCl (Ondansetron 4 Mg/2 Ml Sdv) 4 mg IVPUSH Q4H PRN PRN Reason: Nausea/Vomiting Pantoprazole Sodium (Pantoprazole 40 Mg Tab.Cr) 40 mg PO ACBREAKFAST [facility]ENE Sodium Chloride (Sodium Chloride 0.9% 10 Ml Syringe) 10 ml FLUSH ASDIRECTED PRN PRN Reason: Keep Vein Open Labs: Laboratory Tests 07/16/20 07/16/20 07/16/20 Range/Units 02:20 02:20 02:20 WBC 15.5 H (5.0-10.0) 10^3/uL RBC 5.57 (4.6-6.2) 10^6/uL Hgb 14.6 (14.0-18.0) g/dL Hct 44.1 (40.0-54.0) % MCV 79.2 L (80-100) fL MCH 26.2 L (27.0-34.0) pg MCHC 33.1 (33.0-35.0) g/dL Plt Count 237 (150-450) 10^3/uL Neut % (Auto) 70.7 (42.2-75.2) % Lymph % (Auto) 21.1 (20.5-50.1) % Angelina % (Auto) 6.1 (2-8) % Eos % (Auto) 1.8 (1.0-3.0) % Baso % (Auto) 0.3 (0.0-1.0) % D-Dimer, Quantitative 657 H (0-400) ng/mL Sodium 136 (136-145) mmol/L Potassium 3.6 (3.5-5.1) mmol/L Chloride 101 (98-107) mmol/L Carbon Dioxide 18 L (21-32) mmol/L Anion Gap 20.6 H (7-13) mEq/L BUN 14 (7-18) mg/dL Creatinine 1.42 H (0.70-1.30) mg/dL Est Cr Clr Drug Dosing TNP Estimated GFR (MDRD) 55 BUN/Creatinine Ratio 9.9 (No establ ref range) Glucose 235 H (70-99) mg/dL POC Glucose (70-99) mg/dL Calcium 8.4 L (8.5-10.1) mg/dL Iron (65-175) ug/dL TIBC (250-450) ug/dL % Saturation (20.0-50.0) % Ferritin (26-388) mg/mL Total Bilirubin 0.6 (0.2-1.0) mg/dL AST 19 (15-37) U/L ALT 26 (16-63) U/L Alkaline Phosphatase 148 H (46-116) U/L C-Reactive Protein < 0.2 (0.0-0.9) mg/dL Total Protein 7.4 (6.4-8.2) g/dL Albumin 3.0 L (3.4-5.0) g/dL Globulin 4.4 Albumin/Globulin Ratio 0.68 SARS-CoV-2 RNA (EKTA) (NEGATIVE) 07/16/20 07/16/20 07/16/20 Range/Units 02:20 03:42 04:31 WBC (5.0-10.0) 10^3/uL RBC (4.6-6.2) 10^6/uL Hgb (14.0-18.0) g/dL Hct (40.0-54.0) % MCV (80-100) fL MCH (27.0-34.0) pg MCHC (33.0-35.0) g/dL Plt Count (150-450) 10^3/uL Neut % (Auto) (42.2-75.2) % Lymph % (Auto) (20.5-50.1) % Angelina % (Auto) (2-8) % Eos % (Auto) (1.0-3.0) % Baso % (Auto) (0.0-1.0) % D-Dimer, Quantitative (0-400) ng/mL Sodium (136-145) mmol/L Potassium (3.5-5.1) mmol/L Chloride (98-107) mmol/L Carbon Dioxide (21-32) mmol/L Anion Gap (7-13) mEq/L BUN (7-18) mg/dL Creatinine (0.70-1.30) mg/dL Est Cr Clr Drug Dosing Estimated GFR (MDRD) BUN/Creatinine Ratio (No establ ref range) Glucose (70-99) mg/dL POC Glucose 255 H (70-99) mg/dL Calcium (8.5-10.1) mg/dL Iron 37 L (65-175) ug/dL TIBC 330 (250-450) ug/dL % Saturation 11.2 L (20.0-50.0) % Ferritin 31 (26-388) mg/mL Total Bilirubin (0.2-1.0) mg/dL AST (15-37) U/L ALT (16-63) U/L Alkaline Phosphatase (46-116) U/L C-Reactive Protein (0.0-0.9) mg/dL Total Protein (6.4-8.2) g/dL Albumin (3.4-5.0) g/dL Globulin Albumin/Globulin Ratio SARS-CoV-2 RNA (EKTA) Positive H (NEGATIVE) Meds: Medications Generic Name Dose Route Start Last Admin Trade Name Freq PRN Reason Stop Dose Admin Acetaminophen 650 mg 07/16/20 23:54 07/17/20 00:11 Acetaminophen 325 Mg Tab PO 650 mg Q6H PRN Administration Pain (moderate 4-6) Albuterol 0 gm 07/16/20 11:00 07/16/20 18:26 Albuterol 6.7 Gm Inhaler INH Not Given Q4HWA [facility] Ascorbic Acid 500 mg 07/17/20 09:00 Ascorbic Acid 500 Mg Tab PO DAILY [facility] Dexamethasone 6 mg 07/17/20 08:00 Dexamethasone 6 Mg Tablet PO DAILY@0800 [facility] Dextrose/Water 50 ml 07/16/20 09:45 50% Dextrose In Water 50 Ml Syringe IV Q15M PRN Hypoglycemia Ferrous Sulfate 325 mg 07/16/20 18:00 07/16/20 17:35 Ferrous Sulfate 325 Mg Tab PO 325 mg BIDMEALS GENE Administration Gabapentin 600 mg 07/16/20 21:00 07/16/20 22:20 Gabapentin 300 Mg Cap PO 600 mg BID GENE Administration Glucagon 1 mg 07/16/20 09:45 Glucagon,Human Recombinant 1 Mg Vial IM Q15M PRN Hypoglycemia Heparin Sodium (Porcine) 5,000 units 07/16/20 10:00 07/16/20 22:22 Heparin Sodium 5,000 Units/Ml Vial SUBCUT 5,000 units Q12HR GENE Administration Sodium Chloride 1,000 mls @ 75 mls/hr 07/16/20 10:00 07/16/20 23:45 Normal Saline IV 75 mls/hr ASDIRECTED GENE Administration Remdesivir 100 mg/ Sodium 100 mls @ 100 mls/hr 07/17/20 11:00 Chloride IV 07/20/20 11:59 Q24H [facility]ENE Insulin Human Lispro 0 unit 07/16/20 12:00 07/16/20 22:37 Insulin Lispro 100 Units/Ml 3 Ml Vial SUBCUT 2 units WITHMEALSANDBED GENE Administration Protocol Insulin Human NPH 10 unit 07/16/20 21:00 Insulin Isophane Nph, Human 100 Units/Ml 3 Ml Vial SUBCUT BEDTIME [facility] Levetiracetam 500 mg 07/16/20 10:00 07/16/20 22:20 Levetiracetam 500 Mg Tab PO 500 mg BID GENE Administration Ondansetron HCl 4 mg 07/16/20 09:53 Ondansetron 4 Mg/2 Ml Sdv IVPUSH Q4H PRN Nausea/Vomiting Pantoprazole Sodium 40 mg 07/17/20 06:00 Pantoprazole 40 Mg Tab.Cr PO ACBREAKFAST [facility]ENE Sodium Chloride 10 ml 07/16/20 09:53 Sodium Chloride 0.9% 10 Ml Syringe FLUSH ASDIRECTED PRN Keep Vein Open Discontinued Medications Generic Name Dose Route Start Last Admin Trade Name Freq PRN Reason Stop Dose Admin Dexamethasone 6 mg 07/16/20 04:55 07/16/20 05:27 Dexamethasone 4 Mg/Ml Sdv IVPUSH 07/16/20 04:56 6 mg ONETIME ONE Administration Dexamethasone 6 mg 07/16/20 10:00 07/16/20 12:33 Dexamethasone 6 Mg Tablet PO Not Given DAILY@0800 [facility] Levetiracetam 500 mg/ Premix 100 mls @ 400 mls/hr 07/16/20 02:18 07/16/20 02:23 IV 07/16/20 02:19 400 mls/hr ONETIME ONE Administration Remdesivir 200 mg/ Sodium 250 mls @ 250 mls/hr 07/16/20 11:00 07/16/20 12:31 Chloride IV 07/16/20 11:59 Infused ONETIME ONE Infusion Lorazepam 2 mg 07/16/20 02:17 07/16/20 02:34 Lorazepam 2 Mg/Ml Sdv IVPUSH 2 mg ONETIME PRN Administration Seizures Lorazepam 2 mg 07/16/20 02:34 Lorazepam 2 Mg/Ml Sdv IVPUSH ONETIME PRN Seizures - Re-Assessments/Exams Free Text/Narrative Re-Assessment/Exam: Generalized seizure in ED , ceased with ativan. no incontinence with seizure activity. Covid testing positive. Mild hypoxia post ictal period. O2 Placed. Saturation improved with positioning. Dr Elena accepting for admission. Departure - Departure Time of Disposition: 06:30 Disposition: Admitted As Inpatient 65 Condition: Good Clinical Impression: Seizure disorder, COVID-19, Non compliance with medical treatment Hyperglycemia due to type 2 diabetes mellitus Qualifiers: Diabetes mellitus [facility] insulin use: with [facility] use Qualified Code(s): E11.65 - Type 2 diabetes mellitus with hyperglycemia - Discharge Information - My Orders Last 24 Hours: My Active Orders 07/16/20 02:20 LEVETIRACETAM, S [REF] Stat - Assessment/Plan Last 24 Hours: My Active Orders 07/16/20 02:20 LEVETIRACETAM, S [REF] Stat
[2020-07-16] MEDS ORDERED: Dexamethasone 4 MG/ML SDV IVPUSH ONE (04:55)
[2020-07-16 05:20] LABS: ANION GAP 20.6 mEq/L (7-13); CHLORIDE,CL 101 mmol/L (98-107); SODIUM,NA 136 mmol/L (136-145)
--- NOTE | 2020-07-16 05:23 | CR ---
PROCEDURE INFORMATION: Exam: XR Chest Exam date and time: 07/16/2020 3:34 AM Age: 40 years old Clinical indication: Other: Seizure, , R/O aspiration, desaturation; Patient HX: History of seizure TECHNIQUE: Imaging protocol: XR of the chest. Views: 1 view. COMPARISON: CR Ribs 2V w Chest Lt 04/05/2020 9:36 PM FINDINGS: Lungs: There is hazy opacity in the right lung which could be secondary to atelectasis or pneumonia. Pleural spaces: Unremarkable. No pleural effusion. No pneumothorax. Heart/Mediastinum: Unremarkable. No cardiomegaly. Bones/joints: Unremarkable. IMPRESSION: There is hazy opacity in the right lung which could be secondary to atelectasis or pneumonia.
[2020-07-16] MEDS ORDERED: Glucagon,Human Recombinant 1 MG Vial IM PRN ×2 (09:45→09:59)
[2020-07-16] MEDS ORDERED: 50% Dextrose in Water 50 ML Syringe IV PRN ×2 (09:45→09:59)
[2020-07-16] MEDS ORDERED: Ondansetron 4 MG/2 ML SDV IVPUSH PRN (09:53)
[2020-07-16] MEDS ORDERED: Sodium Chloride 0.9% 10 ML Syringe FLUSH PRN (09:53)
[2020-07-16] MEDS ORDERED: Dexamethasone 6 MG TABLET PO SCH (10:00)
--- NOTE | 2020-07-16 10:04 | PCM.SN.2 ---
- Free Text/Narrative Note: START OF DOCTOR [facility] HISTORY AND PHYSICAL / CONSULTATION NOTE Chief Complaint: Seizures History of Present Illness: The patient is a 40-year-old male who was transferred to the emergency department because of seizures. Patient has known history of noncompliance and as per emergency department staff documentation the patient appears to not be compliant with his antiseizure medication. Unfortunately during my encounter with the patient he has not cooperative with the interview and I am unable to obtain further history of present illness. He presents for further evaluation Surgical History: Per medical records: Left second ray amputation, right foot transmetatarsal amputation Family History: Diabetes, hypertension, hyperlipidemia Social History: Tobacco: Active smoker Alcohol: Currently denies. Patient has documented history of alcohol abuse Caffeine: Coffee Drugs: Claims to have never used drugs Allergies: Tylenol, hydrocodone Code Status: By default, full Pertinent Laboratory Results / Pertinent Radiology Results / Pertinent Diagnostic Results / Pertinent Vital Signs: Blood pressure 136/92, pulse 85, respirate 18, temperature 98.7 degrees, 9 9% 4 L, creatinine 1.42, white blood cell count 15.5, MCV 79.2 Physical Examination: General: -Somnolent but arousable -No acute distress -No dyspnea -No tachypnea -Obese Head: -Atraumatic -Normocephalic Eyes: -Pupils equally round and reactive to light and accommodation -Extraocular muscles intact Neurological: -Cranial nerves II-XII intact Neck: -No jugular venous distention -No thyromegaly -No cervical lymphadenopathy Heart: -Regular rate -Regular rhythm -No murmurs -No gallops -No rubs Lungs: -No wheeze -No rhonchi -No rales Abdomen: -Normal bowel sounds in all four quadrants -No rebound -No guarding -No tenderness Extremities: -2/4 pulse in all four extremities -No clubbing -No cyanosis -No edema -No calf tenderness present bilaterally -Negative Homans sign bilaterally Musculoskeletal: -5/5 bilateral upper extremity strength -5/5 bilateral lower extremity strength -Sensorium of bilateral upper extremities are equal and intact -Sensorium of bilateral lower extremities are equal and intact Additional Details / Additional Findings / Exceptions / Miscellaneous: Assessment / Plan: COVID-19 pneumonia. Remdesivir 200 mg IV x1 then 100 mg IV daily thereafter plus dexamethasone 6 mg p.o. daily plus Proventil HFA: 90 mg/spray: 2 puffs every 4 hours while awake plus incentive spirometer to be used 10 times hourly while awake Medical noncompliance. Patient be counseled regarding medical compliance Acute renal insufficiency. Will monitor creatinine level intermittently. IV normal saline 75 mils per hour Microcytosis. Check serum ferritin, iron panel, fecal occult blood Seizure. Seizure precautions. Keppra 500 mg p.o. twice daily Neuropathy. Gabapentin 600 mg p.o. twice daily Chronic pain Diabetes. Will check fingerstick glucose before every meal and at bedtime and provide sulci scale plus insulin NPH 10 units subcutaneously nightly Hyperlipidemia Hypertension Obesity. Patient counseled regarding lifestyle modification Smoker. Patient be counseled regarding smoking cessation History of alcohol use which the patient claims is remote. Seizure precautions GI prophylaxis. Protonix 40 mg p.o. daily DVT prophylaxis. Heparin 5000 units subcutaneously every 12 hours Disposition: END OF DOCTOR [facility] HISTORY AND PHYSICAL / CONSULTATION NOTE
[2020-07-16] MEDS: Albuterol 6.7 GM Inhaler INH SCH ×4 (10:41→18:26)
[2020-07-16] MEDS: Heparin Sodium 5,000 Units/ML Vial SUBCUT SCH ×2 (10:46→22:22)
[2020-07-16] MEDS ORDERED: REMDESIVIR 200 MG in Sodium Chloride 0.9% 250 ML IV ONE (11:00)
[2020-07-16] MEDS: levETIRAcetam 500 MG Tab PO SCH ×2 (12:09→22:20)
[2020-07-16] MEDS: Insulin Lispro 100 Units/ML 3 ML Vial SUBCUT SCH ×3 (12:11→22:37)
[2020-07-16] MEDS: Sodium Chloride 0.9% 1,000 ML IV SCH ×2 (12:14→23:45)
[2020-07-16] MEDS: Ferrous Sulfate 325 MG Tab PO SCH (17:35)
[2020-07-16] MEDS ORDERED: Insulin Isophane NPH, Human 100 Units/ML 3 ML Vial SUBCUT SCH (21:00)
[2020-07-16] MEDS: Gabapentin 300 MG Cap PO SCH (22:20)
[2020-07-16] MEDS ORDERED: Acetaminophen 325 MG Tab PO PRN (23:54)
[2020-07-17] MEDS: Albuterol 6.7 GM Inhaler INH SCH ×3 (05:44→10:19)
[2020-07-17] MEDS ORDERED: Pantoprazole 40 MG Tab.CR PO SCH (06:00)
[2020-07-17 07:28] LABS: ANION GAP 12.9 mEq/L (7-13); CHLORIDE,CL 107 mmol/L (98-107); SODIUM,NA 140 mmol/L (136-145)
[2020-07-17] MEDS ORDERED: Dexamethasone 6 MG TABLET PO SCH (08:00)
[2020-07-17] MEDS: Insulin Lispro 100 Units/ML 3 ML Vial SUBCUT SCH ×2 (08:21→12:18)
[2020-07-17] MEDS: Ferrous Sulfate 325 MG Tab PO SCH (08:23)
[2020-07-17] MEDS ORDERED: Ascorbic Acid 500 MG Tab PO SCH (09:00)
--- NOTE | 2020-07-17 09:08 | PCM.SN.2 ---
- Free Text/Narrative Note: START OF DOCTOR [facility] DISCHARGE SUMMARY Date of Admission: July 16, 2020 Date of Discharge: 9:06 AM on July 17, 2020 Primary Diagnosis: COVID-19 pneumonia Secondary Diagnosis: Medical noncompliance Acute renal insufficiency Microcytic anemia/iron deficiency anemia Seizure Neuropathy Chronic pain Diabetes Hyperlipidemia Hypertension Obesity Smoker History of alcohol abuse which the patient claims is remote Marijuana abuse Consultations: None Condition on Discharge: Stable Disposition: The patient will be advised follow-up with his primary care physician or provider 5 to 7 days post discharge for posthospitalization evaluation The patient is advised to follow-up with podiatry within 10 days of discharge for foot deformity The patient has been counseled to isolate himself from other friends of family members so as to prevent/decrease the likelihood of spreading COVID-19 Discharge Medications: Insulin detemir 40 units subcutaneously nightly Insulin aspartate 10 units subcutaneously 3 times daily with meals Lipitor 20 mg p.o. nightly Protonix 40 mg p.o. daily. Quantity 8. 0 refills. This is being prescribed for GI prophylaxis while the patient is receiving dexamethasone and it is not for dyspepsia/GERD Dexamethasone 6 mg p.o. daily. Quantity sufficient for 8 days. 0 refills Keppra 500 mg p.o. twice daily Ferrous sulfate 3 and 25 mg p.o. twice daily Vitamin C 500 mg p.o. daily END OF DOCTOR EMAM[facility] DISCHARGE SUMMARY
[2020-07-17] MEDS: Gabapentin 300 MG Cap PO SCH (10:16)
[2020-07-17] MEDS: Heparin Sodium 5,000 Units/ML Vial SUBCUT SCH (10:17)
[2020-07-17] MEDS: levETIRAcetam 500 MG Tab PO SCH (10:17)
[2020-07-17 10:52] LABS: ANION GAP 12.5 mEq/L (7-13); CHLORIDE,CL 105 mmol/L (98-107); SODIUM,NA 140 mmol/L (136-145)
[2020-07-17] MEDS ORDERED: REMDESIVIR 100 MG in Sodium Chloride 0.9% 100 ML IV SCH (11:00)
== END 2020-07-17 14:10 | disposition home or self-care (01) | DRG 177 ==
LOC: DL.ED 02:06 → DL.MS 06:15 → EEVIPCON 06:15
PROVIDERS: ADMIT Internal Medicine; ATTEND Internal Medicine
PROC: XW033E5 Introduction of Remdesivir Anti-infective into Peripheral Vein, Percutaneous Approach, New Technology Group 5 (ICD-10-PCS; principal; 2020-07-16)
DX: U07.1 COVID-19 (principal); J12.82 Pneumonia due to coronavirus disease 2019; G40.909 Epilepsy, unspecified, not intractable, without status epilepticus; D50.9 Iron deficiency anemia, unspecified; G89.29 Other chronic pain; E11.42 Type 2 diabetes mellitus with diabetic polyneuropathy; E78.5 Hyperlipidemia, unspecified; I10 Essential (primary) hypertension; E66.9 Obesity, unspecified; F17.200 Nicotine dependence, unspecified, uncomplicated; F12.10 Cannabis abuse, uncomplicated; H54.7 Unspecified visual loss; E11.65 Type 2 diabetes mellitus with hyperglycemia; N28.9 Disorder of kidney and ureter, unspecified; Z88.5 Allergy status to narcotic agent; Z79.4 Long term (current) use of insulin; Z91.19 Patient's noncompliance with other medical treatment and regimen; Z79.899 Other long term (current) drug therapy; Z28.82 Immunization not carried out because of caregiver refusal
CPT/HCPCS: 36415; 71045; 80048; 80053; 80177; 80305-QW; 81001; 82248; 82728; 82947; 83540; 83550; 85025; 85379; 86140; 93005; 93010; 96365; 96375; 99284; 99285-25; A9270-GY; J1100; J1644; J1815-GY; J1953; J2060; J7030; J7050; J8540; U0002

== ENCOUNTER 2020-07-20 20:19 | Emergency (ER) | payer MEDICAID ==
[2020-07-20] MEDS ORDERED: Sodium Chloride 0.9% 1,000 ML IV ONE (20:44)
--- NOTE | 2020-07-20 20:45 | EDM.PDOC ---
<Joseline Han - Last Filed: 07/20/20 22:39> ED HPI GENERAL MEDICAL PROBLEM - General Chief Complaint: General Stated Complaint: FEELING OF HAVING A SEIZURE, HEART PAIN Time Seen by Provider: 07/20/20 20:45 Source of Information: Reports: Patient, RN, RN Notes Reviewed History Limitations: Reports: No Limitations - History of Present Illness INITIAL COMMENTS - FREE TEXT/NARRATIVE: Hubert is a 40 y/o male with a history of seizure and DM II who presents to the ED via personal vehicle due to loss of remote events; he notes his cousin found him laying on the ground. Upon arrival to this ED the patient is alert and oriented to all spheres with a GCS of 15. He is concerned he had a seizure as he does not remember his recent hospitalization at this facility on 07/16/20, but is able to recall today's events. He notes he has taken his previously prescribed Keppra 500mg, but has been taking it 4x/day. He denies fever, abdominal pain, vomiting, diarrhea, dysuria, or hematuria. He does attest to muscle aches, shaking chills, blurry vision, cough, sore throat, chest pain, shortness of breath, and nausea. He also notes pain in his right great toe. The patient reports he has not taken his prescribed dexamethasone or Protonix which was prescribed at discharge on 07/17/20 for COVID pneumonia. - Related Data Allergies Allergy/AdvReac Type Severity Reaction Status Date / Time acetaminophen [From [place]] Allergy Anxiety Verified 07/20/20 22:51 hydrocodone [From [place]] Allergy Anxiety Verified 07/20/20 22:51 Home Meds: Home Meds levETIRAcetam [Keppra] 500 mg PO BID 08/22/18 [History] Insulin Aspart [Insulin Aspart Flexpen] 10 units SUBCUT TIDMEALS 07/16/20 [History] Insulin Detemir [Levemir Flextouch] 40 units SUBCUT BEDTIME 07/16/20 [History] atorvaSTATin Calcium [Atorvastatin Calcium] 20 mg PO BEDTIME 07/16/20 [History] Ascorbic Acid [Vitamin C] 500 mg PO DAILY 30 Days #30 tablet 07/17/20 [Rx] Ferrous Sulfate 325 mg PO BIDMEALS 30 Days #60 tablet 07/17/20 [Rx] Pantoprazole [ProTONIX] 40 mg PO ACBREAKFAST 8 Days #8 tab.cr 07/17/20 [Rx] dexAMETHasone [Dexamethasone] 6 mg PO DAILY 8 Days #24 tab 07/17/20 [Rx] Past Medical History - Past Health History Medical/Surgical History: Denies Medical/Surgical History HEENT History: Reports: Impaired Vision, Other (See Below) Other HEENT History: waiting to repair retina Cardiovascular History: Reports: None Respiratory History: Reports: None Gastrointestinal History: Reports: None Genitourinary History: Reports: Acute Renal Failure, Other (See Below) Other Genitourinary History: Watching kidney labs at this time Musculoskeletal History: Reports: Amputation Neurological History: Reports: Neuropathy, Diabetic, Seizure Psychiatric History: Reports: None Endocrine/Metabolic History: Reports: Diabetes, Type I, Other (See Below) Other Endocrine/Metabolic History: Osteomyelitis Hematologic History: Reports: None Immunologic History: Reports: None Oncologic (Cancer) History: Reports: None Dermatologic History: Reports: Cellulitis - Infectious Disease History Infectious Disease History: Reports: MRSA - Past Surgical History Head Surgeries/Procedures: Reports: None GI Surgical History: Reports: None Musculoskeletal Surgical History: Reports: Amputation Other Musculoskeletal Surgeries/Procedures:: rt great toe amputation 08-22-18, 2nd toe on left foot amputation Social & Family History - Family History Family Medical History: No Pertinent Family History - Caffeine Use Caffeine Use: Reports: Coffee - Living Situation & Occupation Living situation: Reports: Other (In residential as of 11/16/19) ED ROS GENERAL - Review of Systems Review Of Systems: Comprehensive ROS is negative, except as noted in HPI. ED EXAM, GENERAL - Physical Exam Exam: See Below Exam Limited By: No Limitations General Appearance: Alert, No Apparent Distress Eye Exam: Bilateral Eye: EOMI, Normal Inspection, PERRL (4mm) Ears: Normal External Exam, Normal Canal, Hearing Grossly Normal, Normal TMs Ear Exam: Bilateral Ear: Auricle Normal, Canal Normal, TM normal Nose: Normal Inspection, Normal Mucosa, No Blood Throat/Mouth: Normal Inspection, Normal Oropharynx, Normal Voice, No Airway Compromise Head: Atraumatic, Normocephalic Neck: Normal Inspection, Supple, Non-Tender, Full Range of Motion. No: Lymphadenopathy (L), Lymphadenopathy (R) Respiratory/Chest: No Respiratory Distress, Lungs Clear, Normal Breath Sounds, No Accessory Muscle Use. No: Chest Non-Tender (Pain to anterior chest wall), Crackles, Rales, Rhonchi, Wheezing, Stridor Cardiovascular: Regular Rate, Rhythm, No Edema, No Gallop, No JVD, No Murmur, No Rub, Tachycardia Peripheral Pulses: 2+: Radial (L), Radial (R) GI/Abdominal: Normal Bowel Sounds, Soft, Non-Tender, No Distention, No Abnormal Bruit, No Mass, Pelvis Stable (Male) Exam: Deferred Rectal (Males) Exam: Deferred Back Exam: Normal Inspection, Full Range of Motion Extremities: Normal Inspection, Normal Range of Motion, Non-Tender, No Pedal Edema, Normal Capillary Refill Neurological: Alert, Oriented, CN II-XII Intact, Normal Cognition, Normal Gait, Memory Loss Remote Events. No: Memory Loss Recent Events Psychiatric: Normal Affect, Normal Mood Skin Exam: Warm, Dry, Intact, Normal Color, Wound/Incision (To dorsal aspect of right great toe) #1 Interpretation EKG Date: 07/20/20 Time: 20:27 Rhythm: NSR Rate (Beats/Min): 99 [place]: Normal P-Wave: Present QRS: Normal ST-T: Normal QT: Normal TN/PQ Interval: 0.16 Comparison: No Change EKG Interpretation Comments: NSR; No evidence of acute myocardial ischemia Departure - Departure Disposition: Home, Self-Care 01 Clinical Impression: Seizure, COVID-19, Non compliance with medical treatment Diabetic ulcer of left foot Qualifiers: Diabetic foot ulcer location: midfoot Diabetes mellitus type: type 2 Non- pressure ulcer stage: with fat layer exposed Qualified Code(s): E11.621 - Type 2 diabetes mellitus with foot ulcer - Discharge Information Instructions: Diabetes Mellitus and Skin Care, COVID-19: How to Protect Yourself and Others - [facility] Forms: ED Department Discharge Additional Instructions: 1.) Obtain you previously prescribed medications, including dexamethasone and Protonix. 2.) Follow [facility] guidelines regarding quarantine for COVID. 3.) Follow up with podiatry. Dr. David Angel is a grain mill worker available in [place], his number is [phone] 4.) doxycycline 100mg one twice daily for 7 days <Era Lin - Last Filed: 07/21/20 00:48> Course - Vital Signs Last Recorded V/S: Last Vital Signs Temp 97.2 F 07/20/20 20:25 Pulse 114 H 07/20/20 20:25 Resp 16 07/20/20 20:25 BP 131/88 07/20/20 20:25 Pulse Ox 98 07/20/20 20:25 - Orders/Labs/Meds Orders: Active Orders 24 hr Category Date Time Status Blood Glucose Check, Bedside [] ONETIME Care 07/20/20 22:56 Active Blood Glucose Check, Bedside [RC] ONETIME Care 07/21/20 00:11 Active LEVETIRACETAM, S [REF] Stat Lab 07/20/20 20:44 Received Dextrose 50% in Water Med 07/20/20 21:45 Active 50 ml IVPUSH Q15M PRN Glucagon,Human Recombinant [GlucaGen] Med 07/20/20 21:45 Active 1 mg IM Q15M PRN Medication Orders Dextrose/Water (50% Dextrose In Water 50 Ml Syringe) 50 ml IVPUSH Q15M PRN PRN Reason: Hypoglycemia Glucagon (Glucagon,Human Recombinant 1 Mg Vial) 1 mg IM Q15M PRN PRN Reason: Hypoglycemia Labs: Laboratory Tests 07/20/20 07/20/20 07/20/20 Range/Units 20:44 20:44 20:44 WBC 13.1 H (5.0-10.0) 10^3/uL RBC 5.30 (4.6-6.2) 10^6/uL Hgb 14.0 (14.0-18.0) g/dL Hct 41.6 (40.0-54.0) % MCV 78.5 L (80-100) fL MCH 26.4 L (27.0-34.0) pg MCHC 33.7 (33.0-35.0) g/dL Plt Count 168 (150-450) 10^3/uL Neut % (Auto) 76.3 H (42.2-75.2) % Lymph % (Auto) 14.5 L (20.5-50.1) % [place] % (Auto) 8.0 (2-8) % Eos % (Auto) 1.0 (1.0-3.0) % Baso % (Auto) 0.2 (0.0-1.0) % Sodium 135 L (136-145) mmol/L Potassium 3.7 (3.5-5.1) mmol/L Chloride 100 (98-107) mmol/L Carbon Dioxide 26 (21-32) mmol/L Anion Gap 12.7 (7-13) mEq/L BUN 26 H (7-18) mg/dL Creatinine 1.17 (0.70-1.30) mg/dL Est Cr Clr Drug Dosing TNP Estimated GFR (MDRD) > 60 BUN/Creatinine Ratio 22.2 (No establ ref range) Glucose 343 H (70-99) mg/dL POC Glucose (70-99) mg/dL Lactic Acid 1.6 (0.4-2.0) mmol/L Calcium 8.0 L (8.5-10.1) mg/dL Magnesium 2.0 (1.8-2.4) mg/dL Total Bilirubin 0.6 (0.2-1.0) mg/dL AST 10 L (15-37) U/L ALT 26 (16-63) U/L Alkaline Phosphatase 200 H (46-116) U/L Troponin I High Sens 6 (<=76) pg/mL C-Reactive Protein 1.9 H (0.0-0.9) mg/dL B-Natriuretic Peptide 11 (0-100) pg/ml Total Protein 6.6 (6.4-8.2) g/dL Albumin 2.6 L (3.4-5.0) g/dL Globulin 4.0 Albumin/Globulin Ratio 0.65 Urine Color (YELLOW) Urine Appearance (CLEAR) Urine pH (5.0-9.0) Ur Specific [place] (1.005-1.030) Urine Protein (NEGATIVE) Urine Glucose (UA) (NEGATIVE) Urine Ketones (NEGATIVE) Urine Occult Blood (NEGATIVE) Urine Nitrite (NEGATIVE) Urine Bilirubin (NEGATIVE) Urine Urobilinogen (0.2-1.0) mg/dL Ur Leukocyte Esterase (NEGATIVE) Urine RBC /HPF Urine WBC (0-5/HPF) /HPF Ur Epithelial Cells (NOT SEEN) /HPF Amorphous Sediment (NOT SEEN) /HPF Urine Bacteria (0-FEW/HPF) /HPF Fine Granular Casts (NOT SEEN) /LPF Urine Mucus (NOT SEEN) /LPF Urine Opiates Screen (NEGATIVE) Ur Oxycodone Screen (NEGATIVE) Urine Methadone Screen (NEGATIVE) Ur Barbiturates Screen (NEGATIVE) U Tricyclic Antidepress (NEGATIVE) Ur Phencyclidine Scrn (NEGATIVE) Ur Amphetamine Screen (NEGATIVE) U Methamphetamines Scrn (NEGATIVE) Urine MDMA Screen (NEGATIVE) U Benzodiazepines Scrn (NEGATIVE) Urine Cocaine Screen (NEGATIVE) U Marijuana (THC) Screen (NEGATIVE) Ethyl Alcohol < 3 (0) mg/dL 07/20/20 07/20/20 07/20/20 Range/Units 21:29 21:29 22:59 WBC (5.0-10.0) 10^3/uL RBC (4.6-6.2) 10^6/uL Hgb (14.0-18.0) g/dL Hct (40.0-54.0) % MCV (80-100) fL MCH (27.0-34.0) pg MCHC (33.0-35.0) g/dL Plt Count (150-450) 10^3/uL Neut % (Auto) (42.2-75.2) % Lymph % (Auto) (20.5-50.1) % [place] % (Auto) (2-8) % Eos % (Auto) (1.0-3.0) % Baso % (Auto) (0.0-1.0) % Sodium (136-145) mmol/L Potassium (3.5-5.1) mmol/L Chloride (98-107) mmol/L Carbon Dioxide (21-32) mmol/L Anion Gap (7-13) mEq/L BUN (7-18) mg/dL Creatinine (0.70-1.30) mg/dL Est Cr Clr Drug Dosing Estimated GFR (MDRD) BUN/Creatinine Ratio (No establ ref range) Glucose (70-99) mg/dL POC Glucose 132 H (70-99) mg/dL Lactic Acid (0.4-2.0) mmol/L Calcium (8.5-10.1) mg/dL Magnesium (1.8-2.4) mg/dL Total Bilirubin (0.2-1.0) mg/dL AST (15-37) U/L ALT (16-63) U/L Alkaline Phosphatase (46-116) U/L Troponin I High Sens (<=76) pg/mL C-Reactive Protein (0.0-0.9) mg/dL B-Natriuretic Peptide (0-100) pg/ml Total Protein (6.4-8.2) g/dL Albumin (3.4-5.0) g/dL Globulin Albumin/Globulin Ratio Urine Color Yellow (YELLOW) Urine Appearance Clear (CLEAR) Urine pH 5.5 (5.0-9.0) Ur Specific [place] 1.025 (1.005-1.030) Urine Protein >=300 H (NEGATIVE) Urine Glucose (UA) >=1000 H (NEGATIVE) Urine Ketones Negative (NEGATIVE) Urine Occult Blood Small H (NEGATIVE) Urine Nitrite Negative (NEGATIVE) Urine Bilirubin Negative (NEGATIVE) Urine Urobilinogen 1.0 (0.2-1.0) mg/dL Ur Leukocyte Esterase Negative (NEGATIVE) Urine RBC 5-10 H /HPF Urine WBC 0-5 (0-5/HPF) /HPF Ur Epithelial Cells Rare (NOT SEEN) /HPF Amorphous Sediment Occasional (NOT SEEN) /HPF Urine Bacteria Occasional (0-FEW/HPF) /HPF Fine Granular Casts Rare H (NOT SEEN) /LPF Urine Mucus Rare (NOT SEEN) /LPF Urine Opiates Screen Negative (NEGATIVE) Ur Oxycodone Screen Negative (NEGATIVE) Urine Methadone Screen Negative (NEGATIVE) Ur Barbiturates Screen Negative (NEGATIVE) U Tricyclic Antidepress Negative (NEGATIVE) Ur Phencyclidine Scrn Negative (NEGATIVE) Ur Amphetamine Screen Negative (NEGATIVE) U Methamphetamines Scrn Negative (NEGATIVE) Urine MDMA Screen Negative (NEGATIVE) U Benzodiazepines Scrn Negative (NEGATIVE) Urine Cocaine Screen Negative (NEGATIVE) U Marijuana (THC) Screen Negative (NEGATIVE) Ethyl Alcohol (0) mg/dL Meds: Medications Generic Name Dose Route Start Last Admin Trade Name Freq PRN Reason Stop Dose Admin Dextrose/Water 50 ml 07/20/20 21:45 50% Dextrose In Water 50 Ml Syringe IVPUSH Q15M PRN Hypoglycemia Glucagon 1 mg 07/20/20 21:45 Glucagon,Human Recombinant 1 Mg Vial IM Q15M PRN Hypoglycemia Discontinued Medications Generic Name Dose Route Start Last Admin Trade Name Freq PRN Reason Stop Dose Admin Sodium Chloride 1,000 mls @ 999 mls/hr 07/20/20 20:44 07/20/20 20:53 Normal Saline IV 07/20/20 21:44 999 mls/hr .BOLUS ONE Administration Insulin Human Regular 5 unit 07/20/20 21:45 07/20/20 22:01 Insulin Regular, Human 100 Units/Ml 3 Ml Vial IV 07/20/20 21:46 5 units ONETIME ONE Administration Departure - Departure Time of Disposition: 00:18 Condition: Fair - Discharge Information *PRESCRIPTION DRUG MONITORING PROGRAM REVIEWED*: No *COPY OF PRESCRIPTION DRUG MONITORING REPORT IN PATIENT LAURENCE: No Sepsis Event Note (ED) - Focused Exam Vital Signs: Vital Signs Temp Pulse Resp BP Pulse Ox 07/20/20 20:25 97.2 F 114 H 16 131/88 98 - My Orders Last 24 Hours: My Active Orders 07/21/20 00:11 Blood Glucose Check, Bedside [RC] ONETIME - Assessment/Plan Last 24 Hours: My Active Orders 07/21/20 00:11 Blood Glucose Check, Bedside [RC] ONETIME
[2020-07-20 21:17] LABS: ANION GAP 12.7 mEq/L (7-13); CHLORIDE,CL 100 mmol/L (98-107); SODIUM,NA 135 mmol/L (136-145)
[2020-07-20] MEDS ORDERED: 50% Dextrose in Water 50 ML Syringe IVPUSH PRN (21:45)
[2020-07-20] MEDS ORDERED: Glucagon,Human Recombinant 1 MG Vial IM PRN (21:45)
[2020-07-20] MEDS ORDERED: Insulin Regular, Human 100 Units/ML 3 ML Vial IV ONE (21:45)
--- NOTE | 2020-07-20 23:46 | CR ---
PROCEDURE INFORMATION: Exam: XR Left Foot Exam date and time: 07/20/2020 11:16 PM Age: 40 years old Clinical indication: Other: Pain; Additional info: R/O osteomyelitis in great toe TECHNIQUE: Imaging protocol: XR Left foot. Views: 1 or 2 views. COMPARISON: CR Foot 2V Lt 04/05/2020 9:25 PM FINDINGS: Bones/joints: The distal phalanx of the great toe is chronically subluxed laterally. No great toe bone destruction seen. No great toe periosteal reaction. The 2nd toe has been amputated at the level of the metatarsophalangeal joint. There has been interval remodeling and smoothing of the distal aspect of the 2nd metatarsal. There has been healing of the distal aspect of the 3rd metatarsal. The 3rd metatarsal is narrow fused to the base of the proximal phalanx. There has been healing of the distal aspect of the 4th metatarsal. There is thick periosteal new bone formation distally which is smooth. No aggressive bone destruction the distal foot. There is a small spur at the Achilles tendon insertion upon the calcaneus. Soft tissues: There is ill-defined curvilinear calcification on the dorsum of the foot at the level of the cuneiforms and/or distal cuboid . This has not been seen previously. This could reflect periosteal reaction from prior trauma and/or infection. Generalized soft tissue prominence noted about the foot. No focal skin defect seen. IMPRESSION: 1. No evidence of acute osteomyelitis in the great toe. 2. Chronic subluxation of the distal phalanx of the great toe. 3. Curvilinear calcification in the dorsum of the foot could reflect periosteal reaction. See above. This could reflect the results of prior trauma and/or osteomyelitis. 4. Consider additional imaging studies, consider MR.
== END 2020-07-21 00:38 | disposition home or self-care (01) ==
LOC: DL.ED 20:19
DX: R56.9 Unspecified convulsions (principal); U07.1 COVID-19; E10.621 Type 1 diabetes mellitus with foot ulcer; L97.529 Non-pressure chronic ulcer of other part of left foot with unspecified severity; E10.40 Type 1 diabetes mellitus with diabetic neuropathy, unspecified; Z91.14 Patient's other noncompliance with medication regimen; Z88.6 Allergy status to analgesic agent; Z88.5 Allergy status to narcotic agent; Z79.899 Other long term (current) drug therapy
CPT/HCPCS: 36415; 73620-LT; 80053; 80177; 80305-QW; 80307; 81001; 82947; 83605; 83735; 83880; 84484; 85025; 86140; 93005; 99284-25; J1815-GY; J7030

== ENCOUNTER 2020-09-04 21:35 | Emergency (ER) | payer MEDICAID ==
[2020-09-04] MEDS ORDERED: levETIRAcetam 500 MG Tab PO ONE (21:36)
[2020-09-04] MEDS: Ondansetron 4 MG/2 ML SDV IVPUSH ONE ×2 (21:51→21:52)
[2020-09-04] MEDS: Ondansetron 4 MG/2 ML SDV ONE (21:51)
[2020-09-04] MEDS ORDERED: levETIRAcetam in NaCl (iso-os) 500 MG in Premix Bag 1 BAG IV ONE ×2 (22:09)
[2020-09-04] MEDS ORDERED: LORazepam 2 MG/ML SDV IVPUSH PRN (22:18)
[2020-09-04 22:34] LABS: ANION GAP 17.3 mEq/L (7-13); CHLORIDE,CL 100 mmol/L (98-107); SODIUM,NA 134 mmol/L (136-145)
[2020-09-04] MEDS ORDERED: Glucagon,Human Recombinant 1 MG Vial IM PRN (23:01)
[2020-09-04] MEDS ORDERED: 50% Dextrose in Water 50 ML Syringe IVPUSH PRN (23:01)
[2020-09-04] MEDS ORDERED: Insulin Regular, Human 100 Units/ML 3 ML Vial IV ONE (23:01)
--- NOTE | 2020-09-04 23:37 | CR ---
PROCEDURE INFORMATION: Exam: XR Chest Exam date and time: 09/04/2020 10:32 PM Age: 40 years old Clinical indication: Cough; Additional info: Cough post ictal TECHNIQUE: Imaging protocol: XR of the chest. Views: 1 view. COMPARISON: CR Chest 1V Frontal 07/16/2020 3:34 AM FINDINGS: Lungs: Some linear opacities are present in the lower hemithoraces bilaterally likely representing atelectasis. A subtle basilar pneumonitis cannot be entirely excluded. Pleural spaces: Unremarkable. No pleural effusion. No pneumothorax. Heart/Mediastinum: Unremarkable. No cardiomegaly. Bones/joints: Unremarkable. IMPRESSION: Linear opacity seen in the lower hemithoraces likely represents atelectasis although a mild basilar pneumonitis cannot be excluded.
--- NOTE | 2020-09-04 23:43 | EDM.PDOC ---
ED HPI GENERAL MEDICAL PROBLEM - General Chief Complaint: Neuro Symptoms/Deficits Stated Complaint: ABULANCE Time Seen by Provider: 09/04/20 21:55 Source of Information: Reports: Patient History Limitations: Reports: No Limitations - History of Present Illness INITIAL COMMENTS - FREE TEXT/NARRATIVE: ED nausea vomiting. 3 seizures at home today. hx seizure disorder, ran out of m eds 2 days prior, states forgot to have medications refilled. No injury. Diabetic. states blood sugars have been running high. Abdomen Pain Score (Numeric/FACES): 5 - Related Data Allergies Allergy/AdvReac Type Severity Reaction Status Date / Time acetaminophen [From [place]] Allergy Anxiety Verified 08/19/20 16:16 hydrocodone [From [place]] Allergy Anxiety Verified 08/19/20 16:16 Home Meds: Home Meds levETIRAcetam [Keppra] 500 mg PO BID 08/22/18 [History] Insulin Aspart [Insulin Aspart Flexpen] 10 units SUBCUT TIDMEALS 07/16/20 [History] Insulin Detemir [Levemir Flextouch] 40 units SUBCUT BEDTIME 07/16/20 [History] atorvaSTATin Calcium [Atorvastatin Calcium] 20 mg PO BEDTIME 07/16/20 [History] Ascorbic Acid [Vitamin C] 500 mg PO DAILY 30 Days #30 tablet 07/17/20 [Rx] Ferrous Sulfate 325 mg PO BIDMEALS 30 Days #60 tablet 07/17/20 [Rx] Pantoprazole [ProTONIX] 40 mg PO ACBREAKFAST 8 Days #8 tab.cr 07/17/20 [Rx] dexAMETHasone [Dexamethasone] 6 mg PO DAILY 8 Days #24 tab 07/17/20 [Rx] Gabapentin [Neurontin] 600 mg PO TID 08/19/20 [History] Hydrocodone/Acetaminophen [Hydrocodone-Acetamin 5-325 mg] 1 tab PO BEDTIME PRN 08/19/20 [History] Silver Sulfadiazine [Silvadene 1% Cream 25 GM] 1 applic TOP BID 08/19/20 [History] Sulfamethoxazole/Trimethoprim [Bactrim Ds Tablet] 1 each PO BID 08/19/20 [History] cephALEXin [Cephalexin] 500 mg PO Q6H 08/19/20 [History] lisinopriL [Lisinopril] 20 mg PO DAILY 07/06/21 [History] Past Medical History - Past Health History Medical/Surgical History: Denies Medical/Surgical History HEENT History: Reports: Impaired Vision, Other (See Below) Other HEENT History: waiting to repair retina Cardiovascular History: Reports: None Respiratory History: Reports: None Gastrointestinal History: Reports: None Genitourinary History: Reports: Acute Renal Failure, Other (See Below) Other Genitourinary History: Watching kidney labs at this time Musculoskeletal History: Reports: Amputation Neurological History: Reports: Neuropathy, Diabetic, Seizure Psychiatric History: Reports: None Endocrine/Metabolic History: Reports: Diabetes, Type I, Other (See Below) Other Endocrine/Metabolic History: Osteomyelitis Hematologic History: Reports: None Immunologic History: Reports: None Oncologic (Cancer) History: Reports: None Dermatologic History: Reports: Cellulitis - Infectious Disease History Infectious Disease History: Reports: MRSA - Past Surgical History Head Surgeries/Procedures: Reports: None GI Surgical History: Reports: None Musculoskeletal Surgical History: Reports: Amputation Other Musculoskeletal Surgeries/Procedures:: rt great toe amputation 08-22-18, 2nd toe on left foot amputation Social & Family History - Family History Family Medical History: No Pertinent Family History - Tobacco Use Tobacco Use Status *Q: Never Tobacco User - Caffeine Use Caffeine Use: Reports: Soda - Recreational Drug Use Recreational Drug Use: No - Living Situation & Occupation Living situation: Reports: Other (In detention as of 11/16/19) ED ROS GENERAL - Review of Systems Review Of Systems: Comprehensive ROS is negative, except as noted in HPI. - Physical Exam Exam: See Below Exam Limited By: No Limitations General Appearance: Lethargic (post ictal, arouses to voice) Eye Exam: Bilateral Eye: EOMI Ears: Normal External Exam Nose: Normal Inspection Throat/Mouth: Normal Inspection Head Exam: Atraumatic, Normocephalic Neck: Normal Inspection, Full Range of Motion Respiratory/Chest: No Respiratory Distress, Lungs Clear, Normal Breath Sounds, Other (rare cough) Cardiovascular: Normal Peripheral Pulses, Regular Rate, Rhythm GI/Abdominal: Normal Bowel Sounds, Soft Neuro Exam (Abbreviated): Normal Cognition, Slow to Respond Extremities: No: Increased Warmth Skin Exam: Dry, Wound/Incision (horizontal 5cm wound, dry crusted no erythema no swelling) Course - Vital Signs Last Recorded V/S: Last Vital Signs Temp 97.4 F 09/04/20 21:52 Pulse 103 H 09/04/20 21:52 Resp 16 09/04/20 21:52 BP 150/105 H 09/04/20 21:52 Pulse Ox 93 L 09/04/20 21:52 - Orders/Labs/Meds Labs: Laboratory Tests 09/04/20 09/04/20 09/04/20 Range/Units 21:45 21:45 22:01 WBC 15.2 H (5.0-10.0) 10^3/uL RBC 5.63 (4.6-6.2) 10^6/uL Hgb 15.0 (14.0-18.0) g/dL Hct 45.0 (40.0-54.0) % MCV 79.9 L (80-100) fL MCH 26.6 L (27.0-34.0) pg MCHC 33.3 (33.0-35.0) g/dL Plt Count 221 (150-450) 10^3/uL Neut % (Auto) 78.3 H (42.2-75.2) % Lymph % (Auto) 11.8 L (20.5-50.1) % [place] % (Auto) 9.2 H (2-8) % Eos % (Auto) 0.5 L (1.0-3.0) % Baso % (Auto) 0.2 (0.0-1.0) % Sodium 134 L (136-145) mmol/L Potassium 4.3 (3.5-5.1) mmol/L Chloride 100 (98-107) mmol/L Carbon Dioxide 21 (21-32) mmol/L Anion Gap 17.3 H (7-13) mEq/L BUN 19 H (7-18) mg/dL Creatinine 1.48 H (0.70-1.30) mg/dL Est Cr Clr Drug Dosing 72.09 mL/min Estimated GFR (MDRD) 52 BUN/Creatinine Ratio 12.8 (No establ ref range) Glucose 307 H (70-99) mg/dL POC Glucose 282 H (70-99) mg/dL Calcium 9.1 (8.5-10.1) mg/dL Total Bilirubin 0.5 (0.2-1.0) mg/dL AST 15 (15-37) U/L ALT 24 (16-63) U/L Alkaline Phosphatase 138 H (46-116) U/L Total Protein 7.8 (6.4-8.2) g/dL Albumin 3.2 L (3.4-5.0) g/dL Globulin 4.6 Albumin/Globulin Ratio 0.70 Ethyl Alcohol < 3 (0) mg/dL Meds: Medications Discontinued Medications Generic Name Dose Route Start Last Admin Trade Name Freq PRN Reason Stop Dose Admin Dextrose/Water 50 ml 09/04/20 23:01 50% Dextrose In Water 50 Ml Syringe IVPUSH Q15M PRN Hypoglycemia Glucagon 1 mg 09/04/20 23:01 Glucagon,Human Recombinant 1 Mg Vial IM Q15M PRN Hypoglycemia Levetiracetam 500 mg/ Premix 100 mls @ 400 mls/hr 09/04/20 22:09 09/04/20 22:14 IV 09/04/20 22:10 400 mls/hr ONETIME ONE Administration Insulin Human Regular 5 unit 09/04/20 23:01 09/04/20 23:32 Insulin Regular, Human 100 Units/Ml 3 Ml Vial IV 09/04/20 23:02 5 unit ONETIME ONE Administration Levetiracetam Confirm 09/04/20 23:56 Levetiracetam 500 Mg Tab Administered 09/04/20 23:57 Dose 500 mg .ROUTE .STK-MED ONE Levetiracetam 500 mg 09/04/20 21:36 Levetiracetam 500 Mg Tab PO 09/04/20 21:37 .STK-MED ONE Lorazepam 1 mg 09/04/20 22:18 Lorazepam 2 Mg/Ml Sdv IVPUSH ONETIME PRN Seizures Ondansetron HCl Confirm 09/04/20 21:47 09/08/20 15:23 Ondansetron 4 Mg/2 Ml Sdv Administered 09/04/20 21:48 Not Given Dose 4 mg .ROUTE .STK-MED ONE Ondansetron HCl 4 mg 09/04/20 21:51 09/04/20 21:51 Ondansetron 4 Mg/2 Ml Sdv IVPUSH 09/04/20 21:52 4 mg ONETIME ONE Administration Departure - Departure Time of Disposition: 01:55 Disposition: Home, Self-Care 01 Condition: Good Clinical Impression: Seizure, Noncompliance w/medication treatment due to intermit use of medication Hyperglycemia due to type 2 diabetes mellitus Qualifiers: Diabetes mellitus correction insulin use: with intermission coordinator use Qualified Code(s): E11.65 - Type 2 diabetes mellitus with hyperglycemia - Discharge Information *PRESCRIPTION DRUG MONITORING PROGRAM REVIEWED*: No *COPY OF PRESCRIPTION DRUG MONITORING REPORT IN PATIENT LAURENCE: No Instructions: Hyperglycemia, [id number], Seizure, Adult, [id number] Referrals: PCP,None [Primary Care Provider] - Forms: ED Department Discharge Additional Instructions: keppra 500mg twice daily #1 get medications refilled in am take insulin as directed diabetic diet wash wound twice daily over counter antibiotic to leg wound twice daily follow up if redness or swelling Sepsis Event Note (ED) - Evaluation Sepsis Screening Result: No Definite Risk
[2020-09-04] MEDS ORDERED: levETIRAcetam 500 MG Tab ONE (23:56)
[2020-09-08] MEDS: Ondansetron 4 MG/2 ML SDV ONE (15:23)
== END 2020-09-05 02:01 | disposition home or self-care (01) ==
LOC: DL.ED 21:35
DX: G40.909 Epilepsy, unspecified, not intractable, without status epilepticus (principal); E13.65 Other specified diabetes mellitus with hyperglycemia; E13.40 Other specified diabetes mellitus with diabetic neuropathy, unspecified; Z91.19 Patient's noncompliance with other medical treatment and regimen; Z88.5 Allergy status to narcotic agent
CPT/HCPCS: 36415; 71045; 80053; 80307; 82947; 85025; 96374; 96375; 99285; A9270; J1815; J1953; J2405

== ENCOUNTER 2020-10-03 18:00 | Emergency (ER) | payer MEDICAID ==
--- NOTE | 2020-10-03 20:15 | EDM.PDOC ---
ED HPI GENERAL MEDICAL PROBLEM - General Chief Complaint: Lower Extremity Injury/Pain Stated Complaint: LEFT BIG TOE POSSIBLE BROKEN PER PT Time Seen by Provider: 10/03/20 20:14 Source of Information: Reports: Patient History Limitations: Reports: No Limitations - History of Present Illness INITIAL COMMENTS - FREE TEXT/NARRATIVE: Patient is a unfortunate 40-year-old male who presents emerged part today with complaint of left great toe pain. The patient reports that he has had an amputation of his left second toe secondary to diabetes in December of last year and reports that his toe has been deformed since approximately 1 week after that surgery last year, the patient is missing all of his toes on his right foot from prior amputations, the patient reports that he noticed he was having some deformity of his right great toe after he had his amputation and had has rotated laterally at the IP joint and he reports he has had increasing pain over the last 2 days which caused him to seek care in the emergency department he denies any fever no chills he has no erythema at site, distal neurovascular is intact there is no wound Toe-Hailux Pain Score (Numeric/FACES): 7 - Related Data Allergies Allergy/AdvReac Type Severity Reaction Status Date / Time acetaminophen [From [place]] Allergy Anxiety Verified 10/03/20 18:16 hydrocodone [From [place]] Allergy Anxiety Verified 10/03/20 18:16 Home Meds: Home Meds levETIRAcetam [Keppra] 500 mg PO BID 08/22/18 [History] Insulin Aspart [Insulin Aspart Flexpen] 10 units SUBCUT TIDMEALS 07/16/20 [History] Insulin Detemir [Levemir Flextouch] 40 units SUBCUT BEDTIME 07/16/20 [History] atorvaSTATin Calcium [Atorvastatin Calcium] 20 mg PO BEDTIME 07/16/20 [History] Ascorbic Acid [Vitamin C] 500 mg PO DAILY 30 Days #30 tablet 07/17/20 [Rx] Ferrous Sulfate 325 mg PO BIDMEALS 30 Days #60 tablet 07/17/20 [Rx] Pantoprazole [ProTONIX] 40 mg PO ACBREAKFAST 8 Days #8 tab.cr 07/17/20 [Rx] dexAMETHasone [Dexamethasone] 6 mg PO DAILY 8 Days #24 tab 07/17/20 [Rx] Gabapentin [Neurontin] 600 mg PO TID 08/19/20 [History] Hydrocodone/Acetaminophen [Hydrocodone-Acetamin 5-325 mg] 1 tab PO BEDTIME PRN 08/19/20 [History] cephALEXin [Cephalexin] 500 mg PO Q6H 08/19/20 [History] lisinopriL [Lisinopril] 20 mg PO DAILY 08/19/20 [History] Ibuprofen [Motrin] 800 mg PO TID PRN #15 tab 10/03/20 [Rx] Past Medical History - Past Health History Medical/Surgical History: Denies Medical/Surgical History HEENT History: Reports: Impaired Vision, Other (See Below) Other HEENT History: waiting to repair retina Cardiovascular History: Reports: None Respiratory History: Reports: None Gastrointestinal History: Reports: None Genitourinary History: Reports: Acute Renal Failure, Other (See Below) Other Genitourinary History: Watching kidney labs at this time Musculoskeletal History: Reports: Amputation Neurological History: Reports: Neuropathy, Diabetic, Seizure Psychiatric History: Reports: None Endocrine/Metabolic History: Reports: Diabetes, Type I, Other (See Below) Other Endocrine/Metabolic History: Osteomyelitis Hematologic History: Reports: None Immunologic History: Reports: None Oncologic (Cancer) History: Reports: None Dermatologic History: Reports: Cellulitis - Infectious Disease History Infectious Disease History: Reports: MRSA - Past Surgical History Head Surgeries/Procedures: Reports: None GI Surgical History: Reports: None Musculoskeletal Surgical History: Reports: Amputation Other Musculoskeletal Surgeries/Procedures:: rt great toe amputation 08-22-19, 2nd toe on left foot amputation Social & Family History - Family History Family Medical History: No Pertinent Family History - Caffeine Use Caffeine Use: Reports: Tea - Living Situation & Occupation Living situation: Reports: Other (In [facility] as of 11/16/19) Review of Systems - Review of Systems Review Of Systems: See Below Constitutional: Denies: Chills, Fever Eyes: Denies: Blurred Vision Musculoskeletal: Reports: Foot Pain, Joint Pain ED EXAM, GENERAL - Physical Exam Exam: See Below Exam Limited By: No Limitations General Appearance: Alert, WD/WN, Mild Distress Ears: Normal External Exam, Normal Canal, Hearing Grossly Normal, Normal TMs Throat/Mouth: Normal Inspection, Normal Lips, Normal Teeth, Normal Gums, Normal Oropharynx, Normal Voice, No Airway Compromise Neck: Normal Inspection, Supple, Non-Tender, Full Range of Motion Respiratory/Chest: No Respiratory Distress, Lungs Clear, Normal Breath Sounds, No Accessory Muscle Use, Chest Non-Tender Cardiovascular: Normal Peripheral Pulses, Regular Rate, Rhythm, No Edema, No Gallop, No JVD, No Murmur, No Rub GI/Abdominal: Normal Bowel Sounds, Soft, Non-Tender, No Organomegaly, No Distention, No Abnormal Bruit, No Mass Back Exam: Normal Inspection, Full Range of Motion, NT Extremities: Joint Swelling, Other (Lateral deformity of the left great toe at the IP joint, there is no wound, no erythema, patient complains of tenderness to site, patient is missing all the toes from prior amputation to his right foot) Neurological: Alert, Oriented, CN II-XII Intact, Normal Cognition, Normal Gait, Normal Reflexes, No Motor/Sensory Deficits Skin Exam: Warm, Dry, Intact, Normal Color, No Rash Course - Vital Signs Text/Narrative:: Patient's x-ray shows a dislocation at the left first IP joint, this is chronic in nature since it has been since December of last year, we will not attempt reduction at this time, patient needs follow-up outpatient with podiatry will encourage patient to follow-up with his PCP at [facility] and get referral to podiatry Last Recorded V/S: Last Vital Signs Temp 96.2 F L 10/03/20 18:08 Pulse 117 H 10/03/20 18:08 Resp 16 10/03/20 18:08 BP 116/73 10/03/20 18:08 Pulse Ox 98 10/03/20 18:08 - Orders/Labs/Meds Orders: Active Orders 24 hr Category Date Time Status Foot Comp Min 3V Rt [CR] Urgent Exams 10/03/20 19:48 Taken Departure - Departure Time of Disposition: 20:26 Disposition: Home, Self-Care 01 Condition: Good Clinical Impression: Pain of left great toe - Discharge Information *PRESCRIPTION DRUG MONITORING PROGRAM REVIEWED*: No *COPY OF PRESCRIPTION DRUG MONITORING REPORT IN PATIENT LAURENCE: No Prescriptions: Ibuprofen [Motrin] 800 mg PO TID PRN #15 tab PRN Reason: Pain Instructions: Foot Pain Forms: ED Department Discharge Additional Instructions: Home, rest, adequate fluids, follow-up with your PCP and get a referral to podiatry, return as needed for any worsening condition Sepsis Event Note (ED) - Evaluation Sepsis Screening Result: No Definite Risk - Focused Exam Vital Signs: Vital Signs Temp Pulse Resp BP Pulse Ox 10/03/20 18:08 96.2 F L 117 H 16 116/73 98 - My Orders Last 24 Hours: My Active Orders 10/03/20 19:48 Foot Comp Min 3V Rt [CR] Urgent - Assessment/Plan Last 24 Hours: My Active Orders 10/03/20 19:48 Foot Comp Min 3V Rt [CR] Urgent
--- NOTE | 2020-10-03 20:41 | CR ---
PROCEDURE INFORMATION: Exam: XR Right Foot Exam date and time: 10/03/2020 8:07 PM Age: 40 years old Clinical indication: Other: No known trauma; Additional info: Pain/deformity TECHNIQUE: Imaging protocol: XR Right foot. Views: 3 or more views. COMPARISON: No relevant prior studies available. FINDINGS: Bones/joints: The interphalangeal joint of the great toe is dislocated. The distal phalanx is located lateral to the proximal phalanx, with the bones at a right angle to one another. There has been previous amputation of the 2nd metatarsal head and toe. There is advanced arthropathy of the 3rd MTP joint. There is calcified bridging callus along the dorsum of the midfoot. No acute fracture is appreciated. Soft tissues: There is nonspecific soft tissue swelling. IMPRESSION: Dislocation of the 1st digit interphalangeal joint. No acute fracture is identified.
== END 2020-10-03 20:40 | disposition home or self-care (01) ==
LOC: DL.ED 18:00
DX: S93.111A Dislocation of interphalangeal joint of right great toe, initial encounter (principal); E10.9 Type 1 diabetes mellitus without complications; N17.9 Acute kidney failure, unspecified; Z79.899 Other long term (current) drug therapy; Z88.5 Allergy status to narcotic agent; X58.XXXA Exposure to other specified factors, initial encounter
CPT/HCPCS: 73630-RT; 99283-25

== ENCOUNTER 2020-12-22 13:27 | Emergency (ER) | payer MEDICAID ==
--- NOTE | 2020-12-22 13:20 | EDM.PDOC ---
ED HPI GENERAL MEDICAL PROBLEM - General Chief Complaint: Lower Extremity Injury/Pain Stated Complaint: AMBULANCE Time Seen by Provider: 12/22/20 13:45 Source of Information: Reports: Patient, EMS, Old Records, RN, RN Notes Reviewed History Limitations: Reports: No Limitations - History of Present Illness INITIAL COMMENTS - FREE TEXT/NARRATIVE: Pt arrives to ER from home by [facility] with c/o left foot infection. Pt reports having a painful open ulcer on the left foot for several months. He states the left foot "stinks like rot" and sometimes drains pus into his sock. 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 He states that for approx. 6 to 12 months he has had an open ulcer on the bottom of the left foot but did not seek medical attention until he moved back to [place] from [place] one year ago. He was transferred to [facility] but states "nothing was done" and he did not follow up. Onset: Unknown/Unsure Duration: Chronic, Getting Worse Location: Reports: Lower Extremity, Left Quality: Reports: Ache, Same as Previous Episode, Throbbing Severity: Moderate Improves with: Reports: None Worsens with: Reports: Other (Wt bearing) Associated Symptoms: Reports: No Other Symptoms Left Foot Pain Score (Numeric/FACES): 8 - Related Data Allergies Allergy/AdvReac Type Severity Reaction Status Date / Time acetaminophen [From [place]] Allergy Anxiety Verified 12/22/20 13:36 hydrocodone [From [place]] Allergy Anxiety Verified 12/22/20 13:36 Home Meds: Home Meds levETIRAcetam [Keppra] 500 mg PO BID 08/22/18 [History] Insulin Aspart [Insulin Aspart Flexpen] 10 units SUBCUT TIDMEALS 07/16/20 [History] Insulin Detemir [Levemir Flextouch] 40 units SUBCUT BEDTIME 07/16/20 [History] atorvaSTATin Calcium [Atorvastatin Calcium] 20 mg PO BEDTIME 07/16/20 [History] Ascorbic Acid [Vitamin C] 500 mg PO DAILY 30 Days #30 tablet 07/17/20 [Rx] Ferrous Sulfate 325 mg PO BIDMEALS 30 Days #60 tablet 07/17/20 [Rx] Pantoprazole [ProTONIX] 40 mg PO ACBREAKFAST 8 Days #8 tab.cr 07/17/20 [Rx] dexAMETHasone [Dexamethasone] 6 mg PO DAILY 8 Days #24 tab 07/17/20 [Rx] Gabapentin [Neurontin] 600 mg PO TID 08/19/20 [History] Hydrocodone/Acetaminophen [Hydrocodone-Acetamin 5-325 mg] 1 tab PO BEDTIME PRN 08/19/20 [History] cephALEXin [Cephalexin] 500 mg PO Q6H 08/19/20 [History] lisinopriL [Lisinopril] 20 mg PO DAILY 08/19/20 [History] Ibuprofen [Motrin] 800 mg PO TID PRN #15 tab 10/03/20 [Rx] Past Medical History - Past Health History Medical/Surgical History: Denies Medical/Surgical History HEENT History: Reports: Impaired Vision, Other (See Below) Other HEENT History: waiting to repair retina Cardiovascular History: Reports: None Respiratory History: Reports: None Gastrointestinal History: Reports: None Genitourinary History: Reports: Acute Renal Failure, Other (See Below) Other Genitourinary History: Watching kidney labs at this time Musculoskeletal History: Reports: Amputation Neurological History: Reports: Neuropathy, Diabetic, Seizure Psychiatric History: Reports: None Endocrine/Metabolic History: Reports: Diabetes, Type I, Other (See Below) Other Endocrine/Metabolic History: Osteomyelitis Hematologic History: Reports: None Immunologic History: Reports: None Oncologic (Cancer) History: Reports: None Dermatologic History: Reports: Cellulitis - Infectious Disease History Infectious Disease History: Reports: MRSA - Past Surgical History Head Surgeries/Procedures: Reports: None GI Surgical History: Reports: None Musculoskeletal Surgical History: Reports: Amputation Other Musculoskeletal Surgeries/Procedures:: rt great toe amputation 08-22-18, 2nd toe on left foot amputation Social & Family History - Family History Family Medical History: No Pertinent Family History - Caffeine Use Caffeine Use: Reports: Tea - Living Situation & Occupation Living situation: Reports: Other (In senior care as of 11/16/19) Review of Systems - Review of Systems Review Of Systems: Comprehensive ROS is negative, except as noted in HPI. ED EXAM, GENERAL - Physical Exam Exam: See Below Exam Limited By: No Limitations General Appearance: Alert, WD/WN, No Apparent Distress Head: Atraumatic, Normocephalic Neck: Normal Inspection Respiratory/Chest: No Respiratory Distress Cardiovascular: Regular Rate, Rhythm Extremities: No Pedal Edema, Slow Capillary Refill, Increased Warmth, Other (Rt forefoot amputation. Left plantar ulcer 3cm bradley. unstagable, smell foul, no purulent drainage, no abscess. S/P left 2nd toe amputation, deformed 1st toe. No erythema, mild forefoot swelling.). No: Joint Swelling, Mottled, Pallor, Redness Neurological: Alert, Oriented, No Motor/Sensory Deficits Psychiatric: Normal Mood Course - Vital Signs Last Recorded V/S: Last Vital Signs Temp 96.8 F L 12/22/20 13:34 Pulse 97 12/22/20 13:34 Resp 18 12/22/20 13:34 BP 140/105 H 12/22/20 13:34 Pulse Ox 97 12/22/20 13:34 - Orders/Labs/Meds Orders: Active Orders 24 hr Category Date Time Status Peripheral IV Care [RC] . DIRECTED Care 12/22/20 13:58 Active Pharmacy to Dose - Vancomycin Med 12/22/20 16:44 Pending 1 dose .XX ONETIME ONE Sodium Chloride 0.9% [Saline Flush] Med 12/22/20 13:57 Active 10 ml FLUSH ASDIRECTED PRN Vancomycin 2 gm Med 12/22/20 17:00 Active Sodium Chloride 0.9% [Normal Saline] 500 ml IV ONETIME Peripheral IV Insertion Adult [OM.PC] Stat Oth 12/22/20 13:58 Ordered Medication Orders Vancomycin HCl 2 gm/ Sodium (Chloride) 500 mls @ 250 mls/hr IV ONETIME ONE Stop: 12/22/20 18:59 Last Admin: 12/22/20 17:26 Dose: 250 mls/hr Documented by: ARAVIND Sodium Chloride (Sodium Chloride 0.9% 10 Ml Syringe) 10 ml FLUSH ASDIRECTED PRN PRN Reason: Keep Vein Open Last Admin: 12/22/20 14:10 Dose: 10 ml Documented by: ARAVIND Vancomycin HCl (Pharmacy To Dose - Vancomycin) 1 dose .XX ONETIME ONE Stop: 12/22/20 16:45 Labs: Laboratory Tests 12/22/20 12/22/20 12/22/20 Range/Units 14:10 14:10 14:10 WBC 10.1 H (5.0-10.0) 10^3/uL RBC 5.17 (4.6-6.2) 10^6/uL Hgb 14.0 (14.0-18.0) g/dL Hct 42.6 (40.0-54.0) % MCV 82.4 (80-100) fL MCH 27.1 (27.0-34.0) pg MCHC 32.9 L (33.0-35.0) g/dL Plt Count 236 (150-450) 10^3/uL Neut % (Auto) 74.9 (42.2-75.2) % Lymph % (Auto) 16.7 L (20.5-50.1) % [place] % (Auto) 5.8 (2-8) % Eos % (Auto) 2.3 (1.0-3.0) % Baso % (Auto) 0.3 (0.0-1.0) % Sodium 143 (136-145) mmol/L Potassium 4.3 (3.5-5.1) mmol/L Chloride 107 (98-107) mmol/L Carbon Dioxide 28 (21-32) mmol/L Anion Gap 12.3 (7-13) mEq/L BUN 24 H (7-18) mg/dL Creatinine 1.35 H (0.70-1.30) mg/dL Est Cr Clr Drug Dosing 79.04 mL/min Estimated GFR (MDRD) 58 BUN/Creatinine Ratio 17.8 (No establ ref range) Glucose 242 H (70-99) mg/dL Lactic Acid 1.4 (0.4-2.0) mmol/L Calcium 8.8 (8.5-10.1) mg/dL Total Bilirubin 0.8 (0.2-1.0) mg/dL AST 14 L (15-37) U/L ALT 24 (16-63) U/L Alkaline Phosphatase 128 H (46-116) U/L C-Reactive Protein 0.7 (0.0-0.9) mg/dL Total Protein 7.3 (6.4-8.2) g/dL Albumin 2.8 L (3.4-5.0) g/dL Globulin 4.5 Albumin/Globulin Ratio 0.62 Meds: Medications Generic Name Dose Route Start Last Admin Trade Name Freq PRN Reason Stop Dose Admin Vancomycin HCl 2 gm/ Sodium 500 mls @ 250 mls/hr 12/22/20 17:00 12/22/20 17:26 Chloride IV 12/22/20 18:59 250 mls/hr ONETIME ONE Administration Sodium Chloride 10 ml 12/22/20 13:57 12/22/20 14:10 Sodium Chloride 0.9% 10 Ml Syringe FLUSH 10 ml ASDIRECTED PRN Administration Keep Vein Open Vancomycin HCl 1 dose 12/22/20 16:44 Pharmacy To Dose - Vancomycin .XX 12/22/20 16:45 ONETIME ONE Discontinued Medications Generic Name Dose Route Start Last Admin Trade Name Freq PRN Reason Stop Dose Admin Diphenhydramine HCl 25 mg 12/22/20 16:45 12/22/20 16:54 Diphenhydramine 50 Mg/Ml Sdv IVPUSH 12/22/20 16:46 25 mg ONETIME ONE Administration Tramadol HCl 50 mg 12/22/20 16:45 12/22/20 16:52 Tramadol 50 Mg Tab PO 12/22/20 16:46 50 mg ONETIME ONE Administration - Radiology Interpretation Free Text/Narrative:: Left foot CT: Osteomyelitis, cuneiform bones, left midfoot. Recommend orthopedic consultation and MRI follow-up patient with previous amputation contralateral right forefoot. See rad report. - Re-Assessments/Exams Free Text/Narrative Re-Assessment/Exam: 12/22/20 18:32 I consulted Tess Lora MANAGER PERSONAL at [facility] to inform her that no bed for admission is available in , or anywhere in the [facility] at this time. Tess agrees to see the pt in clinic tomorrow at 1500HR for recheck and referral to ortho. and wound care, and provide any necessary ongoing care. The pt will be given the [facility] number for transportation assistance through the [facility]. Departure - Departure Time of Disposition: 19:15 Disposition: Home, Self-Care 01 Condition: Fair Clinical Impression: Diabetic ulcer of left foot Qualifiers: Diabetic foot ulcer location: midfoot Diabetes mellitus type: type 2 Non- pressure ulcer stage: unspecified non-pressure ulcer stage Qualified Code(s): E11.621 - Type 2 diabetes mellitus with foot ulcer Osteomyelitis of left foot Qualifiers: Osteomyelitis type: other chronic Qualified Code(s): M86.672 - Other chronic osteomyelitis, left ankle and foot - Discharge Information *PRESCRIPTION DRUG MONITORING PROGRAM REVIEWED*: Not Applicable *COPY OF PRESCRIPTION DRUG MONITORING REPORT IN PATIENT LAURENCE: Not Applicable Instructions: Crutch Use, Adult, [id number], Osteomyelitis, Adult Forms: ED Department Discharge Additional Instructions: Rx: Cipro 500mg Rx: Clindamycin 300mg Use crutches to keep weight off of the left foot. You have an appointment at [facility] tomorrow, Dec.23 at 3:00PM with Tess Lora MANAGER PERSONAL. Call the [facility] van for a ride to the clinic if you need transportation: [phone], or [phone] for a ride (call several hours in advance). Sepsis Event Note (ED) - Focused Exam Vital Signs: Vital Signs Temp Pulse Resp BP Pulse Ox 12/22/20 13:34 96.8 F L 97 18 140/105 H 97 - My Orders Last 24 Hours: My Active Orders 12/22/20 13:57 Sodium Chloride 0.9% [Saline Flush] 10 ml FLUSH ASDIRECTED PRN 12/22/20 13:58 Peripheral IV Care [RC] . DIRECTED Peripheral IV Insertion Adult [OM.PC] Stat 12/22/20 16:44 Pharmacy to Dose - Vancomycin 1 dose .XX ONETIME ONE 12/22/20 17:00 Vancomycin 2 gm Sodium Chloride 0.9% [Normal Saline] 500 ml IV ONETIME - Assessment/Plan Last 24 Hours: My Active Orders 12/22/20 13:57 Sodium Chloride 0.9% [Saline Flush] 10 ml FLUSH ASDIRECTED PRN 12/22/20 13:58 Peripheral IV Care [RC] . DIRECTED Peripheral IV Insertion Adult [OM.PC] Stat 12/22/20 16:44 Pharmacy to Dose - Vancomycin 1 dose .XX ONETIME ONE 12/22/20 17:00 Vancomycin 2 gm Sodium Chloride 0.9% [Normal Saline] 500 ml IV ONETIME
[2020-12-22] MEDS ORDERED: Sodium Chloride 0.9% 10 ML Syringe FLUSH PRN (13:57)
[2020-12-22 14:47] LABS: ANION GAP 12.3 mEq/L (7-13)
--- NOTE | 2020-12-22 16:24 | CT ---
EXAMINATION: Foot wo Cont Lt SEX: Male AGE: 40 years CLINICAL HISTORY: 40-year-old 208 pound diabetic male with left foot ulcer, regional infection, and "putrid" smell. Several previous forefoot surgeries bilaterally (forefoot amputation on the right). Plain film exam 20 July 2020 left foot revealed "ill-defined curvilinear calcification dorsum foot at the level of cuneiforms or distal cuboid not previously seen". Scan technique: Volume acquisition of data emergency unenhanced CT scan of both ankles and feet obtained with patient lying supine on the Siemens multislice scanner [place], [place]. All data archived in the PACS system for storage, reformatting axial/sagittal/coronal planes and study. Comparison CT exam 22 September 2018. Interpretation: Abnormal. 1. Extensive soft tissue swelling. 2. New osteolytic bony destruction of the medial cuneiform left foot. Adjacent calcified sequestrum in the dorsal soft tissues of the left foot. Lucency head of the first metatarsal also worrisome (infection across the joint?). 3. Abnormal lucency body of the intermediate cuneiform and adjacent lateral cuneiform left midfoot is suspicious. 4. Ankle joint and talonavicular bones proximally appear to be spared. 5. No foreign bodies. No inflammatory periostitis. CONCLUSION: Osteomyelitis, cuneiform bones, left midfoot. Recommend orthopedic consultation and MRI follow-up patient with previous amputation contralateral right forefoot.
[2020-12-22] MEDS ORDERED: diphenhydrAMINE 50 MG/ML SDV IVPUSH ONE (16:45)
[2020-12-22] MEDS ORDERED: traMADol 50 MG Tab PO ONE (16:45)
[2020-12-22] MEDS ORDERED: Vancomycin 2 GM in Sodium Chloride 0.9% 500 ML IV ONE (17:00)
== END 2020-12-22 19:49 | disposition home or self-care (01) ==
LOC: DL.ED 13:27
DX: E11.621 Type 2 diabetes mellitus with foot ulcer (principal); E11.40 Type 2 diabetes mellitus with diabetic neuropathy, unspecified; L97.429 Non-pressure chronic ulcer of left heel and midfoot with unspecified severity; M86.672 Other chronic osteomyelitis, left ankle and foot; Z79.4 Long term (current) use of insulin; Z88.5 Allergy status to narcotic agent; Z88.8 Allergy status to other drugs, medicaments and biological substances; Z79.899 Other long term (current) drug therapy
CPT/HCPCS: 36415; 73700; 80053; 83605; 85025; 86140; 96365; 96366; 96375; 99284; A9270; J1200; J3370; J7040

== ENCOUNTER 2021-01-28 16:19 | Emergency (ER) | payer MEDICAID ==
[2021-01-28] MEDS ORDERED: HYDROmorphone 1 MG/ML Syringe IVPUSH ONE (16:41)
[2021-01-28] MEDS ORDERED: Iopamidol 612 MG/ML 100 ML Bottle IVPUSH ONE (17:49)
--- NOTE | 2021-01-28 18:36 | EDM.PDOC ---
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 The patient notes he has been falling onto his stump when attempting to transfer to his wheelchair or ambulate with a walker. He denies striking his head or loss of consciousness during these falls. He is uncertain when his surgery was performed or who his surgeon was, however is notes it was performed at [facility] in [place]. He notes recent chills, nausea, and diarrhea as well as increased pain and erythema to the inferior stump. He denies fever, dizziness, vision changes, chest pain/pressure, palpitations, vomiting, or drainage from the incision site. He is uncertain when he last took medications for his pain; he was given Fentanyl 100mcg en route via EMS. He denies tobacco, alcohol, or recreational drugs. Left Lower Leg Pain Score (Numeric/FACES): 10 - Related Data Allergies Allergy/AdvReac Type Severity Reaction Status Date / Time acetaminophen [From [place]] Allergy Anxiety Verified 01/28/21 16:41 hydrocodone [From [place]] Allergy Anxiety Verified 01/28/21 16:41 Home Meds: Home Meds levETIRAcetam [Keppra] 500 mg PO BID 08/22/18 [History] Insulin Aspart [Insulin Aspart Flexpen] 10 units SUBCUT TIDMEALS 07/16/20 [Hi story] Insulin Detemir [Levemir Flextouch] 40 units SUBCUT BEDTIME 07/16/20 [History] atorvaSTATin Calcium [Atorvastatin Calcium] 20 mg PO BEDTIME 07/16/20 [History] Ascorbic Acid [Vitamin C] 500 mg PO DAILY 30 Days #30 tablet 07/17/20 [Rx] Ferrous Sulfate 325 mg PO BIDMEALS 30 Days #60 tablet 07/17/20 [Rx] Pantoprazole [ProTONIX] 40 mg PO ACBREAKFAST 8 Days #8 tab.cr 07/17/20 [Rx] dexAMETHasone [Dexamethasone] 6 mg PO DAILY 8 Days #24 tab 07/17/20 [Rx] Gabapentin [Neurontin] 600 mg PO TID 08/19/20 [History] Hydrocodone/Acetaminophen [Hydrocodone-Acetamin 5-325 mg] 1 tab PO BEDTIME PRN 08/19/20 [History] cephALEXin [Cephalexin] 500 mg PO Q6H 08/19/20 [History] lisinopriL [Lisinopril] 20 mg PO DAILY 08/19/20 [History] Ibuprofen [Motrin] 800 mg PO TID PRN #15 tab 10/03/20 [Rx] Past Medical History - Past Health History Medical/Surgical History: Denies Medical/Surgical History HEENT History: Reports: Impaired Vision, Other (See Below) Other HEENT History: waiting to repair retina Cardiovascular History: Reports: Hypertension, PVD Respiratory History: Reports: None Gastrointestinal History: Reports: None Genitourinary History: Reports: Acute Renal Failure, Other (See Below) Other Genitourinary History: Watching kidney labs at this time Musculoskeletal History: Reports: Amputation Neurological History: Reports: Neuropathy, Diabetic, Seizure Psychiatric History: Reports: None Endocrine/Metabolic History: Reports: Diabetes, Type I, Other (See Below) Other Endocrine/Metabolic History: Osteomyelitis Hematologic History: Reports: Anemia Immunologic History: Reports: None Oncologic (Cancer) History: Reports: None Dermatologic History: Reports: Cellulitis - Infectious Disease History Infectious Disease History: Reports: MRSA - Past Surgical History Head Surgeries/Procedures: Reports: None GI Surgical History: Reports: None Musculoskeletal Surgical History: Reports: Amputation Other Musculoskeletal Surgeries/Procedures:: rt great toe amputation 08-22-18, 2nd toe on left foot amputation Social & Family History - Family History Family Medical History: No Pertinent Family History - Tobacco Use Tobacco Use Status *Q: Current Every Day Tobacco User Years of Tobacco use: 5 Packs/Tins Daily: 1 - Caffeine Use Caffeine Use: Reports: Coffee - Living Situation & Occupation Living situation: Reports: Other (In senior care as of 11/16/19) ED ROS GENERAL - Review of Systems Review Of Systems: Comprehensive ROS is negative, except as noted in HPI. ED EXAM, SKIN/RASH Exam: See Below Exam Limited By: No Limitations General Appearance: Alert, Mild Distress (Pain to left BKA stump) Eye Exam: Bilateral Eye: EOMI, Normal Inspection, PERRL (3mm) Ears: Normal External Exam, Hearing Grossly Normal Nose: Normal Inspection, Normal Mucosa, No Blood Throat/Mouth: Normal Voice, No Airway Compromise. No: Normal Oropharynx (Dry mucous membranes ) Head: Atraumatic, Normocephalic Neck: Normal Inspection, Supple, Non-Tender, Full Range of Motion. No: Lymphadenopathy (L), Lymphadenopathy (R) Respiratory/Chest: No Respiratory Distress, Lungs Clear, Normal Breath Sounds, No Accessory Muscle Use, Chest Non-Tender Cardiovascular: Normal Peripheral Pulses, Regular Rate, Rhythm, No Edema, No Gallop, No JVD, No Murmur, No Rub Peripheral Pulses: 2+: Radial (L), Radial (R), Popliteal (L) GI/Abdominal: Normal Bowel Sounds, Soft, Non-Tender, No Distention, No Abnormal Bruit, No Mass, Pelvis Stable (Male) Exam: Deferred Rectal (Males) Exam: Deferred Back Exam: Normal Inspection, Full Range of Motion Extremities: Redness (To inferior left BKA stump), Other (Left BKA with hector in place to a clean incision). No: Joint Swelling, Increased Warmth Neurological: Alert, Oriented, CN II-XII Intact, Normal Cognition, No Motor/Sensory Deficits Psychiatric: Normal Affect, Normal Mood Skin: Warm, Dry, Erythema (To inferior BKA stump), Wound/Incision (Mcdonough in place to clean/dry incision on left BKA stump). No: Cyanosis, Mottled, Pallor Location, Skin: Lower Extremity, Left Characteristics: Erythematous Associated features: Tenderness, Scaling, Inflammation. No: Warmth, Crusting, W eeping Departure - Departure Disposition: Home, Self-Care 01 Clinical Impression: Cellulitis Qualifiers: Site of cellulitis: extremity Site of cellulitis of extremity: lower extremity Laterality: left Qualified Code(s): L03.116 - Cellulitis of left lower limb - Discharge Information Instructions: Cellulitis, Adult, [place] Forms: ED Department Discharge Care Plan Goals: The patient was advised of the examination and CT results during the visit. The patient was given IV Dilaudid, IV Toradol and IV Doxycycline while in the ED. The patient was discharged with a script for Doxycycline (100 mg) #20 to take 1 by mouth 2 times per day for 10 days. The patient was advised to follow-up with his primary care facility for continued evaluation and treatment (physical therapy). If the patient has any additional symptoms or concerns, the patient should either return to the emergency department or visit his primary care facility. <Padilla Saha M - Last Filed: 01/28/21 19:40> Course - Vital Signs Last Recorded V/S: Last Vital Signs Temp 97.9 F 01/28/21 16:36 Pulse 100 01/28/21 16:36 Resp 14 01/28/21 16:36 BP 138/96 H 01/28/21 16:36 Pulse Ox 100 01/28/21 16:36 - Orders/Labs/Meds Orders: Active Orders 24 hr Category Date Time Status CORONAVIRUS COVID-19 EKTA [MOLEC] Stat Lab 01/28/21 18:53 Ordered Doxycycline [Vibramycin] 100 mg Med 01/28/21 19:28 Ordered Sodium Chloride 0.9% [Normal Saline AdvBag] 100 ml IV ONETIME Medication Orders Doxycycline Hyclate 100 mg/ (Sodium Chloride) 100 mls @ 100 mls/hr IV ONETIME ONE Stop: 01/28/21 20:27 Labs: Laboratory Tests 01/28/21 01/28/21 01/28/21 Range/Units 16:54 16:54 16:54 WBC 14.7 H (5.0-10.0) 10^3/uL RBC 4.60 (4.6-6.2) 10^6/uL Hgb 12.5 L D (14.0-18.0) g/dL Hct 37.4 L (40.0-54.0) % MCV 81.3 (80-100) fL MCH 27.2 (27.0-34.0) pg MCHC 33.4 (33.0-35.0) g/dL Plt Count 287 (150-450) 10^3/uL Neut % (Auto) 78.4 H (42.2-75.2) % Lymph % (Auto) 12.7 L (20.5-50.1) % [place] % (Auto) 8.3 H (2-8) % Eos % (Auto) 0.3 L (1.0-3.0) % Baso % (Auto) 0.3 (0.0-1.0) % Sodium 137 (136-145) mmol/L Potassium 4.0 (3.5-5.1) mmol/L Chloride 102 (98-107) mmol/L Carbon Dioxide 19 L (21-32) mmol/L Anion Gap 20.0 H (7-13) mEq/L BUN 34 H (7-18) mg/dL Creatinine 1.63 H (0.70-1.30) mg/dL Est Cr Clr Drug Dosing 57.70 mL/min Estimated GFR (MDRD) 47 BUN/Creatinine Ratio 20.9 (No establ ref range) Glucose 147 H (70-99) mg/dL Lactic Acid 1.2 (0.4-2.0) mmol/L Calcium 8.6 (8.5-10.1) mg/dL Total Bilirubin 1.0 (0.2-1.0) mg/dL AST 23 (15-37) U/L ALT 28 (16-63) U/L Alkaline Phosphatase 126 H (46-116) U/L C-Reactive Protein 1.8 H (0.0-0.9) mg/dL Total Protein 7.6 (6.4-8.2) g/dL Albumin 3.1 L (3.4-5.0) g/dL Globulin 4.5 Albumin/Globulin Ratio 0.69 Meds: Medications Generic Name Dose Route Start Last Admin Trade Name Kalpeshq PRN Reason Stop Dose Admin Doxycycline Hyclate 100 mg/ 100 mls @ 100 mls/hr 01/28/21 19:28 Sodium Chloride IV 01/28/21 20:27 ONETIME ONE Discontinued Medications Generic Name Dose Route Start Last Admin Trade Name Julia PRN Reason Stop Dose Admin Hydromorphone HCl 1 mg 01/28/21 16:41 01/28/21 16:56 Hydromorphone 1 Mg/Ml Syringe IVPUSH 01/28/21 16:42 1 mg ONETIME ONE Administration Iopamidol 100 ml 01/28/21 17:49 01/28/21 18:18 Iopamidol 612 Mg/Ml 100 Ml Bottle IVPUSH 01/28/21 17:50 100 ml ONETIME ONE Administration Ketorolac Tromethamine 30 mg 01/28/21 19:28 Ketorolac 30 Mg/Ml Sdv IVPUSH 01/28/21 19:29 ONETIME ONE Departure - Departure Time of Disposition: 19:33 Condition: Fair - Discharge Information *PRESCRIPTION DRUG MONITORING PROGRAM REVIEWED*: Not Applicable *COPY OF PRESCRIPTION DRUG MONITORING REPORT IN PATIENT LUARENCE: Not Applicable Sepsis Event Note (ED) - Focused Exam Vital Signs: Vital Signs Temp Pulse Resp BP Pulse Ox 01/28/21 16:36 97.9 F 100 14 138/96 H 100 - My Orders Last 24 Hours: My Active Orders 01/28/21 19:28 Doxycycline [Vibramycin] 100 mg Sodium Chloride 0.9% [Normal Saline AdvBag] 100 ml IV ONETIME - Assessment/Plan Last 24 Hours: My Active Orders 01/28/21 19:28 Doxycycline [Vibramycin] 100 mg Sodium Chloride 0.9% [Normal Saline AdvBag] 100 ml IV ONETIME
--- NOTE | 2021-01-28 18:57 | CT ---
PROCEDURE INFORMATION: Exam: CT Left Lower Extremity With Contrast; Thigh Exam date and time: 01/28/2021 5:55 PM Age: 40 years old Clinical indication: Other: Evaluate bone and soft tissues to stump TECHNIQUE: Imaging protocol: CT of the Left lower extremity with intravenous contrast was performed. Exam focused on the thigh. Radiation optimization: All CT scans at this facility use at least one of these dose optimization techniques: automated exposure control; mA and/or kV adjustment per patient size (includes targeted exams where dose is matched to clinical indication); or iterative reconstruction. Contrast material: ISOVUE 300; Contrast volume: 100 ml; Contrast route: INTRAVENOUS (IV); COMPARISON: No relevant prior studies available. FINDINGS: Bones/joints: Below-knee amputation. Distal tibial osteotomy site unremarkable. No erosions. Distal fibula unremarkable in appearance. Femur is unremarkable. Patella is unremarkable. Minimal knee joint effusion. Soft tissues: Soft tissues of the stump with distal skin closure hector consistent with a recent surgical procedure. Soft tissues of the stump without soft tissue emphysema. No acute fluid collection suggest abscess. Soft tissue calcification of the curvilinear appearance adjacent to the distal tibia and fibular stump are likely related to the surgical procedure. These may be dystrophic calcifications or may be fragments related to the osteotomy. IMPRESSION: 1. Recent left below-knee amputation. 2. Distal tibial and fibular stumps unremarkable. No osteolytic or destructive changes. No fractures. 3. Skin closure hector of the soft tissues of the distal stump. 4. No soft tissue emphysema. No soft tissue fluid collection to suggest abscess.
[2021-01-28] MEDS ORDERED: Ketorolac 30 MG/ML SDV IVPUSH ONE (19:28)
[2021-01-28] MEDS ORDERED: Doxycycline 100 MG in Sodium Chloride 0.9% 100 ML IV ONE (19:28)
== END 2021-01-28 20:51 | disposition home or self-care (01) ==
LOC: DL.ED 16:19
DX: L03.116 Cellulitis of left lower limb (principal); I10 Essential (primary) hypertension; E10.40 Type 1 diabetes mellitus with diabetic neuropathy, unspecified; Z88.5 Allergy status to narcotic agent; Z88.8 Allergy status to other drugs, medicaments and biological substances; Z72.0 Tobacco use; Z79.899 Other long term (current) drug therapy; Z89.512 Acquired absence of left leg below knee
CPT/HCPCS: 36415; 73701; 80053; 83605; 85025; 86140; 96365; 96375; 99285; J1170; J1885; J3490; Q9967

== ENCOUNTER 2021-04-30 13:10 | Emergency (ER) | payer MEDICAID ==
[2021-04-30] MEDS ORDERED: Ibuprofen 600 MG Tab PO ONE (16:38)
== END 2021-04-30 17:53 | disposition home or self-care (01) ==
LOC: DL.ED 13:10
DX: R07.81 Pleurodynia (principal); E10.9 Type 1 diabetes mellitus without complications; R29.6 Repeated falls; Z88.5 Allergy status to narcotic agent; Z88.8 Allergy status to other drugs, medicaments and biological substances; Z79.899 Other long term (current) drug therapy; Z89.511 Acquired absence of right leg below knee
CPT/HCPCS: 71101-RT; 99283-25; A9270-GY

== ENCOUNTER 2021-12-02 23:17 | Emergency (ER) | payer OTHER, MEDICAID ==
[2021-12-02] MEDS ORDERED: Iopamidol 612 MG/ML 100 ML Bottle IVPUSH ONE (23:42)
[2021-12-03 00:25] LABS: ANION GAP 12.5 mEq/L (7-13); CHLORIDE,CL 109 mmol/L (98-107); SODIUM,NA 143 mmol/L (136-145)
[2021-12-03 00:38] LABS: ESTIMATED GFR 79 mL/min (>=60)
[2021-12-03 01:23] LABS: AMPHETAMINES,URINE NEGATIVE (NEGATIVE); BARBITURATES,URINE NEGATIVE (NEGATIVE); BENZODIAZEPINE,URINE NEGATIVE (NEGATIVE); MDMA (ECSTASY), URINE NEGATIVE (NEGATIVE); METHADONE,URINE NEGATIVE (NEGATIVE); METHAMPHETAMINES,URINE NEGATIVE (NEGATIVE); OPIATES,URINE NEGATIVE (NEGATIVE); OXYCODONE,URINE NEGATIVE (NEGATIVE); PHENCYCLIDINE,URINE NEGATIVE (NEGATIVE); TCA,URINE NEGATIVE (NEGATIVE)
[2021-12-03] MEDS ORDERED: levETIRAcetam 500 MG Tab PO ONE (05:48)
== END 2021-12-03 06:12 | disposition home or self-care (01) ==
LOC: DL.ED 23:17
DX: S22.31XA Fracture of one rib, right side, initial encounter for closed fracture (principal); S00.03XA Contusion of scalp, initial encounter; E10.9 Type 1 diabetes mellitus without complications; Z88.6 Allergy status to analgesic agent; Z88.5 Allergy status to narcotic agent; Z79.899 Other long term (current) drug therapy; Z79.4 Long term (current) use of insulin; V49.40XA Driver injured in collision with unspecified motor vehicles in traffic accident, initial encounter; Y92.410 Unspecified street and highway as the place of occurrence of the external cause
CPT/HCPCS: 36415; 70450; 70486; 71260; 72125; 72128; 74177; 80053; 80305; 80307; 81001; 82150; 82947; 83690; 85025; 86850; 86900; 86901; 99284; Q9967; 93010; 99283

== ENCOUNTER 2022-01-18 15:56 | Emergency (ER) | payer MEDICAID ==
[~2022-01-18 15:56] MED LIST: Ketorolac 30 MG/ML SDV IVPUSH ONE; Sodium Chloride 0.9% 10 ML Syringe FLUSH PRN
[2022-01-18 15:57] LABS: ANION GAP 10.3 mEq/L (7-13); CHLORIDE,CL 107 mmol/L (98-107); SODIUM,NA 141 mmol/L (136-145)
[2022-01-18 16:04] LABS: ESTIMATED GFR 69 mL/min (>=60)
[2022-01-18] MEDS ORDERED: Iopamidol 612 MG/ML 100 ML Bottle IVPUSH ONE (16:06)
[2022-01-18] MEDS ORDERED: Mupirocin Oint 22 GM Tube ONE (16:59)
== END 2022-01-18 17:13 | disposition home or self-care (01) ==
LOC: DL.ED 15:56
DX: S81.802A Unspecified open wound, left lower leg, initial encounter (principal); E10.40 Type 1 diabetes mellitus with diabetic neuropathy, unspecified; Z88.5 Allergy status to narcotic agent; Z89.512 Acquired absence of left leg below knee; Z79.899 Other long term (current) drug therapy
CPT/HCPCS: 36415; 73701; 80053; 83605; 85025; 86140; 87040; 96374; 99284; A9270; J1885; J3490; Q9967

== ENCOUNTER 2022-08-22 22:29 | Emergency (ER) | payer MEDICAID, OTHER ==
[2022-08-22] MEDS ORDERED: Sodium Chloride 0.9% 10 ML Syringe FLUSH PRN (22:35)
[2022-08-22 22:44] LABS: BASOPHILS PERCENT AUTO 0.2 % (0.0-1.0); EOSINOPHILS PERCENT AUTO 1.3 % (1.0-3.0); HEMATOCRIT 47.9 % (40.0-54.0); LYMPHOCYTES PERCENT AUTO 12.6 % (20.5-50.1); MEAN CORPUSCULAR HEMOGLOBIN 27.5 pg (27.0-34.0); MEAN CORPUSCULAR HGB CONC 33.4 g/dL (33.0-35.0); MEAN CORPUSCULAR VOLUME 82.4 fL (80-100); MONOCYTES PERCENT AUTO 5.4 % (2-8); NEUTROPHILS PERCENT AUTO 80.5 % (42.2-75.2); PLATELET COUNT,PLT 227 10^3/uL (150-450); RED BLOOD CELL COUNT 5.81 10^6/uL (4.6-6.2)
[2022-08-22 23:00] LABS: ALANINE AMINOTRANSFERASE,ALT 24 U/L (16-63); ALBUMIN 2.6 g/dL (3.4-5.0); ALKALINE PHOSPHATASE 120 U/L (46-116); ANION GAP 14.8 mEq/L (7-13); ASPARTATE AMNIOTRANSFERASE,AST 15 U/L (15-37); BILIRUBIN TOTAL 0.4 mg/dL (0.2-1.0); BLOOD UREA NITROGEN,BUN 36 mg/dL (7-18); BUN/CREATININE RATIO 17.2 (No establ ref range); CALCIUM 8.3 mg/dL (8.5-10.1); CARBON DIOXIDE,CO2 23 mmol/L (21-32); CHLORIDE,CL 103 mmol/L (98-107); CREATININE 2.09 mg/dL (0.70-1.30); GLUCOSE RANDOM 281 mg/dL (70-99); MAGNESIUM 2.2 mg/dL (1.8-2.4); PROTEIN TOTAL,TP 6.6 g/dL (6.4-8.2); SODIUM,NA 134 mmol/L (136-145)
[2022-08-22 23:02] LABS: A/G RATIO 0.65; ACETAMINOPHEN 0 ug/mL (10-30 (Therapeutic)); ESTIMATED GFR 40 mL/min (>=60); ETHANOL BLOOD MEDICAL < 3 mg/dL (0); POTASSIUM,K 6.8 mmol/L (3.5-5.1)
[2022-08-22] MEDS ORDERED: Lactated Ringers 1,000 ML IV ONE (23:05)
[2022-08-22] MEDS ORDERED: Sodium Polystyrene Sulfonate 15 GM/60 ML Susp 60 ML Bot PO ONE (23:06)
[2022-08-22 23:49] LABS: APPEARANCE,URINE CLEAR (CLEAR); BILIRUBIN,URINE NEGATIVE (NEGATIVE); COLOR,URINE DARK YELLOW (YELLOW); GLUCOSE,URINE 500 (NEGATIVE); KETONES,URINE NEGATIVE (NEGATIVE); LEUKOCYTE ESTERASE,URINE NEGATIVE (NEGATIVE); NITRITE,URINE NEGATIVE (NEGATIVE); OCCULT BLOOD,URINE MODERATE (NEGATIVE); PROTEIN,URINE >=300 (NEGATIVE); UROBILINOGEN,URINE 0.2 mg/dL (0.2-1.0)
[2022-08-22 23:59] LABS: AMORPHOUS SEDIMENT,URINE MANY /HPF (NOT SEEN); BACTERIA,URINE FEW /HPF (0-FEW/HPF); EPITHELIAL CELLS,URINE FEW /HPF (NOT SEEN); HYALINE CASTS,URINE FEW; MUCUS,URINE FEW /LPF (NOT SEEN); RBC,URINE 0-5 /HPF (0-5); WBC,URINE 0-5 /HPF (0-5/HPF)
[2022-08-23] LABS: FINE GRANULAR CASTS,URINE FEW /LPF (NOT SEEN)
[2022-08-23 00:01] LABS: AMPHETAMINES,URINE NEGATIVE (NEGATIVE); BARBITURATES,URINE NEGATIVE (NEGATIVE); BENZODIAZEPINE,URINE NEGATIVE (NEGATIVE); MDMA (ECSTASY), URINE NEGATIVE (NEGATIVE); METHADONE,URINE NEGATIVE (NEGATIVE); METHAMPHETAMINES,URINE NEGATIVE (NEGATIVE); OPIATES,URINE NEGATIVE (NEGATIVE); OXYCODONE,URINE NEGATIVE (NEGATIVE); PHENCYCLIDINE,URINE NEGATIVE (NEGATIVE); TCA,URINE NEGATIVE (NEGATIVE)
[2022-08-23] MEDS ORDERED: Lactated Ringers 1,000 ML IV SCH (00:45)
[2022-08-23 02:47] LABS: ANION GAP 13.5 mEq/L (7-13); BLOOD UREA NITROGEN,BUN 32 mg/dL (7-18); CALCIUM 8.1 mg/dL (8.5-10.1); CARBON DIOXIDE,CO2 23 mmol/L (21-32); CHLORIDE,CL 107 mmol/L (98-107); CREATININE 1.75 mg/dL (0.70-1.30); GLUCOSE RANDOM 176 mg/dL (70-99); POTASSIUM,K 5.5 mmol/L (3.5-5.1); SODIUM,NA 138 mmol/L (136-145)
[2022-08-23 02:48] LABS: ESTIMATED GFR 49 mL/min (>=60)
== END 2022-08-23 04:40 | disposition home or self-care (01) ==
LOC: DL.ED 22:29
DX: G93.41 Metabolic encephalopathy (principal); N17.9 Acute kidney failure, unspecified; E11.65 Type 2 diabetes mellitus with hyperglycemia; E11.40 Type 2 diabetes mellitus with diabetic neuropathy, unspecified; E87.5 Hyperkalemia; E86.0 Dehydration; Z88.5 Allergy status to narcotic agent; Z88.8 Allergy status to other drugs, medicaments and biological substances; Z79.4 Long term (current) use of insulin
CPT/HCPCS: 36415; 80048; 80053; 80143; 80179; 80305; 80307; 81001; 82550; 83735; 85025; 96360; 96361; 99284; 99285; A9270; J7120; J3490

== ENCOUNTER 2022-12-15 17:38 | Emergency (ER) | payer MEDICAID ==
[2022-12-15] MEDS ORDERED: Sodium Chloride 0.9% 10 ML Syringe FLUSH PRN (17:46)
[2022-12-15] MEDS ORDERED: Ondansetron 4 MG/2 ML SDV IV ONE (17:51)
[2022-12-15] MEDS ORDERED: Sodium Chloride 0.9% 1,000 ML IV ONE (17:51)
[2022-12-15] MEDS ORDERED: diphenhydrAMINE 50 MG/ML SDV IVPUSH ONE (17:51)
[2022-12-15 18:22] LABS: BASOPHILS PERCENT AUTO 0.1 % (0.0-1.0); EOSINOPHILS PERCENT AUTO 1.4 % (1.0-3.0); HEMATOCRIT 39.7 % (40.0-54.0); HEMOGLOBIN 13.3 g/dL (14.0-18.0); LYMPHOCYTES PERCENT AUTO 14.6 % (20.5-50.1); MEAN CORPUSCULAR HEMOGLOBIN 27.6 pg (27.0-34.0); MEAN CORPUSCULAR HGB CONC 33.5 g/dL (33.0-35.0); MEAN CORPUSCULAR VOLUME 82.4 fL (80-100); MONOCYTES PERCENT AUTO 14.7 % (2-8); NEUTROPHILS PERCENT AUTO 69.2 % (42.2-75.2); PLATELET COUNT,PLT 169 10^3/uL (150-450); RED BLOOD CELL COUNT 4.82 10^6/uL (4.6-6.2); WHITE BLOOD CELL COUNT,WBC 8.4 10^3/uL (5.0-10.0)
[2022-12-15 18:37] LABS: KETONES,BLOOD SMALL
[2022-12-15 18:46] LABS: ALANINE AMINOTRANSFERASE,ALT 17 U/L (16-63); ALBUMIN 1.6 g/dL (3.4-5.0); ALKALINE PHOSPHATASE 95 U/L (46-116); ANION GAP 13.9 mEq/L (7-13); ASPARTATE AMNIOTRANSFERASE,AST 16 U/L (15-37); BLOOD UREA NITROGEN,BUN 27 mg/dL (7-18); BUN/CREATININE RATIO 13.5 (No establ ref range); CALCIUM 8.3 mg/dL (8.5-10.1); CARBON DIOXIDE,CO2 21 mmol/L (21-32); CHLORIDE,CL 103 mmol/L (98-107); EST CRCL DRUG DOSING (CG) 52.27 mL/min; GLUCOSE RANDOM 112 mg/dL (70-99); POTASSIUM,K 3.9 mmol/L (3.5-5.1); PROTEIN TOTAL,TP 6.1 g/dL (6.4-8.2); SODIUM,NA 134 mmol/L (136-145)
[2022-12-15 18:47] LABS: A/G RATIO 0.36; ESTIMATED GFR 42 mL/min (>=60); LACTIC ACID 0.6 mmol/L (0.4-2.0)
[2022-12-15 18:49] LABS: B-TYPE NATRIURETIC PEPTIDE,BNP 45 pg/ml (0-100)
[2022-12-15 19:51] LABS: APPEARANCE,URINE CLEAR (CLEAR); BILIRUBIN,URINE SMALL (NEGATIVE); COLOR,URINE YELLOW (YELLOW); GLUCOSE,URINE 100 (NEGATIVE); KETONES,URINE 40 (NEGATIVE); LEUKOCYTE ESTERASE,URINE NEGATIVE (NEGATIVE); NITRITE,URINE NEGATIVE (NEGATIVE); OCCULT BLOOD,URINE MODERATE (NEGATIVE); PROTEIN,URINE >=300 (NEGATIVE)
[2022-12-15 19:54] LABS: AMPHETAMINES,URINE NEGATIVE (NEGATIVE); BARBITURATES,URINE NEGATIVE (NEGATIVE); BENZODIAZEPINE,URINE NEGATIVE (NEGATIVE); MDMA (ECSTASY), URINE NEGATIVE (NEGATIVE); METHADONE,URINE NEGATIVE (NEGATIVE); METHAMPHETAMINES,URINE POSITIVE (NEGATIVE); OPIATES,URINE NEGATIVE (NEGATIVE); OXYCODONE,URINE NEGATIVE (NEGATIVE); PHENCYCLIDINE,URINE NEGATIVE (NEGATIVE); TCA,URINE NEGATIVE (NEGATIVE)
[2022-12-15 20:08] LABS: WBC,URINE 0-5 /HPF (0-5/HPF)
[2022-12-15 20:09] LABS: AMORPHOUS SEDIMENT,URINE FEW /HPF (NOT SEEN); BACTERIA,URINE FEW /HPF (0-FEW/HPF); EPITHELIAL CELLS,URINE FEW /HPF (NOT SEEN)
[2022-12-15 20:10] LABS: GRANULAR CASTS,URINE OCCASIONAL
[2022-12-15 20:11] LABS: FINE GRANULAR CASTS,URINE FEW /LPF (NOT SEEN); MUCUS,URINE FEW /LPF (NOT SEEN)
[2022-12-15] MEDS ORDERED: Metoprolol Tartrate 50 MG Tab PO ONE (20:11)
[2022-12-15 20:21] LABS: CORONAVIRUS COVID-19 NAA NEGATIVE (NEGATIVE); INFLUENZA A NAA NEGATIVE (NEGATIVE); INFLUENZA B NAA NEGATIVE (NEGATIVE); RESPIRATORY SYNCYTIAL VIR NAA NEGATIVE (NEGATIVE)
[2022-12-15] MEDS ORDERED: Amoxicillin/Clavulanate K 875-125 MG Tab PO ONE (20:31)
== END 2022-12-15 20:44 | disposition home or self-care (01) ==
LOC: DL.ED 17:38
DX: J06.9 Acute upper respiratory infection, unspecified (principal); E11.40 Type 2 diabetes mellitus with diabetic neuropathy, unspecified; Z20.822 Contact with and (suspected) exposure to COVID-19; Z88.6 Allergy status to analgesic agent; Z88.5 Allergy status to narcotic agent; Z79.4 Long term (current) use of insulin
CPT/HCPCS: 0241U; 36415; 71045; 80053; 80305-QW; 81001; 82009; 83605; 83880; 84145; 84484; 85025; 87040; 87081; 87430; 93005; 93010; 96361; 96374; 96375; 99284; 99285-25; A9270-GY; J1200; J2405; J3490; J7030

== ENCOUNTER 2023-03-29 14:42 | Emergency (ER) | payer MEDICAID ==
[2023-03-29 15:28] LABS: BASOPHILS PERCENT AUTO 0.3 % (0.0-1.0); EOSINOPHILS PERCENT AUTO 3.7 % (1.0-3.0); HEMATOCRIT 43.1 % (40.0-54.0); HEMOGLOBIN 14.4 g/dL (14.0-18.0); LYMPHOCYTES PERCENT AUTO 14.8 % (20.5-50.1); MEAN CORPUSCULAR HGB CONC 33.4 g/dL (33.0-35.0); MEAN CORPUSCULAR VOLUME 83.7 fL (80-100); MONOCYTES PERCENT AUTO 9.3 % (2-8); NEUTROPHILS PERCENT AUTO 71.9 % (42.2-75.2); PLATELET COUNT,PLT 203 10^3/uL (150-450); RED BLOOD CELL COUNT 5.15 10^6/uL (4.6-6.2); WHITE BLOOD CELL COUNT,WBC 7.6 10^3/uL (5.0-10.0)
[2023-03-29 15:48] LABS: ALBUMIN 2.2 g/dL (3.4-5.0); ANION GAP 11.8 mEq/L (7-13); BILIRUBIN TOTAL 0.7 mg/dL (0.2-1.0); BUN/CREATININE RATIO 19.1 (No establ ref range); CALCIUM 8.1 mg/dL (8.5-10.1); CREATININE 1.83 mg/dL (0.70-1.30); EST CRCL DRUG DOSING (CG) 57.13 mL/min; POTASSIUM,K 4.8 mmol/L (3.5-5.1); PROTEIN TOTAL,TP 5.9 g/dL (6.4-8.2)
[2023-03-29 15:49] LABS: A/G RATIO 0.59
== END 2023-03-29 16:06 | disposition home or self-care (01) ==
LOC: DL.ED 14:42
DX: R79.89 Other specified abnormal findings of blood chemistry (principal); E78.00 Pure hypercholesterolemia, unspecified; I10 Essential (primary) hypertension; E11.9 Type 2 diabetes mellitus without complications; Z88.5 Allergy status to narcotic agent; Z88.6 Allergy status to analgesic agent; Z79.4 Long term (current) use of insulin; Z79.1 Long term (current) use of non-steroidal anti-inflammatories (NSAID); Z79.899 Other long term (current) drug therapy; Z87.891 Personal history of nicotine dependence
CPT/HCPCS: 36415; 80053; 85025; 99283

== ENCOUNTER 2023-12-29 15:15 | Emergency (ER) | payer MEDICAID ==
[2023-12-29] MEDS: Naloxone 2 MG/2 ML Syringe IVPUSH ONE (14:59)
[2023-12-29 15:13] LABS: BASOPHILS PERCENT AUTO 0.1 % (0.0-1.0); HEMOGLOBIN 13.9 g/dL (14.0-18.0); LYMPHOCYTES PERCENT AUTO 15.5 % (20.5-50.1); MEAN CORPUSCULAR HEMOGLOBIN 28.7 pg (27.0-34.0); MEAN CORPUSCULAR HGB CONC 33.1 g/dL (33.0-35.0); MEAN CORPUSCULAR VOLUME 86.8 fL (80-100); MONOCYTES PERCENT AUTO 5.4 % (2-8); PLATELET COUNT,PLT 215 10^3/uL (150-450); RED BLOOD CELL COUNT 4.84 10^6/uL (4.6-6.2)
[~2023-12-29 15:15] MED LIST changes: -Ketorolac 30 MG/ML SDV IVPUSH ONE
[2023-12-29 15:37] LABS: A/G RATIO 0.66; ALANINE AMINOTRANSFERASE,ALT 25 U/L (16-63); ALBUMIN 2.3 g/dL (3.4-5.0); ALKALINE PHOSPHATASE 107 U/L (46-116); ANION GAP 14.9 mEq/L (7-13); ASPARTATE AMNIOTRANSFERASE,AST 15 U/L (15-37); BILIRUBIN TOTAL 0.6 mg/dL (0.2-1.0); BLOOD UREA NITROGEN,BUN 49 mg/dL (7-18); BUN/CREATININE RATIO 13.1 (No establ ref range); C-REACTIVE PROTEIN < 0.50 ng/dL (<=0.50); CALCIUM 8.6 mg/dL (8.5-10.1); CARBON DIOXIDE,CO2 19 mmol/L (21-32); CHLORIDE,CL 111 mmol/L (98-107); CREATININE 3.73 mg/dL (0.70-1.30); EST CRCL DRUG DOSING (CG) 29.38 mL/min; ESTIMATED GFR 20 mL/min (>=60); ETHANOL BLOOD MEDICAL < 3 mg/dL (0); GLUCOSE RANDOM 191 mg/dL (70-99); POTASSIUM,K 4.9 mmol/L (3.5-5.1); PROTEIN TOTAL,TP 5.8 g/dL (6.4-8.2); SODIUM,NA 140 mmol/L (136-145)
[2023-12-29 15:42] LABS: LACTIC ACID 0.8 mmol/L (0.4-2.0)
[2023-12-29] MEDS: Sodium Chloride 0.9% 1,000 ML IV ONE (16:03)
[2023-12-29] MEDS: Labetalol 20 MG/4 ML Syringe IVPUSH ONE (16:48)
== END 2023-12-29 17:22 ==
LOC: DL.ED 15:15
DX: I63.9 Cerebral infarction, unspecified (principal); N17.9 Acute kidney failure, unspecified; I10 Essential (primary) hypertension; E11.9 Type 2 diabetes mellitus without complications; Z79.4 Long term (current) use of insulin; Z79.899 Other long term (current) drug therapy; Z88.6 Allergy status to analgesic agent; Z88.5 Allergy status to narcotic agent
CPT/HCPCS: 36415; 70450; 80053; 80307; 82140; 83605; 83735; 85025; 86140; 96361; 96374; 96375; 99285; J1920; J2310; J7030

== ENCOUNTER 2024-05-13 15:07 | Emergency (ER) | payer MEDICAID ==
[2024-05-13] MEDS ORDERED: Sodium Chloride 0.9% 10 ML Syringe FLUSH PRN (15:25)
[2024-05-13 15:31] LABS: BASOPHILS PERCENT AUTO 0.2 % (0.0-1.0); EOSINOPHILS PERCENT AUTO 0.1 % (1.0-3.0); HEMOGLOBIN 13.4 g/dL (14.0-18.0); LYMPHOCYTES PERCENT AUTO 5.8 % (20.5-50.1); MEAN CORPUSCULAR HEMOGLOBIN 27.2 pg (27.0-34.0); MEAN CORPUSCULAR HGB CONC 32.7 g/dL (33.0-35.0); MEAN CORPUSCULAR VOLUME 83.2 fL (80-100); MONOCYTES PERCENT AUTO 3.7 % (2-8); NEUTROPHILS PERCENT AUTO 90.2 % (42.2-75.2); PLATELET COUNT,PLT 232 10^3/uL (150-450); RED BLOOD CELL COUNT 4.93 10^6/uL (4.6-6.2); WHITE BLOOD CELL COUNT,WBC 13.7 10^3/uL (5.0-10.0)
[2024-05-13 15:40] LABS: INR 0.9 (0.9-1.2); PROTHROMBIN TIME 9.5 SEC (9.0-12.0); PTT,PARTIAL THROMBOPLSTIN TIME 24.3 SEC (22.0-34.0)
[2024-05-13 15:44] LABS: ALANINE AMINOTRANSFERASE,ALT 23 U/L (16-63); ALBUMIN 2.7 g/dL (3.4-5.0); ALKALINE PHOSPHATASE 107 U/L (46-116); ANION GAP 14.8 mEq/L (7-13); ASPARTATE AMNIOTRANSFERASE,AST 18 U/L (15-37); BILIRUBIN TOTAL 0.5 mg/dL (0.2-1.0); BLOOD UREA NITROGEN,BUN 33 mg/dL (7-18); BUN/CREATININE RATIO 8.5 (No establ ref range); CALCIUM 8.8 mg/dL (8.5-10.1); CARBON DIOXIDE,CO2 21 mmol/L (21-32); CHLORIDE,CL 108 mmol/L (98-107); CREATININE 3.86 mg/dL (0.70-1.30); GLUCOSE RANDOM 155 mg/dL (70-99); MAGNESIUM 2.1 mg/dL (1.8-2.4); POTASSIUM,K 4.8 mmol/L (3.5-5.1); PROTEIN TOTAL,TP 6.3 g/dL (6.4-8.2); SODIUM,NA 139 mmol/L (136-145)
[2024-05-13 15:45] LABS: A/G RATIO 0.75; ESTIMATED GFR 19 mL/min (>=60)
[2024-05-13] MEDS: Iopamidol 755 Mg/ML 100 ML Bottle IVPUSH ONE (15:53)
[2024-05-13] MEDS: Aspirin 81 MG Tab.Chew PO ONE (16:16)
[2024-05-13 16:22] LABS: BILIRUBIN,URINE NEGATIVE (NEGATIVE); COLOR,URINE YELLOW (YELLOW); GLUCOSE,URINE 250 (NEGATIVE); KETONES,URINE NEGATIVE (NEGATIVE); LEUKOCYTE ESTERASE,URINE NEGATIVE (NEGATIVE); NITRITE,URINE NEGATIVE (NEGATIVE); OCCULT BLOOD,URINE MODERATE (NEGATIVE); PROTEIN,URINE >=300 (NEGATIVE); UROBILINOGEN,URINE 0.2 mg/dL (0.2-1.0)
[2024-05-13 16:23] LABS: APPEARANCE,URINE SLIGHTLY CLOUDY (CLEAR)
[2024-05-13 16:35] LABS: AMORPHOUS SEDIMENT,URINE FEW /HPF (NOT SEEN); BACTERIA,URINE FEW /HPF (0-FEW/HPF); EPITHELIAL CELLS,URINE FEW /HPF (NOT SEEN); RBC,URINE 30-40 /HPF (0-5); WBC,URINE 0-5 /HPF (0-5/HPF)
[2024-05-13 16:45] LABS: LACTIC ACID 1.6 mmol/L (0.4-2.0)
[2024-05-13] MEDS: Heparin Sodium 5,000 Units/ML Vial IVPUSH ONE (16:48)
[2024-05-13] MEDS: Heparin Sodium/0.45% NaCl 25,000 UNITS/500 ML BAG IV SCH (16:51)
[2024-05-13] MEDS: niCARdipine/Normal Saline 20 MG in Premix Bag 1 BAG IV SCH (16:52)
[2024-05-13] MEDS: Piperacillin/Tazobactam 3.375 GM in Sodium Chloride 0.9% 100 ML IV ONE (17:08)
[2024-05-13] MEDS: VANCOmycin 1.75 GM in Sodium Chloride 0.9% 500 ML IV ONE (17:23)
== END 2024-05-13 19:40 | disposition other institution (70) ==
LOC: DL.ED 15:07
DX: I21.4 Non-ST elevation (NSTEMI) myocardial infarction (principal); I15.8 Other secondary hypertension; S00.83XA Contusion of other part of head, initial encounter; E11.9 Type 2 diabetes mellitus without complications; I10 Essential (primary) hypertension; E78.00 Pure hypercholesterolemia, unspecified; Z79.4 Long term (current) use of insulin; Z79.899 Other long term (current) drug therapy; Z88.6 Allergy status to analgesic agent; Z88.5 Allergy status to narcotic agent; W19.XXXA Unspecified fall, initial encounter; Y92.009 Unspecified place in unspecified non-institutional (private) residence as the place of occurrence of the external cause
CPT/HCPCS: 36415; 70450; 70496; 70498; 71045; 72125; 80053; 81001; 82947; 83605; 83735; 84484; 85025; 85610; 85730; 87040; 93005; 93010; 96365; 96366; 96368; 99285; 99291; A9270; C1758; J1644; J2543; J3371; J7040; Q9967; J3490

== ENCOUNTER 2024-06-08 01:31 | Emergency (ER) | payer MEDICAID ==
[2024-06-08 01:11] LABS: BASOPHILS PERCENT AUTO 0.2 % (0.0-1.0); EOSINOPHILS PERCENT AUTO 2.1 % (1.0-3.0); HEMATOCRIT 32.2 % (40.0-54.0); HEMOGLOBIN 11.2 g/dL (14.0-18.0); LYMPHOCYTES PERCENT AUTO 13.2 % (20.5-50.1); MEAN CORPUSCULAR HEMOGLOBIN 29.7 pg (27.0-34.0); MEAN CORPUSCULAR HGB CONC 34.8 g/dL (33.0-35.0); MEAN CORPUSCULAR VOLUME 85.4 fL (80-100); MONOCYTES PERCENT AUTO 7.8 % (2-8); NEUTROPHILS PERCENT AUTO 76.7 % (42.2-75.2); PLATELET COUNT,PLT 159 10^3/uL (150-450); RED BLOOD CELL COUNT 3.77 10^6/uL (4.6-6.2); WHITE BLOOD CELL COUNT,WBC 8.2 10^3/uL (5.0-10.0)
[2024-06-08 01:12] LABS: O2 DELIVERY DEVICE ROOM AIR
[2024-06-08] MEDS: Sodium Chloride 0.9% 1,000 ML IV ONE ×2 (01:12→06:01)
[2024-06-08 01:27] LABS: BASE EXCESS VENOUS -8.5 mmol/l ((-2)-(+3)); BICARBONATE,VENOUS 17 mmol/l (19-25); O2 SATURATION VENOUS 86.5 % (60-80); PCO2 VENOUS 36 mmHg (41-51); PH,VENOUS 7.29 (7.31-7.41); PO2 VENOUS 60 mmHg (35-42)
[2024-06-08 01:34] LABS: APPEARANCE,URINE CLEAR (CLEAR); BILIRUBIN,URINE NEGATIVE (NEGATIVE); COLOR,URINE YELLOW (YELLOW); GLUCOSE,URINE 100 (NEGATIVE); KETONES,URINE 15 (NEGATIVE); LEUKOCYTE ESTERASE,URINE NEGATIVE (NEGATIVE); NITRITE,URINE NEGATIVE (NEGATIVE); OCCULT BLOOD,URINE MODERATE (NEGATIVE); PH,URINE 6.5 (5.0-9.0); PROTEIN,URINE >=300 (NEGATIVE); UROBILINOGEN,URINE 0.2 mg/dL (0.2-1.0)
[2024-06-08 01:35] LABS: A/G RATIO 0.84; ALANINE AMINOTRANSFERASE,ALT 35 U/L (16-63); ALBUMIN 2.6 g/dL (3.4-5.0); ALKALINE PHOSPHATASE 83 U/L (46-116); ANION GAP 16.1 mEq/L (7-13); ASPARTATE AMNIOTRANSFERASE,AST 21 U/L (15-37); BLOOD UREA NITROGEN,BUN 49 mg/dL (7-18); BUN/CREATININE RATIO 11.2 (No establ ref range); CALCIUM 8.4 mg/dL (8.5-10.1); CARBON DIOXIDE,CO2 19 mmol/L (21-32); CHLORIDE,CL 110 mmol/L (98-107); CREATINE KINASE,CK 222 U/L (39-308); CREATININE 4.39 mg/dL (0.70-1.30); ESTIMATED GFR 16 mL/min (>=60); GLUCOSE RANDOM 92 mg/dL (70-99); LACTIC ACID 1.2 mmol/L (0.4-2.0); LIPASE 21 U/L (16-77); MAGNESIUM 2.1 mg/dL (1.8-2.4); POTASSIUM,K 5.1 mmol/L (3.5-5.1); PROTEIN TOTAL,TP 5.7 g/dL (6.4-8.2); PTT,PARTIAL THROMBOPLSTIN TIME 26.1 SEC (22.0-34.0); SODIUM,NA 140 mmol/L (136-145)
[2024-06-08 01:37] LABS: ETHANOL BLOOD MEDICAL < 3 mg/dL (0)
[2024-06-08 01:38] LABS: BENZODIAZEPINE,URINE NEGATIVE (NEGATIVE); MDMA (ECSTASY), URINE NEGATIVE (NEGATIVE); METHADONE,URINE NEGATIVE (NEGATIVE); METHAMPHETAMINES,URINE POSITIVE (NEGATIVE); OPIATES,URINE NEGATIVE (NEGATIVE)
[2024-06-08 01:39] LABS: AMPHETAMINES,URINE POSITIVE (NEGATIVE); BARBITURATES,URINE NEGATIVE (NEGATIVE); OXYCODONE,URINE NEGATIVE (NEGATIVE); PHENCYCLIDINE,URINE NEGATIVE (NEGATIVE); TCA,URINE NEGATIVE (NEGATIVE)
[2024-06-08 01:55] LABS: BACTERIA,URINE FEW /HPF (0-FEW/HPF); EPITHELIAL CELLS,URINE FEW /HPF (NOT SEEN); MUCUS,URINE FEW /LPF (NOT SEEN); WBC,URINE 0-5 /HPF (0-5/HPF)
[2024-06-08 01:56] LABS: HYALINE CASTS,URINE FEW
[2024-06-10 22:46] LABS: KEPPRA 36 ug/mL (10-40)
== END 2024-06-08 07:21 ==
LOC: DL.ED 01:31
DX: R41.82 Altered mental status, unspecified (principal); R79.89 Other specified abnormal findings of blood chemistry; I10 Essential (primary) hypertension; E78.00 Pure hypercholesterolemia, unspecified; E11.9 Type 2 diabetes mellitus without complications; Z79.899 Other long term (current) drug therapy; Z79.4 Long term (current) use of insulin; Z88.8 Allergy status to other drugs, medicaments and biological substances; Z88.5 Allergy status to narcotic agent
CPT/HCPCS: 36415; 70450; 71045; 72125; 74176; 80053; 80177; 80305-QW; 80307; 81001; 82550; 82803; 82947; 83605; 83690; 83735; 84484; 85025; 85610; 85730; 93005; 93010; 96360; 96361; 99285; 99285-25; J7030

== ENCOUNTER 2024-07-25 19:09 | Emergency (ER) | payer MEDICAID ==
[2024-07-25 19:31] LABS: BASOPHILS PERCENT AUTO 0.3 % (0.0-1.0); EOSINOPHILS PERCENT AUTO 2.2 % (1.0-3.0); HEMATOCRIT 36.7 % (40.0-54.0); HEMOGLOBIN 11.8 g/dL (14.0-18.0); LYMPHOCYTES PERCENT AUTO 23.6 % (20.5-50.1); MEAN CORPUSCULAR HEMOGLOBIN 27.8 pg (27.0-34.0); MEAN CORPUSCULAR HGB CONC 32.2 g/dL (33.0-35.0); MEAN CORPUSCULAR VOLUME 86.6 fL (80-100); MONOCYTES PERCENT AUTO 5.2 % (2-8); NEUTROPHILS PERCENT AUTO 68.7 % (42.2-75.2); PLATELET COUNT,PLT 195 10^3/uL (150-450); RED BLOOD CELL COUNT 4.24 10^6/uL (4.6-6.2); WHITE BLOOD CELL COUNT,WBC 7.3 10^3/uL (5.0-10.0)
[2024-07-25 19:47] LABS: INR 0.9 (0.9-1.2); PROTHROMBIN TIME 9.5 SEC (9.0-12.0); PTT,PARTIAL THROMBOPLSTIN TIME 24.7 SEC (22.0-34.0)
[2024-07-25 19:52] LABS: A/G RATIO 0.81; ALANINE AMINOTRANSFERASE,ALT 25 U/L (16-63); ALBUMIN 2.9 g/dL (3.4-5.0); ALKALINE PHOSPHATASE 86 U/L (46-116); ASPARTATE AMNIOTRANSFERASE,AST 17 U/L (15-37); BILIRUBIN TOTAL 0.7 mg/dL (0.2-1.0); BLOOD UREA NITROGEN,BUN 50 mg/dL (7-18); BUN/CREATININE RATIO 12.8 (No establ ref range); CALCIUM 8.8 mg/dL (8.5-10.1); CARBON DIOXIDE,CO2 21 mmol/L (21-32); CHLORIDE,CL 108 mmol/L (98-107); CREATININE 3.91 mg/dL (0.70-1.30); ESTIMATED GFR 18 mL/min (>=60); ETHANOL BLOOD MEDICAL < 3 mg/dL (0); GLUCOSE RANDOM 85 mg/dL (70-99); LIPASE 38 U/L (16-77); MAGNESIUM 1.9 mg/dL (1.8-2.4); PROTEIN TOTAL,TP 6.5 g/dL (6.4-8.2); SODIUM,NA 137 mmol/L (136-145)
[2024-07-25] MEDS ORDERED: Glucagon,Human Recombinant 1 MG Vial IM PRN (19:58)
[2024-07-25] MEDS ORDERED: 50% Dextrose in Water 50 ML Syringe IVPUSH PRN (19:58)
[2024-07-25] MEDS: Sodium Bicarbonate 8.4% 50 MEQ/50 ML Syringe IVPUSH ONE (20:10)
[2024-07-25] MEDS: Calcium Chloride 10% 1 GM/10 ML Syringe IVPUSH ONE (20:10)
[2024-07-25] MEDS: Insulin Regular, Human 100 Units/ML 10 ML Vial IV ONE (20:10)
[2024-07-25] MEDS: 50% Dextrose in Water 50 ML Syringe IVPUSH ONE (20:10)
[2024-07-25] MEDS: Sodium Zirconium Cyclosilicate 5 GM Packet PO ONE (20:23)
[2024-07-25 20:28] LABS: BLOOD UREA NITROGEN,BUN 48 mg/dL (7-18); CALCIUM 8.7 mg/dL (8.5-10.1); CARBON DIOXIDE,CO2 22 mmol/L (21-32); CHLORIDE,CL 108 mmol/L (98-107); CREATININE 3.95 mg/dL (0.70-1.30); GLUCOSE RANDOM 81 mg/dL (70-99)
[2024-07-25 20:39] LABS: ANION GAP 16.4 mEq/L (7-13); SODIUM,NA 139 mmol/L (136-145)
[2024-07-25 20:40] LABS: ESTIMATED GFR 18 mL/min (>=60); POTASSIUM,K 7.4 mmol/L (3.5-5.1)
[2024-07-25] MEDS: hydrALAZINE 20 MG/ML SDV IVPUSH ONE (20:55)
[2024-07-25] MEDS: LORazepam 2 MG/ML SDV IVPUSH ONE ×2 (20:58→21:03)
[2024-07-25] MEDS: LORazepam 2 MG/ML SDV ONE (21:10)
[2024-07-30 05:43] LABS: KEPPRA <2 ug/mL (10-40)
== END 2024-07-25 21:05 ==
LOC: DL.ED 19:09
DX: I63.9 Cerebral infarction, unspecified (principal); E87.5 Hyperkalemia; N18.9 Chronic kidney disease, unspecified; I12.9 Hypertensive chronic kidney disease with stage 1 through stage 4 chronic kidney disease, or unspecified chronic kidney disease; E11.22 Type 2 diabetes mellitus with diabetic chronic kidney disease; E78.00 Pure hypercholesterolemia, unspecified; Z88.5 Allergy status to narcotic agent; Z79.4 Long term (current) use of insulin; Z79.899 Other long term (current) drug therapy
CPT/HCPCS: 36415; 70450; 71045; 80048; 80053; 80177; 80307; 82947; 83690; 83735; 84484; 85025; 85610; 85730; 93005; 93010; 96374; 96375; 99285; 99285-25; A9270-GY; J0360; J2060; J3490

== ENCOUNTER 2024-08-21 13:53 | Emergency (ER) | payer MEDICAID ==
[2024-08-21] MEDS ORDERED: Sodium Chloride 0.9% 10 ML Syringe FLUSH PRN (14:29)
[2024-08-21 14:40] LABS: PLATELET COUNT,PLT 253 10^3/uL (150-450); RED BLOOD CELL COUNT 3.74 10^6/uL (4.6-6.2); WHITE BLOOD CELL COUNT,WBC 17.2 10^3/uL (5.0-10.0)
[2024-08-21 14:42] LABS: BASE EXCESS VENOUS -1.6 mmol/l ((-2)-(+3)); BICARBONATE,VENOUS 25 mmol/l (19-25); O2 DELIVERY DEVICE ROOM AIR; O2 SATURATION VENOUS 41.7 % (60-80); PCO2 VENOUS 51 mmHg (41-51); PH,VENOUS 7.30 (7.31-7.41); PO2 VENOUS 34 mmHg (35-42)
[2024-08-21 14:44] LABS: BASOPHILS PERCENT AUTO 0.2 % (0.0-1.0); EOSINOPHILS PERCENT AUTO 25.2 % (1.0-3.0); LYMPHOCYTES PERCENT AUTO 13.8 % (20.5-50.1); MONOCYTES PERCENT AUTO 5.4 % (2-8); NEUTROPHILS PERCENT AUTO 55.4 % (42.2-75.2)
[2024-08-21 14:46] LABS: BLOOD UREA NITROGEN,BUN 51.0 mg/dL (8-26); CARBON DIOXIDE,CO2 24.0 mmol/L (24-29); CHLORIDE,CL 112.0 mmol/L (98-109); GLUCOSE RANDOM 128.0 mg/dL (70-105); POTASSIUM,K 5.8 mmol/L (3.5-4.9); SODIUM,NA 143.0 mmol/L (138-146)
[2024-08-21 14:47] LABS: CREATININE 4.6 mg/dL (0.6-1.3); EST CRCL DRUG DOSING (CG) 20.28 mL/min; ESTIMATED GFR 15.0 mL/min (>=60)
[2024-08-21 14:56] LABS: INR 0.9 (0.9-1.2)
[2024-08-21] MEDS: Calcium Gluconate 10% 1 GM/10 ML SDV IVPUSH ONE (14:57)
[2024-08-21 14:58] LABS: ALANINE AMINOTRANSFERASE,ALT 21.0 U/L (16-63); ASPARTATE AMNIOTRANSFERASE,AST 15.0 U/L (15-37); BILIRUBIN TOTAL 0.2 mg/dL (0.2-1.0); PROTEIN TOTAL,TP 6.4 g/dL (6.4-8.2)
[2024-08-21 14:59] LABS: A/G RATIO 0.56
[2024-08-21 15:05] LABS: EOSINOPHILS PERCENT MAN 24 % (1-3); LYMPHOCYTES PERCENT MAN 9 % (20-50); MONOCYTES PERCENT MAN 5 % (2-8); SEG NEUTROPHILS PERCENT MAN 62 % (42-75)
[2024-08-21 15:07] LABS: LACTIC ACID 1.1 mmol/L (0.4-2.0)
[2024-08-21] MEDS: Albuterol 0.083% 2.5 MG/3 ML Neb Soln NEB ONE (15:14)
[2024-08-21 17:40] LABS: BLOOD UREA NITROGEN,BUN 56.0 mg/dL (7-18); CARBON DIOXIDE,CO2 26.0 mmol/L (21-32); CHLORIDE,CL 111.0 mmol/L (98-107); CREATININE 4.52 mg/dL (0.70-1.30); EST CRCL DRUG DOSING (CG) 20.64 mL/min; GLUCOSE RANDOM 121.0 mg/dL (70-99); POTASSIUM,K 5.6 mmol/L (3.5-5.1); SODIUM,NA 143.0 mmol/L (136-145)
[2024-08-21 17:41] LABS: ESTIMATED GFR 15.0 mL/min (>=60)
== END 2024-08-21 20:00 ==
LOC: DL.ED 13:53
DX: E87.5 Hyperkalemia (principal); N17.9 Acute kidney failure, unspecified; R41.82 Altered mental status, unspecified; E78.00 Pure hypercholesterolemia, unspecified; I10 Essential (primary) hypertension; E11.9 Type 2 diabetes mellitus without complications; Z88.5 Allergy status to narcotic agent; Z79.84 Long term (current) use of oral hypoglycemic drugs; Z79.899 Other long term (current) drug therapy
CPT/HCPCS: 36415; 70450; 80048; 80053; 82140; 82803; 82947; 83605; 83690; 83735; 85025; 85610; 86140; 93005; 96374; 96375; 99285; J0612; J7613; A9270-GY; J3490

== ENCOUNTER 2024-10-06 22:37 | Inpatient (IN) | payer MEDICAID ==
[2024-10-06 22:52] LABS: BASOPHILS PERCENT AUTO 0.3 % (0.0-1.0); EOSINOPHILS PERCENT AUTO 1.8 % (1.0-3.0); LYMPHOCYTES PERCENT AUTO 11.6 % (20.5-50.1); MONOCYTES PERCENT AUTO 6.3 % (2-8); NEUTROPHILS PERCENT AUTO 80.0 % (42.2-75.2); PLATELET COUNT,PLT 193 10^3/uL (150-450); RED BLOOD CELL COUNT 4.41 10^6/uL (4.6-6.2); WHITE BLOOD CELL COUNT,WBC 11.8 10^3/uL (5.0-10.0)
[2024-10-06 23:09] LABS: ALANINE AMINOTRANSFERASE,ALT 19 U/L (16-63); ASPARTATE AMNIOTRANSFERASE,AST 18 U/L (15-37); BILIRUBIN TOTAL 0.5 mg/dL (0.2-1.0); BLOOD UREA NITROGEN,BUN 58 mg/dL (7-18); CARBON DIOXIDE,CO2 16 mmol/L (21-32); CREATININE 4.97 mg/dL (0.70-1.30); GLUCOSE RANDOM 87 mg/dL (70-99); PROTEIN TOTAL,TP 6.8 g/dL (6.4-8.2)
[2024-10-06 23:10] LABS: LACTIC ACID 0.6 mmol/L (0.4-2.0)
[2024-10-06 23:12] LABS: A/G RATIO 0.84; ESTIMATED GFR 14 mL/min (>=60); ETHANOL BLOOD MEDICAL < 3 mg/dL (0)
[2024-10-06 23:13] LABS: CHLORIDE,CL 106 mmol/L (98-107); POTASSIUM,K 5.4 mmol/L (3.5-5.1); SODIUM,NA 135 mmol/L (136-145)
[2024-10-07 00:14] LABS: O2 DELIVERY DEVICE ROOM AIR
[2024-10-07] MEDS: Metoprolol Tartrate 5 MG/5 ML SDV IVPUSH ONE ×2 (00:19→03:10)
[2024-10-07 00:31] LABS: BASE EXCESS VENOUS -12.9 mmol/l ((-2)-(+3)); BICARBONATE,VENOUS 15 mmol/l (19-25); O2 SATURATION VENOUS 63.0 % (60-80); PCO2 VENOUS 43 mmHg (41-51); PO2 VENOUS 43 mmHg (35-42)
[2024-10-07 00:32] LABS: PH,VENOUS 7.16 (7.31-7.41)
[2024-10-07] MEDS: Sodium Bicarbonate 4.2% 2.5 MEQ/5 ML SDV IVPUSH ONE ×2 (01:37→04:51)
[2024-10-07 04:11] LABS: O2 DELIVERY DEVICE ROOM AIR
[2024-10-07 04:13] LABS: BASE EXCESS VENOUS -15.0 mmol/l ((-2)-(+3)); BICARBONATE,VENOUS 12 mmol/l (19-25); O2 SATURATION VENOUS 95.6 % (60-80); PCO2 VENOUS 32 mmHg (41-51); PO2 VENOUS 88 mmHg (35-42)
[2024-10-07 04:15] LABS: PH,VENOUS 7.20 (7.31-7.41)
[2024-10-07 04:33] LABS: BLOOD UREA NITROGEN,BUN 55 mg/dL (7-18); CARBON DIOXIDE,CO2 15 mmol/L (21-32); CHLORIDE,CL 113 mmol/L (98-107); CREATININE 4.44 mg/dL (0.70-1.30); GLUCOSE RANDOM 69 mg/dL (70-99); POTASSIUM,K 4.7 mmol/L (3.5-5.1); SODIUM,NA 139 mmol/L (136-145)
[2024-10-07 04:35] LABS: ESTIMATED GFR 16 mL/min (>=60)
[2024-10-07 04:49] LABS: APPEARANCE,URINE SLIGHTLY CLOUDY (CLEAR); GLUCOSE,URINE 100 (NEGATIVE); OCCULT BLOOD,URINE SMALL (NEGATIVE)
[2024-10-07 04:51] LABS: AMPHETAMINES,URINE NEGATIVE (NEGATIVE); BARBITURATES,URINE NEGATIVE (NEGATIVE); MDMA (ECSTASY), URINE NEGATIVE (NEGATIVE); METHAMPHETAMINES,URINE POSITIVE (NEGATIVE); OPIATES,URINE NEGATIVE (NEGATIVE); OXYCODONE,URINE NEGATIVE (NEGATIVE); PHENCYCLIDINE,URINE NEGATIVE (NEGATIVE); TCA,URINE NEGATIVE (NEGATIVE)
[2024-10-07 04:59] LABS: EPITHELIAL CELLS,URINE MODERATE /HPF (NOT SEEN)
[2024-10-07 05:00] LABS: FINE GRANULAR CASTS,URINE FEW /LPF (NOT SEEN)
[2024-10-07] MEDS ORDERED: Metoprolol Tartrate 5 MG/5 ML SDV IVPUSH PRN (08:58)
[2024-10-07 09:35] LABS: BLOOD UREA NITROGEN,BUN 54 mg/dL (7-18)
[2024-10-07 10:05] LABS: CARBON DIOXIDE,CO2 17 mmol/L (21-32); CHLORIDE,CL 111 mmol/L (98-107); CREATININE 4.65 mg/dL (0.70-1.30); ESTIMATED GFR 15 mL/min (>=60); GLUCOSE RANDOM 98 mg/dL (70-99); POTASSIUM,K 4.8 mmol/L (3.5-5.1); SODIUM,NA 140 mmol/L (136-145)
[2024-10-07 13:10] LABS: BLOOD UREA NITROGEN,BUN 51 mg/dL (7-18); CARBON DIOXIDE,CO2 17 mmol/L (21-32); CHLORIDE,CL 112 mmol/L (98-107); CREATININE 4.54 mg/dL (0.70-1.30); GLUCOSE RANDOM 140 mg/dL (70-99); POTASSIUM,K 4.5 mmol/L (3.5-5.1); SODIUM,NA 141 mmol/L (136-145)
[2024-10-07 13:11] LABS: ESTIMATED GFR 15 mL/min (>=60)
[2024-10-07] MEDS ORDERED: Magnesium Hydroxide 400 MG/5 ML Susp 30 ML Cup PO PRN (14:14)
[2024-10-07] MEDS ORDERED: Acetaminophen/oxyCODONE 325-5 MG Tab PO PRN (14:14)
[2024-10-07] MEDS ORDERED: Ondansetron 4 MG/2 ML SDV IVPUSH PRN (14:14)
[2024-10-07 17:40] LABS: BLOOD UREA NITROGEN,BUN 52.0 mg/dL (7-18); CARBON DIOXIDE,CO2 19.0 mmol/L (21-32); CHLORIDE,CL 114.0 mmol/L (98-107); CREATININE 4.34 mg/dL (0.70-1.30); EST CRCL DRUG DOSING (CG) 20.79 mL/min; GLUCOSE RANDOM 109.0 mg/dL (70-99); POTASSIUM,K 5.3 mmol/L (3.5-5.1); SODIUM,NA 142.0 mmol/L (136-145)
[2024-10-07 17:41] LABS: ESTIMATED GFR 16.0 mL/min (>=60)
[2024-10-07] MEDS: Sodium Polystyrene Sulfonate 15 GM/60 ML Susp 60 ML Bot PO ONE (21:21)
[2024-10-07 21:33] LABS: BLOOD UREA NITROGEN,BUN 53.0 mg/dL (7-18); CARBON DIOXIDE,CO2 18.0 mmol/L (21-32); CHLORIDE,CL 113.0 mmol/L (98-107); CREATININE 4.3 mg/dL (0.70-1.30); EST CRCL DRUG DOSING (CG) 20.99 mL/min; GLUCOSE RANDOM 219.0 mg/dL (70-99); POTASSIUM,K 5.4 mmol/L (3.5-5.1); SODIUM,NA 141.0 mmol/L (136-145)
[2024-10-07 21:37] LABS: ESTIMATED GFR 16.0 mL/min (>=60)
[2024-10-07 23:37] LABS: CREATINE KINASE,CK 86.0 U/L (39-308)
[2024-10-07 23:50] LABS: BASOPHILS PERCENT AUTO 0.2 % (0.0-1.0); EOSINOPHILS PERCENT AUTO 0.5 % (1.0-3.0); LYMPHOCYTES PERCENT AUTO 7.4 % (20.5-50.1); MONOCYTES PERCENT AUTO 5.3 % (2-8); NEUTROPHILS PERCENT AUTO 86.6 % (42.2-75.2); PLATELET COUNT,PLT 182 10^3/uL (150-450); RED BLOOD CELL COUNT 3.52 10^6/uL (4.6-6.2); WHITE BLOOD CELL COUNT,WBC 9.2 10^3/uL (5.0-10.0)
[2024-10-08] MEDS: Ampicillin/Sulbactam Na 1.5 GM in Sodium Chloride 0.9% 100 ML IV ONE (00:22)
[2024-10-08] MEDS: hydrALAZINE 20 MG/ML SDV IVPUSH PRN (00:25)
[2024-10-08] MEDS: Diltiazem 25 MG/5 ML SDV IVPUSH PRN (01:29)
[2024-10-08] MEDS: Ampicillin/Sulbactam Na 1.5 GM in Sodium Chloride 0.9% 100 ML IV SCH ×2 (02:46→10:13)
[2024-10-08 06:55] LABS: BASOPHILS PERCENT AUTO 0.2 % (0.0-1.0); EOSINOPHILS PERCENT AUTO 1.0 % (1.0-3.0); LYMPHOCYTES PERCENT AUTO 10.2 % (20.5-50.1); MONOCYTES PERCENT AUTO 7.6 % (2-8); NEUTROPHILS PERCENT AUTO 81.0 % (42.2-75.2); PLATELET COUNT,PLT 182 10^3/uL (150-450); RED BLOOD CELL COUNT 3.43 10^6/uL (4.6-6.2); WHITE BLOOD CELL COUNT,WBC 8.3 10^3/uL (5.0-10.0)
[2024-10-08 07:11] LABS: ALANINE AMINOTRANSFERASE,ALT 13.0 U/L (16-63); ASPARTATE AMNIOTRANSFERASE,AST 9.0 U/L (15-37); BILIRUBIN TOTAL 0.2 mg/dL (0.2-1.0); BLOOD UREA NITROGEN,BUN 45.0 mg/dL (7-18); CARBON DIOXIDE,CO2 17.0 mmol/L (21-32); CHLORIDE,CL 115.0 mmol/L (98-107); CREATININE 4.26 mg/dL (0.70-1.30); EST CRCL DRUG DOSING (CG) 21.19 mL/min; GLUCOSE RANDOM 104.0 mg/dL (70-99); POTASSIUM,K 4.2 mmol/L (3.5-5.1); PROTEIN TOTAL,TP 4.9 g/dL (6.4-8.2); SODIUM,NA 143.0 mmol/L (136-145)
[2024-10-08 07:17] LABS: A/G RATIO 0.69; ESTIMATED GFR 17.0 mL/min (>=60)
[2024-10-08] MEDS ORDERED: Flumazenil 0.1 MG/ML 5 ML MDV IVPUSH PRN (14:31)
[2024-10-08] MEDS: MVI, Adult with Vitamin K 10 ML, Folic Acid 1 MG, Thiamine 100 MG in Lactated Ringers 1... IV ONE (16:25)
[2024-10-08] MEDS: Sennosides/Docusate Sodium 50-8.6 MG Tab PO SCH (19:42)
[2024-10-09 06:19] LABS: BASOPHILS PERCENT AUTO 0.2 % (0.0-1.0); EOSINOPHILS PERCENT AUTO 1.6 % (1.0-3.0); LYMPHOCYTES PERCENT AUTO 13.6 % (20.5-50.1); MONOCYTES PERCENT AUTO 10.3 % (2-8); NEUTROPHILS PERCENT AUTO 74.3 % (42.2-75.2); PLATELET COUNT,PLT 147 10^3/uL (150-450); RED BLOOD CELL COUNT 3.32 10^6/uL (4.6-6.2); WHITE BLOOD CELL COUNT,WBC 10.0 10^3/uL (5.0-10.0)
[2024-10-09 06:42] LABS: CREATININE 4.06 mg/dL (0.70-1.30); EST CRCL DRUG DOSING (CG) 22.23 mL/min; VANCOMYCIN RANDOM 6.0 ug/mL (No Normal Range)
[2024-10-09 06:47] LABS: ESTIMATED GFR 18.0 mL/min (>=60)
[2024-10-09 07:09] LABS: ALANINE AMINOTRANSFERASE,ALT 15.0 U/L (16-63); ASPARTATE AMNIOTRANSFERASE,AST 12.0 U/L (15-37); BILIRUBIN TOTAL 0.2 mg/dL (0.2-1.0); BLOOD UREA NITROGEN,BUN 43.0 mg/dL (7-18); CARBON DIOXIDE,CO2 19.0 mmol/L (21-32); CHLORIDE,CL 115.0 mmol/L (98-107); CREATININE 4.12 mg/dL (0.70-1.30); EST CRCL DRUG DOSING (CG) 21.91 mL/min; GLUCOSE RANDOM 89.0 mg/dL (70-99); POTASSIUM,K 4.3 mmol/L (3.5-5.1); PROTEIN TOTAL,TP 4.8 g/dL (6.4-8.2); SODIUM,NA 144.0 mmol/L (136-145)
[2024-10-09 07:10] LABS: A/G RATIO 0.55; ESTIMATED GFR 17.0 mL/min (>=60)
[2024-10-10 06:16] LABS: BASOPHILS PERCENT AUTO 0.1 % (0.0-1.0); EOSINOPHILS PERCENT AUTO 3.8 % (1.0-3.0); LYMPHOCYTES PERCENT AUTO 22.7 % (20.5-50.1); MONOCYTES PERCENT AUTO 11.5 % (2-8); NEUTROPHILS PERCENT AUTO 61.9 % (42.2-75.2); PLATELET COUNT,PLT 157 10^3/uL (150-450); RED BLOOD CELL COUNT 3.13 10^6/uL (4.6-6.2); WHITE BLOOD CELL COUNT,WBC 8.0 10^3/uL (5.0-10.0)
[2024-10-10 06:38] LABS: ALANINE AMINOTRANSFERASE,ALT 16.0 U/L (16-63); ASPARTATE AMNIOTRANSFERASE,AST 12.0 U/L (15-37); BILIRUBIN TOTAL 0.2 mg/dL (0.2-1.0); BLOOD UREA NITROGEN,BUN 44.0 mg/dL (7-18); CARBON DIOXIDE,CO2 20.0 mmol/L (21-32); CHLORIDE,CL 114.0 mmol/L (98-107); CREATININE 3.76 mg/dL (0.70-1.30); EST CRCL DRUG DOSING (CG) 24.0 mL/min; GLUCOSE RANDOM 96.0 mg/dL (70-99); POTASSIUM,K 4.4 mmol/L (3.5-5.1); PROTEIN TOTAL,TP 4.8 g/dL (6.4-8.2); SODIUM,NA 143.0 mmol/L (136-145)
[2024-10-10 06:47] LABS: A/G RATIO 0.5; ESTIMATED GFR 19.0 mL/min (>=60)
[2024-10-10 10:46] LABS: KEPPRA <2.0 ug/mL (10.0-40.0)
[2024-10-11 06:17] LABS: BASOPHILS PERCENT AUTO 0.2 % (0.0-1.0); EOSINOPHILS PERCENT AUTO 3.4 % (1.0-3.0); LYMPHOCYTES PERCENT AUTO 21.9 % (20.5-50.1); MONOCYTES PERCENT AUTO 7.8 % (2-8); NEUTROPHILS PERCENT AUTO 66.7 % (42.2-75.2); PLATELET COUNT,PLT 175 10^3/uL (150-450); RED BLOOD CELL COUNT 3.05 10^6/uL (4.6-6.2); WHITE BLOOD CELL COUNT,WBC 8.1 10^3/uL (5.0-10.0)
[2024-10-11 06:47] LABS: ALANINE AMINOTRANSFERASE,ALT 16.0 U/L (16-63); ASPARTATE AMNIOTRANSFERASE,AST 10.0 U/L (15-37); BILIRUBIN TOTAL 0.1 mg/dL (0.2-1.0); BLOOD UREA NITROGEN,BUN 43.0 mg/dL (7-18); CARBON DIOXIDE,CO2 20.0 mmol/L (21-32); CHLORIDE,CL 115.0 mmol/L (98-107); CREATININE 3.64 mg/dL (0.70-1.30); EST CRCL DRUG DOSING (CG) 24.79 mL/min; GLUCOSE RANDOM 92.0 mg/dL (70-99); POTASSIUM,K 4.4 mmol/L (3.5-5.1); PROTEIN TOTAL,TP 4.8 g/dL (6.4-8.2); SODIUM,NA 144.0 mmol/L (136-145)
[2024-10-11 06:49] LABS: A/G RATIO 0.5; ESTIMATED GFR 20.0 mL/min (>=60)
[2024-10-11] MEDS: Acetaminophen/Butalbital/Caffeine 325-50-40 MG Tab PO ONE (09:18)
== END 2024-10-11 11:10 | disposition home or self-care (01) | DRG 70 ==
LOC: DL.ED 22:37 → EEVIPCON 10-07 05:15 → DL.MS 10-07 05:15
PROVIDERS: ADMIT Internal Medicine; ATTEND Internal Medicine
PROC: HZ2ZZZZ Detoxification Services for Substance Abuse Treatment (ICD-10-PCS; principal; 2024-10-07)
DX: G93.41 Metabolic encephalopathy (principal); J69.0 Pneumonitis due to inhalation of food and vomit; I67.4 Hypertensive encephalopathy; E87.1 Hypo-osmolality and hyponatremia; E87.20 Acidosis, unspecified; N17.9 Acute kidney failure, unspecified; N18.4 Chronic kidney disease, stage 4 (severe); F10.239 Alcohol dependence with withdrawal, unspecified; I12.9 Hypertensive chronic kidney disease with stage 1 through stage 4 chronic kidney disease, or unspecified chronic kidney disease; E78.00 Pure hypercholesterolemia, unspecified; F17.200 Nicotine dependence, unspecified, uncomplicated; E87.6 Hypokalemia; E86.0 Dehydration; G93.49 Other encephalopathy; E11.9 Type 2 diabetes mellitus without complications; Z88.8 Allergy status to other drugs, medicaments and biological substances; Z79.4 Long term (current) use of insulin; Z79.899 Other long term (current) drug therapy
CPT/HCPCS: 36415; 51702; 51798; 70450; 71045; 76770; 80048; 80053; 80177; 80202; 80305-QW; 80307; 81001; 82550; 82565; 82803; 82947; 83605; 83735; 84145; 84484; 85025; 86140; 87040; 93005; 93010; 94010; 96361; 96374; 96375; 96376; 99285; 99285-25; A9270-GY; J0295; J0360; J1808; J3360; J3373; J3411; J3490; J7030; J7050; J7070; J7120

== ENCOUNTER 2024-10-29 17:53 | Emergency (ER) | payer MEDICAID ==
[2024-10-29] MEDS ORDERED: Sodium Chloride 0.9% 10 ML Syringe FLUSH PRN (18:03)
[2024-10-29 18:12] LABS: BASOPHILS PERCENT AUTO 0.2 % (0.0-1.0); EOSINOPHILS PERCENT AUTO 0.3 % (1.0-3.0); LYMPHOCYTES PERCENT AUTO 3.4 % (20.5-50.1); MONOCYTES PERCENT AUTO 2.3 % (2-8); NEUTROPHILS PERCENT AUTO 93.8 % (42.2-75.2); PLATELET COUNT,PLT 196 10^3/uL (150-450); RED BLOOD CELL COUNT 3.91 10^6/uL (4.6-6.2); WHITE BLOOD CELL COUNT,WBC 11.8 10^3/uL (5.0-10.0)
[2024-10-29 18:36] LABS: ALANINE AMINOTRANSFERASE,ALT 34 U/L (16-63); ASPARTATE AMNIOTRANSFERASE,AST 23 U/L (15-37); BILIRUBIN TOTAL 0.3 mg/dL (0.2-1.0); BLOOD UREA NITROGEN,BUN 51 mg/dL (7-18); CHLORIDE,CL 108 mmol/L (98-107); CREATININE 3.99 mg/dL (0.70-1.30); EST CRCL DRUG DOSING (CG) 24.14 mL/min; GLUCOSE RANDOM 164 mg/dL (70-99); POTASSIUM,K 6.1 mmol/L (3.5-5.1); PROTEIN TOTAL,TP 5.9 g/dL (6.4-8.2); SODIUM,NA 134 mmol/L (136-145)
[2024-10-29 18:43] LABS: CARBON DIOXIDE,CO2 18 mmol/L (21-32)
[2024-10-29 18:45] LABS: A/G RATIO 0.69; ESTIMATED GFR 18 mL/min (>=60)
[2024-10-29 19:04] LABS: BASE EXCESS VENOUS -9.6 mmol/l ((-2)-(+3)); BICARBONATE,VENOUS 16 mmol/l (19-25); O2 DELIVERY DEVICE ROOM AIR; O2 SATURATION VENOUS 53.5 % (60-80); PCO2 VENOUS 36 mmHg (41-51); PH,VENOUS 7.27 (7.31-7.41); PO2 VENOUS 40 mmHg (35-42)
[2024-10-30 06:24] LABS: BASOPHILS PERCENT AUTO 0.2 % (0.0-1.0); EOSINOPHILS PERCENT AUTO 1.4 % (1.0-3.0); LYMPHOCYTES PERCENT AUTO 19.7 % (20.5-50.1); MONOCYTES PERCENT AUTO 6.8 % (2-8); NEUTROPHILS PERCENT AUTO 71.9 % (42.2-75.2); PLATELET COUNT,PLT 171 10^3/uL (150-450); RED BLOOD CELL COUNT 3.17 10^6/uL (4.6-6.2); WHITE BLOOD CELL COUNT,WBC 9.2 10^3/uL (5.0-10.0)
[2024-10-30 06:53] LABS: ALANINE AMINOTRANSFERASE,ALT 23.0 U/L (16-63); ASPARTATE AMNIOTRANSFERASE,AST 17.0 U/L (15-37); BILIRUBIN TOTAL 0.4 mg/dL (0.2-1.0); BLOOD UREA NITROGEN,BUN 44.0 mg/dL (7-18); CARBON DIOXIDE,CO2 17.0 mmol/L (21-32); CHLORIDE,CL 113.0 mmol/L (98-107); CREATININE 3.7 mg/dL (0.70-1.30); EST CRCL DRUG DOSING (CG) 26.03 mL/min; GLUCOSE RANDOM 74.0 mg/dL (70-99); POTASSIUM,K 5.2 mmol/L (3.5-5.1); PROTEIN TOTAL,TP 5.0 g/dL (6.4-8.2); SODIUM,NA 138.0 mmol/L (136-145)
[2024-10-30 06:55] LABS: A/G RATIO 0.67; ESTIMATED GFR 20.0 mL/min (>=60)
[2024-10-30] MEDS ORDERED: Ondansetron 4 MG/2 ML SDV IVPUSH PRN (09:00)
[2024-10-30] MEDS: Heparin Sodium/0.45% NaCl 25,000 UNITS/500 ML BAG IV SCH (09:33)
[2024-10-30 09:42] LABS: INR 0.9 (0.9-1.2); PTT,PARTIAL THROMBOPLSTIN TIME 24.9 SEC (22.0-34.0)
== END 2024-10-30 09:45 ==
LOC: DL.ED 17:53
DX: I21.4 Non-ST elevation (NSTEMI) myocardial infarction (principal); N17.9 Acute kidney failure, unspecified; E78.00 Pure hypercholesterolemia, unspecified; E11.22 Type 2 diabetes mellitus with diabetic chronic kidney disease; I12.9 Hypertensive chronic kidney disease with stage 1 through stage 4 chronic kidney disease, or unspecified chronic kidney disease; N18.9 Chronic kidney disease, unspecified; Z88.5 Allergy status to narcotic agent; Z88.6 Allergy status to analgesic agent; Z79.82 Long term (current) use of aspirin; Z86.73 Personal history of transient ischemic attack (TIA), and cerebral infarction without residual deficits; Z79.899 Other long term (current) drug therapy
CPT/HCPCS: 36415; 70450; 80053; 82140; 82803; 83735; 84484; 85025; 85610; 85730; 86140; 87081; 87430; 93005; 96361; 96374; 96375; 99285; A9270; J1644; J1920; J7030; J3490